=== PATIENT | male | born 1955 | race African-American/Black ===

== ENCOUNTER 2018-05-31 09:44 | Observation (INO) | payer OTHER ==
--- OUTSIDE RECORDS SUMMARY | 2018-05-31 09:47 | XMS REPORT | Summary of Care ---
:1955 Author Organization [facility] Address [address] [place], [place] [address]- Encounter HQ Frederick(FIN) [id number] Date(s): 08/19/15 - 08/19/15 [facility] [address] [place] [address]- [phone] Discharge Diagnosis: Arm swelling Discharge Disposition: Home Attending Physician: Agustin Yi DO Vital Signs Most recent to oldest [Reference Range]: 1 2 Height 172.72 cm (08/19/15 11:19 AM) Most recent to oldest [Reference Range]: 1 2 Temperature Oral [96.4-99.1 DegF] 98.3 DegF 98.3 DegF (08/19/15 5:17 PM) (08/19/15 11:19 AM) Most recent to oldest [Reference Range]: 1 2 Blood Pressure [90-140/60-90 mmHg] 145/77 mmHg 141/76 mmHg *HI* *HI* (08/19/15 5:17 PM) (08/19/15 11:19 AM) Most recent to oldest [Reference Range]: 1 2 Respiratory Rate [14-20 BRMIN] 17 BRMIN 16 BRMIN (08/19/15 5:17 PM) (08/19/15 11:19 AM) Most recent to oldest [Reference Range]: 1 2 Peripheral Pulse Rate [60-100 bpm] 66 bpm 67 bpm (08/19/15 5:17 PM) (08/19/15 11:19 AM) Most recent to oldest [Reference Range]: 1 2 Weight 118.182 kg (08/19/15 11:19 AM) Most recent to oldest [Reference Range]: 1 2 Body Mass Index 39.62 m2 (08/19/15 11:19 AM) Problem List Condition Effective Dates Status Health Status Informant Anxiety(Confirmed) Active Arthritis(Confirmed) Active Blood clotting disorder(Confirmed) Active CHF - Congestive heart Active failure(Confirmed) ESRD - End stage renal Active disease(Confirmed) Hypertension(Confirmed) Active Numbness of hand(Confirmed)1 Active 1Left hand Allergies, Adverse Reactions, Alerts Substance Reaction Severity Status NKDA Active Medications tramadol 50 mg oral tablet 25 mg=0.5 tab, PO, Q4H, PRN as needed for pain, X 7 day, # 21 tab, 0 Refill(s) Start Date: 08/19/15 Stop Date: 08/26/15 Status: Ordered Results ELECTROLYTES Most recent to oldest [Reference Range]: 1 Sodium Lvl [135-145 mEq/L] 136 mEq/L (08/19/15 4:04 PM) Potassium Lvl [3.5-5.1 mEq/L] 4.0 mEq/L (08/19/15 4:04 PM) Chloride Lvl [95-109 mEq/L] 98 mEq/L (08/19/15 4:04 PM) CO2 [24-32 mEq/L] 30 mEq/L (08/19/15 4:04 PM) AGAP [10.0-20.0 mEq/L] 12.0 mEq/L (08/19/15 4:04 PM) CHEM PANEL Most recent to oldest [Reference Range]: 1 Creatinine Lvl [0.5-1.4 mg/dL] 4.1 mg/dL *HI* (08/19/15 4:04 PM) eGFR 17 mL/min/1.73m2 1 *NA* (08/19/15 4:04 PM) BUN [7-22 mg/dL] 37 mg/dL *HI* (08/19/15 4:04 PM) Glucose Lvl [70-99 mg/dL] 100 mg/dL *HI* (08/19/15 4:04 PM) Calcium Lvl [8.5-10.5 mg/dL] 8.6 mg/dL (08/19/15 4:04 PM) 1Result Comment: The eGFR is calculated using the CKD-EPI formula. In most young , healthy individualsthe eGFR will be >90 mL/min/1.73m2. The eGFR declines with age. An eGFR of 60-89 may be normal in some populations, particularly the elderly, for whom the CKD-EPI formula has not been extensively validated. Use of the eGFR is not recommended in the following populations: Individuals with unstable creatinine concentrations, including patients and those with serious co-morbid conditions. Patients with extremes in muscle mass or diet. The data above are obtained from the National Kidney Disease Education Program ( NKDEP) which additionally recommends that when the eGFR is used in patients with extremes of body mass index for purposesof drug dosing, the eGFR should be multiplied by the estimated BMI. Immunizations No data available for this section Procedures Procedure Date Related Diagnosis Body Site Laparoscopic cholecystectomy Operation Operation Social History Social History Type Response Alcohol Past Smoking Status Never smoker; Type: Cigarettes; Exposure to Tobacco Smoke None; Cigarette Smoking Last 365 Days No; Reg Smoking Cessation Counseling No Assessment and Plan No data available for this section
--- OUTSIDE RECORDS SUMMARY | 2018-05-31 09:47 | XMS REPORT | Summary of Care ---
:1955 Author Encounter CLAUDIA Mack(DEBBY) [id number] Date(s): 04/20/15 - 04/20/15 [facility] [address] [place] [address]- Discharge Disposition: Home Physician Attending: Vargas Leone MD Physician_Referring: Vargas Leone MD Vital Signs Most recent to oldest 1 2 3 [Reference Range]: Height 172.72 cm (04/13/15 12:04 PM) Temperature Oral [96.4-99.1 98.0 DegF DegF] (04/13/15 12:07 PM) Blood Pressure [90-140/60-90 147/84 mmHg 127/68 mmHg 116/71 mmHg mmHg] *HI* (04/20/15 4:15 PM) (04/20/15 4:00 PM) (04/20/15 4:30 PM) Respiratory Rate [14-20 BRMIN] 13 BRMIN 11 BRMIN 8 BRMIN *LOW* *LOW* *LOW* (04/20/15 2:30 PM) (04/20/15 2:15 PM) (04/20/15 2:00 PM) Peripheral Pulse Rate [60-100 60 bpm bpm] (04/13/15 12:07 PM) Weight 99.091 kg (04/13/15 12:04 PM) Body Mass Index 33.22 m2 (04/13/15 12:04 PM) Problem List Condition Effective Dates Status Health Status Informant Anxiety(Confirmed) Active Arthritis(Confirmed) Active Blood clotting disorder(Confirmed) Active CHF - Congestive heart Active failure(Confirmed) ESRD - End stage renal Active disease(Confirmed) Hypertension(Confirmed) Active Numbness of hand(Confirmed)1 Active 1Left hand Allergies, Adverse Reactions, Alerts Substance Reaction Severity Status NKDA Active Medications acetaminophen 650 mg, Route: PO, Drug form: TAB, Q4H, Dosing Weight 99.091, kg, PRN Pain 1-3/ Temp > 100.4 F, Start date: 04/20/15 16:08:00, Duration: 30 day, Stop date: 16:07:00 Start Date: 04/20/15 Stop Date: 04/20/15 Status: Deletedacetaminophen-codeine #3 1 tab, Route: PO, Drug Form: TAB, kg, Q4H, PRN Pain Score 1-3, Start date: 04/20 16:08:00, Duration: 30 day, Stop date: 05/20/15 16:07:00 Start Date: 04/20/15 Stop Date: 04/20/15 Status: DeletedAncef 2 gm, Route: IVPB, ONCE, Dosing Weight 99.091, kg, Start date: 04/20/15 11:33:00 , Duration: 1 doses or times, Stop date: 04/20/15 11:33:00 Start Date: 04/20/15 Stop Date: 04/20/15 Status: DeletedAncef 1 gm, 100 mL, Route: IVPB, Drug form: INJ, PRE OP, kg, Start date: 04/13/15 13: 00:00, Duration: 30 day, Stop date: 05/13/15 12:59:00 Start Date: 04/13/15 Stop Date: 04/20/15 Status: DiscontinuedBiDil oral tablet 1 tab, PO, BID, # 30 tab, 0 Refill(s) Start Date: 04/13/15 Status: OrderedcloNIDine 0.2 mg oral tablet 0.2 mg, PO, TID, # 60 tab, 0 Refill(s) Start Date: 04/13/15 Status: OrdereddiphenhydrAMINE 12.5 mg, Route: IVP, Drug form: INJ, Q6H, Dosing Weight 99.091, kg, PRN Itching , Start date: 04/20/15 14:23:00, Duration: 30 day, Stop date: 05/20/15 14:22:00 Start Date: 04/20/15 Stop Date: 04/20/15 Status: DiscontinuedfentaNYL 50 microgram, Route: IVP, Q5Min, Dosing Weight 99.091, kg, PRN Pain Score 7-10, Start date: 04/20/1514:23:00, Duration: 2 doses or times, Stop date: Limited # of times Start Date: 04/20/15 Stop Date: 04/20/15 Status: DiscontinuedfentaNYL 25 microgram, Route: IVP, Q5Min, Dosing Weight 99.091, kg, PRN Pain Score 4-6, Start date: 04/20/15 14:23:00, Duration: 4 doses or times, Stop date: Limited # of times Start Date: 04/20/15 Stop Date: 04/20/15 Status: Discontinuedflumazenil 0.2 mg, Route: IVP, PRN, Dosing Weight 99.091, kg, PRN Benzodiazepine Reversal, Initial dose, Start date: 04/20/15 14:23:00, Duration: 30 day, Stop date: 14:22:00 Start Date: 04/20/15 Stop Date: 04/20/15 Status: Discontinuedfurosemide 40 mg oral tablet 40 mg=1 tab, PO, Daily, # 30 tab, 0 Refill(s) Start Date: 04/13/15 Status: Orderedglycopyrrolate 0.2 mg, Route: IVP, Q5Min, Dosing Weight 99.091, kg, PRN Bradycardia, Start date : 04/20/15 14:23:00,Duration: 3 doses or times, Stop date: Limited # of times Start Date: 04/20/15 Stop Date: 04/20/15 Status: DiscontinuedhydrALAZINE 10 mg, Route: IVP, Q20Min, Dosing Weight 99.091, kg, PRN Elevated BP, Start date : 04/20/15 14:23:00,Duration: 2 doses or times, Stop date: Limited # of times Start Date: 04/20/15 Stop Date: 04/20/15 Status: Discontinuedhydromorphone 0.5 mg, Route: IVP, Q5Min, Dosing Weight 99.091, kg, PRN Pain Score 7-10, Start date: 04/20/15 14:23:00, Duration: 4 doses or times, Stop date: Limited # of times Start Date: 04/20/15 Stop Date: 04/20/15 Status: DiscontinuedketOROLAC 30 mg, Route: IVP, ONCE, Dosing Weight 99.091, kg, Start date: 04/20/15 14:23:00 , Duration: 1 doses or times, Stop date: 04/20/15 14:23:00 Start Date: 04/20/15 Stop Date: 04/20/15 Status: DiscontinuedLactated Ringers Injection IV 1000 mL 1,000 mL, Rate: 25 ml/hr, Infuse over: 40 hr, Route: IV, Dosing Weight 99.091 kg , Total Volume: 1,000, Start date: 04/20/15 11:28:00, Duration: 30 day, Stop date: 05/20/15 11:27:00 Start Date: 04/20/15 Stop Date: 04/20/15 Status: Discontinuedmeperidine 12.5 mg, Route: IVP, Q30Min, Dosing Weight 99.091, kg, PRN Other -See Comment, For shivering, Start date: 04/20/15 14:23:00, Duration: 2 doses or times, Stop date: Limited # of times Start Date: 04/20/15 Stop Date: 04/20/15 Status: Discontinuedmetoprolol 1 mg, Route: IVP, Q5Min, Dosing Weight 99.091, kg, PRN Other -See Comment, Start date: 04/20/15 14:23:00, Duration: 5 doses or times, Stop date: Limited # of times Start Date: 04/20/15 Stop Date: 04/20/15 Status: DiscontinuedMetoprolol Tartrate 100 mg oral tablet 100 mg=1 tab, PO, BID, # 60 tab, 0 Refill(s) Start Date: 04/13/15 Status: Orderedminoxidil 2.5 mg oral tablet 5 mg=2 tab, PO, BID, # 120 tab, 0 Refill(s) Start Date: 04/13/15 Status: Orderedmorphine Sulfate 4 mg, Route: IVP, Q6H, kg, PRN Pain Score 4-6, Start date: 04/20/15 16:08:00, Duration: 30 day, Stopdate: 05/20/15 16:07:00 Start Date: 04/20/15 Stop Date: 04/20/15 Status: Deletedmorphine Sulfate 6 mg, Route: IVP, Q6H, kg, PRN Pain Score 6-10, Start date: 04/20/15 16:08:00, Duration: 30 day, Stop date: 05/20/15 16:07:00 Start Date: 04/20/15 Stop Date: 04/20/15 Status: Deletedmorphine Sulfate 2 mg, Route: IVP, Q3H, Dosing Weight 99.091, kg, PRN Pain Score 1-3, Start date : 04/20/15 16:08:00, Duration: 30 day, Stop date: 05/20/15 16:07:00 Start Date: 04/20/15 Stop Date: 04/20/15 Status: Deletedmorphine Sulfate 4 mg, Route: IVP, Q5Min, Dosing Weight 99.091, kg, PRN Pain Score 7-10, Start date: 04/20/15 14:23:00, Duration: 3 doses or times, Stop date: Limited # of times Start Date: 04/20/15 Stop Date: 04/20/15 Status: Discontinuedmorphine Sulfate 2 mg, Route: IVP, Q5Min, Dosing Weight 99.091, kg, PRN Pain Score 4-6, Start date: 04/20/15 14:23:00, Duration: 5 doses or times, Stop date: Limited # of times Start Date: 04/20/15 Stop Date: 04/20/15 Status: Discontinuednaloxone 0.04 mg, Route: IVP, Q2MIN, Dosing Weight 99.091, kg, PRN Narcotic Reversal, Start date: 04/20/15 14:23:00, Duration: 8 doses or times, Stop date: Limited # of times Start Date: 04/20/15 Stop Date: 04/20/15 Status: Discontinuedondansetron 4 mg, Route: IVP, ONCE, Dosing Weight 99.091, kg, PRN Nausea & Vomiting, Start date: 04/20/15 14:23:00 Start Date: 04/20/15 Stop Date: 04/20/15 Status: DiscontinuedoxyCODONE 5 mg, Route: PO, Drug form: TAB, Q4H, Dosing Weight 99.091, kg, PRN Pain Score 4 -6, Start date: 04/20/15 14:23:00, Duration: 30 day, Stop date: 05/20/15 14:22: 00 Start Date: 04/20/15 Stop Date: 04/20/15 Status: DiscontinuedoxyCODONE 10 mg, Route: PO, Drug form: TAB, Q4H, Dosing Weight 99.091, kg, PRN Pain Score 7-10, Start date: 04/20/15 14:23:00, Duration: 30 day, Stop date: 05/20/15 14:22 :00 Start Date: 04/20/15 Stop Date: 04/20/15 Status: Discontinuedpromethazine 6.25 mg, Route: IVPB, ONCE, Dosing Weight 99.091, kg, PRN Nausea & Vomiting , Start date: 04/20/15 14:23:00 Start Date: 04/20/15 Stop Date: 04/20/15 Status: DiscontinuedSodium Chloride 0.9% IV 500 mL 500 mL, Rate: 25 ml/hr, Infuse over: 20 hr, Route: IV, Dosing Weight 99.091 kg, Total Volume: 500, Start date: 04/20/15 11:30:00, Duration: 30 day, Stop date: 05/20/15 11:29:00 Start Date: 04/20/15 Stop Date: 04/20/15 Status: Voided With Resultstamsulosin 0.4 mg oral capsule 0.4 mg=1 cap, PO, Daily, # 30 cap, 0 Refill(s) Start Date: 04/13/15 Status: Orderedtramadol 50 mg oral tablet 50 mg=1 tab, PO, Q6H, PRN Pain, # 40 tab, 0 Refill(s) Start Date: 04/13/15 Stop Date: 04/23/15 Status: Ordered Results ELECTROLYTES Most recent to oldest [Reference Range]: 1 2 Sodium Lvl [135-145 mEq/L] 140 mEq/L (04/13/15 1:57 PM) Potassium Lvl [3.5-5.1 mEq/L] 4.7 mEq/L 4.6 mEq/L (04/20/15 11:08 AM) (04/13/15 1:57 PM) Chloride Lvl [95-109 mEq/L] 110 mEq/L *HI* (04/13/15 1:57 PM) CO2 [24-32 mEq/L] 22 mEq/L *LOW* (04/13/15 1:57 PM) AGAP [10.0-20.0 mEq/L] 12.6 mEq/L (04/13/15 1:57 PM) CHEM PANEL Most recent to oldest [Reference Range]: 1 2 Creatinine Lvl [0.5-1.4 mg/dL] 5.3 mg/dL *HI* (04/13/15 1:57 PM) eGFR 12 mL/min/1.73m2 1 *NA* (04/13/15 1:57 PM) BUN [7-22 mg/dL] 76 mg/dL *HI* (04/13/15 1:57 PM) Glucose Lvl [70-99 mg/dL] 96 mg/dL 2 (04/13/15 1:57 PM) Calcium Lvl [8.5-10.5 mg/dL] 8.3 mg/dL *LOW* (04/13/15 1:57 PM) 1Result Comment: The eGFR is calculated [...] eGFR should be multiplied by the estimated BMI.2Interpretive Data: Adult reference range values reflect the clinical guidelines of the [place] [employer].HEMATOLOGY Most recent to oldest [Reference Range]: 1 2 WBC [3.7-10.4 K/CMM] 4.7 K/CMM (04/13/15 1:57 PM) RBC [4.70-6.10 M/CMM] 3.75 M/CMM *LOW* (04/13/15 1:57 PM) Hgb [14.0-18.0 g/dL] 10.5 g/dL *LOW* (5/20/15 1:57 PM) Hct [42.0-54.0 %] 32.6 % *LOW* (04/13/15 1:57 PM) MCV [80.0-94.0 fL] 86.8 fL (04/13/15 1:57 PM) MCH [27.0-31.0 pg] 28.1 pg (04/13/15 1:57 PM) MCHC [32.0-36.0 g/dL] 32.3 g/dL (04/13/15 1:57 PM) RDW [11.5-14.5 %] 19.3 % *HI* (04/13/15 1:57 PM) Platelet [133-450 K/CMM] 150 K/CMM (04/13/15 1:57 PM) MPV [7.4-10.4 fL] 8.1 fL (04/13/15 1:57 PM) Segs [45.0-75.0 %] 63.6 % (04/13/15 1:57 PM) Lymphocytes [20.0-40.0 %] 17.2 % *LOW* (04/13/15 1:57 PM) Monocytes [2.0-12.0 %] 10.8 % (04/13/15 1:57 PM) Eosinophils [0.0-4.0 %] 7.0 % *HI* (04/13/15 1:57 PM) Basophils [0.0-1.0 %] 1.4 % *HI* (04/13/15 1:57 PM) Segs-Bands # [1.5-8.1 K/CMM] 3.0 K/CMM (04/13/15 1:57 PM) Lymphocytes # [1.0-5.5 K/CMM] 0.8 K/CMM *LOW* (04/13/15 1:57 PM) Monocytes # [0.0-0.8 K/CMM] 0.5 K/CMM (04/13/15 1:57 PM) Eosinophils # [0.0-0.5 K/CMM] 0.3 K/CMM (04/13/15 1:57 PM) Basophils # [0.0-0.2 K/CMM] 0.1 K/CMM (04/13/15 1:57 PM) PT [12.0-14.7 seconds] 14.6 seconds (04/13/15 1:57 PM) INR [0.85-1.17] 1.13 3 (04/13/15 1:57 PM) PTT [22.9-35.8 seconds] 35.6 seconds 4 (04/13/15 1:57 PM) 3Interpretive Data: RECOMMENDED RANGES FOR PROTIME INR: 2.0-3.0 for most medical and surgical thromboembolic states. 2.5-3.5 for artificial heart valves and recurrent embolism. INR SHOULD BE USED ONLY FOR PATIENTS ON STABLE ANTICOAGULANT THERAPY.4Interpretive Data: Heparin Therapeutic Range: 57 - 92 Seconds Immunizations No data available for this section [...]
--- OUTSIDE RECORDS SUMMARY | 2018-05-31 09:47 | XMS REPORT | Summary of Care ---
:1955 Author Organization [facility] Address [address] [place], [place] [address]- Encounter HQ Marilyn_becca(FIN) [id number] Date(s): 10/31/16 - 10/31/16 [facility] [address] [place] [address]- [phone] Discharge Disposition: Home or Self Care Attending Physician: Vargas Leone MD Referring Physician: Vargas Leone MD Vital Signs No data available for this section Problem List Condition Effective Dates Status Health Status Informant Anxiety(Confirmed) Active Arteriovenous fistula Active occlusion(Confirmed)1 Arthritis(Confirmed) Active Blood clotting disorder(Confirmed) Active CHF - Congestive heart Active failure(Confirmed) ESRD - End stage renal Active disease(Confirmed) Hypertension(Confirmed) Active Inferior vena cava filter Active present(Confirmed) Numbness of hand(Confirmed)2 Active 1left [id number] hand Allergies, Adverse Reactions, Alerts Substance Reaction Severity Status NKDA Active Medications No data available for this section Results No data available for this section Immunizations No data available for this section Procedures Procedure Date Related Diagnosis Body Site Creation of brachial-cephalic fistula 04/20/15 Laparoscopic cholecystectomy Operation Operation Social History Social History Type Response Alcohol Past Smoking Status Never smoker; Type: Cigarettes; Exposure to Tobacco Smoke None; Cigarette Smoking Last 365 Days No; Reg Smoking Cessation Counseling No Assessment and Plan No data available for this section
--- OUTSIDE RECORDS SUMMARY | 2018-05-31 09:47 | XMS REPORT | Summary of Care ---
:1955 Author Encounter HQ Marilyn_becca(DEBBY) [id number] Date(s): 04/13/15 - 04/13/15 [facility] [address] [place] [address]- Discharge Disposition: Home Physician Attending: Vargas Leone MD Physician_Referring: Vargas Leone MD Vital Signs No data [...]
--- OUTSIDE RECORDS SUMMARY | 2018-05-31 09:47 | XMS REPORT | Summary of Care ---
:1955 Author Organization [facility] Address [address] [place], [place] [address]- Encounter HQ Frederick(DEBBY) [id number] Date(s): 08/22/15 - 08/22/15 [facility] [address] [place] [address]- [phone] Final: End Stage Renal Disease Final: Other Complications Due to Renal Dialysis Device, Implant, and Graft Final: Hypertensive Chronic Kidney Disease, Unspecified, with Chronic Kidney Disease Stage V or End Stage Renal Disease Final: Renal Dialysis Status Final: Personal History of Venous Thrombosis and Embolism Final: First Degree Atrioventricular Block Discharge Disposition: Home Attending Physician: Vargas Leone MD Referring Physician: Vargas Leone MD Vital Signs Most recent to oldest [Reference Range]: 1 2 3 Height 172.72 cm (08/22/15 9:25 AM) Most recent to oldest [Reference Range]: 1 2 3 Temperature Oral [96.4-99.1 DegF] 98 DegF (08/22/15 10:28 AM) Most recent to oldest 1 2 3 [Reference Range]: Blood Pressure [90-140/60-90 124/54 mmHg 122/59 mmHg 128/62 mmHg mmHg] (08/22/15 3:15 PM) (08/22/15 3:00 PM) (08/22/15 2:45 PM) Most recent to oldest 1 2 3 [Reference Range]: Respiratory Rate [14-20 BRMIN] 18 BRMIN 18 BRMIN 16 BRMIN (08/22/15 3:15 PM) (08/22/15 3:00 PM) (08/22/15 2:45 PM) Most recent to oldest [Reference Range]: 1 2 3 Peripheral Pulse Rate [60-100 bpm] 66 bpm (08/22/15 10:28 AM) Most recent to oldest [Reference Range]: 1 2 3 Weight 99.091 kg (08/22/15 9:25 AM) Most recent to oldest [Reference Range]: 1 2 3 Body Mass Index 33.22 m2 (08/22/15 9:25 AM) Problem List Condition Effective Dates Status Health Status Informant Anxiety(Confirmed) Active Arteriovenous fistula Active occlusion(Confirmed)1 Arthritis(Confirmed) Active Blood clotting disorder(Confirmed) Active CHF - Congestive heart Active failure(Confirmed) ESRD - End stage renal Active disease(Confirmed) Hypertension(Confirmed) Active Inferior vena cava filter Active present(Confirmed) Numbness of hand(Confirmed)2 Active 1left [id number] hand Allergies, Adverse Reactions, Alerts Substance Reaction Severity Status NKDA Active Medications acetaminophen-codeine #3 1 tab, Route: PO, Drug Form: TAB, Dosing Weight 99.091, kg, Q4H, PRN Pain Score 4-6, Start date: 08/22/15 13:23:00, Duration: 30 day, Stop date: 09/21/15 13:22: 00 Start Date: 08/22/15 Stop Date: 08/22/15 Status: Discontinuedacetaminophen-codeine #3 2 tab, Route: PO, Drug Form: TAB, Dosing Weight 99.091, kg, Q4H, PRN Pain Score 4-6, Start date: 08/22/15 13:23:00, Duration: 30 day, Stop date: 09/21/15 13:22: 00 Start Date: 08/22/15 Stop Date: 08/22/15 Status: DiscontinuedAncef 2 gm, Route: IVPB, PRE OP, Dosing Weight 118.182, kg, Start date: 08/22/15 10:00 :00, Duration: 30 day, Stop date: 09/21/15 9:59:00 Start Date: 08/22/15 Stop Date: 08/22/15 Status: CompletedDialyvite 800 Ultra D 0 Refill(s) Start Date: 08/22/15 Status: Orderedmorphine Sulfate 2 mg, Route: IVP, Q3H, Dosing Weight 99.091, kg, PRN Pain Score 1-3, Start date : 08/22/15 13:23:00, Duration: 30 day, Stop date: 09/21/15 13:22:00 Start Date: 08/22/15 Stop Date: 08/22/15 Status: DiscontinuedNorco 5/325 oral tablet 1-2 tab, PO, Q4-6H, PRN Pain, # 30 tab, 0 Refill(s) Start Date: 08/22/15 Stop Date: 08/27/15 Status: OrderedSodium Chloride 0.9% IV 500 mL 500 mL, Rate: 25 ml/hr, Infuse over: 20 hr, Route: IV, Dosing Weight 99.091 kg, Total Volume: 500, Start date: 08/22/15 11:59:00, Duration: 30 day, Stop date: 09/21/15 11:58:00 Start Date: 08/22/15 Stop Date: 08/22/15 Status: Discontinuedvancomycin 1 gm, Route: IVPB, Drug form: INJ, PRE OP, Dosing Weight 118.182, kg, Start date : 08/22/15 10:00:00,Duration: 30 day, Stop date: 09/21/15 9:59:00 Start Date: 08/22/15 Stop Date: 08/22/15 Status: Completed Results ELECTROLYTES Most recent to oldest [Reference Range]: 1 Sodium Lvl [135-145 mEq/L] 139 mEq/L (08/22/15 9:59 AM) Potassium Lvl [3.5-5.1 mEq/L] 3.9 mEq/L (08/22/15 9:59 AM) Chloride Lvl [95-109 mEq/L] 101 mEq/L (08/22/15 9:59 AM) CO2 [24-32 mEq/L] 31 mEq/L (08/22/15 9:59 AM) AGAP [10.0-20.0 mEq/L] 10.9 mEq/L (08/22/15 9:59 AM) CHEM PANEL Most recent to oldest [Reference Range]: 1 Creatinine Lvl [0.5-1.4 mg/dL] 5.3 mg/dL *HI* (08/22/15 9:59 AM) eGFR 12 mL/min/1.73m2 1 *NA* (08/22/15 9:59 AM) BUN [7-22 mg/dL] 49 mg/dL *HI* (08/22/15 9:59 AM) Glucose Lvl [70-99 mg/dL] 103 mg/dL *HI* (08/22/15 9:59 AM) Calcium Lvl [8.5-10.5 mg/dL] 8.6 mg/dL (08/22/15 9:59 AM) 1Result Comment: The eGFR is calculated using [...] eGFR should be multiplied by the estimated BMI.HEMATOLOGY Most recent to oldest [Reference Range]: 1 WBC [3.7-10.4 K/CMM] 5.4 K/CMM (08/22/15 9:59 AM) RBC [4.70-6.10 M/CMM] 3.52 M/CMM *LOW* (08/22/15 9:59 AM) Hgb [14.0-18.0 g/dL] 9.3 g/dL *LOW* (08/22/15 9:59 AM) Hct [42.0-54.0 %] 29.7 % *LOW* (08/22/15 9:59 AM) MCV [80.0-94.0 fL] 84.3 fL (08/22/15 9:59 AM) MCH [27.0-31.0 pg] 26.4 pg *LOW* (08/22/15 9:59 AM) MCHC [32.0-36.0 g/dL] 31.3 g/dL *LOW* (08/22/15 9:59 AM) RDW [11.5-14.5 %] 17.2 % *HI* (08/22/15 9:59 AM) Platelet [133-450 K/CMM] 224 K/CMM (08/22/15 9:59 AM) MPV [7.4-10.4 fL] 7.7 fL (08/22/15 9:59 AM) Segs [45.0-75.0 %] 56.3 % (08/22/15 9:59 AM) Lymphocytes [20.0-40.0 %] 17.0 % *LOW* (08/22/15 9:59 AM) Monocytes [2.0-12.0 %] 13.0 % *HI* (08/22/15 9:59 AM) Eosinophils [0.0-4.0 %] 13.3 % *HI* (08/22/15 9:59 AM) Basophils [0.0-1.0 %] 0.4 % (08/22/15 9:59 AM) Segs-Bands # [1.5-8.1 K/CMM] 3.0 K/CMM (08/22/15 9:59 AM) Lymphocytes # [1.0-5.5 K/CMM] 0.9 K/CMM *LOW* (08/22/15 9:59 AM) Monocytes # [0.0-0.8 K/CMM] 0.7 K/CMM (08/22/15 9:59 AM) Eosinophils # [0.0-0.5 K/CMM] 0.7 K/CMM *HI* (08/22/15 9:59 AM) PT [12.0-14.7 seconds] 14.1 seconds (08/22/15 9:59 AM) INR [0.85-1.17] 1.06 (08/22/15 9:59 AM) PTT [22.9-35.8 seconds] 37.6 seconds *HI* (08/22/15 9:59 AM) Immunizations No data available for this section Procedures Procedure Date Related Diagnosis Body Site Creation of brachial-cephalic fistula 04/20/15 Laparoscopic cholecystectomy Operation Operation Social History Social History Type Response Alcohol Past Smoking Status Never smoker; Exposure to Tobacco Smoke None; Cigarette Smoking Last 365 Days No; Reg Smoking Cessation Counseling No Assessment and Plan No data available for this section
--- OUTSIDE RECORDS SUMMARY | 2018-05-31 09:47 | XMS REPORT | Summary of Care ---
:1955 Author Organization [facility] Address [address] [place], [place] [address]- Encounter HQ [place](DEBBY) [phone] Date(s): 12/10/16 - 12/10/16 [facility] [address] [place] [address]- Discharge Disposition: Home or Self Care Attending Physician: Vargas Leone MD Referring Physician: Vargas Leone MD Vital Signs Most recent to oldest 1 2 3 [Reference Range]: Height 172.72 cm (12/05/16 8:21 AM) Temperature Oral [96.4-99.1 97.5 DegF DegF] (12/05/16 8:25 AM) Blood Pressure [90-140/60-90 129/77 mmHg 126/84 mmHg 120/75 mmHg mmHg] (12/10/16 1:15 PM) (12/10/16 1:00 PM) (12/10/16 12:45 PM) Respiratory Rate [14-20 17 BRMIN 14 BRMIN 13 BRMIN BRMIN] (12/10/16 12:45 PM) (12/10/16 12:30 PM) *LOW* (12/10/16 12:15 PM) Peripheral Pulse Rate 87 bpm 78 bpm [60-100 bpm] (12/10/16 1:00 PM) (12/05/16 8:25 AM) Weight 109.136 kg (12/05/16 8:21 AM) Body Mass Index 36.58 m2 (12/05/16 8:21 AM) Problem List Condition Effective Dates Status Health Status Informant Anxiety(Confirmed) Active Arteriovenous fistula Resolved occlusion(Confirmed)1 Arthritis(Confirmed) Active Blood clotting disorder(Confirmed) Resolved CHF - Congestive heart Active failure(Confirmed) ESRD - End stage renal Active disease(Confirmed) Hypertension(Confirmed) Active Inferior vena cava filter Active present(Confirmed) Numbness of hand(Confirmed)2 Active 1left [id number] hand Allergies, Adverse Reactions, Alerts Substance Reaction Severity Status NKDA Active Medications acetaminophen-hydrocodone 325 mg-10 mg oral tablet 1 tab, Route: PO, Dosing Weight 109.136, kg, Q4H, PRN Pain Score 4-6, Start date : 12/10/16 12:06:00 BEADER, Duration: 30 day, Stop date: 01/09/17 12:05:00 BEADER Start Date: 12/10/16 Stop Date: 12/10/16 Status: Discontinuedacetaminophen-hydrocodone 325 mg-5 mg oral tablet 1 tab, Route: PO, Dosing Weight 109.136, kg, Q4H, PRN Pain Score 4-6, Start date : 12/10/16 12:06:00 BEADER, Duration: 30 day, Stop date: 01/09/17 12:05:00 BEADER Start Date: 12/10/16 Stop Date: 12/10/16 Status: DiscontinuedAncef 2 gm, 100 mL, Route: IVPB, Drug form: INJ, PRE OP, Dosing Weight 98.807, kg, Start date: 12/05/16 8:00:00 BEADER, Duration: 30 day, Stop date: 01/04/17 7:59:00 BEADER Notes: Same as: Ancef Start Date: 12/05/16 Stop Date: 12/10/16 Status: Discontinuedcalcium acetate 667 mg oral tablet 1,334 mg=2 tab, PO, TID-Meals, # 180 tab, 3 Refill(s) Start Date: 12/05/16 Status: OrderedceFAZolin (ANES) (ANES) Route: IV, Drug form: INJ, Start date: 12/10/16 11:06:00 BEADER, Stop date: 12:06:00 BEADER Start Date: 12/10/16 Stop Date: 12/10/16 Status: CompleteddiphenhydrAMINE (ANES) Route: IV, Drug form: INJ, ONCE, Stop date: 12/10/16 11:42:00 BEADER Start Date: 12/10/16 Stop Date: 12/10/16 Status: CompletedfentaNYL (ANES) Route: IV, Drug form: INJ, ONCE, Stop date: 12/10/16 11:42:00 BEADER Start Date: 12/10/16 Stop Date: 12/10/16 Status: Completedhydromorphone (ANES) Route: IV, Drug form: INJ, ONCE, Stop date: 12/10/16 11:42:00 BEADER Start Date: 12/10/16 Stop Date: 12/10/16 Status: CompletedLactated Ringers Injection IV 1000 mL 1,000 mL, Rate: 25 ml/hr, Infuse over: 40 hr, Route: IV, Dosing Weight 109.136 kg, Total Volume: 1,000, Start date: 12/10/16 9:18:00 BEADER, Duration: 30 day, Stop date: 01/09/17 9:17:00 BEADER Start Date: 12/10/16 Stop Date: 12/10/16 Status: Discontinuedmidazolam (ANES) Route: IV, Drug form: SOLN, ONCE, Stop date: 12/10/16 11:42:00 BEADER Start Date: 12/10/16 Stop Date: 12/10/16 Status: Completedmorphine Sulfate 2 mg, Route: IVP, Q3H, Dosing Weight 109.136, kg, PRN Pain Score 1-3, Start date : 12/10/16 12:06:00 BEADER, Duration: 30 day, Stop date: 01/09/17 12:05:00 BEADER Start Date: 12/10/16 Stop Date: 12/10/16 Status: Discontinuedondansetron (ANES) Route: IV, Drug form: INJ, ONCE, Stop date: 12/10/16 11:42:00 BEADER Start Date: 12/10/16 Stop Date: 12/10/16 Status: CompletedRenvela 800 mg oral tablet 1,600 mg=2 tab, PO, TID-Meals, # 180 tab, 0 Refill(s) Start Date: 12/05/16 Stop Date: 01/04/17 Status: Orderedsodium chloride 0.9% 500 ml INJ (ANES) Route: IV, Total Volume: 500, Start date: 12/10/16 10:57:00 BEADER, Stop date: 11:57:00 BEADER Start Date: 12/10/16 Stop Date: 12/10/16 Status: CompletedSodium Chloride 0.9% IV 500 mL 500 mL, Rate: 25 ml/hr, Infuse over: 20 hr, Route: IV, Dosing Weight 109.136 kg , Total Volume: 500, Start date: 12/10/16 9:19:00 BEADER, Duration: 30 day, Stop date: 01/09/17 9:18:00 BEADER Start Date: 12/10/16 Stop Date: 12/10/16 Status: Discontinued Results ELECTROLYTES Most recent to oldest [Reference Range]: 1 2 Sodium Lvl [135-145 mEq/L] 135 mEq/L (12/05/16 8:15 AM) Potassium Lvl [3.5-5.1 mEq/L] 4.6 mEq/L 4.8 mEq/L (12/10/16 6:42 AM) (12/05/16 8:15 AM) Chloride Lvl [95-109 mEq/L] 98 mEq/L (12/05/16 8:15 AM) CO2 [24-32 mEq/L] 25 mEq/L (12/05/16 8:15 AM) AGAP [10.0-20.0 mEq/L] 16.8 mEq/L (12/05/16 8:15 AM) CHEM PANEL Most recent to oldest [Reference Range]: 1 2 Creatinine Lvl [0.50-1.40 mg/dL] 11.00 mg/dL *HI* (12/05/16 8:15 AM) eGFR 5 mL/min/1.73m2 1 *NA* (12/05/16 8:15 AM) BUN [7-22 mg/dL] 52 mg/dL *HI* (12/05/16 8:15 AM) Glucose Lvl [70-99 mg/dL] 106 mg/dL *HI* (12/05/16 8:15 AM) Calcium Lvl [8.5-10.5 mg/dL] 8.1 mg/dL *LOW* (12/05/16 8:15 AM) 1Result Comment: The eGFR is calculated [...] [Reference Range]: 1 2 WBC [3.7-10.4 K/CMM] 8.3 K/CMM (12/05/16 8:15 AM) RBC [4.70-6.10 M/CMM] 3.91 M/CMM *LOW* (12/05/16 8:15 AM) Hgb [14.0-18.0 g/dL] 11.1 g/dL *LOW* (12/05/16 8:15 AM) Hct [42.0-54.0 %] 34.0 % *LOW* (12/05/16 8:15 AM) MCV [80.0-94.0 fL] 86.9 fL (12/05/16 8:15 AM) MCH [27.0-31.0 pg] 28.4 pg (12/05/16 8:15 AM) MCHC [32.0-36.0 g/dL] 32.7 g/dL (12/05/16 8:15 AM) RDW [11.5-14.5 %] 14.9 % *HI* (12/05/16 8:15 AM) Platelet [133-450 K/CMM] 210 K/CMM (12/05/16 8:15 AM) MPV [7.4-10.4 fL] 8.0 fL (12/05/16 8:15 AM) Segs [45.0-75.0 %] 71.0 % (12/05/16 8:15 AM) Lymphocytes [20.0-40.0 %] 14.9 % *LOW* (12/05/16 8:15 AM) Monocytes [2.0-12.0 %] 9.0 % (12/05/16 8:15 AM) Eosinophils [0.0-4.0 %] 4.2 % *HI* (12/05/16 8:15 AM) Basophils [0.0-1.0 %] 0.9 % (12/05/16 8:15 AM) Segs-Bands # [1.5-8.1 K/CMM] 5.9 K/CMM (12/05/16 8:15 AM) Lymphocytes # [1.0-5.5 K/CMM] 1.2 K/CMM (12/05/16 8:15 AM) Monocytes # [0.0-0.8 K/CMM] 0.7 K/CMM (12/05/16 8:15 AM) Eosinophils # [0.0-0.5 K/CMM] 0.3 K/CMM (12/05/16 8:15 AM) Basophils # [0.0-0.2 K/CMM] 0.1 K/CMM (12/05/16 8:15 AM) PT [12.0-14.7 seconds] 13.4 seconds (12/05/16 8:15 AM) INR [0.85-1.17] 1.00 (12/05/16 8:15 AM) PTT [22.9-35.8 seconds] 31.8 seconds (12/05/16 8:15 AM) Immunizations No data available for this section Procedures Procedure Date Related Diagnosis Body Site Percutaneous transluminal balloon angioplasty 12/02/15 Creation of brachial-cephalic fistula 04/20/15 Insertion of tunneled dialysis catheter using fluoroscopic guidance1 Laparoscopic cholecystectomy Operation Operation 1LUE fistulogram Social History Social History Type Response Alcohol Past Smoking Status Never smoker; Exposure to Tobacco Smoke None; Cigarette Smoking Last 365 Days No; Reg Smoking Cessation Counseling No Assessment and Plan No data available for this section
--- OUTSIDE RECORDS SUMMARY | 2018-05-31 09:47 | XMS REPORT | Continuity of Care Document ---
:1955 Author Organization Interface Problems Problem Status Onset Classification Date Comments Source Date Reported UNK Active 12/04/19 17 [facility] BUE DX: Active 10/31/20 [id number] 16 [facility] D COMPLICATI N18.6 Active 09/08/20 15 [facility] 585.6 Active 08/22/20 15 [facility] Discharge 08/19/20 08/22/2015 Diagnosis: Arm 15 [facility] swelling OTHER Active 08/19/20 15 [facility] BUE DX:729.5-ACUTE Active 03/30/20 POSTOPERATIVE PAIN 15 [facility] O Anxiety Active Problem 12/13/2016 [facility] Arthritis Active Problem 12/13/2016 [facility] Blood clotting Resolved Problem 12/13/2016 disorder [facility] CHF - Congestive Active Problem 12/13/2016 heart failure [facility] ESRD - End stage Active Problem 12/13/2016 renal disease [facility] Hypertension Active Problem 12/13/2016 [facility] Numbness of Active Problem 08/22/2015 Left hand hand<sup>1</sup> [facility] Arteriovenous Resolved Problem 12/13/2016 left arm fistula [facility] occlusion<sup>1</chan p> 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 [facility] Numbness of Active Problem 12/13/2016 Left hand hand<sup>2</sup> [facility] Final: End Stage 08/25/2015 Renal Disease [facility] Final: Other 08/25/2015 Complications Due [facility] to Renal Dialysis Device, Implant, and Graft Final: Hypertensive 08/25/2015 Chronic Kidney [facility] Disease, Unspecified, with Chronic Kidney Disease Stage V or End Stage Renal Disease Final: Renal 08/25/2015 Dialysis Status [facility] Final: Personal 08/25/2015 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 08/25/2015 Atrioventricular [facility] Block END STAGE RENAL Active DISEASE [facility] Medications Medication Details Route Status Patient Ordering Order Source Instructions Provider Date Morphine 2 mg, Route: Inactive IVP, Q3H, 2016 [facility] Dosing Weight 109.136, kg, PRN Pain Score 1-3, Start date: 12/10/16 12:06:00 [employer], Duration: 30 day, Stop date: 01/09/17 12:05:00 [employer] Acetaminophen 325 1 tab, Route: Inactive 12/10/ MH MG / Hydrocodone PO, Dosing 2017 [facility] Bitartrate 10 MG Weight 109.136, Oral Tablet kg, Q4H, PRN Pain Score 4-6, Start date: 12/10/16 12:06:00 [employer], Duration: 30 day, Stop date: 01/09/17 12:05:00 [employer] Acetaminophen 325 1 tab, Route: Inactive MH MG / Hydrocodone PO, Dosing 2017 [facility] Bitartrate 5 MG Weight 109.136, Oral Tablet kg, Q4H, PRN Pain Score 4-6, Start date: 12/10/16 12:06:00 [employer], Duration: 30 day, Stop date: 01/09/17 12:05:00 [employer] diphenhydrAMINE Route: IV, Drug Inactive MH (ANES) form: INJ, 2016, Stop date: 12/10/16 11:42:00 [employer] ondansetron Route: IV, Drug Inactive MH (ANES) form: INJ, 2016 ONCE, Stop date: 12/10/16 11:42:00 [employer] fentaNYL (ANES) Route: IV, Drug Inactive MH form: INJ, 2016 ONCE, Stop date: 12/10/16 11:42:00 [employer] midazolam (ANES) Route: IV, Drug Inactive MH form: SOLN, 2016, Stop date: 12/10/16 11:42:00 [employer] hydromorphone Route: IV, Drug Inactive MH (ANES) form: INJ, 2016 ONCE, Stop date: 12/10/16 11:42:00 [employer] ceFAZolin (ANES) Route: IV, Drug Inactive MH (ANES) form: INJ, 2016 Start date: 12/10/16 11:06:00 [employer], Stop date: 12/10/16 12:06:00 [employer] sodium chloride Route: IV, Inactive 0.9% 500 ml INJ Total Volume: 2016 (ANES) 500, Start date: 12/10/16 10:57:00 [employer], Stop date: 12/10/16 11:57:00 [employer] Sodium Chloride 500 mL, Rate: Inactive 0.154 MEQ/ML 25 ml/hr, 2016 [facility] Injectable Infuse over: 20 Solution hr, Route: IV, Dosing Weight 109.136 kg, Total Volume: 500, Start date: 12/10/16 9:19:00 [employer], Duration: 30 day, Stop date: 01/09/17 9:18:00 [employer] Calcium Chloride 1,000 mL, Rate: Inactive 0.0014 MEQ/ML / 25 ml/hr, 2016 [facility] Potassium Infuse over: 40 Chloride 0.004 hr, Route: IV, MEQ/ML / Sodium Dosing Weight Chloride 0.103 109.136 kg, MEQ/ML / Sodium Total Volume: Lactate 0.028 1,000, Start MEQ/ML Injectable date: 12/10/16 Solution 9:18:00 [employer], Duration: 30 day, Stop date: 01/09/17 9:17:00 [employer] calcium acetate 1,334 mg=2 tab, Active 667 MG Oral PO, TID-Meals, 2016 [facility] Tablet # 180 tab, 3 Refill(s) sevelamer 1,600 mg=2 tab, Active carbonate 800 MG PO, TID-Meals, 2016 [facility] Oral Tablet # 180 tab, 0 [Renvela] Refill(s) Ancef 2 gm, 100 mL, No Longer Route: IVPB, Active 2016 [facility] Drug form: INJ, PRE OP, Dosing Weight 98.807, kg, Start date: 12/05/16 8:00:00 [employer], Duration: 30 day, Stop date: 01/04/17 7:59:00 CSTNotes: Same as: Ancef Morphine 2 mg, Route: Inactive IVP, Q3H, 2014 [facility] Dosing Weight 99.091, kg, PRN Pain Score 1-3, Start date: 08/22/15 13:23:00, Duration: 30 day, Stop date: 09/21/15 13:22:00 acetaminophen-cod 1 tab, Route: Inactive eine #3 PO, Drug Form: 2014 [facility] TAB, Dosing Weight 99.091, kg, Q4H, PRN Pain Score 4-6, Start date: 08/22/15 13:23:00, Duration: 30 day, Stop date: 09/21/15 13:22:00 Sodium Chloride 500 mL, Rate: Inactive 0.154 MEQ/ML 25 ml/hr, 2014 [facility] Injectable Infuse over: 20 Solution hr, Route: IV, Dosing Weight 99.091 kg, Total Volume: 500, Start date: 08/22/15 11:59:00, Duration: 30 day, Stop date: 09/21/15 11:58:00 Dialyvite 800 0 Refill(s) Active Ultra D 2014 [facility] Acetaminophen 325 1-2 tab, PO, Active MG / Hydrocodone Q4-6H, PRN 2014 [facility] Bitartrate 5 MG Pain, # 30 tab, Oral Tablet 0 Refill(s) [[place] 5/325] Ancef 2 gm, Route: Inactive IVPB, PRE OP, 2014 [facility] Dosing Weight 118.182, kg, Start date: 08/22/15 10:00:00, Duration: 30 day, Stop date: 09/21/15 9:59:00 Vancomycin 1 gm, Route: Inactive IVPB, Drug 2014 [facility] form: INJ, PRE OP, Dosing Weight 118.182, kg, Start date: 08/22/15 10:00:00, Duration: 30 day, Stop date: 09/21/15 9:59:00 tramadol 25 mg=0.5 tab, Active hydrochloride 50 PO, Q4H, PRN as 2014 [facility] MG Oral Tablet needed for pain, X 7 day, # 21 tab, 0 Refill(s) Morphine 4 mg, Route: Inactive IVP, Q6H, kg, 2014 [facility] PRN Pain Score 4-6, Start date: 04/20/15 16:08:00, Duration: 30 day, Stop date: 05/20/15 16:07:00 acetaminophen-cod 1 tab, Route: Inactive eine #3 PO, Drug Form: 2014 TAB, kg, Q4H, PRN Pain Score 1-3, Start date: 04/20/15 16:08:00, Duration: 30 day, Stop date: 05/20/15 16:07:00 Acetaminophen 650 mg, Route: Inactive 04/20[facility] PO, Drug form: 2014 [facility] TAB, Q4H, Dosing Weight 99.091, kg, PRN Pain 1-3/Temp > 100.4 F, Start date: 04/20/15 16:08:00, Duration: 30 day, Stop date: 05/20/15 16:07:00 Diphenhydramine 12.5 mg, Route: Inactive 04/20[facility] IVP, Drug form: 2014 [facility] INJ, Q6H, Dosing Weight 99.091, kg, PRN Itching, Start date: 04/20/15 14:23:00, Duration: 30 day, Stop date: 05/20/15 14:22:00 Glycopyrrolate 0.2 mg, Route: Inactive 04/20[facility] IVP, Q5Min, 2014 [facility] Dosing Weight 99.091, kg, PRN Bradycardia, Start date: 04/20/15 14:23:00, Duration: 3 doses or times, Stop date: Limited # of times Ondansetron 4 mg, Route: Inactive 04/20[facility] IVP, ONCE, 2014 [facility] Dosing Weight 99.091, kg, PRN Nausea & Vomiting, Start date: 04/20/15 14:23:00 Promethazine 6.25 mg, Route: Inactive 04/20[facility] IVPB, ONCE, 2014 [facility] Dosing Weight 99.091, kg, PRN Nausea & Vomiting, Start date: 04/20/15 14:23:00 Meperidine 12.5 mg, Route: Inactive 04/20[facility] IVP, Q30Min, 2014 [facility] Dosing Weight 99.091, kg, PRN Other -See Comment, For shivering, Start date: 04/20/15 14:23:00, Duration: 2 doses or times, Stop date: Limited # of times Flumazenil 0.2 mg, Route: Inactive 04/20[facility] IVP, PRN, 2014 [facility] Dosing Weight 99.091, kg, PRN Benzodiazepine Reversal, Initial dose, Start date: 04/20/15 14:23:00, Duration: 30 day, Stop date: 05/20/15 14:22:00 Naloxone 0.04 mg, Route: Inactive IVP, Q2MIN, 2014 [facility] Dosing Weight 99.091, kg, PRN Narcotic Reversal, Start date: 04/20/15 14:23:00, Duration: 8 doses or times, Stop date: Limited # of times Hydromorphone 0.5 mg, Route: Inactive 04/20[facility] IVP, Q5Min, 2014 [facility] Dosing Weight 99.091, kg, PRN Pain Score 7-10, Start date: 04/20/15 14:23:00, Duration: 4 doses or times, Stop date: Limited # of times Fentanyl 50 microgram, Inactive Route: IVP, 2014 [facility] Q5Min, Dosing Weight 99.091, kg, PRN Pain Score 7-10, Start date: 04/20/15 14:23:00, Duration: 2 doses or times, Stop date: Limited # of times Morphine 4 mg, Route: Inactive 04/20[facility] IVP, Q5Min, 2014 [facility] Dosing Weight 99.091, kg, PRN Pain Score 7-10, Start date: 04/20/15 14:23:00, Duration: 3 doses or times, Stop date: Limited # of times Hydralazine 10 mg, Route: Inactive 04/20[facility] IVP, Q20Min, 2014 [facility] Dosing Weight 99.091, kg, PRN Elevated BP, Start date: 04/20/15 14:23:00, Duration: 2 doses or times, Stop date: Limited # of times Metoprolol 1 mg, Route: Inactive 04/20[facility] IVP, Q5Min, 2014 [facility] Dosing Weight 99.091, kg, PRN Other -See Comment, Start date: 04/20/15 14:23:00, Duration: 5 doses or times, Stop date: Limited # of times Oxycodone 5 mg, Route: Inactive PO, Drug form: 2014 [facility] TAB, Q4H, Dosing Weight 99.091, kg, PRN Pain Score 4-6, Start date: 04/20/15 14:23:00, Duration: 30 day, Stop date: 05/20/15 14:22:00 Ketorolac 30 mg, Route: Inactive 04/20[facility] IVP, ONCE, 2014 [facility] Dosing Weight 99.091, kg, Start date: 04/20/15 14:23:00, Duration: 1 doses or times, Stop date: 04/20/15 14:23:00 Ancef 2 gm, Route: Inactive IVPB, ONCE, 2014 [facility] Dosing Weight 99.091, kg, Start date: 04/20/15 11:33:00, Duration: 1 doses or times, Stop date: 04/20/15 11:33:00 Sodium Chloride 500 mL, Rate: Inactive 0.154 MEQ/ML 25 ml/hr, 2014 [facility] Injectable Infuse over: 20 Solution hr, Route: IV, Dosing Weight 99.091 kg, Total Volume: 500, Start date: 04/20/15 11:30:00, Duration: 30 day, Stop date: 05/20/15 11:29:00 Calcium Chloride 1,000 mL, Rate: Inactive 0.0014 MEQ/ML / 25 ml/hr, 2014 [facility] Potassium Infuse over: 40 Chloride 0.004 hr, Route: IV, MEQ/ML / Sodium Dosing Weight Chloride 0.103 99.091 kg, MEQ/ML / Sodium Total Volume: Lactate 0.028 1,000, Start MEQ/ML Injectable date: 04/20/15 Solution 11:28:00, Duration: 30 day, Stop date: 05/20/15 11:27:00 tramadol 50 mg=1 tab, Active MH hydrochloride 50 PO, Q6H, PRN 2014 [facility] MG Oral Tablet Pain, # 40 tab, 0 Refill(s) tamsulosin 0.4 mg 0.4 mg=1 cap, Active MH oral capsule PO, Daily, # 30 2014 [facility] cap, 0 Refill(s) minoxidil 2.5 mg 5 mg=2 tab, PO, Active 04/13/ MH oral tablet BID, # 120 tab, 2014 [facility] 0 Refill(s) Metoprolol 100 mg=1 tab, Active MH Tartrate 100 mg PO, BID, # 60 2014 [facility] oral tablet tab, 0 Refill(s) Hydralazine 1 tab, PO, BID, Active 04/13/ MH Hydrochloride # 30 tab, 0 2014 [facility] 37.5 MG / Refill(s) Isosorbide Dinitrate 20 MG Oral Tablet [Bidil] Furosemide 40 MG 40 mg=1 tab, Active Oral Tablet PO, Daily, # 30 2014 tab, 0 Refill(s) Clonidine 0.2 mg, PO, Active Hydrochloride 0.2 TID, # 60 tab, 2014 [facility] Oral Tablet 0 Refill(s) Ancef 1 gm, 100 mL, No Longer Route: IVPB, Active 2014 [facility] Drug form: INJ, PRE OP, kg, Start date: 04/13/15 13:00:00, Duration: 30 day, Stop date: 05/13/15 12:59:00 Allergies, Adverse Reactions, Alerts Substance Category Reaction Severity Reaction Status Date Comments Source type Reported NKDA Assertion Drug Active allergy [facility] Immunizations Immunization Date Given Site Status Last Updated Comments Source Results Order Name Results Value Reference Date Interpretation Comments Source Range ELECTROLYT Potassium 4.6 meq/L 3.5 - 5.1 12/10 ES [facility] ELECTROLYT AGAP 16.8 meq/L 10.0 - 12/05 ES .0 [facility] ELECTROLYT eGFR 5 12/05 Result Comment: The eGFR is calculated using the CKD-EPI formula. In most young, healthy individuals the eGFR will be >90 mL/ min/1.73m2. The eGFR declines with age. An eGFR of 60-89 may be normal in mL/min/1.7 /2016 some populations, particularly the elderly, for whom the CKD-EPI formula has not been extensively validated. Use of the eGFR is not recommended in the following populations: [facility] 3m2 Individuals with unstable creatinine concentrations, including patients and those with serious co-morbid conditions. Patients with extremes in muscle mass or diet. The data above are obtained from the National Kidney Disease Education Program (NKDEP) which additionally recommends that when the eGFR is used in patients with extremes of body mass index for purposes of drug dosing, the eGFR should be multiplied by the estimated BMI. ELECTROLYT Calcium Lvl 8.1 mg/dL 8.5 - 10.5 12/05 [facility] ELECTROLYT CO2 25 meq/L 24 - 32 12/05 ES [facility] ELECTROLYT Chloride Lvl 98 meq/L 95 - 109 12/05 [facility] ELECTROLYT Potassium 4.8 meq/L 3.5 - 5.1 12/05 ES [facility] ELECTROLYT Sodium Lvl 135 meq/L 135 - 145 12/05 ES [facility] ELECTROLYT Glucose Lvl 106 mg/dL 70 - 99 12/05 [facility] ELECTROLYT BUN 52 mg/dL 7 - 22 12/05 [facility] ELECTROLYT Creatinine 11.00 0.50 - 12/05 ES Lvl mg/dL 1. [facility] HEMATOLOGY Lymphocytes 14.9 % 20.0 - 12/05 MH 40.0 [facility] HEMATOLOGY Monocytes # 0.7 K/CMM 0.0 - 0.8 12/05 [facility] HEMATOLOGY Lymphocytes 1.2 K/CMM 1.0 - 5.5 12/05 MH # /2016 [facility] HEMATOLOGY Eosinophils 0.3 K/CMM 0.0 - 0.5 12/05 [facility] HEMATOLOGY Basophils # 0.1 K/CMM 0.0 - 0.2 12/05 [facility] HEMATOLOGY Basophils 0.9 % 0.0 - 1.0 12/05 [facility] HEMATOLOGY Segs-Bands # 5.9 K/CMM 1.5 - 8.1 12/05 [facility] HEMATOLOGY Monocytes 9.0 % 2.0 - 12.0 12/05 [facility] HEMATOLOGY Eosinophils 4.2 % 0.0 - 4.0 12/05 [facility] HEMATOLOGY Segs 71.0 % 45.0 - 12/05 75.0 [facility] HEMATOLOGY RDW 14.9 % 11.5 - 12/05 14. [facility] HEMATOLOGY MPV 8.0 fL 7.4 - 10.4 12/05 [facility] HEMATOLOGY Platelet 210 K/CMM 133 - 450 12/05 [facility] HEMATOLOGY MCHC 32.7 g/dL 32.0 - 12/05 36.0 [facility] HEMATOLOGY MCH 28.4 pg 27.0 - 12/05 31.0 [facility] HEMATOLOGY MCV 86.9 fL 80.0 - 12/05 94.0 [facility] HEMATOLOGY Hgb 11.1 g/dL 14.0 - 12/05 18.0 [facility] HEMATOLOGY Hct 34.0 % 42.0 - 12/05 54.0 [facility] HEMATOLOGY RBC 3.91 M/CMM 4.70 - 12/05 MH 6. [facility] HEMATOLOGY WBC 8.3 K/CMM 3.7 - 10.4 12/05 /2016 [facility] HEMATOLOGY INR 1.00 0.85 - 12/05 1.17 [facility] HEMATOLOGY PT 13.4 s 12.0 - 12/05 14.7 [facility] HEMATOLOGY PTT 31.8 s 22.9 - 12/05 35.8 [facility] Chest 2 Chest 2 Study: Chest 2 views DX 12/05 - views DX views - [facility] Clinical Indication: Coughing, preoperative evaluation Read by: Thanh Reece MD Dictated Date/time: 12/05/16 08:36 Electronically Signed by: Thanh Reece MD 12/05/16 08:36 FINAL REPORT Comparison: Chest x-ray from 08/22/2015 FINDINGS: The cardiac silhouette is normal in size. The lungs are clear and without consolidation or congestion. No pleural effusion or pneumothorax is seen. Fusion hardware in the lower cervical spine is seen. IMPRESSION: No acute cardiopulmonary disease. SL: [id number] Ext Upper Ext Upper Please refer to the heart lab report, located under vascular in [facility]. 10/31 - Arterial Arterial - [facility] Bilat w Bilat w pressure pressure [facility] Electronically Signed by: Naif Murdock 11/01/16 10:11 FINAL REPORT CHEM PANEL BUN 49 mg/dL 08/22 [facility] CHEM PANEL eGFR 08/22 Result Comment: The eGFR is calculated using the CKD-EPI formula. In most young, healthy individuals the eGFR will be >90 mL/ min/1.73m2. The eGFR declines with age. An eGFR of 60-89 may be normal in mL/min/1. some populations, particularly the elderly, for whom the CKD-EPI formula has not been extensively validated. Use of the eGFR is not recommended in the following populations: [facility] 3m2 Individuals with unstable creatinine concentrations, including patients and those with serious co-morbid conditions. Patients with extremes in muscle mass or diet. The data above are obtained from the National Kidney Disease Education Program (NKDEP) which additionally recommends that when the eGFR is used in patients with extremes of body mass index for purposes of drug dosing, the eGFR should be multiplied by the estimated BMI. CHEM PANEL Calcium Lvl 8.6 mg/dL 8.5 - 10.5 08/22 [facility] CHEM PANEL Sodium Lvl 139 meq/L 135 - 145 08/22 [facility] CHEM PANEL Potassium 3.9 meq/L 3.5 - 5.1 08/22 [facility] CHEM PANEL Chloride Lvl 101 meq/L 95 - 109 08/22 [facility] CHEM PANEL CO2 31 meq/L 24 - 32 08/22 [facility] CHEM PANEL Glucose Lvl 103 mg/dL 70 - 99 08/22 [facility] CHEM PANEL Creatinine 5.3 mg/dL 0.5 - 1.4 08/22 [facility] CHEM PANEL AGAP 10.9 meq/L 10.0 - 08/22 MH 20.0 [facility] HEMATOLOGY MPV 7.7 fL 7.4 - 10.4 08/22 /2014 [facility] HEMATOLOGY Platelet 224 K/CMM 133 - 450 08/22 /2014 [facility] HEMATOLOGY RDW 17.2 % 11.5 - 08/22 MH 14.5 [facility] HEMATOLOGY Hgb 9.3 g/dL 14.0 - 08/22 MH 18.0 [facility] HEMATOLOGY RBC 3.52 M/CMM 4.70 - 08/22 MH 6.10 /2014 [facility] HEMATOLOGY WBC 5.4 K/CMM 3.7 - 10.4 08/22 /2014 [facility] HEMATOLOGY MCHC 31.3 g/dL 32.0 - 08/22 MH 36.0 /2014 [facility] HEMATOLOGY MCH 26.4 pg 27.0 - 08/22 MH 31.0 /2014 [facility] HEMATOLOGY Hct 29.7 % 42.0 - 08/22 MH 54.0 /2014 [facility] HEMATOLOGY MCV 84.3 fL 80.0 - 08/22 MH 94.0 /2014 [facility] HEMATOLOGY PTT 37.6 s 22.9 - 08/22 MH 35.8 /2014 [facility] HEMATOLOGY INR 1.06 0.85 - 08/22 MH 1.17 /2014 [facility] HEMATOLOGY PT 14.1 s 12.0 - 08/22 MH 14.7 [facility] HEMATOLOGY Lymphocytes 0.9 K/CMM 1.0 - 5.5 08/22 MH # /2015 [facility] HEMATOLOGY Eosinophils 0.7 K/CMM 0.0 - 0.5 08/22 MH # /2014 [facility] HEMATOLOGY Monocytes # 0.7 K/CMM 0.0 - 0.8 08/22 [facility] HEMATOLOGY Segs-Bands # 3.0 K/CMM 1.5 - 8.1 08/22 [facility] HEMATOLOGY Basophils 0.4 % 0.0 - 1.0 08/22 [facility] HEMATOLOGY Eosinophils 13.3 % 0.0 - 4.0 08/22 [facility] HEMATOLOGY Segs 56.3 % 45.0 - 08/22 MH 75.0 /2014 [facility] HEMATOLOGY Lymphocytes 17.0 % 20.0 - 08/22 MH 40.0 [facility] HEMATOLOGY Monocytes 13.0 % 2.0 - 12.0 08/22 [facility] Chest Chest 1view Chest, one view. 08/22 - 1view DX DX /2014 - [facility] HISTORY: Line placement. Read by: Emanuel Cox MD Dictated Date/time: 08/22/15 15:01 Electronically Signed by: Emanuel Cox MD 08/22/15 15:02 FINAL REPORT FINDINGS: Since the prior exam from earlier on 08/14/2015, a right IJ dialysis catheter has been placed which terminates in the SVC. No pneumothorax. Lungs remain clear. No significant pleural effusion. Mild/moderate cardiomegaly. No acute osseous abnormality. SL: 13 Chest 2 Chest 2 HISTORY: Cough. 08/22 - views DX views DX - [facility] Chest 2 views. Read by: Clyde Groves MD Dictated Date/time: 08/22/15 11:33 Electronically Signed by: Clyde Groves MD 08/22/15 11:34 FINAL REPORT Comparison 04/13/2015. Lungs clear. Cardiomegaly without overt CHF. No pleural effusion or pneumothorax. Lower cervical spine fusion hardware as before. IMPRESSION: Cardiomegaly as before. No new or acute finding otherwise. SL:13 CHEM PANEL Creatinine 4.1 mg/dL 0.5 - 1.4 08/19 Lvl [facility] CHEM PANEL Sodium Lvl 136 meq/L 135 - 145 08/19 [facility] CHEM PANEL Chloride Lvl 98 meq/L 95 - 109 08/19 [facility] CHEM PANEL CO2 30 meq/L 24 - 32 08/19 [facility] CHEM PANEL Calcium Lvl 8.6 mg/dL 8.5 - 10.5 08/19 [facility] CHEM PANEL Potassium 4.0 meq/L 3.5 - 5.1 08/19 Lvl [facility] CHEM PANEL AGAP 12.0 meq/L 10.0 - 08/19 MH . [facility] CHEM PANEL eGFR 17 08/19 Result Comment: The eGFR is calculated using the CKD-EPI formula. In most young, healthy individuals the eGFR will be >90 mL/ min/1.73m2. The eGFR declines with age. An eGFR of 60-89 may be normal in mL/min/1. some populations, particularly the elderly, for whom the CKD-EPI formula has not been extensively validated. Use of the eGFR is not recommended in the following populations: [address] Individuals with unstable creatinine concentrations, including patients and those with serious co-morbid conditions. Patients with extremes in muscle mass or diet. The data above are obtained from the National Kidney Disease Education Program (NKDEP) which additionally recommends that when the eGFR is used in patients with extremes of body mass index for purposes of drug dosing, the eGFR should be multiplied by the estimated BMI. CHEM PANEL Glucose Lvl 100 mg/dL 70 - 99 08/19 [facility] CHEM PANEL BUN 37 mg/dL 7 - 08/19 [facility] ELECTROLYT Potassium 4.7 meq/L 3.5 - 5.1 04/20 ES Lvl [facility] ELECTROLYT AGAP 12.6 meq/L 10.0 - 04/13 ES [facility] ELECTROLYT Potassium 4.6 meq/L 3.5 - 5.1 04/13 ES Lvl [facility] ELECTROLYT Sodium Lvl 140 meq/L 135 - 145 04/13 ES [facility] ELECTROLYT Chloride Lvl 110 meq/L 95 - 109 04/13 ES [facility] ELECTROLYT eGFR 12 04/13 1Result Comment: The eGFR is calculated using the CKD-EPI formula. In most young, healthy individuals the eGFR will be >90 mL/ min/1.73m2. The eGFR declines with age. An eGFR of 60-89 may be normal in [facility] mL/min/1. some populations, particularly the elderly, for whom the CKD-EPI formula has not been extensively validated. Use of the eGFR is not recommended in the following populations: [address] Individuals with unstable creatinine concentrations, including patients and those with serious co-morbid conditions. Patients with extremes in muscle mass or diet. The data above are obtained from the National Kidney Disease Education Program (NKDEP) which additionally recommends that when the eGFR is used in patients with extremes of body mass index for purposes of drug dosing, the eGFR should be multiplied by the estimated BMI. ELECTROLYT Calcium Lvl 8.3 mg/dL 8.5 - 10.5 / ES [facility] ELECTROLYT BUN 76 mg/dL 7 - 22 04/13 ES [facility] ELECTROLYT Glucose Lvl 96 mg/dL 70 - 99 04/13 2Interpretive Data: Adult reference range values reflect the clinical guidelines of the [place] [employer]. [facility] ELECTROLYT CO2 22 meq/L 24 - 32 04/13 ES [facility] ELECTROLYT Creatinine 5.3 mg/dL 0.5 - 1.4 04/13 ES Lvl [facility] HEMATOLOGY Eosinophils 7.0 % 0.0 - 4.0 04/13 [facility] HEMATOLOGY Monocytes 10.8 % 2.0 - 12.0 04/13 [facility] HEMATOLOGY Eosinophils 0.3 K/CMM 0.0 - 0.5 /20 MH # /2015 [facility] HEMATOLOGY Monocytes # 0.5 K/CMM 0.0 - 0.8 04/13 MH [facility] HEMATOLOGY Basophils 1.4 % 0.0 - 1.0 04/13 [facility] HEMATOLOGY Lymphocytes 0.8 K/CMM 1.0 - 5.5 / MH # /2014 [facility] HEMATOLOGY Segs-Bands # 3.0 K/CMM 1.5 - 8.1 04/13 [facility] HEMATOLOGY Basophils # 0.1 K/CMM 0.0 - 0.2 04/13 [facility] HEMATOLOGY Lymphocytes 17.2 % 20.0 - 04/13 MH 40.0 /2014 [facility] HEMATOLOGY Segs 63.6 % 45.0 - 04/13 MH 75.0 /2014 [facility] HEMATOLOGY Hgb 10.5 g/dL 14.0 - 04/13 MH 18.0 [facility] HEMATOLOGY MCV 86.8 fL 80.0 - 04/13 MH 94.0 /2014 [facility] HEMATOLOGY Hct 32.6 % 42.0 - 04/13 MH 54.0 /2015 [facility] HEMATOLOGY MCHC 32.3 g/dL 32.0 - 04/13 MH 36.0 /2014 [facility] HEMATOLOGY MCH 28.1 pg 27.0 - 04/13 31.0 /2015 [facility] HEMATOLOGY RBC 3.75 M/CMM 4.70 - 04/13 6.10 /2014 [facility] HEMATOLOGY WBC 4.7 K/CMM 3.7 - 10.4 04/13 [facility] HEMATOLOGY RDW 19.3 % 11.5 - 04/13 14.5 /2014 [facility] HEMATOLOGY MPV 8.1 fL 7.4 - 10.4 04/13 [facility] HEMATOLOGY Platelet 150 K/CMM 133 - 450 04/13 [facility] HEMATOLOGY PT 14.6 s 12.0 - 04/13 14.7 /2014 [facility] HEMATOLOGY INR 1.13 0.85 - 04/13 3Interpretive Data: RECOMMENDED RANGES FOR PROTIME INR: 1. 2.0-3.0 for most medical and surgical thromboembolic states. [facility] 2.5-3.5 for artificial heart valves and recurrent embolism. INR SHOULD BE USED ONLY FOR PATIENTS ON STABLE ANTICOAGULANT THERAPY. HEMATOLOGY PTT 35.6 s 22.9 - 04/13 4Interpretive 35.8 /2014 Data: Heparin [facility] Therapeutic Range: 57 - 92 Seconds Chest 2 Chest 2 PA and LATERAL CHEST 04/13 - views DX views - [facility] (2 views) Read by: Arnaldo Dai MD Dictated Date/time: 04/13/15 13:41 HISTORY: Coughing Electronically Signed by: Arnaldo Dai MD 04/13/15 13:43 FINAL REPORT Comparison is made to 12/02/2005. FINDINGS: The lungs are clear. There are no pleural effusions. There is mild cardiomegaly. There is no overt failure. There postoperative change involving the cervical spine. A fusion plate is noted. Otherwise, the regional skeleton is unremarkable. CONCLUSION: 1. No active disease. 2. Mild cardiomegaly. 3. Postoperative changes, cervical spine. Coding: Chest 2 views CPT Code: 21018 SL: 12 Arnaldo Dai M.D. Ext Upper Ext Upper Please refer to the heart lab report, located under vascular in [facility]. 04/13 - Venous Venous /2014 - [facility] Doppler Doppler Bilat US Bilat US Electronically Signed by: Naif Murdock 04/14/15 11:31 FINAL REPORT Vital Signs Vital Sign Value Date Comments Source Systolic (mm Hg) 129 12/10/2016 [facility] Diastolic (mm Hg) 77 12/10/2016 [facility] Systolic (mm Hg) 126 12/10/2016 [facility] Diastolic (mm Hg) 84 12/10/2016 [facility] Heart Rate 87 12/10/2016 [facility] Systolic (mm Hg) 120 12/10/2016 [facility] Diastolic (mm Hg) 75 12/10/2016 [facility] Respitory Rate 17 12/10/2016 [facility] Respitory Rate 14 12/10/2016 [facility] Respitory Rate 13 12/10/2016 [facility] Temperature Oral (F) 97.5 F 12/05/2016 [facility] Heart Rate 78 12/05/2016 [facility] Weight 109.136 12/05/2016 [facility] BMI Calculated 36.58 12/05/2016 [facility] Height 172.72 cm 12/05/2016 [facility] Systolic (mm Hg) 124 08/22/2015 [facility] Diastolic (mm Hg) 54 08/22/2015 [facility] Respitory Rate 18 08/22/2015 [facility] Systolic (mm Hg) 122 08/22/2015 [facility] Diastolic (mm Hg) 59 08/22/2015 [facility] Respitory Rate 18 08/22/2015 [facility] Respitory Rate 16 08/22/2015 [facility] Systolic (mm Hg) 128 08/22/2015 [facility] Diastolic (mm Hg) 62 08/22/2015 [facility] Temperature Oral (F) 98 F 08/22/2015 [facility] Heart Rate 66 08/22/2015 [facility] Height 172.72 cm 08/22/2015 [facility] Weight 99.091 08/22/2015 [facility] BMI Calculated 33.22 08/22/2015 [facility] Temperature Oral (F) 98.3 F 08/19/2015 [facility] Respitory Rate 17 08/19/2015 [facility] Heart Rate 66 08/19/2015 [facility] Systolic (mm Hg) 145 08/19/2015 [facility] Diastolic (mm Hg) 77 08/19/2015 [facility] Weight 118.182 08/19/2015 [facility] BMI Calculated 39.62 08/19/2015 [facility] Height 172.72 cm 08/19/2015 [facility] Systolic (mm Hg) 141 08/19/2015 [facility] Diastolic (mm Hg) 76 08/19/2015 [facility] Heart Rate 67 08/19/2015 [facility] Respitory Rate 16 08/19/2015 [facility] Temperature Oral (F) 98.3 F 08/19/2015 [facility] Systolic (mm Hg) 147 04/20/2015 [facility] Diastolic (mm Hg) 84 04/20/2015 [facility] Systolic (mm Hg) 127 04/20/2015 [facility] Diastolic (mm Hg) 68 04/20/2015 [facility] Systolic (mm Hg) 116 04/20/2015 [facility] Diastolic (mm Hg) 71 04/20/2015 [facility] Respitory Rate 13 04/20/2015 [facility] Respitory Rate 11 04/20/2015 [facility] Respitory Rate 8 04/20/2015 [facility] Heart Rate 60 04/13/2015 [facility] Temperature Oral (F) 98.0 F 04/13/2015 [facility] Weight 99.091 04/13/2015 [facility] BMI Calculated 33.22 04/13/2015 [facility] Height 172.72 cm 04/13/2015 [facility] Encounters Location Location Encounter Encounter Reason Attending ADM DC Status Source Details Type Number For Provider Date Date [facility] [id number] [facility] 04/13 04/14 [facility] Vasu /[address] [facility] OBS Day [id number] Vargas 04/20 04/20 [facility] Surgery Vasu /[address] [facility] EC [id number] Agustin 08/19 08/19 [facility] Emergency Kd /2014 [facility] OBS Day [id number] Vargas 08/22 08/22 [facility] /[address] [facility] Outpatient [id number] [facility]argas 10/31 [facility] [id number] Vargas 12/10 12/10 [facility] Vasu /2016 [facility] Procedures Procedure Code Date Perfomer Comments Source Percutaneous [id number] [facility] transluminal balloon 6 angioplasty Creation of [id number] [facility] brachial-cephalic 5 fistula Laparoscopic [id number] [facility] cholecystectomy Operation [id number] [facility] Insertion of [id number] LUE fistulogram [facility] tunneled dialysis catheter using fluoroscopic guidance<sup>1</sup>
[2018-05-31 10:18] LABS: Absolute Monocytes 0.7 K/uL (0.1-1.3); Absolute Neutrophil 4.3 K/uL (1.8-8.0); Basophils % 1.3 % (0-1.3); Hematocrit 33.8 % (39.6-49.0); Lymphocytes % 26.1 % (15.3-44.8); MCH 28.3 pg (27.0-35.0); MCV 87.3 fL (80-100); MPV 7.7 fL (7.6-11.3); Monocytes % 8.5 % (3.3-12.3); RBC Red Blood Cell Count 3.87 M/uL (4.33-5.43)
[2018-05-31 10:20] LABS: Protime INR 1.04
--- NOTE | 2018-05-31 10:31 | RAD REPORT ---
EXAM DESCRIPTION: CT - Head Brain Wo Cont - 05/31/2018 10:21 am CLINICAL HISTORY: Syncope/decreased responsiveness COMPARISON: December 2016 TECHNIQUE: Computed axial tomography of the head was obtained. IV contrast was not requested. All CT scans are performed using dose optimization technique as appropriate and may include automated exposure control or mA/KV adjustment according to patient size. FINDINGS: An intracranial bleed is not seen . The ventricles are normal in caliber. No extra-axial fluid collection is noted. Mild to moderate low-density areas within periventricular, deep and subcortical white matter likely represent ischemic changes secondary to small vessel disease . Fluid within the sinuses/ mastoids is not seen. IMPRESSION: No acute intracranial abnormality is seen. If patient's symptoms persist MRI of the bra in would be recommended.
--- NOTE | 2018-05-31 10:41 | RAD REPORT ---
EXAM DESCRIPTION: CT - Abdomen Pelvis Wo Contrast - 05/31/2018 10:25 am CLINICAL HISTORY: Abdominal pain /constipation COMPARISON: 2014 TECHNIQUE: Computed axial tomography of the abdomen and pelvis was obtained. IV contrast was not req uested. Oral contrast was given All CT scans are performed using dose optimization technique as appropriate and may include automated exposure control or mA/KV adjustment according to patient size. FINDINGS: The evaluation of solid organs, and vessels is limited secondary to the lack of contrast administration. The liver, spleen, pancreas, and adrenals appear grossly normal. Small renal masses are nonspecific w ithout IV contrast but probably benign. Mild left hydronephrosis is present. A renal/ureteral calculu s is not noted. The appendix is normal. There is no evidence of diverticulitis. The prostate gland is mildly enlarged Spondylosis involves lumbar spine resulting spinal stenosis An IVC filter is in place IMPRESSION: Mild left hydronephrosis without visualization of an obstructing calculus
[2018-05-31 10:44] LABS: ALT/SGPT 32 U/L (12-78); AST/SGOT 21 U/L (15-37); Albumin 3.5 g/dL (3.4-5.0); Alkaline Phosphatase 68 U/L (45-117); BUN Blood Urea Nitrogen 60 mg/dL (7-18); Bicarbonate 25 mmol/L (21-32); Bilirubin Direct < 0.1 mg/dL (0-0.2); Bilirubin Total 0.3 mg/dL (0.2-1.0); CKMB Creatine Kinase MB 3.4 ng/mL (0.3-3.6); Creatine Phosphokinase 260 U/L (39-308); Glucose Level 112 mg/dL (74-106); Magnesium 2.3 mg/dL (1.8-2.4); NT PRO-BNP 5256 pg/mL (<125); Potassium 3.6 mmol/L (3.5-5.1); Protein, Total 8.1 g/dL (6.4-8.2); Sodium Level 138 mmol/L (136-145)
--- NOTE | 2018-05-31 11:17 | RAD REPORT ---
EXAM DESCRIPTION: Nick Single View05/31/2018 10:45 am CLINICAL HISTORY: Hypertension COMPARISON: 2014 FINDINGS: The lungs appear clear of acute infiltrate. The heart is mildly enlarged IMPRESSION: No acute abnormalities displayed
--- NOTE | 2018-05-31 12:10 | ER ---
Nurse's Notes [facility] Name: Maykel Yanes Age: 62 yrs Sex: Male : 1955 Arrival Date: 05/31/2018 Time: 09:46 Bed 2 Private MD: Diagnosis: near syncope;Hypotension Presentation: 05/31 09:47 Presenting complaint: states: was bringing pt in to ER bc he has been constipated iw X 1 week, while parking the car, pt stopped talking to her and would only reply with moaning, pt was assisted out of vehicle by ER staff, was able to stand with assistance but appears very weak, pt placed in wheelchair, placed in bed 2, pt now speaking normally and appears to have regained his strength, hx of dialysis, due for dialysis at 11:00. Transition of care: patient was not received from another setting of care. Onset of symptoms was May 31, 2018. Risk Assessment: Do you want to hurt yourself or someone else? Patient reports no desire to harm self or others. Care prior to arrival: None. 09:47 Method Of Arrival: Wheelchair iw 09:47 Acuity: JUNE 2 iw 09:55 Initial Sepsis Screen: Does the patient meet any 2 criteria? No. Patient's initial tw2 sepsis screen is negative. Does the patient have a suspected source of infection? No. Patient's initial sepsis screen is negative. Historical: - Allergies: 10:00 No Known Drug Allergies; tw2 - Home Meds: 10:00 Tramadol Oral [Active]; PhosLo Oral [Active]; Clonidine Oral [Active]; bidol [Active]; tw2 - PMHx: 10:00 "blood clots"; CHF; ESRD; HD , , ; Hypertension; Kidney stones; tw2 - PSHx: 10:00 Cholecystectomy; green field filter; tw2 - Immunization history:: Adult Immunizations. - Social history:: Smoking status: . - Ebola Screening: : Patient denies travel to an Ebola-affected area in the 21 days before illness onset. Screenin:58 Abuse screen: Denies threats or abuse. Nutritional screening: No deficits noted. tw2 Tuberculosis screening: No symptoms or risk factors identified. Fall Risk None identified. Assessment: 09:55 Reassessment: pt states "its that clonidine, it does that if i dont lay down", after tw2 his states "you didn't respond to me" "dialysis at noon but we get there at 11". General: Appears in no apparent distress. obese, Behavior is cooperative, appropriate for age. Pain: Complains of pain in abdomen. Neuro: Level of Consciousness is awake, alert, obeys commands, Oriented to person, place, situation. Cardiovascular: Denies chest pain, shortness of breath, Heart tones S1 S2 Capillary refill < 3 seconds Patient's skin is warm and dry. Cardiovascular: Dialysis shunt: in the left arm, with palpable thrill, well developed. Respiratory: Airway is patent Respiratory effort is even, unlabored, Respiratory pattern is regular, symmetrical, Breath sounds are clear bilaterally. GI: Abdomen is round non-distended, obese, Bowel sounds present X 4 quads. Parent/caregiver reports the patient having constipation. : No signs and/or symptoms were reported regarding the genitourinary system. EENT: No signs and/or symptoms were reported regarding the EENT system. Derm: No signs and/or symptoms reported regarding the dermatologic system. Skin is intact, is healthy with good turgor, Skin temperature is warm. Musculoskeletal: Range of motion: intact in all extremities, Parent/caregiver report the patient having weakness in "all over but he is anum like that". 10:47 Reassessment: Received phone call from Crystal in lab, accepted critical lab value, ae1 creatinine 12.2, provider and primary nurse notified. 10:49 Reassessment: Patient appears in no apparent distress at this time. No changes from tw2 previously documented assessment. Patient and/or family updated on plan of care and expected duration. Pain level reassessed. Patient is alert, oriented x 3, equal unlabored respirations, skin warm/dry/pink. 11:57 Reassessment: Patient appears in no apparent distress at this time. No changes from tw2 previously documented assessment. Patient and/or family updated on plan of care and expected duration. Pain level reassessed. Patient is alert, oriented x 3, equal unlabored respirations, skin warm/dry/pink. 12:49 Reassessment: Patient appears in no apparent distress at this time. No changes from tw2 previously documented assessment. Patient and/or family updated on plan of care and expected duration. Pain level reassessed. Patient is alert, oriented x 3, equal unlabored respirations, skin warm/dry/pink. 13:43 Reassessment: Patient appears in no apparent distress at this time. No changes from tw2 previously documented assessment. Patient and/or family updated on plan of care and expected duration. Pain level reassessed. Patient is alert, oriented x 3, equal unlabored respirations, skin warm/dry/pink. Vital Signs: 09:48 BP 140 / 86; Pulse 95; Resp 17; Temp 97.8(O); Pulse Ox 95% on R/A; Weight 108.86 kg tw2 (R); Height 5 ft. 7 in. (170.18 cm) (R); 10:49 BP 93 / 68; Pulse 71; Resp 16; Pulse Ox 95% on R/A; tw2 11:18 BP 102 / 68 Supine; Pulse 65; jb1 11:18 BP 97 / 62 Sitting; Pulse 70; jb1 11:18 BP 91 / 59 Standing; Pulse 78; jb1 11:57 BP 120 / 78; Pulse 62; Resp 17; Pulse Ox 100% on R/A; tw2 12:45 BP 126 / 86; Pulse 61; Resp 16; Pulse Ox 99% on R/A; ae1 13:43 BP 133 / 79; Pulse 65; Resp 17; Pulse Ox 97% on R/A; tw2 09:48 Body Mass Index 37.59 (108.86 kg, 170.18 cm) tw2 ED Course: 09:46 Patient arrived in ED. iw 09:47 Arm band placed on. tw2 09:48 Mariela Longoria, RN is Primary Nurse. tw2 09:48 Placed in gown. Bed in low position. Adult w/ patient. metal bonding press operator on. Pulse ox on. tw2 NIBP on. 09:49 Charlie Downs PA is PHCP. cp 09:49 Pierre Huerta MD is Attending Physician. cp 09:50 Triage completed. iw 09:55 No provider procedures requiring assistance completed. Inserted saline lock: 20 gauge tw2 in right antecubital area, using aseptic technique. ,using aseptic technique. per Albert Stewart Blood collected. 10:21 CT Head Brain wo Cont In Process Unspecified. EDMS 10:23 CT completed. Patient moved to CT via stretcher. Patient moved back from CT. cw1 10:24 CT Abd/Pelvis - Without Cont: no oral contrast In Process Unspecified. EDMS 10:46 Chest Single View XRAY In Process Unspecified. EDMS 12:08 Mark Smith MD is Hospitalizing Provider. cp 13:45 Patient admitted, IV remains in place. tw2 Administered Medications: No medications were administered Point of Care Testing: Blood Glucose: 09:48 Blood Glucose: 99 mg/dL; tw2 Ranges: Outcome: 12:09 Decision to Hospitalize by Provider. cp 14:29 Patient left the ED. tw2 14:29 Admitted to Med/surg accompanied by tech, room 223, Report called to SRINI Medeiros tw2 14:29 Condition: stable 14:29 Instructed on the need for admit. Signatures: Dispatcher [employer] EDTerry Moon jb1 Shayy Wade, RN RN Alda Morgan cw1 Charlie Donws PA PA cp Wise, Tara, RN RN tw2 Chinmay Espinosa RN RN ae1 Corrections: (The following items were deleted from the chart) 09:52 09:47 Presenting complaint: states: was bringing pt in to ER bc he has been iw constipated X 1 week, while parking the car, pt stopped talking to her and would only reply with moaning, pt was assisted out of vehicle by ER staff, was able to stand with assistance but appears very weak, pt placed in wheelchair, placed in bed 2, pt now speaking normally and appears to have regained his strength, hx of dialysis, due for dialysis at 11:00 iw 13:45 13:43 BP 133 / 79; Pulse 57bpm; Resp 17bpm; Pulse Ox 97% RA; tw2 tw2
--- NOTE | 2018-05-31 12:10 | EDPHYS ---
Physician Documentation [facility] Name: Maykel Yanes Age: 62 yrs Sex: Male : 1955 Arrival Date: 05/31/2018 Time: 09:46 Bed 2 Private MD: ED Physician Pierre Huerta HPI: 05/31 10:25 This 62 yrs old Black Male presents to ER via Wheelchair with complaints of cp Constipation, Near Syncope. 10:25 The patient's problem is reported as weakness, that is generalized, near-syncope. cp 10:25 Onset: The symptoms/episode began/occurred just prior to arrival. Duration: This was a cp single incident. 10:25 Spouse reports she was bringing patient to ED to be evaluated for constipation when she cp observed patient moaning and not talking while in car on way to ED. This lasted until patient was assisted out of vehicle and into exam room. Patient reports he is scheduled for dialysis today and usually does not take blood pressure medication but reports taking blood pressure medication this morning. 10:25 Patient's baseline: Neuro: alert and fully oriented, Motor: no deficits, Ambulation: cp walks with assist only, Speech: normal. Historical: - Allergies: 10:00 No Known Drug Allergies; tw2 - Home Meds: 10:00 Tramadol Oral [Active]; PhosLo Oral [Active]; Clonidine Oral [Active]; bidol [Active]; tw2 - PMHx: 10:00 "blood clots"; CHF; ESRD; HD , , ; Hypertension; Kidney stones; tw2 - PSHx: 10:00 Cholecystectomy; green field filter; tw2 - Immunization history:: Adult Immunizations. - Social history:: Smoking status: . - Ebola Screening: : Patient denies travel to an Ebola-affected area in the 21 days before illness onset. ROS: 10:30 Constitutional: Negative for body aches, chills, fever, poor PO intake. cp 10:30 Eyes: Negative for injury, pain, redness, and discharge. cp 10:30 ENT: Negative for drainage from ear(s), ear pain, sore throat, difficulty swallowing, difficulty handling secretions. 10:30 Cardiovascular: Negative for chest pain, edema, palpitations. 10:30 Respiratory: Negative for cough, shortness of breath, wheezing. 10:30 Abdomen/GI: Positive for constipation, Negative for abdominal pain, vomiting, diarrhea, black/tarry stool, rectal bleeding. 10:30 Back: Negative for pain at rest, pain with movement, radiated pain. 10:30 : Negative for urinary symptoms. 10:30 MS/extremity: Negative for injury or acute deformity, decreased range of motion. 10:30 Skin: Negative for cellulitis, rash. 10:30 Neuro: Positive for near syncope, general weakness, Negative for altered mental status, dizziness, headache. 10:30 All other systems are negative. Exam: 10:33 Radiologist reports: negative for acute intracranial findings cp 10:35 Constitutional: The patient appears in no acute distress, alert, awake, cp non-diaphoretic, non-toxic, well developed, well nourished. 10:35 Head/Face: Normocephalic, atraumatic. Eyes: Pupils equal round and reactive to light, cp extra-ocular motions intact. Lids and lashes normal. Conjunctiva and sclera are non-icteric and not injected. Cornea within normal limits. Periorbital areas with no swelling, redness, or edema. ENT: Nares patent. No nasal discharge, no septal abnormalities noted. Tympanic membranes are normal and external auditory canals are clear. Oropharynx with no redness, swelling, or masses, exudates, or evidence of obstruction, uvula midline. Mucous membranes moist. Neck: Trachea midline, no thyromegaly or masses palpated, and no cervical lymphadenopathy. Supple, full range of motion without nuchal rigidity, or vertebral point tenderness. No Meningismus. Chest/axilla: Normal chest wall appearance and motion. Nontender with no deformity. No lesions are appreciated. 10:35 Cardiovascular: Rate: normal, Rhythm: regular, Pulses: Pulses are 2+ in right radial artery and left radial artery. Edema: is not appreciated, JVD: is not appreciated. 10:35 Respiratory: the patient does not display signs of respiratory distress, Respirations: normal, no use of accessory muscles, no retractions, no splinting, no tachypnea, labored breathing, is not present, Breath sounds: are clear throughout, no decreased breath sounds, rhonchi, no wheezing. 10:35 Abdomen/GI: Inspection: abdomen appears normal, Bowel sounds: active, all quadrants, Palpation: abdomen is soft and non-tender, in all quadrants, rebound tenderness, is not appreciated, voluntary guarding, is not appreciated, involuntary guarding, is not appreciated. 10:35 Back: pain, is absent, ROM is normal. 10:35 Musculoskeletal/extremity: Exam is negative for decreased range of motion, deformity, injury. 10:35 Skin: cellulitis, is not appreciated, induration. 10:35 Neuro: Orientation: to person, place \\T\\ time. Mentation: is normal, Motor: moves all fours, general weakness w/o focal deficits, Sensation: no obvious gross deficits. Vital Signs: 09:48 BP 140 / 86; Pulse 95; Resp 17; Temp 97.8(O); Pulse Ox 95% on R/A; Weight 108.86 kg tw2 (R); Height 5 ft. 7 in. (170.18 cm) (R); 10:49 BP 93 / 68; Pulse 71; Resp 16; Pulse Ox 95% on R/A; tw2 11:18 BP 102 / 68 Supine; Pulse 65; jb1 11:18 BP 97 / 62 Sitting; Pulse 70; jb1 11:18 BP 91 / 59 Standing; Pulse 78; jb1 11:57 BP 120 / 78; Pulse 62; Resp 17; Pulse Ox 100% on R/A; tw2 12:45 BP 126 / 86; Pulse 61; Resp 16; Pulse Ox 99% on R/A; ae1 13:43 BP 133 / 79; Pulse 65; Resp 17; Pulse Ox 97% on R/A; tw2 09:48 Body Mass Index 37.59 (108.86 kg, 170.18 cm) tw2 MDM: 09:49 Patient medically screened. cp 11:00 Data reviewed: vital signs, nurses notes, lab test result(s), EKG, radiologic studies, cp CT scan, plain films. 11:00 Test interpretation: by ED physician or midlevel provider: ECG, plain radiologic cp studies. 11:05 Physician consultation: Mark Smith MD was called at 11:05, was contacted at 11:06, cp regarding admission, to the telemetry unit. patient's condition, requests on-call physician for DR louis to be consulted for possible observation and dialysis. 11:40 Physician consultation: Barrett Walsh MD was called at 11:40, was contacted cp at 11:40, regarding consult, would like admission per Dr. Mark Smith MD and will perform dialysis today if patient is stable. 11:43 Physician consultation: Mark Smith MD left msg on voicemail. 12:13 Physician consultation: Mark Smith MD was called at 12:05, was contacted at 12:05, cp regarding admission, to the telemetry unit. patient's condition. 05/31 09:58 Order name: Basic Metabolic Panel; Complete Time: 10:47 05/31 10:47 Interpretation: Normal except: GLUC 112; BUN 60; CRE 12.20; GFR 5. cp 05/31 09:58 Order name: CBC with Diff; Complete Time: 10:32 cp 05/31 10:33 Interpretation: Normal except: RBC 3.87; HGB 11.0; HCT 33.8; RDW 15.6; EOSINOPHIL % cp 9.0; EOSA 0.7. 05/31 09:58 Order name: Ckmb; Complete Time: 10:47 cp 05/31 09:58 Order name: CPK; Complete Time: 10:47 cp 05/31 09:58 Order name: LFT's; Complete Time: 10:47 cp 05/31 10:48 Interpretation: Normal except: GLOB 4.6; A/G 0.8. cp 05/31 09:58 Order name: Magnesium; Complete Time: 10:47 cp 05/31 09:58 Order name: NT PRO-BNP; Complete Time: 10:47 cp 05/31 10:48 Interpretation: Abnormal: NT PRO-BNP 5256. cp 05/31 09:58 Order name: PT-INR; Complete Time: 10:32 cp 05/31 09:58 Order name: Ptt, Activated; Complete Time: 10:32 cp 05/31 09:58 Order name: Troponin (emerg Dept Use Only); Complete Time: 10:32 cp 05/31 10:33 Interpretation: TROPED 0.03; Reviewed. 05/31 09:58 Order name: EKG; Complete Time: 09:59 cp 05/31 09:58 Order name: CT Head Brain wo Cont; Complete Time: 10:32 cp 05/31 10:33 Interpretation: Report reviewed. 05/31 09:58 Order name: Chest Single View XRAY; Complete Time: 11:18 cp 05/31 11:18 Interpretation: Report review. cp 05/31 10:10 Order name: CT Abd/Pelvis - Without Cont: no oral contrast; Complete Time: 10:47 05/31 10:48 Interpretation: Report reviewed. 05/31 09:58 Order name: Cardiac monitoring; Complete Time: 10:01 05/31 09:58 Order name: EKG - Nurse/Tech; Complete Time: 10:01 05/31 09:58 Order name: IV Saline Lock; Complete Time: 10:01 05/31 09:58 Order name: Labs collected and sent; Complete Time: 10:01 05/31 09:58 Order name: O2 Per Protocol; Complete Time: 10:01 05/31 09:58 Order name: O2 Sat Monitoring; Complete Time: 10: 05/31 10:55 Order name: Orthostatics; Complete Time: 11:20 05/31 12:09 Order name: Diet Renal; Complete Time: 12:10 cp Administered Medications: No medications were administered Point of Care Testing: Blood Glucose: 09:48 Blood Glucose: 99 mg/dL; tw2 Ranges: Critical Glucose Levels:Adult <50 mg/dl or >400 mg/dl <40 mg/dl or >180 mg/dl Disposition: 05/31/18 12:09 Hospitalization ordered by Mark Smith for Observation. Preliminary diagnosis are Hypotension, near syncope. - Bed requested for Telemetry/MedSurg (observation). - Status is Observation. tw2 - Condition is Stable. - Problem is new. - Symptoms have improved. UTI on Admission? No Addendum: 06/08/2018 20:41 Co-signature as Attending Physician, Pierre Huerta MD I agree with the assessment and k dr plan of care. Signatures: Dispatcher [employer] Preeti Mancia RN RN Pierre Mora MD MD kdr Page, Corey, PA PA Mariela Feliciano, RN RN tw2 Corrections: (The following items were deleted from the chart) 05/31 10:33 10:32 Normal except: RBC 3.87; HGB 11.0; HCT 33.8; RDW 15.6; EOSINOPHIL % 9.0. cp cp 13:32 12:09 Hospitalization Ordered by Mark Smith MD for Observation. Preliminary diagnosis is dw Hypotensionnear syncope. Bed requested for Telemetry/MedSurg (observation). Status is Observation. Condition is Stable. Problem is new. Symptoms have improved. UTI on Admission? No. cp 14:29 13:32 05/31/2018 12:09 Hospitalization Ordered by A Luis CORREIA for Observation. tw2 Preliminary diagnosis is Hypotensionnear syncope. Bed requested for Telemetry/MedSurg (observation). Status is Observation. Condition is Stable. Problem is new. Symptoms have improved. UTI on Admission? No. dw
[2018-05-31] MEDS ORDERED: ONDANSETRON 4 MG/2 ML VIAL IV PRN (12:50)
[2018-05-31] MEDS ORDERED: ACETAMINOPHEN 500 MG TAB PO PRN (12:50)
[2018-05-31] MEDS ORDERED: MIDODRINE HCL 5 MG TABLET PO PRN (12:57)
[2018-05-31] MEDS ORDERED: FLEET ENEMA ADULT PR ONE (13:52)
[2018-05-31] MEDS ORDERED: BISACODYL 10 MG RECTAL SUPP PR ONE (13:52)
[2018-05-31 15:20] VITALS: BMI 37.8
--- NOTE | 2018-05-31 19:05 | HP ---
Date of Admission: 05/31/2018 Chief Complaint: Constipation and fainting. History Of Present Illness: This is a 62-year-old male patient, who has hypertension, end-stage jose l disease, on hemodialysis, goes for hemodialysis Saturday, , and Saturday and his scheduled d ialysis was this afternoon. The patient normally has bowel movement about every 2-3 days, but in las t 1 week, he has not had any bowel movement, so his decided to bring him to the hospital today. The patient denies any abdominal pain, nausea, vomiting. No fever. No diarrhea. No bleeding. Joyce wright was driving him to the hospital and the patient was in the passenger seat and as they approached [facility] outside the emergency room, in the parking area, all of a sudden, the patient had a fainting type of episode, where he was not responding when she was trying to talk to him and that lasted less than a minute and she went into the emergency room, requested somebody to come help him, and he was billy t into the ER. After he was evaluated, I was contacted requesting admission to the hospital. The pa angel had taken his clonidine that he normally takes 0.1 mg p.o. daily. He took it before he left ho sd and his initial blood pressure was low in emergency room. When I saw him, he was back to his norm al usual self. Denies any chest pain, shortness of breath. No vomiting. No diarrhea. No bleeding. No fever, chills etc. Allergies: NO KNOWN ALLERGIES. Medications: At home, he takes BiDil 20 mg/37.5 mg 1 tablet by mouth 2 times a day, clonidine 0.1 mg p.o. daily, tramadol 50 mg 3 times a day as needed for arthritis, and Fosrenol 1000 mg 1 tablet 3 ti mes a day with meal. 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 Cardiovascular: As mentioned above. GI: As mentioned above. All other systems reviewed and negative. Past Medical History: Significant for chronic diastolic congestive heart failure, anemia, chronic ki dney disease, osteoarthritis at multiple sites, end-stage renal disease, on dialysis, hyperlipidemia, and hypertension. Past Surgical History: Significant for surgery for cervical spine disk disorder and cholecystectomy in the past and placement of AV graft for dialysis. Family History: Significant for hypertension, stroke, and end-stage renal disease. Social History: Negative for smoking or alcohol use. Physical Examination: Vital Signs: When patient came into emergency room, initial vital signs were 140/86 on the blood pre ssure, pulse rate 95, respiratory rate 17, temperature 97.8, and pulse ox 95%. Weight 108.86 kg, hei ght 5 feet 7 inches. His lowest blood pressure in emergency room was 91/59. General: Awake, alert, oriented, not in distress. HEENT: Head atraumatic, normocephalic. Conjunctivae nonerythematous. Sclerae white. Mouth, no thr ush or edema noted. Ears/Nose, no mass, lesion, discharge noted. Neck: Supple. No JVD, lymph nodes, bruit, thyromegaly noted. Lungs: Bilateral good equal air entry. Clear to auscultation. No rhonchi. No rales. Heart: Normal heart sounds, no murmur or gallop. Abdomen: Soft, bowel sounds normal. No guarding, rigidity, tenderness, mass, hepatosplenomegaly, dis tention, or bruit noted. Extremities: No leg edema. No calf tenderness. Skin: No rash, ulcer, cellulitis. Lymphatics: No lymph node enlargement in neck, supraclavicular, infraclavicular region. Neuro: No focal neurological deficit. Chest: Unremarkable. External Genitalia: Deferred. Rectal: Deferred. Laboratory Data: Chest x-ray, no acute cardiopulmonary changes. CAT scan of the head, no acute intr acranial changes. CAT scan of the abdomen and pelvis done in the emergency room shows mild left-side d hydronephrosis without visualization of obstructing stone. IVC filter in place. White count 7.8, hemoglobin 11, and platelets 274. Sodium 138, potassium 3.6, chloride 102, bicarb 25, BUN 60, creati nine 12.2, and glucose 112. Liver function tests unremarkable. ProBNP 5256. Troponin 0.03. Impression: 1.Syncope. 2.Constipation. 3.End-stage renal disease, on hemodialysis. 4.Anemia due to chronic kidney disease. 5.Hypertension. 6.Hyperlipidemia. 7.Osteoarthritis, multiple sites. 8.Chronic diastolic congestive heart failure. Plan: Admit the patient to hospital for further evaluation and management of this problem. We will go ahead and admit him for observation. Home medications will be continued per order. We will go ah ead and consult professor of industrial technology for dialysis needs. Monitor the patient's vital signs. We will go ahea d and discontinue his clonidine and I have informed him and professor of industrial technology also agrees with that, not t o give him any more clonidine. Rest of the medications will be continued. Any further medication ad justment if it is necessary, we will make that decision before discharge and I will see him tomorrow for followup. Possible discharge to go home tomorrow. We will monitor him for any cardiac arrhythmi a, which does not appear to be likely etiology, but very likely his blood pressure dropped down after taking clonidine causing to have syncopal episode. We will go ahead and treat constipation with melani ropriate medications. CASE/ELIDA Voice ID: [id number]
[2018-05-31] MEDS: ISOSORB DINIT PO SCH (21:00)
[2018-05-31] MEDS: HYDRALAZINE HCL PO SCH (21:00)
[2018-05-31] MEDS: TRAMADOL HCL 50 MG TAB PO SCH (21:59)
[2018-05-31] MEDS: HEPARIN 5000 UNIT/ML 1 ML VIAL SQ SCH (22:00)
[2018-05-31 22:07] VITALS: O2SAT 96
--- NOTE | 2018-06-01 02:00 | CON ---
Date of Consultation: 05/31/2018 Chief Complaint: End-stage renal disease, on dialysis. History Of Present Illness: The patient has multiple medical problems including history of end-stage renal disease, hypertension, hypertensive heart and kidney disease, congestive heart failure, diastolic dysfunction, osteoarthritis, hyperlipidemia, degenerative disease with history of cervical spine disk disorder and underwent previously surgery. The patient was brought to the hospital after he was complaining of presyncope and syncope. He passed out. Prior to this, apparently he took clonidine 0.1 this morning. The patient was brought to the hospital because of severe weakness, fatigue, and he was complaining of some shortness of breath. He did not have vomiting, fever, or any type of bleeding. Review of Systems: Constitutional: Denies fever or chills. Eyes: Denies new vision changes. Ears, Nose, Mouth, and Throat: Denies sore throat or earache. Respiratory: Has some dyspnea on exertion. Denies PND, orthopnea, or hemoptysis. GI: Denies nausea or vomiting. : Denies dysuria or hematuria. Musculoskeletal: He was complaining of generalized weakness. Denies unilateral extremity weakness. Neurological: Denies tremors, speech problem, or seizure. He although had syncope and presyncope. All other systems reviewed and all are negative. Past Medical History: Hypertensive heart and kidney disease, end-stage renal disease, congestive heart failure with diastolic dysfunction, anemia due to chronic kidney disease, osteoarthritis, degenerative disk disease, hyperlipidemia, hypertension, obesity, secondary hyperparathyroidism of renal origin. Past Surgical History: Cervical spine surgery, cholecystectomy, AV graft placement for dialysis access. Family History: Hypertension, stroke, end-stage renal disease in his parents. Social History: Denies tobacco, alcohol, or illicit drugs. Physical Examination: General: Not in acute distress. Eyes: Anicteric sclerae. EOMI. Ears, Nose, Mouth, and Throat: Oral mucosa moist. No pallor. Neck: Supple. No JVD. No bruits. Lungs: Course breath sounds bilaterally. Heart: S1, S2. No pericardial friction rub. Abdomen: Obese, soft, nontender. No rebound. No guarding. Extremities: Slight edema. No clubbing. No cyanosis. Neurological: Cranial nerves intact. No tremor. Vital Signs: Blood pressure is 91/59, pulse oximetry 95%, temperature is 97.8, respiratory rate is 17, heart rate is 95. Laboratory Data: Blood work: Sodium 138, potassium 3.6, chloride 102, CO2 25, BUN 60, creatinine 12.2, glucose 112. BNP 5256. Troponin 0.03. Imaging: Chest x-ray showed no acute cardiopulmonary changes. CT scan of the head, no acute intracranial abnormalities. CT scan of the abdomen and pelvis showed mild left-sided hydronephrosis without visualization of obstructive stone. Impression And Plan: 1. Syncope with history of diastolic congestive heart failure, hypotension. The patient was taken off clonidine. Monitor blood pressure closely. There is some fluid overload, interstitial pulmonary edema. The patient has elevated BNP. He has history of diastolic dysfunction with hypertensive heart and kidney disease. Plan is to order urgent dialysis for metabolic clearance and ultrafiltration to control volemia. Monitor blood pressure closely during dialysis. Consider midodrine for blood pressure control to prevent intradialytic hypotension. Discontinue clonidine because of risk of orthostatic hypotension. Monitor blood pressure closely and make adjustment of blood pressure medication when the patient is euvolemic after dialysis. 2. Anemia of chronic kidney disease. Monitor hemoglobin level. Adjust JOE. 3. Renal osteodystrophy. Continue renal diet and binders. 4. Hypertensive heart and kidney disease. The patient is dialysis dependent. Continue p.o. fluid restriction and renal diet. PADMINI/ELIDA Voice ID: [id number] Report ID: [id number] ZAINAB
[2018-06-01 04:57] LABS: Absolute Lymphocytes (CBC) 1.5 K/uL (0.7-4.9); Absolute Monocytes 0.9 K/uL (0.1-1.3); Absolute Neutrophil 4.2 K/uL (1.8-8.0); Basophils % 1.2 % (0-1.3); Eosinophils % 5.6 % (0-4.4); Hematocrit 34.2 % (39.6-49.0); Lymphocytes % 21.6 % (15.3-44.8); MCH 27.8 pg (27.0-35.0); MCV 86.1 fL (80-100); MPV 7.9 fL (7.6-11.3); RBC Red Blood Cell Count 3.98 M/uL (4.33-5.43)
[2018-06-01 05:16] LABS: Potassium 3.7 mmol/L (3.5-5.1)
[2018-06-01] MEDS: HEPARIN 5000 UNIT/ML 1 ML VIAL SQ SCH (08:16)
[2018-06-01] MEDS: TRAMADOL HCL 50 MG TAB PO SCH (08:17)
[2018-06-01] MEDS: HYDRALAZINE HCL PO SCH (08:32)
[2018-06-01] MEDS: ISOSORB DINIT PO SCH (08:32)
--- NOTE | 2018-06-01 10:56 | EKG ---
Test Date: 2018-05-31 Test Time: 09:49:22 Cloth Shader: YOSSI MEASUREMENT RESULTS: Intervals: Rate: 89 ME: 206 QRSD: 106 QT: 378 QTc: 459 Easley: P: 56 ME: 206 QRS: 11 T: 70 INTERPRETIVE STATEMENTS: Sinus rhythm with premature supraventricular complexes Otherwise normal ECG Compared to ECG 01/10/2017 11:49:35 Atrial premature complex(es) now present Electronically Signed On 06-01-18 10:56:30 CDT by Keaton Hughes
[2018-06-01 11:42] VITALS: BP 126/76; TEMP 96.9
--- NOTE | 2018-06-01 19:24 | DS ---
Date of Discharge: 06/01/2018 Disposition: Discharged to go home. Physical Examination: HEENT: Unremarkable. Lungs: Clear to auscultation. Heart: Sounds normal. Abdomen: Soft, bowel sounds normal. No guarding, rigidity, tenderness, or distention. Extremities: No leg edema. Discharge Medications And Instructions: 1.Continue on prior home medication except stop clonidine. 2.Follow up at my office in 2 weeks. 3.The patient was advised that he may take [id number] MiraLAX 17 g powder mixed with 8 ounces of water daily as needed for constipation and this was instructed to him and his today, when I s aw him. Nursing staff was advised to contact Dr. Denney to see if she wants the patient to take any mi dodrine or not and if she does then to get prescription from Dr. Denney. Hospital Course: This is a 62-year-old male patient, who was admitted to the hospital with constipat ion and syncope. Please see dictated H and P for more information. The patient was evaluated in the ER, was admitted to the hospital. Dulcolax rectal suppository and enema were ordered but the patien t refused both of those treatment for constipation and he did have bowel movement on his own after he was admitted to the hospital. He did not have any other GI complaints like abdominal pain, fever, b leeding etc. The patient had syncopal episode because of low blood pressure and he takes clonidine 1 tablet daily. He took that yesterday before he came into the emergency room and his blood pressure was low when he came in the emergency room. After that his blood pressure has not drop down like shanon t. Room Service Waiter and myself we both agreed to discontinue his clonidine and hopefully that should hel p with the hypotension type of problem, which we believe was the cause for his syncope yesterday. Ov ernight he did have 2 episodes of paroxysmal atrial tachycardia. He was asymptomatic and hemodynamic ally stable. No need for any further intervention for that. The patient was medically stable this m orning for discharge and was discharged to go home in stable condition. He did have dialysis yesterd ay evening after he was admitted to the hospital. Final Diagnoses: 1.Syncope. 2.Constipation. 3.Paroxysmal atrial tachycardia. 4.End-stage renal disease, on hemodialysis. 5.Anemia due to chronic kidney disease. 6.Hypertension. 7.Hyperlipidemia. 8.Osteoarthritis, multiple sites. 9.Congestive heart failure, chronic, diastolic. CASE/MODL Voice ID: [id number] Report ID: [id number]
--- NOTE | 2018-06-01 22:30 | PN ---
Date of Progress Note: 06/01/2018 Chief Complaint: End-stage renal disease, on dialysis. History Of Present Illness: The patient presented to the hospital because of generalized weakness, h ypotension, and presyncope. Prior to that, he took clonidine, and he developed some dizziness and fa tigue. He passed out. The patient was admitted to the hospital to rule out acute coronary syndrome. Blood pressure stabili zed. The patient received dialysis to control congestive heart failure with diastolic dysfunction an d he was found to have interstitial pulmonary edema as well as BNP was elevated. Review of Systems: Today, he is feeling better. Physical Examination: Lungs: Clear to auscultation bilaterally. Heart: S1, S2. Abdomen: Soft, benign. Extremities: Minimal edema. Impression And Plan: 1.End-stage renal disease. The patient will continue dialysis 3 times per week. Continue renal t. 2.Hypotension, resolved. The patient was taken off clonidine. 3.Anemia with chronic kidney disease. Hemoglobin level is stable. No evidence of bleeding. 4.Hypertension. Currently, the patient will continue hydralazine as before. 5.Congestive heart failure, systolic and diastolic dysfunction. Continue hydralazine for congestive heart failure. 6.Renal osteodystrophy. Continue renal diet and binders. EB/MODL Voice ID: [id number] Report ID: [id number]
[2018-06-04 05:02] LABS: HBsAG Nonreactive (Nonreactive)
== END 2018-06-01 13:50 | disposition home or self-care (01) ==
LOC: ER 09:44 → ERHOLD 12:09 → 2ND 13:49
PROVIDERS: ADMIT Internal Medicine; ATTEND Internal Medicine
PROC: 5A1D70Z Performance of Urinary Filtration, Intermittent, Less than 6 Hours Per Day (ICD-10-PCS; principal; 2018-05-31)
DX: R55 Syncope and collapse (principal); I95.9 Hypotension, unspecified; K59.00 Constipation, unspecified; I47.1 Supraventricular tachycardia; I13.2 Hypertensive heart and chronic kidney disease with heart failure and with stage 5 chronic kidney disease, or end stage renal disease; N18.6 End stage renal disease; I50.32 Chronic diastolic (congestive) heart failure; D63.1 Anemia in chronic kidney disease; E78.5 Hyperlipidemia, unspecified; M19.90 Unspecified osteoarthritis, unspecified site
CPT/HCPCS: 36415; 70450; 71045; 74176; 80048 ×2; 80076; 82550; 82553; 82962; 83735; 83880; 84484; 85025 ×2; 85610; 85730; 86704; 86706; 86803; 87340; 90935; 93005; 99285; G0257; G0378 ×2; J1644 ×2

== ENCOUNTER 2020-01-05 13:30 | Emergency (ER) | payer OTHER ==
--- NOTE | 2020-01-05 14:47 | ER ---
Nurse's Notes [facility] Name: Maykel Yanes Age: 64 yrs Sex: Male : 1955 Arrival Date: 01/05/2020 Time: 13:34 Bed 5 Private MD: Diagnosis: Abdominal discomfort Presentation: 01/05 13:42 Presenting complaint: Patient states: After dialysis session today, patient c/o abd ss weakness. Denies N/V/D and/ or pain, but states his abdomen feels weak/ fatigued. Transition of care: patient was not received from another setting of care. Onset of symptoms was January 05, 2020. Risk Assessment: Do you want to hurt yourself or someone else? Patient reports no desire to harm self or others. Initial Sepsis Screen: Does the patient meet any 2 criteria? No. Patient's initial sepsis screen is negative. Does the patient have a suspected source of infection? No. Patient's initial sepsis screen is negative. Care prior to arrival: None. 13:42 Method Of Arrival: Wheelchair ss 13:42 Acuity: JUNE 3 ss Historical: - Allergies: 13:44 No Known Allergies; ss - PMHx: 13:44 "blood clots"; CHF; ESRD; HD , , ; Hypertension; Kidney stones; ss - PSHx: 13:44 Cholecystectomy; green field filter; ss - Immunization history:: Adult Immunizations up to date. - Coronavirus screen:: The patient has NOT traveled to [place], [place], or [place] in the past 14 days. Proceed with normal triage process as indicated. - Social history:: Smoking status: Patient denies any tobacco usage or history of. - Ebola Screening: : Patient denies exposure to infectious person Patient denies travel to an Ebola-affected area in the 21 days before illness onset. Screenin:10 Abuse screen: Denies threats or abuse. Nutritional screening: No deficits noted. Tuberculosis screening: No symptoms or risk factors identified. Fall Risk None identified. Assessment: 14:07 General: Appears in no apparent distress. Behavior is calm, cooperative. Pain: Denies pain. Neuro: No deficits noted. Level of Consciousness is awake, alert, Oriented to person, place, time, Mon[place] Setter are equal bilaterally Gait is slow and steady with a walker. Speech is normal. Cardiovascular: Heart tones S1 S2 present Capillary refill < 3 seconds Patient's skin is warm and dry. Respiratory: Airway is patent Respiratory effort is even, unlabored, Respiratory pattern is regular, symmetrical. GI: Abdomen is non-distended, Bowel sounds present X 4 quads. Abd is soft and non tender X 4 quads. : No signs and/or symptoms were reported regarding the genitourinary system. Parent/caregiver report the patient having just had dialysis today. EENT: No signs and/or symptoms were reported regarding the EENT system. Derm: Skin is intact, Skin is dry, Skin temperature is warm. Musculoskeletal: No signs and/or symptoms reported regarding the musculoskeletal system. Vital Signs: 13:40 BP 135 / 94; Pulse 81; Resp 15; Temp 97.3(TE); Pulse Ox 100% on R/A; Weight 111.58 kg; Height 5 ft. 8 in. (172.72 cm); Pain 0/10; 13:40 Body Mass Index 37.40 (111.58 kg, 172.72 cm) ED Course: 13:34 Patient arrived in ED. ag5 13:40 Arm band placed on right wrist. 13:43 Triage completed. 13:45 Jethro Akhtar MD is Attending Physician. [facility] 14:02 Eulalia Hughes, RN is Primary Nurse. 14:07 Patient walking in the pride with tech. 14:50 No provider procedures requiring assistance completed. Patient did not have IV access ah during this emergency room visit. IV discontinued. 14:51 Patient has correct armband on for positive identification. Bed in low position. Call light in reach. Adult w/ patient. Administered Medications: No medications were administered Outcome: 14:46 Discharge ordered by . [facility] 14:51 Discharged to home with family. 14:51 Condition: stable 14:51 Discharge instructions given to patient, family, Instructed on discharge instructions, Demonstrated understanding of instructions. 15:11 Patient left the ED. Signatures: María Silva RN RN Kate Cabello RN RN Jethro Akhtar MD MD [facility] Mendy Shahid ag5 Eulalia Hughes RN RN
--- NOTE | 2020-01-05 14:47 | EDPHYS ---
Physician Documentation [facility] Name: Maykel Yanes Age: 64 yrs Sex: Male : 1955 Arrival Date: 01/05/2020 Time: 13:34 Bed 5 Private MD: ED Physician Jethro Akhtar HPI: 01/05 14:35 This 64 yrs old Black Male presents to ER via Wheelchair with complaints of Doesn't ps1 Feel Right. 14:35 patient states that he went to dialysis today and had cramping during treatment. He ps1 states that he stopped treatment prior to completion. He states that he has intermittent abdominal discomfort since the event. He says that it is not pain and cannot really describe the feeling other than "funny". Symptoms have essentially resolved since presenting to the emergency department and not associated with nausea, vomiting, diarrhea, fever, chills. Essentially negative ROS. . Historical: - Allergies: 13:44 No Known Allergies; ss - PMHx: 13:44 "blood clots"; CHF; ESRD; HD , ; Hypertension; Kidney stones; ss - PSHx: 13:44 Cholecystectomy; green field filter; ss - Immunization history:: Adult Immunizations up to date. - Coronavirus screen:: The patient has NOT traveled to [place], [place], or [place] in the past 14 days. Proceed with normal triage process as indicated. - Social history:: Smoking status: Patient denies any tobacco usage or history of. - Ebola Screening: : Patient denies exposure to infectious person Patient denies travel to an Ebola-affected area in the 21 days before illness onset. ROS: 14:35 Constitutional: Negative for fever, chills, and weight loss, Eyes: Negative for injury, ps1 pain, redness, and discharge, Cardiovascular: Negative for chest pain, palpitations, and edema, Respiratory: Negative for shortness of breath, cough, wheezing, and pleuritic chest pain, Abdomen/GI: Negative for abdominal pain, nausea, vomiting, diarrhea, and constipation, MS/Extremity: Negative for injury and deformity, Skin: Negative for injury, rash, and discoloration, Neuro: Negative for headache, weakness, numbness, tingling, and seizure. Exam: 14:35 Constitutional: This is a well developed, well nourished patient who is awake, alert, ps1 and in no acute distress. Head/Face: Normocephalic, atraumatic. Eyes: Pupils equal round and reactive to light, extra-ocular motions intact. Lids and lashes normal. Conjunctiva and sclera are non-icteric and not injected. ENT: Nares patent. No nasal discharge, no septal abnormalities noted. Tympanic membranes are normal and external auditory canals are clear. Oropharynx with no redness, swelling, or masses, exudates, or evidence of obstruction, uvula midline. Mucous membranes moist. Cardiovascular: Regular rate and rhythm. No gallops, murmurs, or rubs. Normal PMI, no JVD. No pulse deficits. Respiratory: Lungs have equal breath sounds bilaterally, clear to auscultation and percussion. No rales, rhonchi or wheezes noted. No increased work of breathing, no retractions or nasal flaring. Abdomen/GI: Soft, non-tender, with normal bowel sounds. No distension or tympany. No guarding or rebound. No evidence of tenderness throughout. Skin: Warm, dry with normal turgor. Normal color with no rashes, no lesions, and no evidence of cellulitis. MS/ Extremity: Pulses equal, no cyanosis. Neurovascular intact. Full, normal range of motion. Neuro: Awake and alert, GCS 15, oriented to person, place, time, and situation. Cranial nerves II-XII grossly intact. Sensory grossly intact. Vital Signs: 13:40 BP 135 / 94; Pulse 81; Resp 15; Temp 97.3(TE); Pulse Ox 100% on R/A; Weight 111.58 kg; ss Height 5 ft. 8 in. (172.72 cm); Pain 0/10; 13:40 Body Mass Index 37.40 (111.58 kg, 172.72 cm) ss MDM: 14:04 Patient medically screened. ps1 14:35 Differential diagnosis: Mesenteric ischemia or infarction, non-specific abd pain, ps1 Peptic Ulcer Disease. 14:35 Data reviewed: vital signs, nurses notes. Counseling: I had a detailed discussion with ps1 the patient and/or guardian regarding: the historical points, exam findings, and any diagnostic results supporting the discharge/admit diagnosis, the presence of at least one elevated blood pressure reading (>120/80) during this emergency department visit. 14:43 ED course: 64 y/o M with multiple comorbid conditions and on dialysis. Patient is ps1 asymptomatic on evaluation and has essentially a normal physical exam and no acute distress. He had some ice chips and walked around the emergency department and stated that he felt fine. I offered to check his labs and imaging in an attempt to find a reason for his symptoms. He said that he felt better and the workup was unnecessary. Return precautions given. Patient stable for discharge. . Administered Medications: No medications were administered Disposition: 01/05/20 14:46 Discharged to Home. Impression: Abdominal discomfort. - Condition is Stable. - Discharge Instructions: Abdominal Pain, Adult. - Medication Reconciliation Form, Thank You Letter, Antibiotic Education, Prescription Opioid Use form. - Follow up: Private Physician; When: 48 Hours; Reason: Further diagnostic work-up, Recheck today's complaints, Continuance of care, Re-evaluation by your physician. Follow up: Emergency Department; When: As needed; Reason: Fever > 102 F, Trouble breathing, Worsening of condition, Further diagnostic work-up. - Problem is new. - Symptoms are resolved. Signatures: Kate Cabello RN RN Jethro Akhtar MD MD ps1 Eulalia Hughes RN RN Corrections: (The following items were deleted from the chart) 15:11 14:46 01/05/2020 14:46 Discharged to Home. Impression: Abdominal discomfort. Condition ah is Stable. Forms are Medication Reconciliation Form, Thank You Letter, Antibiotic Education, Prescription Opioid Use. Follow up: Private Physician; When: 48 Hours; Reason: Further diagnostic work-up, Recheck today's complaints, Continuance of care, Re-evaluation by your physician. Follow up: Emergency Department; When: As needed; Reason: Fever > 102 F, Trouble breathing, Worsening of condition, Further diagnostic work-up. Problem is new. Symptoms are resolved. ps1
[2020-01-07 07:01] VITALS: BP 135/94; TEMP 97.3; O2SAT 100
== END 2020-01-05 15:11 | disposition home or self-care (01) ==
LOC: ER 13:30
DX: R10.9 Unspecified abdominal pain (principal)
CPT/HCPCS: 99281

== ENCOUNTER 2020-06-30 13:20 | Inpatient (IN) | payer OTHER ==
[2020-06-30] MEDS ORDERED: ACETAMINOPHEN 325 MG TABLET ONE (14:31)
[2020-06-30] MEDS ORDERED: ONDANSETRON 4 MG/2 ML VIAL ONE (14:31)
--- OUTSIDE RECORDS SUMMARY | 2020-06-30 14:35 | XMS REPORT | Continuity of Care Document ---
:1955 Author Organization [facility] Care Team Providers Name Role Phone [facility] Unavailable Un available Problems Problem Status Onset Classification Date Comments Sourc e Date Reported UNK Active 12/04/19 17 [place] BUE DX: Active 10/31/20 [id number] 16 [place] D COMPLICATI N18.6 Active 09/08/20 MH 15 [place] 585.6 Active 08/22/20 MH 15 [place] Discharge 08/19/20 08/22/2015 Diagnosis: Arm 15 [place] swelling OTHER Active 08/19/20 15 [place] BUE DX:729.5-ACUTE Active 03/30/20 POSTOPERATIVE PAIN 15 [place] O Anxiety (finding) Active Problem 12/13/2016 M H [facility] Arthritis Active Problem 12/13/2016 MH (disorder) [facility] Blood coagulation Resolved Problem 12/13/2016 M H disorder (disorder) [facility] Congestive heart Active Problem 12/13/2016 MH failure (disorder) [place] End stage renal Active Problem 12/13/2016 MH disease (disorder) [place] Hypertensive Active Problem 12/13/2016 disorder, systemic [place] arterial (disorder) Numbness of hand Active Problem 12/13/2016 Left hand MH (finding) [facility] Arteriovenous Resolved Problem 12/13/2016 left arm MH fistula occlusion [place] (disorder) 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 [facility] (finding) Final: End Stage 08/25/2015 MH Renal Disease [place] Final: Other 08/25/2015 Complications Due [place] to Renal Dialysis Device, Implant, and Graft Final: Hypertensive 08/25/2015 Chronic Kidney [place] Disease, Unspecified, with Chronic Kidney Disease Stage V or End Stage Renal Disease Final: Renal 08/25/2015 Dialysis Status [place] Final: Personal 08/25/2015 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 08/25/2015 Atrioventricular [place] Block END STAGE RENAL Active DISEASE [facility] Medications Medication Details Route Status Patient Ordering Order Source Instructions Provider Date Morphine 2 mg, Route: Inactive MH IVP, Q3H, 2016 [facility] Dosing Weight 109.136, kg, PRN Pain Score 1-3, Start date: 12/10/16 12:06:00 [employer]IEF TECH[employer]ICAL OFFICER, Duration: 30 day, Stop date: 01/09/17 12:05:00 CHIEF TECH[employer]ICAL OFFICER Acetaminophen 325 1 tab, Route: Inactive MH MG / Hydrocodone PO, Dosing 2017 [place] Bitartrate 10 MG Weight 109.136, Oral Tablet kg, Q4H, PRN Pain Score 4-6, Start date: 12/10/16 12:06:00 CHIEF TECHNICAL OFFICER, Duration: 30 day, Stop date: 01/09/17 12:05:00 CHIEF TECHNICAL OFFICER Acetaminophen 325 1 tab, Route: Inactive MH MG / Hydrocodone PO, Dosing 2017 [place] Bitartrate 5 MG Weight 109.136, Oral Tablet kg, Q4H, PRN Pain Score 4-6, Start date: 12/10/16 12:06:00 CHIEF TECHNICAL OFFICER, Duration: 30 day, Stop date: 01/09/17 12:05:00 CHIEF TECHNICAL OFFICER diphenhydrAMINE Route: IV, Drug Inactive MH (ANES) form: INJ, 2016, Stop date: 12/10/16 11:42:00 CHIEF TECHNICAL OFFICER ondansetron Route: IV, Drug Inactive MH (ANES) form: [id number], Stop date: 12/10/16 11:42:00 CHIEF TECHNICAL OFFICER fentaNYL (ANES) Route: IV, Drug Inactive form: [id number], Stop date: 12/10/16 11:42:00 CHIEF TECHNICAL OFFICER midazolam (ANES) Route: IV, Drug Inactive MH form: SOLN, 2016, Stop date: 12/10/16 11:42:00 CHIEF TECHNICAL OFFICER hydromorphone Route: IV, Drug Inactive M H (ANES) form: INJ2016, Stop date: 12/10/16 11:42:00 CHIEF TECHNICAL OFFICER ceFAZolin (ANES) Route: IV, Drug Inactive MH (ANES) form: INJ2016 Start date: 12/10/16 11:06:00 CHIEF TECHNICAL OFFICER, Stop date: 12/10/16 12:06:00 CHIEF TECHNICAL OFFICER sodium chloride Route: IV, Inactive 0.9% 500 ml INJ Total Volume: 2016 [place] (ANES) 500, Start date: 12/10/16 10:57:00 CHIEF TECHNICAL OFFICER, Stop date: 12/10/16 11:57:00 CHIEF TECHNICAL OFFICER Sodium Chloride 500 mL, Rate: Inactive H 0.154 MEQ/ML 25 ml/hr, 2016 [facility] Injectable Infuse over: 20 Solution hr, Route: IV, Dosing Weight 109.136 kg, Total Volume: 500, Start date: 12/10/16 9:19:00 CHIEF TECHNICAL OFFICER, Duration: 30 day, Stop date: 01/09/17 9:18:00 CHIEF TECHNICAL OFFICER Calcium Chloride 1,000 mL, Rate: Inactive 0.0014 MEQ/ML / 25 ml/hr, 2016 [facility] ast Potassium Infuse over: 40 Chloride 0.004 hr, Route: IV, MEQ/ML / Sodium Dosing Weight Chloride 0.103 109.136 kg, MEQ/ML / Sodium Total Volume: Lactate 0.028 1,000, Start MEQ/ML Injectable date: 12/10/16 Solution 9:18:00 CHIEF TECHNICAL OFFICER, Duration: 30 day, Stop date: 01/09/17 9:17:00 CHIEF TECHNICAL OFFICER calcium acetate 1,334 mg = 2 Active 667 MG Oral tab, PO, 2016 [facility] Tablet TID-Meals, # 180 tab, 3 Refill(s) sevelamer 1,600 mg = 2 Active carbonate 800 MG tab, PO, 2016 [facility] ast Oral Tablet TID-Meals, # [Renvela] 180 tab, 0 Refill(s) Ancef Notes: Same as: No Longer Ancef Active 2016 [facility] Morphine 2 mg, Route: Inactive IVP, Q3H, 2014 [facility] Dosing Weight 99.091, kg, PRN Pain Score 1-3, Start date: 08/22/15 13:23:00, Duration: 30 day, Stop date: 09/21/15 13:22:00 acetaminophen-cod 1 tab, Route: Inactive eine #3 PO, Drug Form: 2014 [facility] TAB, Dosing Weight 99.091, kg, Q4H, PRN Pain Score 4-6, Start date: 08/22/15 13:23:00, Duration: 30 day, Stop date: 09/21/15 13:22:00 Sodium Chloride 500 mL, Rate: Inactive H 0.154 MEQ/ML 25 ml/hr, 2014 [facility] Injectable Infuse over: 20 Solution hr, Route: IV, Dosing Weight 99.091 kg, Total Volume: 500, Start date: 08/22/15 11:59:00, Duration: 30 day, Stop date: 09/21/15 11:58:00 Dialyvite 800 0 Refill(s) Active Ultra D 2014 [facility] Acetaminophen 325 1-2 tab, PO, Active H MG / Hydrocodone Q4-6H, PRN 2015 [place] Bitartrate 5 MG Pain, # 30 tab, Oral Tablet 0 Refill(s) [Nahma 5/325] Ancef 2 gm, Route: Inactive IVPB, PRE OP, 2014 [facility] Dosing Weight 118.182, kg, Start date: 08/22/15 10:00:00, Duration: 30 day, Stop date: 09/21/15 9:59:00 Vancomycin 1 gm, Route: Inactive IVPB, Drug 2014 [facility] form: INJ, PRE OP, Dosing Weight 118.182, kg, Start date: 08/22/15 10:00:00, Duration: 30 day, Stop date: 09/21/15 9:59:00 tramadol 25 mg = 0.5 Active hydrochloride 50 tab, PO, Q4H, 2014 [place] Oral Tablet PRN as needed for pain, X 7 day, # 21 tab, 0 Refill(s) Morphine 4 mg, Route: Inactive IVP, Q6H, kg, 2014 [facility] PRN Pain Score 4-6, Start date: 04/20/15 16:08:00, Duration: 30 day, Stop date: 05/20/15 16:07:00 acetaminophen-cod 1 tab, Route: Inactive eine #3 PO, Drug Form: 2014 [facility] TAB, kg, Q4H, PRN Pain Score 1-3, Start date: 04/20/15 16:08:00, Duration: 30 day, Stop date: 05/20/15 16:07:00 Acetaminophen 100.4 F, Start Inactive 04/20/ H date: 04/20/152014 [facility] 16:08:00, Duration: 30 day, Stop date: 05/20/15 16:07:00 Diphenhydramine 12.5 mg, Route: Inactive 04/20[facility] IVP, Drug form: 2014 [place] INJ, Q6H, Dosing Weight 99.091, kg, PRN Itching, Start date: 04/20/15 14:23:00, Duration: 30 day, Stop date: 05/20/15 14:22:00 Glycopyrrolate 0.2 mg, Route: Inactive H IVP, Q5Min, 2014 [facility] Dosing Weight 99.091, kg, PRN Bradycardia, Start date: 04/20/15 14:23:00, Duration: 3 doses or times, Stop date: Limited # of times Ondansetron 4 mg, Route: Inactive 04/20[facility] IVP, ONCE, 2014 [facility] Dosing Weight 99.091, kg, PRN Nausea & Vomiting, Start date: 04/20/15 14:23:00 Promethazine 6.25 mg, Route: Inactive 04/20[facility] IVPB, ONCE, 2014 [facility] Dosing Weight 99.091, kg, PRN Nausea & Vomiting, Start date: 04/20/15 14:23:00 Meperidine 12.5 mg, Route: Inactive 04/20[facility] IVP, Q30Min, 2014 [facility] Dosing Weight 99.091, kg, PRN Other -See Comment, For shivering, Start date: 04/20/15 14:23:00, Duration: 2 doses or times, Stop date: Limited # of times Flumazenil 0.2 mg, Route: Inactive 04/20[facility] IVP, PRN, 2014 [facility] Dosing Weight 99.091, kg, PRN Benzodiazepine Reversal, Initial dose, Start date: 04/20/15 14:23:00, Duration: 30 day, Stop date: 05/20/15 14:22:00 Naloxone 0.04 mg, Route: Inactive 04/20[facility] IVP, Q2MIN, 2014 [facility] Dosing Weight 99.091, kg, PRN Narcotic Reversal, Start date: 04/20/15 14:23:00, Duration: 8 doses or times, Stop date: Limited # of times Hydromorphone 0.5 mg, Route: Inactive 04/20[facility] IVP, Q5Min, 2014 [facility] Dosing Weight 99.091, kg, PRN Pain Score 7-10, Start date: 04/20/15 14:23:00, Duration: 4 doses or times, Stop date: Limited # of times Fentanyl 50 microgram, Inactive 04/20[facility] Route: IVP, 2014 [facility] Q5Min, Dosing Weight 99.091, kg, PRN Pain Score 7-10, Start date: 04/20/15 14:23:00, Duration: 2 doses or times, Stop date: Limited # of times Morphine 4 mg, Route: Inactive 04/20[facility] IVP, Q5Min, 2014 [facility] Dosing Weight 99.091, kg, PRN Pain Score 7-10, Start date: 04/20/15 14:23:00, Duration: 3 doses or times, Stop date: Limited # of times Hydralazine 10 mg, Route: Inactive 04/20[facility] IVP, Q20Min, 2014 [facility] Dosing Weight 99.091, kg, PRN Elevated BP, Start date: 04/20/15 14:23:00, Duration: 2 doses or times, Stop date: Limited # of times Metoprolol 1 mg, Route: Inactive 04/20[facility] IVP, Q5Min, 2014 [facility] Dosing Weight 99.091, kg, PRN Other -See Comment, Start date: 04/20/15 14:23:00, Duration: 5 doses or times, Stop date: Limited # of times Oxycodone 5 mg, Route: Inactive 04/20[facility] PO, Drug form: 2014 [facility] TAB, Q4H, Dosing Weight 99.091, kg, PRN Pain Score 4-6, Start date: 04/20/15 14:23:00, Duration: 30 day, Stop date: 05/20/15 14:22:00 Ketorolac 30 mg, Route: Inactive [facility] IVP, ONCE, 2014 [facility] Dosing Weight 99.091, kg, Start date: 04/20/15 14:23:00, Duration: 1 doses or times, Stop date: 04/20/15 14:23:00 Ancef 2 gm, Route: Inactive IVPB, ONCE, 2014 [facility] Dosing Weight 99.091, kg, Start date: 04/20/15 11:33:00, Duration: 1 doses or times, Stop date: 04/20/15 11:33:00 Sodium Chloride 500 mL, Rate: Inactive 04/20/ M H 0.154 MEQ/ML 25 ml/hr, 2014 [facility] Injectable Infuse over: 20 Solution hr, Route: IV, Dosing Weight 99.091 kg, Total Volume: 500, Start date: 04/20/15 11:30:00, Duration: 30 day, Stop date: 05/20/15 11:29:00 Calcium Chloride 1,000 mL, Rate: Inactive 0.0014 MEQ/ML / 25 ml/hr, 2014 [facility] ast Potassium Infuse over: 40 Chloride 0.004 hr, Route: IV, MEQ/ML / Sodium Dosing Weight Chloride 0.103 99.091 kg, MEQ/ML / Sodium Total Volume: Lactate 0.028 1,000, Start MEQ/ML Injectable date: 04/20/15 Solution 11:28:00, Duration: 30 day, Stop date: 05/20/15 11:27:00 tramadol 50 mg = 1 tab, Active MH hydrochloride 50 PO, Q6H, PRN 2014 [place] MG Oral Tablet Pain, # 40 tab, 0 Refill(s) tamsulosin 0.4 mg 0.4 mg = 1 cap, Active MH oral capsule PO, Daily, # 30 2014 [place] cap, 0 Refill(s) minoxidil 2.5 mg 5 mg = 2 tab, Active 04/13/ M H oral tablet PO, BID, # 120 2014 [facility] east tab, 0 Refill(s) Metoprolol 100 mg = 1 tab, Active MH Tartrate 100 mg PO, BID, # 60 2015 [place] oral tablet tab, 0 Refill(s) Hydralazine 1 tab, PO, BID, Active 04/13/ MH Hydrochloride # 30 tab, 0 2014 [facility] ast 37.5 MG / Refill(s) Isosorbide Dinitrate 20 MG Oral Tablet [Bidil] Furosemide 40 MG 40 mg = 1 tab, Active 05/20/ MH Oral Tablet PO, Daily, # 30 2014 [place] tab, 0 Refill(s) Clonidine 0.2 mg, PO, Active Hydrochloride 0.2 TID, # 60 tab, 2015 [place] MG Oral Tablet 0 Refill(s) Ancef 1 gm, 100 mL, No Longer Route: IVPB, Active 2014 Drug form: INJ, PRE OP, kg, Start date: 04/13/15 13:00:00, Duration: 30 day, Stop date: 05/13/15 12:59:00 Allergies, Adverse Reactions, Alerts No Known Medication Allergies Immunizations No Data Provided for This Section Results Order Name Results Value Reference Date Interpretation Comments Jessica rce Range ELECTROLYTES Potassium 4.6 3.5 - 5.1 12/10 [facility] ELECTROLYTES AGAP 16.8 10.0 - 12/05 20.0 [facility] ELECTROLYTES eGFR 5 12/05 Result Comment: The eGFR is [place] calculated using the CKD-EPI formula. In most young, healthy individuals the eGFR will be >90 mL/min/1.73m2. The eGFR declines with age. An eGFR of 60-89 may be normal in some populations, particularly the elderly, for whom the CKD-EPI formula has not been extensively validated. Use of the eGFR is not recommended in the following populations:

Individu als with unstable creatinine concentrations, including patients and those with serious co-morbid conditions.<br/ >
Patients with extremes in muscle mass or diet.

The data above are obtained from the National Kidney Disease Education Program (NKDEP) which additionally recommends that when the eGFR is used in patients with extremes of body mass index for purposes of drug dosing, the eGFR should be multiplied by the estimated BMI. ELECTROLYTES Calcium Lvl 8.1 8.5 - 10.5 12/05 [facility] ELECTROLYTES CO2 25 24 - 32 12/05 [facility] ELECTROLYTES Chloride Lvl 98 95 - 109 12/05 [facility] ELECTROLYTES Potassium 4.8 3.5 - 5.1 12/05 [facility] ELECTROLYTES Sodium Lvl 135 135 - 145 12/05 [facility] ELECTROLYTES Glucose Lvl 106 70 - 99 12/05 [facility] ELECTROLYTES BUN 52 7 - 22 12/05 [facility] ELECTROLYTES Creatinine 11.00 0.50 - 12/05 Lvl 1.40 /2016 [facility] HEMATOLOGY Lymphocytes 14.9 20.0 - 12/05 40.0 /2016 [facility] HEMATOLOGY Monocytes # 0.7 0.0 - 0.8 12/05 /2016 [facility] HEMATOLOGY Lymphocytes 1.2 1.0 - 5.5 12/05 MH # /2016 [facility] HEMATOLOGY Eosinophils 0.3 0.0 - 0.5 12/05 MH # /2016 [facility] HEMATOLOGY Basophils # 0.1 0.0 - 0.2 12/05 [facility] HEMATOLOGY Basophils 0.9 0.0 - 1.0 12/05 [facility] HEMATOLOGY Segs-Bands # 5.9 1.5 - 8.1 12/05 [place] HEMATOLOGY Monocytes 9.0 2.0 - 12.0 12/05 [facility] HEMATOLOGY Eosinophils 4.2 0.0 - 4.0 12/05 [facility] HEMATOLOGY Segs 71.0 45.0 - 12/05 75.0 [facility] HEMATOLOGY RDW 14.9 11.5 - 12/05 14.5 [facility] HEMATOLOGY MPV 8.0 7.4 - 10.4 12/05 [facility] HEMATOLOGY Platelet 210 133 - 450 12/05 [facility] HEMATOLOGY MCHC 32.7 32.0 - 12/05 36.0 /2016 [facility] HEMATOLOGY MCH 28.4 27.0 - 12/05 31.0 /2016 [facility] HEMATOLOGY MCV 86.9 80.0 - 12/05 94.0 /2016 [facility] HEMATOLOGY Hgb 11.1 14.0 - 12/05 18.0 /2016 [facility] HEMATOLOGY Hct 34.0 42.0 - 12/05 54.0 /2016 [facility] HEMATOLOGY RBC 3.91 4.70 - 12/05 6.10 /2016 [facility] HEMATOLOGY WBC 8.3 3.7 - 10.4 12/05 [facility] HEMATOLOGY INR 1.00 0.85 - 12/05 1.17 [facility] HEMATOLOGY PT 13.4 12.0 - 12/05 14.7 [facility] HEMATOLOGY PTT 31.8 22.9 - 12/05 35.8 /2016 [facility] CHEM PANEL BUN 49 7 - 22 08/22 [facility] CHEM PANEL eGFR 12 08/22 Result Comment: The eGFR is [place] calculated using the CKD-EPI formula. In most young, healthy individuals the eGFR will be >90 mL/min/1.73m2. The eGFR declines with age. An eGFR of 60-89 may be normal in some populations, particularly the elderly, for whom the CKD-EPI formula has not been extensively validated. Use of the eGFR is not recommended in the following populations:

Individu als with unstable creatinine concentrations, including patients and those with serious co-morbid conditions.<br/ >
Patients with extremes in muscle mass or diet.

The data above are obtained from the National Kidney Disease Education Program (NKDEP) which additionally recommends that when the eGFR is used in patients with extremes of body mass index for purposes of drug dosing, the eGFR should be multiplied by the estimated BMI. CHEM PANEL Calcium Lvl 8.6 8.5 - 10.5 08/22 [facility] CHEM PANEL Sodium Lvl 139 135 - 145 08/22 [facility] CHEM PANEL Potassium 3.9 3.5 - 5.1 08/22 [facility] CHEM PANEL Chloride Lvl 101 95 - 109 08/22 [facility] CHEM PANEL CO2 31 24 - 32 08/22 [facility] CHEM PANEL Glucose Lvl 103 70 - 99 08/22 [facility] CHEM PANEL Creatinine 5.3 0.5 - 1.4 08/22 [facility] CHEM PANEL AGAP 10.9 10.0 - 08/22 MH 20.0 [facility] HEMATOLOGY MPV 7.7 7.4 - 10.4 08/22 [facility] HEMATOLOGY Platelet 224 133 - 450 08/22 [facility] HEMATOLOGY RDW 17.2 11.5 - 08/22 MH 14.5 /2014 [facility] HEMATOLOGY Hgb 9.3 14.0 - 08/22 MH 18.0 [facility] HEMATOLOGY RBC 3.52 4.70 - 08/22 MH 6.10 [facility] HEMATOLOGY WBC 5.4 3.7 - 10.4 08/22 [facility] HEMATOLOGY MCHC 31.3 32.0 - 08/22 MH 36.0 /2014 [facility] HEMATOLOGY MCH 26.4 27.0 - 08/22 MH 31.0 [facility] HEMATOLOGY Hct 29.7 42.0 - 08/22 MH 54.0 /2014 [facility] HEMATOLOGY MCV 84.3 80.0 - 08/22 MH 94.0 /2014 [facility] HEMATOLOGY PTT 37.6 22.9 - 08/22 MH 35.8 /2014 [facility] HEMATOLOGY INR 1.06 0.85 - 08/22 MH 1.17 /2014 [facility] HEMATOLOGY PT 14.1 12.0 - 08/22 MH 14.7 [facility] HEMATOLOGY Lymphocytes 0.9 1.0 - 5.5 08/22 MH # /2014 [facility] HEMATOLOGY Eosinophils 0.7 0.0 - 0.5 08/22 MH # /2014 [facility] HEMATOLOGY Monocytes # 0.7 0.0 - 0.8 08/22 [facility] HEMATOLOGY Segs-Bands # 3.0 1.5 - 8.1 08/22 [facility] HEMATOLOGY Basophils 0.4 0.0 - 1.0 08/22 [facility] HEMATOLOGY Eosinophils 13.3 0.0 - 4.0 08/22 [facility] HEMATOLOGY Segs 56.3 45.0 - 08/22 MH 75.0 [facility] HEMATOLOGY Lymphocytes 17.0 20.0 - 08/22 MH 40.0 /2014 [facility] HEMATOLOGY Monocytes 13.0 2.0 - 12.0 08/22 [facility] CHEM PANEL Creatinine 4.1 0.5 - 1.4 08/19 [facility] CHEM PANEL Sodium Lvl 136 135 - 145 08/19 [facility] CHEM PANEL Chloride Lvl 98 95 - 109 08/19 [facility] CHEM PANEL CO2 30 24 - 32 08/19 [facility] CHEM PANEL Calcium Lvl 8.6 8.5 - 10.5 08/19 [facility] CHEM PANEL Potassium 4.0 3.5 - 5.1 08/19 [facility] CHEM PANEL AGAP 12.0 10.0 - 08/19 MH 20.0 [facility] CHEM PANEL eGFR 17 08/19 Result Comment: The eGFR is [place] calculated using the CKD-EPI formula. In most young, healthy individuals the eGFR will be >90 mL/min/1.73m2. The eGFR declines with age. An eGFR of 60-89 may be normal in some populations, particularly the elderly, for whom the CKD-EPI formula has not been extensively validated. Use of the eGFR is not recommended in the following populations:

Individu als with unstable creatinine concentrations, including patients and those with serious co-morbid conditions.<br/ >
Patients with extremes in muscle mass or diet.

The data above are obtained from the National Kidney Disease Education Program (NKDEP) which additionally recommends that when the eGFR is used in patients with extremes of body mass index for purposes of drug dosing, the eGFR should be multiplied by the estimated BMI. CHEM PANEL Glucose Lvl 100 70 - 99 08/19 [facility] CHEM PANEL BUN 37 7 - 22 08/19 [facility] ELECTROLYTES Potassium 4.7 3.5 - 5.1 04/20 [facility] ELECTROLYTES AGAP 12.6 10.0 - 04/13 MH 20.0 [facility] ELECTROLYTES Potassium 4.6 3.5 - 5.1 04/13 [facility] ELECTROLYTES Sodium Lvl 140 135 - 145 04/13 [facility] ELECTROLYTES Chloride Lvl 110 95 - 109 04/13 [facility] ELECTROLYTES eGFR 12 04/13 <sup>1</sup>Res ult Comment: [facility] The eGFR is calculated using the CKD-EPI formula. In most young, healthy individuals the eGFR will be >90 mL/min/1.73m2. The eGFR declines with age. An eGFR of 60-89 may be normal in some populations, particularly the elderly, for whom the CKD-EPI formula has not been extensively validated. Use of the eGFR is not recommended in the following populations:&lt ;br/>
Indiv iduals with unstable creatinine concentrations, including patients and those with serious co-morbid conditions.<br/ >
Patients with extremes in muscle mass or diet.

The data above are obtained from the National Kidney Disease Education Program (NKDEP) which additionally recommends that when the eGFR is used in patients with extremes of body mass index for purposes of drug dosing, the eGFR should be multiplied by the estimated BMI. ELECTROLYTES Calcium Lvl 8.3 8.5 - 10.5 04/13 [facility] ELECTROLYTES BUN 76 7 - 22 04/13 [facility] ELECTROLYTES Glucose Lvl 96 70 - 99 04/13 <sup>2</sup>Int erpretive Data: [place] Adult reference range values reflect the clinical guidelines
of the [place] [employer]. ELECTROLYTES CO2 22 24 - 32 05/ MH /2014 [facility] ELECTROLYTES Creatinine 5.3 0.5 - 1.4 05/20 MH Lvl /2015 [facility] HEMATOLOGY Eosinophils 7.0 0.0 - 4.0 05/ MH /2014 [facility] HEMATOLOGY Monocytes 10.8 2.0 - 12.0 05/ MH /2014 [facility] HEMATOLOGY Eosinophils 0.3 0.0 - 0.5 05/20 MH # /2015 [facility] HEMATOLOGY Monocytes # 0.5 0.0 - 0.8 05/20 MH /2014 [facility] HEMATOLOGY Basophils 1.4 0.0 - 1.0 05/20 MH /2014 [facility] HEMATOLOGY Lymphocytes 0.8 1.0 - 5.5 05/20 MH # /2015 [facility] HEMATOLOGY Segs-Bands # 3.0 1.5 - 8.1 04/13 MH /2014 [facility] HEMATOLOGY Basophils # 0.1 0.0 - 0.2 04/13 MH /2014 [facility] HEMATOLOGY Lymphocytes 17.2 20.0 - 04/13 MH 40.0 /2014 [facility] HEMATOLOGY Segs 63.6 45.0 - 04/13 MH 75.0 /2014 [facility] HEMATOLOGY Hgb 10.5 14.0 - 04/13 MH 18.0 /2014 [facility] HEMATOLOGY MCV 86.8 80.0 - 04/13 MH 94.0 /2014 [facility] HEMATOLOGY Hct 32.6 42.0 - 05 MH 54.0 /2014 [facility] HEMATOLOGY MCHC 32.3 32.0 - 05 MH 36.0 /2014 [facility] HEMATOLOGY MCH 28.1 27.0 - 05 MH 31.0 /2014 [facility] HEMATOLOGY RBC 3.75 4.70 - 04/13 MH 6.10 /2014 [facility] HEMATOLOGY WBC 4.7 3.7 - 10.4 04/13 MH /2014 [facility] HEMATOLOGY RDW 19.3 11.5 - 04/13 MH 14.5 /2014 [facility] HEMATOLOGY MPV 8.1 7.4 - 10.4 04/13 MH [facility] HEMATOLOGY Platelet 150 133 - 450 04/13 MH [facility] HEMATOLOGY PT 14.6 12.0 - 04/13 MH 14.7 /2014 [facility] HEMATOLOGY INR 1.13 0.85 - 04/13 <sup>3</sup>Int MH 1.17 erpretive Data: [facility] RECOMMENDED RANGES FOR PROTIME INR:
2.0-3.0 for most medical and surgical thromboembolic states.
2.5-3.5 for artificial heart valves and recurrent embolism.
< br/>INR SHOULD BE USED ONLY FOR PATIENTS ON STABLE ANTICOAGULANT THERAPY. HEMATOLOGY PTT 35.6 22.9 - 04/13 <sup>4</sup>Int 35.8 /2014 erpretive Data: [facility] [facility] Heparin Therapeutic Range: 57 - 92 Seconds Pathology Reports No Data Provided for This Section Diagnostic Reports Report Value Date Source Chest 2 views DX Study: Chest 2 views DX 12/05/2016 Ananda godoy Clinical Indication: Coughing, preoperative eval uation Comparison: Chest x-ray from 08/22/2015 FINDINGS: The cardiac silhou ette is normal in size. The lungs are clear and without consolidation or congestion. No pleural effusion or pneumothorax is seen. Fusion hardware in the lower cervical spine is seen. IMPRESSION: No acute cardiopulmonary disease. SL: [id number] Ext Upper Arterial Please refer to the heart la b report, located under vascular in CARE4. 10/31/2016 [facility] Bilat w pressure US Chest 1view DX Chest, one view. 08/22/2015 [facility] HISTORY: Line placement. FINDINGS: Since the prior exam from duong brown on 08/14/2015, a right IJ dialysis catheter has been placed which terminates in the SVC. No pneumothorax. Lungs remain clear. No signi ficant pleural effusion. Mild/moderate cardiomegaly. No acute osseous abnormality. SL: 13 Chest 2 views DX HISTORY: Cough. 08/22/2015 [facility] Chest 2 views. Comparison 04/13/2015. Lungs clear. Cardiomegaly wi thout overt CHF. No pleural effusion or pneumothorax. Lower cervical spine fusion hardware as before. IMPRESSION: Cardiomegaly as before. No new or ac [place] finding otherwise. SL:13 Chest 2 views DX PA and LATERAL CHEST 04/13/2015 [facility] (2 views) HISTORY: Coughing Comparison is made to 12/02/2005. FINDINGS: The lungs are clear. There are no pleural effu sions. There is mild cardiomegaly. There is no overt fa ilure. There postoperative change i nvolving the cervical spine. A fusion plate is noted. Otherwise, the regional skeleton is unremarkable. CONCLUSION: 1. No active disease. 2. Mild cardiomegaly. 3. Postoperative changes, cervical spine. Coding: Chest 2 views CPT Code: 30573 SL: 12 Arnaldo Dai M.D. Ext Upper Venous Please refer to the heart la b report, located under vascular in CARE4. 04/13/2015 [facility] Doppler Bilat US Consultation Notes No Data Provided for This Section Discharge Summaries No Data Provided for This Section History and Physicals No Data Provided for This Section Vital Signs Vital Sign Value Date Comments Source Systolic (mm Hg) 129 12/10/2016 [facility] Diastolic (mm Hg) 77 12/10/[address] Systolic (mm Hg) 126 12/10/2016 [facility] Diastolic (mm Hg) 84 12/10/[address] Heart Rate 87 12/10/2016 [facility] Systolic (mm Hg) 120 12/10/2016 [facility] Diastolic (mm Hg) 75 12/10/[address] Respitory Rate 17 12/10/2016 [facility] Respitory Rate 14 12/10/2016 [facility] Respitory Rate 13 12/10/2016 [facility] Temperature Oral (F) 97.5 F 12/05/2016 [facility] Heart Rate 78 12/05/2016 [facility] Weight 109.136 12/05/2016 [facility] BMI Calculated 36.58 12/05/2016 [facility] Height 172.72 cm 12/05/2016 [facility] Systolic (mm Hg) 124 08/22/2015 [facility] Diastolic (mm Hg) 54 08/22/[address] Respitory Rate 18 08/22/2015 [facility] Systolic (mm Hg) 122 08/22/2015 [facility] Diastolic (mm Hg) 59 [facility] Rate 18 08/22/2015 [facility] Respitory Rate 16 08/22/2015 [facility] Systolic (mm Hg) 128 08/22/2015 [facility] Diastolic (mm Hg) 62 08/22/[address] [facility] [address] Temperature Oral (F) 98 F 08/22/2015 [facility] Heart Rate 66 08/22/2015 [facility] Height 172.72 cm 08/22/2015 [facility] Weight 99.091 08/22/2015 [facility] BMI Calculated 33.22 08/22/2015 [facility] Temperature Oral (F) 98.3 F 08/19/2015 [facility] Respitory Rate 17 08/19/2015 [facility] Heart Rate 66 08/19/2015 [facility] Systolic (mm Hg) 145 08/19/2015 [facility] Diastolic (mm Hg) 77 08/19/[address] Weight 118.182 08/19/2015 [facility] BMI Calculated 39.62 08/19/2015 [facility] Height 172.72 cm 08/19/2015 [facility] Systolic (mm Hg) 141 08/19/2015 [facility] Diastolic (mm Hg) 76 08/19/[address] Heart Rate 67 08/19/2015 [facility] Respitory Rate 16 08/19/2015 [facility] Temperature Oral (F) 98.3 F 08/19/2015 [facility] Systolic (mm Hg) 147 04/20/2015 [facility] Diastolic (mm Hg) 84 04/20/[address] Systolic (mm Hg) 127 04/20/2015 [facility] Diastolic (mm Hg) 68 04/20/[address] Systolic (mm Hg) 116 04/20/2015 [facility] Diastolic (mm Hg) 71 04/20/[address] Respitory Rate 13 04/20/2015 [facility] Respitory Rate 11 04/20/2015 [facility] Respitory Rate 8 04/20/2015 [facility] Heart Rate 60 04/13/2015 [facility] Temperature Oral (F) 98.0 F 04/13/2015 [facility] Weight 99.091 04/13/2015 [facility] BMI Calculated 33.22 04/13/2015 [facility] Height 172.72 cm 04/13/2015 [facility] Encounters Location Location Encounter Encounter Reason Attending ADM DE Stat us Source Details Type Number For Provider Date Date [facility] [id number] 04/13 04/14 Wyatt Leone /2014 [facility] OBS Day [id number] Vargas 04/20 04/20 [facility] Surgery [place] [place] [id number] Agustin 08/19 08/19 [facility] Emergency Kd /2014 [facility] OBS Day [id number] Vargas 08/22 08/22 [facility] Surgery Vasu /2014 [facility] Outpatient [id number] Vargas 10/31 11/01 Wyatt Leone /2015 [facility] Day Surgery [id number] Vargas 12/10 12/10 Wyatt Leone /2016 [facility] Procedures Procedure Code Date Perfomer Comments Source Percutaneous [id number] [facility] transluminal balloon 6 angioplasty Creation of [id number] [facility] brachial-cephalic 5 fistula Laparoscopic [id number] [facility] cholecystectomy Operation [id number] [facility] Insertion of [id number] LUE fistulogram [facility] heradha tunneled dialysis catheter using fluoroscopic guidance<sup>1</sup> Assessment and Plan No Data Provided for This Section Plan of Care No Data Provided for This Section Social History Social History Date Source Social History TypeResponse 12/02/2015 [facility] Alcohol Past Smoking Status Never smoker; Exposure to Tobacco Smoke None; Cigarette Smoking Last 365 Days No; Reg Smoking Cessation Counseling No Family History No Data Provided for This Section Advance Directives No Data Provided for This Section Functional Status No Data Provided for This Section
--- NOTE | 2020-06-30 14:44 | RAD REPORT ---
EXAM DESCRIPTION: CT - Stone Protocol - 06/30/2020 2:30 pm CLINICAL HISTORY: Flank pain. abdominal pain, vomiting COMPARISON: Abdomen Pelvis Wo Contrast dated 05/31/2018 TECHNIQUE: Axial images were obtained without oral or IV contrast. Lack of contrast limits solid org an and vascular assessment. The [id number] spans the entirety of the system partially obscuring uppermost abdomen and lung bases. Coronal reformatted images were obtained and reviewed. All CT scans are performed using dose optimization technique as appropriate and may include automated exposure control or mA/KV adjustment according to patient size. FINDINGS: Moderate patchy airspace and ground-glass opacities in both bases. Imaged portions of the liver and spleen show no suspicious findings on non-contrast imaging. Trace am ount of free fluid along the hepatic edge.Cholecystectomy clips. The pancreas and adrenal glands are normal. No pathologic lymphadenopathy in the abdomen or pelvis. Heavy atherosclerosis. IVC filter is noted. No urinary tract stones or obstructive uropathy. No bowel obstruction, free air, or abscess. Normal appendix noted. Moderate lumbar degenerative changes. Prostate enlargement. IMPRESSION: No urinary tract stones or obstructive uropathy. Moderate bibasilar lung opacities are present, incompletely assessed. Prostate enlargement.
--- NOTE | 2020-06-30 14:49 | RAD REPORT ---
EXAM DESCRIPTION: CT - Thorax Wo Con CLINICAL HISTORY: Chest pain fever COMPARISON: No comparisons FINDINGS: Moderate patchy ground-glass opacities are present in both lungs, greatest in the lung bas es. No pleural thickening or pleural effusion. No pneumothorax. Prominent cardiomegaly. No axillary, mediastinal or hilar adenopathy. No concerning bony finding. Trace free fluid is seen along the hepatic edge. Cervical spine hardware. All CT scans are performed using dose optimization technique as appropriate and may include automated exposure control or mA/KV adjustment according to patient size. IMPRESSION: Moderate patchy alveolar and ground-glass opacities, greatest in the lung bases.Suggest correlation for possible COVID-19 infection.
--- NOTE | 2020-06-30 14:50 | RAD REPORT ---
EXAM DESCRIPTION: RAD - Chest Single View - 06/30/2020 2:35 pm CLINICAL HISTORY: weakness Chest pain. COMPARISON: Chest Pa And Lat (2 Views) dated 08/28/2019; Chest Single View dated 05/31/2018; CHEST PA A ND LAT 2 VIEW dated 01/26/2015; CHEST SINGLE VIEW dated 01/21/2015 FINDINGS: Portable technique limits examination quality. Bilateral interstitial lung opacities are present, greatest in the lung bases. The heart is moderatel y enlarged in size. No displaced fractures.Cervical hardware plate. Left -sided vascular stenting is present.
[2020-06-30 15:06] LABS: Hematocrit 34.1 % (39.6-49.0); MPV 9.2 fL (7.6-11.3); RBC Red Blood Cell Count 3.98 M/uL (4.33-5.43)
[2020-06-30 15:07] LABS: Protime INR 1.15
[2020-06-30 15:28] LABS: Absolute Lymphocytes (CBC) 0.4 K/uL (0.7-4.9); Basophils % 1.7 % (0-1.3); Lymphocytes % 11.6 % (15.3-44.8)
[2020-06-30 15:39] LABS: Bilirubin Direct 0.4 mg/dL (0-0.2); Bilirubin Total 0.9 mg/dL (0.2-1.0); Magnesium 2.2 mg/dL (1.8-2.4); Potassium 3.6 mmol/L (3.5-5.1); Protein, Total 7.4 g/dL (6.4-8.2); Troponin (Emerg Dept Use Only) 0.42 ng/mL (0.0-0.045)
[2020-06-30] MEDS ORDERED: AZITHROMYCIN IV 500 MG in NA CHLORIDE 0.9% 250 ML IVPB ONE (17:00)
--- NOTE | 2020-06-30 17:04 | EDPHYS ---
Physician Documentation [facility] Name: Maykel Yanes Age: 65 yrs Sex: Male : 1955 Arrival Date: 06/30/2020 Time: 13:24 Bed 25 Private MD: ED Physician Pierre Huerta HPI: 06/30 13:49 This 65 yrs old Black Male presents to ER via EMS with complaints of fatigue/ malaise. m 13:49 The patient presents to the emergency department with nausea. Onset: The [facility] symptoms/episode began/occurred gradually, 6 day(s) ago. Possible causes: unknown. The symptoms are aggravated by nothing. The symptoms are alleviated by nothing. This is a 65 year old male with a history of ESRD that presents to the ED with complaints of fatigue, nausea beginning approx 6 days ago. Patient also admits to mild cough but denies shortness of breath. Patient states having intermittent chest pains. . Historical: - Allergies: 13:27 No Known Allergies; ss - PMHx: 13:27 "blood clots"; CHF; ESRD; HD , , ; Hypertension; Kidney stones; ss - PSHx: 13:27 Cholecystectomy; jair filter; ss - Immunization history:: Adult Immunizations unknown. - Social history:: Smoking status: Patient denies any tobacco usage or history of. ROS: 13:49 Neck: Negative for injury, pain, and swelling. jmm 13:49 Constitutional: Positive for body aches, chills, fatigue, Negative for 13:49 Neck: Positive for 13:49 Cardiovascular: Positive for chest pain. 13:49 Respiratory: Positive for cough, Negative for shortness of breath. 13:49 Abdomen/GI: Positive for nausea. 13:49 Abdomen/GI: Negative for abdominal pain. 13:49 All other systems are negative. Exam: 13:49 Constitutional: This is a well developed, well nourished patient who is awake, alert, jmm and in no acute distress. Head/Face: atraumatic. Eyes: EOMI, no conjunctival erythema appreciated ENT: Moist Mucus Membranes Neck: Trachea midline, Supple Chest/axilla: Normal chest wall appearance and motion. Cardiovascular: Regular rate and rhythm. No edema appreciated Respiratory: Normal respirations, no respiratory distress appreciated Abdomen/GI: Non distended, soft Back: Normal ROM Skin: General appearance color normal MS/ Extremity: Moves all extremities, no obvious deformities appreciated, no edema noted to the lower extremities Psych: Behavior is normal, Mood is normal, Patient is cooperative and pleasant 13:49 Neuro: Orientation: is normal, Mentation: is normal, Memory: is normal. 13:49 Psych: Behavior/mood is pleasant, cooperative. 17:33 ECG was reviewed by the Attending Physician. [facility] Vital Signs: 13:25 BP 125 / 89; Pulse 109; Resp 18; Temp 100.5(O); Pulse Ox 98% on R/A; Weight 96.3 kg; ss Pain 0/10; 14:00 BP 107 / 76; Pulse 104; sv 15:06 BP 155 / 104; Pulse 100; Resp 21; Pulse Ox 97% ; sv 16:00 BP 122 / 75; Pulse 95; Resp 27; Pulse Ox 94% ; sv 17:30 BP 135 / 63; Pulse 67; Resp 26; Pulse Ox 94% ; sv 19:00 BP 105 / 88; Pulse 65; Resp 20; Temp 98.6; Pulse Ox 93% on R/A; Pain 0/10; rr5 MDM: 13:49 Patient medically screened. [facility] 15:43 Data reviewed: lab test result(s), radiologic studies, CT scan. Counseling: I had a [facility] detailed discussion with the patient and/or guardian regarding: the historical points, exam findings, and any diagnostic results supporting the discharge/admit diagnosis, lab results, the need for further work-up and treatment in the hospital. ED course: I discussed the patient with Dr. Smith whom accepted admission. . ED course: Patient will need admission due to elevated troponin. . 16:14 Data reviewed: vital signs, nurses notes. [facility] 06/30 13:57 Order name: Basic Metabolic Panel [facility] 06/30 13:57 Order name: CBC with Diff [facility] 06/30 13:57 Order name: LFT's [facility] 06/30 13:57 Order name: Magnesium [facility] 06/30 13:57 Order name: NT PRO-BNP [facility] 06/30 13:57 Order name: PT-INR [facility] 06/30 13:57 Order name: Troponin (emerg Dept Use Only) [facility] 06/30 13:57 Order name: COVID-19 [facility] 06/30 13:57 Order name: Procalcitonin [facility] 06/30 13:57 Order name: Lactate [facility] 06/30 13:57 Order name: Blood Culture Adult (2) [facility] 06/30 15:26 Order name: Lactate; Complete Time: 15:39 EDMS 08 15:30 Order name: CBC with Automated Diff [facility] 06/30 15:35 Order name: Protime (+INR); Complete Time: 15:39 EDMS 06/30 13:57 Order name: XRAY Chest (1 view) [facility] 06/30 13:57 Order name: CT Stone Protocol [facility] 06/30 13:57 Order name: CT Chest Wo Con [facility] 06/30 14:45 Order name: CT; Complete Time: 14:48 EDMS 06/30 15:39 Order name: Procalcitonin; Complete Time: 15:39 EDMS 06/30 15:42 Order name: Basic Metabolic Panel; Complete Time: 15:43 EDMS 06/30 15:42 Order name: Liver (Hepatic) Function; Complete Time: 15:43 EDMS 06/30 15:42 Order name: Troponin (Emerg Dept Use Only); Complete Time: 15:43 EDMS 06/30 15:42 Order name: NT PRO-BNP; Complete Time: 15:43 EDMS 06/30 15:42 Order name: Magnesium; Complete Time: 15:43 EDMS 06/30 17:03 Order name: CORONAVIRUS [facility] 06/30 19:26 Order name: Manual Differential [facility] 06/30 19:38 Order name: Troponin I [facility] 07/01 00:01 Order name: Troponin I [facility] 07/01 04:11 Order name: CBC with Automated Diff [facility] 07/01 04:52 Order name: Basic Metabolic Panel [facility] 06/30 13:57 Order name: EKG; Complete Time: 13:58 [facility] 06/30 13:57 Order name: Cardiac monitoring; Complete Time: 14:19 [facility] 06/30 13:57 Order name: EKG - Nurse/Tech; Complete Time: 15:01 [facility] 06/30 13:57 Order name: IV Saline Lock; Complete Time: 15:01 [facility] 06/30 13:57 Order name: Labs collected and sent; Complete Time: 15:01 [facility] 06/30 13:57 Order name: O2 Per Protocol; Complete Time: 14:19 [facility] 06/30 13:57 Order name: O2 Sat Monitoring; Complete Time: 14:19 [facility] 06/30 14:50 Order name: CT; Complete Time: 14:56 EDMS 06/30 14:50 Order name: RAD; Complete Time: 14:56 EDMS EC:33 Rate is 109 beats/min. QRS [place] is Normal. OK interval is normal. QRS interval is jmm normal. QT interval is normal. No Q waves. T waves are Normal. No ST changes noted. Reviewed by me. Administered Medications: 15:00 Drug: Zofran (Ondansetron) 4 mg Route: IVP; Site: right antecubital; 07/01 03:32 Follow up: Response: No adverse reaction 06/30 15:00 Drug: Tylenol 650 mg Route: PO; 07/01 03:32 Follow up: Response: No adverse reaction 06/30 17:25 Drug: Zithromax 500 mg Route: IVPB; Infused Over: 1 hrs; Site: right antecubital; 07/01 03:32 Follow up: Response: No adverse reaction; IV Status: Completed infusion 06/30 17:25 Drug: Decadron - Dexamethasone 6 mg Route: IVP; Site: right antecubital; 07/01 03:32 Follow up: Response: No adverse reaction Disposition: 07:54 Co-signature as Attending Physician, Pierre Huerta MD I agree with the assessment and [facility] plan of care. Disposition: 06/30/20 17:04 Hospitalization ordered by Mark Smith for Inpatient Admission. Preliminary diagnosis are Pneumonia, Elevated Troponin. - Bed requested for Intensive Care Unit. - Status is Inpatient Admission. - Condition is Stable. - Problem is new. - Symptoms are unchanged. Signatures: Dispatcher [employer] Pierre Rachel MD MD [facility] Dave Buchanan PA PA jmm Smirch, Shelby, RN RN Lorie Thurman RN RN Valorie Lcay RN RN Jordan Carbajal Corrections: (The following items were deleted from the chart) 06/30 18:54 17:04 Hospitalization Ordered by Mark Smith MD for Inpatient Admission. Preliminary diagnosis is Pneumonia; Elevated Troponin. Bed requested for Telemetry/MedSurg (Inpatient). Status is Inpatient Admission. Condition is Stable. Problem is new. Symptoms are unchanged. jmm 07/01 06:08 06/30 18:54 06/30/2020 17:04 Hospitalization Ordered by A Luis CORREIA for Inpatient Admission. Preliminary diagnosis is Pneumonia; Elevated Troponin. Bed requested for [facility] ER HOLD. Status is Inpatient Admission. Condition is Stable. Problem is new. Symptoms are unchanged. cg 07/01 07:50 06:08 06/30/2020 17:04 Hospitalization Ordered by A Luis CORREIA for Inpatient Admission. hb Preliminary diagnosis is Pneumonia; Elevated Troponin. Bed requested for Intensive Care Unit. Status is Inpatient Admission. Condition is Stable. Problem is new. Symptoms are unchanged. cg
--- NOTE | 2020-06-30 17:04 | ER ---
Nurse's Notes [facility] Name: Maykel Yanes Age: 65 yrs Sex: Male : 1955 Arrival Date: 06/30/2020 Time: 13:24 Bed 25 Private MD: Diagnosis: Pneumonia;Elevated Troponin Presentation: 06/30 13:25 Chief complaint: EMS states: Fatigue and nausea that began over the past few days. Pt ss reports that it became worse after he began taking Tramadol and a muscle relaxer. Coronavirus screen: nausea. Ebola Screen: Patient denies exposure to infectious person. Patient denies travel to an Ebola-affected area in the 21 days before illness onset. Initial Sepsis Screen: Does the patient meet any 2 criteria? HR > 90 bpm. Does the patient have a suspected source of infection? No. Patient's initial sepsis screen is negative. Risk Assessment: Do you want to hurt yourself or someone else? Patient reports no desire to harm self or others. Onset of symptoms is unknown. 13:25 Method Of Arrival: EMS: [facility] ss 13:25 Acuity: JUNE 3 ss Historical: - Allergies: 13:27 No Known Allergies; ss - PMHx: 13:27 "blood clots"; CHF; ESRD; HD , , ; Hypertension; Kidney stones; ss - PSHx: 13:27 Cholecystectomy; jair filter; ss - Immunization history:: Adult Immunizations unknown. - Social history:: Smoking status: Patient denies any tobacco usage or history of. Screenin:01 Abuse screen: Denies threats or abuse. Denies injuries from another. Nutritional ss screening: No deficits noted. Tuberculosis screening: Never had TB. Fall Risk None identified. Assessment: 13:30 General: Appears in no apparent distress. comfortable, Behavior is calm, cooperative. ss Pain: Complains of pain in lumbar area Pain currently is 2 out of 10 on a pain scale. Quality of pain is described as tender, Is intermittent. Neuro: Level of Consciousness is awake, alert, obeys commands, Oriented to person, place, time, situation. Cardiovascular: Denies chest pain, PT denies shortness of breath, but it is noticed that when exerting himself, becomes tachypneic momentarily until he rests Heart tones S1 S2 present Chest pain is denied. Cardiovascular: Dialysis shunt: in the left bicep, with palpable thrill, with auscultated bruit, with no erythema, with no edema, no bleeding noted. Respiratory: Airway is patent Respiratory effort is even, Respiratory pattern is regular, symmetrical, Breath sounds are clear bilaterally. GI: Patient currently denies diarrhea, nausea, vomiting. EENT: Oral mucosa is moist. Derm: Skin is pink, warm \\T\\ dry. normal. Musculoskeletal: Range of motion: intact in all extremities. 14:30 Reassessment: Patient appears in no apparent distress at this time. Patient and/or ss family updated on plan of care and expected duration. Pain level reassessed. Patient is alert, oriented x 3, equal unlabored respirations, skin warm/dry/pink. Call light remains within reach. 15:30 Reassessment: Patient appears in no apparent distress at this time. Patient is alert, ss oriented x 3, equal unlabored respirations, skin warm/dry/pink. 16:30 Reassessment: Patient appears in no apparent distress at this time. No changes from sv previously documented assessment. Patient and/or family updated on plan of care and expected duration. Pain level reassessed. Patient is alert, oriented x 3, equal unlabored respirations, skin warm/dry/pink. Pt moved up in the stretcher. 17:25 Reassessment: Eloisa Yanes [phone]. hb 17:25 Reassessment: Patient appears in no apparent distress at this time. No changes from sv previously documented assessment. Patient and/or family updated on plan of care and expected duration. Pain level reassessed. Patient is alert, oriented x 3, equal unlabored respirations, skin warm/dry/pink. 19:20 General: Appears in no apparent distress. comfortable, Behavior is calm, cooperative, rr5 appropriate for age. Pain:. Pain: Complains of pain in lumbar area. Neuro: Level of Consciousness is awake, alert, obeys commands, Oriented to person, place, time, situation. Cardiovascular: Capillary refill < 3 seconds Patient's skin is warm and dry. Dialysis shunt: in the left arm, with palpable thrill, with auscultated bruit, with no erythema, with no edema, no bleeding noted. 19:20 Respiratory: Airway is patent Respiratory effort is even, unlabored, Respiratory rr5 pattern is regular, symmetrical. GI: No signs and/or symptoms were reported involving the gastrointestinal system. : No signs and/or symptoms were reported regarding the genitourinary system. EENT: No signs and/or symptoms were reported regarding the EENT system. Derm: Skin is intact, is healthy with good turgor, Skin temperature is warm. Musculoskeletal: Capillary refill < 3 seconds. Vital Signs: 13:25 BP 125 / 89; Pulse 109; Resp 18; Temp 100.5(O); Pulse Ox 98% on R/A; Weight 96.3 kg; ss Pain 0/10; 14:00 BP 107 / 76; Pulse 104; sv 15:06 BP 155 / 104; Pulse 100; Resp 21; Pulse Ox 97% ; sv 16:00 BP 122 / 75; Pulse 95; Resp 27; Pulse Ox 94% ; sv 17:30 BP 135 / 63; Pulse 67; Resp 26; Pulse Ox 94% ; sv 19:00 BP 105 / 88; Pulse 65; Resp 20; Temp 98.6; Pulse Ox 93% on R/A; Pain 0/10; rr5 ED Course: 13:24 Patient arrived in ED. ss 13:26 Triage completed. ss 13:27 Arm band placed on right wrist. ss 13:46 Dave Buchanan PA is PHCP. [facility] 13:46 Pierre Huerta MD is Attending Physician. [facility] 14:00 Patient has correct armband on for positive identification. Placed in gown. Bed in low ss position. Call light in reach. Side rails up X 1. 14:35 Kate Cabello, SRINI is Primary Nurse. sv 14:40 Inserted saline lock: 20 gauge in right antecubital area, using aseptic technique. ss Blood collected. Patient maintains SpO2 saturation greater than 95% on room air. 16:26 Blood Culture Adult (2) Sent. sv 16:27 Lactate Sent. sv 16:27 Procalcitonin Sent. sv 16:27 COVID-19 Sent. sv 16:27 CT Chest Wo Con Sent. sv 16:27 CT Stone Protocol Sent. sv 16:27 XRAY Chest (1 view) Sent. sv 16:27 Basic Metabolic Panel Sent. sv 16:27 CBC with Diff Sent. sv 16:27 LFT's Sent. sv 16:27 Magnesium Sent. sv 16:27 NT PRO-BNP Sent. sv 16:27 PT-INR Sent. sv 16:27 Troponin (emerg Dept Use Only) Sent. sv 16:49 Paul in outside lab notified pt being admitted, COVID swab needs to be sent to [facility]. 16:59 Mark Smith MD is Hospitalizing Provider. [facility] 19:25 No provider procedures requiring assistance completed. Patient admitted, IV remains in ss place. Administered Medications: 15:00 Drug: Zofran (Ondansetron) 4 mg Route: IVP; Site: right antecubital; 07/01 03:32 Follow up: Response: No adverse reaction 06/30 15:00 Drug: Tylenol 650 mg Route: PO; 07/01 03:32 Follow up: Response: No adverse reaction 06/30 17:25 Drug: Zithromax 500 mg Route: IVPB; Infused Over: 1 hrs; Site: right antecubital; 07/01 03:32 Follow up: Response: No adverse reaction; IV Status: Completed infusion 06/30 17:25 Drug: Decadron - Dexamethasone 6 mg Route: IVP; Site: right antecubital; 07/01 03:32 Follow up: Response: No adverse reaction Outcome: 06/30 17:04 Decision to Hospitalize by Provider. [facility] 19:25 Instructed on the need for admit. 22:00 Admitted to ER Hold. Please see [facility] for further documentation. 22:00 Condition: stable 22:00 Instructed on the need for admit. 07/01 07:50 Patient left the ED. Signatures: María Silva RN SRINI Dave Buchanan PA PA [facility] Kate Cabello RN RN Valorie Lacy RN RN Jordan Carbajal Familia Ba, RN RN rr5 Corrections: (The following items were deleted from the chart) 06/30 16:49 16:49 Reassessment: [facility] 19:24 13:30 : Denies burning with urination, urinary frequency, [facility]
[2020-06-30] MEDS ORDERED: ACETAMINOPHEN 500 MG TAB PO PRN (17:22)
[2020-06-30] MEDS ORDERED: ONDANSETRON 4 MG/2 ML VIAL IV PRN (17:22)
[2020-06-30] MEDS ORDERED: dexAMETHasone 10 MG/ML VIAL ONE (17:26)
[2020-06-30 19:25] LABS: Blood Morphology Comment NOT SEEN (NOT SEEN); Platelet Estimate DECR
[2020-06-30 22:01] VITALS: BMI 34.2
[2020-07-01 04:08] LABS: Absolute Lymphocytes (CBC) 0.4 K/uL (0.7-4.9); Basophils % 1.5 % (0-1.3); Hematocrit 34.3 % (39.6-49.0); Lymphocytes % 15.2 % (15.3-44.8); MPV 9.5 fL (7.6-11.3); RBC Red Blood Cell Count 3.98 M/uL (4.33-5.43)
[2020-07-01 04:29] LABS: Potassium 4.4 mmol/L (3.5-5.1)
[2020-07-01] MEDS ORDERED: dexAMETHasone 4 MG/ML VIAL IV SCH (09:00)
[2020-07-01] MEDS: AZITHROMYCIN IV 250 MG in NA CHLORIDE 0.9% 250 ML IVPB SCH (09:29)
[2020-07-01] MEDS: ASPIRIN EC 81 MG TAB PO SCH (09:29)
--- NOTE | 2020-07-01 11:05 | P.CNS ---
Date of Consult: 07/01/20 Reason for Consult: Pneumonia due to cortes virus Chief Complaint: Chest pain History of Present Illness: Patient is 65 years of age and stage renal disease is been sick for a week denies any fever complaining of cough chest discomfort fatigue nausea admitted from the emergency room the bilateral ground-glass appearance consistent with cortes virus infection he tested positive he is doing better room air Allergies No Known Drug Allergies Allergy (Verified 06/30/20 21:45) Unknown No Known Allergies Allergy (Uncoded 06/30/20 21:45) Unknown Home Medications: Aspirin [Aspirin EC 81 MG] 81 mg PO DAILY 07/01/20 Clonidine HCl [Catapres] 0.1 mg PO DAILY 07/01/20 Cyclobenzaprine HCl [Flexeril] 5 mg PO DAILY 07/01/20 Ergocalciferol (Vitamin D2) [Vitamin D 50,000 Unit Cap] 50,000 unit PO SEECOM 07/01/20 Isosorb Dinit/Hydralazine HCl [Bidil Tablet] 1 tab PO Q12HR 07/01/20 traMADol HCL [Ultram*] 50 mg PO BIDP PRN 07/01/20 - Past Medical/Surgical History Diabetic: No -: HTN -: CHF -: arthritis -: Stage 4 kidney disease -: nerve sx on neck -: lap farhan -: kidney stones removal - Social History Alcohol use: No CD- Drugs: No Caffeine use: Yes Review of Systems General: Weakness Respiratory: Cough, Shortness of Breath Cardiovascular: Chest Pain Physical Examination Temp Pulse Resp BP Pulse Ox 97.6 F 93 H 16 119/87 95 07/01/20 04:00 07/01/20 04:00 07/01/20 04:00 07/01/20 04:00 07/01/20 04:00 Laboratory Data (last 24 hrs) 06/30/20 14:40: PT 13.5 H, INR 1.15 06/30/20 14:40: WBC 3.4 L, Hgb 11.0 L, Hct 34.1 L, Plt Count 101 L 06/30/20 14:40: Sodium 138, Potassium 3.6, BUN 31 H, Creatinine 6.22 H*, Glucose 106, Magnesium 2.2, Total Bilirubin 0.9, AST 67 H, ALT 50, Alkaline Phosphatase 93 - Problems (1) Pneumonia due to COVID-19 virus Current Visit: Yes Status: Acute Plan: becca is 65 years of age admitted with pneumonia due to cortes virus he is hemodynamically stable chest x-ray consistent with cortes virus pneumonia oxygenation satisfactory CRP 70 I suggest increasing dose of his Decadron to 6 mg p.o. b.i.d. an Dc antibiotic/possible discharge tomorrow on steroids 20 mg twice a day for a week and then 10 mg twice a day for another week
--- NOTE | 2020-07-01 15:18 | EKG ---
Test Date: 2020-06-30 Test Time: 14:52:11 Director Export: VANITA MEASUREMENT RESULTS: Intervals: Rate: 109 SD: 216 QRSD: 90 QT: 366 QTc: 492 Adams: P: 56 SD: 216 QRS: 84 T: 73 INTERPRETIVE STATEMENTS: Sinus tachycardia with 1st degree AV block with premature supraventricular complexes Nonspecific ST abnormality Abnormal ECG Compared to ECG 05/31/2018 09:49:22 First degree AV block now present ST (T wave) deviation now present Sinus rhythm no longer present Electronically Signed On 07-01-20 15:17:06 CDT by Kenn Diamond
[2020-07-01] MEDS ORDERED: TRAMADOL HCL 50 MG TAB PO PRN (16:57)
[2020-07-01] MEDS: HEPARIN 5000 UNIT/ML 1 ML VIAL SQ SCH (21:00)
[2020-07-01] MEDS: dexAMETHasone 4 MG/ML VIAL IV SCH (21:00)
--- NOTE | 2020-07-01 21:14 | HP ---
Date of Admission: 07/01/2020 Chief Complaint: Fever, feeling weak, nausea. History Of Present Illness: This is a 65-year-old male patient, who is recently having some problem with difficulty swallowing solid food and I evaluated him via TeleVisit earlier this week and recommended him to start taking omeprazole and referred him to Dr. Gruber for further evaluation and management as he will need EGD done. Meanwhile yesterday, he ends up in emergency room with above- mentioned problems. After he was evaluated in the ER, he was diagnosed as having bilateral ground-glass opacity and pneumonia consistent with COVID-19 and his COVID-19 test, which was done in the emergency room last night came back positive this morning. The patient was admitted to the hospital. Since there were no beds on the floor for isolation room and admission, he was brought to ICU and I saw him in ICU this morning. He denies any shortness of breath. Lying in bed. Appears very comfortable. Allergies: NO KNOWN ALLERGIES. Medications: List reviewed. Review of Systems: GI: As mentioned above. Constitutional: As mentioned above. Musculoskeletal: He has chronic arthritis problem. All other systems reviewed and negative. Past Medical History: Significant for chronic diastolic congestive heart failure, anemia due to chronic kidney disease, osteoarthritis at multiple sites, end-stage renal disease on hemodialysis, hyperlipidemia, hypertension. Past Surgical History: Significant for surgery for cervical spine disk disorder, cholecystectomy, and AV graft placed for dialysis. Family History: Significant for hypertension, stroke, end-stage renal disease. Social History: Negative for smoking or alcohol use. Physical Examination: Vital Signs: When he first came into emergency room, temperature was 100.3, last temperature this morning 97.6, pulse 93, respiratory rate 16, blood pressure 119/87, oxygen saturation 95%. Height 5 feet 6 inches, weight 212 pounds. General: Awake, alert, oriented, not in distress. HEENT: Head atraumatic, normocephalic. Conjunctivae nonerythematous. Sclerae white. Mouth, no thrush or edema noted. Ears/Nose, no mass, lesion, discharge noted. Neck: Supple. No JVD, lymph nodes, bruit, thyromegaly noted. Lungs: Bilateral good equal air entry. Clear to auscultation. No rhonchi. No rales. Heart: Normal heart sounds. No murmur or gallop. Abdomen: Soft. Bowel sounds normal. No guarding, rigidity, tenderness, mass, hepatosplenomegaly, distention, or bruit noted. Extremities: No leg edema. No calf tenderness. Skin: No rash, ulcer, cellulitis. Lymphatics: No lymph node enlargement in neck, supraclavicular, infraclavicular region. Neuro: No focal neurological deficit. Chest: Unremarkable. External Genitalia: Deferred. Rectal: Deferred. Laboratory Data: Yesterday, white count 3.4, hemoglobin 11, platelets 101. This morning, white count 2.5, hemoglobin 11.3, platelets 90. Yesterday, sodium 138, potassium 3.6, chloride 100, bicarb 28, BUN 31, creatinine 6.22, glucose 106. Liver function tests unremarkable except SGOT 67. Troponin 0.42 on the first set. Procalcitonin 5.30. Second troponin 0.32. Third troponin 0.37. This morning, sodium 141, potassium 4.4, chloride 101, bicarb 27, BUN 42, creatinine 7.28, glucose 133. CAT scan of the abdomen per kidney stone protocol shows no urinary tract stone or any obstructive uropathy, enlarged prostate. CAT scan of the chest without contrast shows moderate patchy alveolar and ground-glass opacity, greatest in the lung bases. Chest x-ray shows bilateral interstitial opacity in the lung base. Impression: 1. COVID-19 pneumonia. 2. End-stage renal disease, on hemodialysis. 3. Pancytopenia. 4. Chronic diastolic congestive heart failure. 5. Abnormal cardiac enzymes. 6. Osteoarthritis, multiple sites. 7. Hypertension. 8. Hyperlipidemia. Plan: Admit the patient to hospital for further evaluation and management of this problem. The patient is appropriate for inpatient and is expected to spend 2 midnights in hospital. We will continue current medication including IV steroid, IV antibiotics, Zithromax. Consult solar field installation crew member and slot machine mechanic. We will consult the patient's life advisor for dialysis support. The patient is currently stable and we will consider to move him to ICU once isolation room is available. Details and plan of treatment discussed with the patient. CASE/MODL Voice ID: [id number]
[2020-07-01] MEDS: HYDRALAZINE HCL PO SCH (22:02)
[2020-07-01] MEDS: ISOSORB DINIT PO SCH (22:02)
--- NOTE | 2020-07-02 01:42 | CON ---
Date of Consultation: 07/01/2020 Chief Complaint: End-stage renal disease, on dialysis. History Of Present Illness: The patient was admitted to the hospital on 06/30/2020 and he was compla ining of fever, feeling weak, and nauseated. The patient is a 65-year-old man, who is dialysis depen dent. The patient with end-stage renal disease. He has been dialyzed on Saturday, , and . The patient was recently having problems with dysphagia and was evaluated by his primary physi adria and referred to clay machine operator for EGD. He came to emergency room because he developed weak ness over the last few days with fever, nausea, and workup done in the emergency room showed bilatera l ground-glass opacity and pneumonia consistent with COVID-19. COVID test was positive. The patient is admitted to ICU for isolation and management of COVID pneumonia. Review of Systems: He was complaining of fever, feeling weak, nauseated. He did not have melena, hematemesis. Past Medical History: Diastolic congestive heart failure, anemia due to chronic kidney disease, oste oarthritis at multiple sites, end-stage renal disease on hemodialysis, hyperlipidemia, hypertension, renal osteodystrophy. Past Surgical History: Significant for cervical spine disk disorder, cholecystectomy, dialysis acces s placement. Family History: Hypertension, stroke, end-stage renal disease. Social History: Denies tobacco, alcohol, or illicit drugs. Physical Examination: Limited due to COVID. GENERAL: The patient is awake and oriented. EXTREMITIES: There is no edema. Laboratory Data: Hemoglobin 11.3, WBC 2.5, platelet count is 93,000. Sodium 141, potassium 4.4, chl oride 101, CO2 27, BUN 42, creatinine 7.2, glucose 133. Troponin 0.37. C-reactive protein 7.4. Impression And Plan: 1.End-stage renal disease. Dialysis will be done tomorrow. The patient will have dialysis for meta bolic clearance. Ultrafiltration will be done to control volemia. 2.COVID pneumonia. Continue treatment. Primary team is following the patient for COVID pneumonia. 3.Hypertension. Blood pressure control. Adjust medication as needed. 4.Chronic diastolic congestive heart failure. The patient will have dialysis to control volemia. C urrently, the patient is stable. 5.Pancytopenia. The patient will have JOE for anemia due to chronic kidney disease. PADMINI/ELIDA Voice ID: [id number] Report ID: [id number]
--- NOTE | 2020-07-02 07:00 | CON ---
Date of Consultation: 07/01/2020 Reason For Consultation: Elevated troponin. History Of Present Illness: Mr. Yanes is a 65-year-old black male, has a history of end-stage renal disease on hemodialysis. Has had a history of congestive heart failure, DVT, hypertension. He has a history of an IVC filter as well. He came in mostly with malaise and fatigue, cough. No chest pain . Denied any nausea, vomiting, diaphoresis, PND, orthopnea, pedal edema, palpitations, or syncope. His chest x-ray was consistent with bilateral ground-glass appearance. He is COVID positive. Past Medical History: As stated above. Allergies: NONE. Review of Systems: Negative. Social History: Negative. Family History: Noncontributory. Medications: At home include Bidil and Ultram. Physical Examination: General: Mr. Yanes actually appeared very comfortable. He was lying down in bed with good oxygen sa turation, sinus rhythm, afebrile. Vital Signs: Stable. HEENT: Negative. Neck: Supple. No bruit. Chest: Revealed bilateral rales. Cardiac: Revealed a regular rhythm and rate with an S4 gallops. No murmurs or rubs. Abdomen: Benign. Extremities: Revealed no clubbing, cyanosis, or edema. Diagnostic Data: Include a creatinine is 6.22. His white count [place] 58846, platelet is 93,000. Trop onin was 0.37. BNP was 143,079. His procalcitonin is 5.3. Impression And Plan: Elevated troponin and BNP, most likely secondary to end-stage renal disease. T he patient is not showing any signs or symptoms of CAD or CHF at this point. He is COVID positive by examination. Chest x-ray showed ground-glass appearance. He is being treated and handled by Dr. Garcia in as far as that is concerned. He does have a history of hypertension that is well controlled. Has a history of chronic diastolic congestive heart failure that is well controlled. Has a history of D VT, for which he has an IVC filter. Mr. Yanes blood work shows some pancytopenia that I am assuming may be secondary to his kidney failure and present infection. At this point, he is on antibiotics. He is on aspirin. He is stable hemodynamically. He is not really symptomatic. I would continue his present regimen. Continue the dialysis once he is being treated for his COVID. We will have him co me to the office as an outpatient and have an ultrasound of his heart and a stress test. Otherwise, as far as I am concerned, he can go home whenever it is okay with Dr. Smith. KEVIN/ELIDA Voice ID: [id number] Report ID: [id number]
[2020-07-02] MEDS: HYDRALAZINE HCL PO SCH (08:18)
[2020-07-02] MEDS: ISOSORB DINIT PO SCH (08:18)
[2020-07-02] MEDS: dexAMETHasone 4 MG/ML VIAL IV SCH (08:19)
[2020-07-02] MEDS: ASPIRIN EC 81 MG TAB PO SCH (08:19)
[2020-07-02] MEDS: HEPARIN 5000 UNIT/ML 1 ML VIAL SQ SCH (08:20)
[2020-07-02] MEDS ORDERED: CYCLOBENZAPRINE 10 MG TAB PO SCH (09:00)
[2020-07-02] MEDS ORDERED: CYCLOBENZAPRINE HCL 5 MG PO SCH (09:00)
[2020-07-02] MEDS: AZITHROMYCIN IV 250 MG in NA CHLORIDE 0.9% 250 ML IVPB SCH (09:30)
[2020-07-02 10:12] VITALS: TEMP 97.4
[2020-07-02 11:40] VITALS: BP 113/80
[2020-07-02 11:41] VITALS: O2SAT 94
--- NOTE | 2020-07-02 13:30 | DS ---
Date of Discharge: 07/02/2020 History: The patient was evaluated this morning via tele visit. He was sitting in bed in ICU, feeli ng fine, had no complaints. No shortness of breath. No chest pain. No nausea, vomiting. The patie nt's vital signs reviewed. He is maintaining adequate amount of oxygenation without using any oxygen and he feels fine this morning and has no complaints. Vital signs reviewed. Discharge Medications And Instructions: 1.Continue all home medications. 2.Prednisone 10 mg, the patient to take 3 tablets daily for 4 days, then 2 tablets daily for 4 days, then 1 tablet daily for 4 days, then 1/2 tab daily for 4 days, then stop. 3.Azithromycin 250 mg, the patient to take 1 tablet daily for 5 days. 4.Follow up at my office in next 3-4 days and the patient to call office for appointment. Hospital Course: This is a 65-year-old pleasant male patient who was evaluated in emergency room wit h fever, feeling weak, and nausea problem. Please see dictated H and P for more information. After the patient was evaluated in the emergency room, he was admitted to the hospital with COVID-19 pneumo celia. He also has multiple other comorbidities including end-stage renal disease requiring hemodialys is. After he was evaluated in the ER, he was admitted to ICU as there were no beds available on the floor. In ICU, his condition has remained very stable. Hemodynamically, he is stable. He has not r equired any supplemental oxygen overnight and this morning he is feeling fine. Has no complaints of any shortness of breath. Has a good appetite. Pulmonary consultation was requested from Dr. Juan Jose nunn and Nephrology consultation was requested from his technical artist. He was given IV antibiotic, which was azithromycin and IV steroids. Cardiology consultation was requested from chief hydroelectric station operator for abnor mal troponin level and no further intervention was recommended by chief hydroelectric station operator at this point. His in itial CRP was 70 and repeat CRP today is 58.8. Laboratory Data: Labs on 06/30/2020, lab results reviewed and on 07/01/2020, lab results reviewed. Final Diagnoses: 1.COVID-19 pneumonia. 2.End stage renal disease, on hemodialysis. 3.Pancytopenia. 4.Chronic diastolic congestive heart failure. 5.Abnormal cardiac enzymes. 6.Osteoarthritis, multiple sites. 7.Hypertension. 8.Hyperlipidemia. CASE/MODL Voice ID: [id number] Report ID: [id number]
--- NOTE | 2020-07-02 17:39 | PN ---
Date of Progress Note: 07/02/2020 Subjective: The patient was admitted with COVID pneumonia, respiratory distress. The patient has be en dialyzed for over-volume. The patient tolerated the dialysis very well. The patient is currently on room air. Physical Examination: Vital Signs: Blood pressure 113/80, pulse of 100, afebrile. Chest: Crackles on the left base. Heart: S1, S2 regular. Abdomen: Soft, nontender. Extremities: Trace edema. Neurological: Alert and oriented x3, no focal. Laboratory Data: WBC 2.5, H and H 11.3/34.3, platelets 93. Sodium 141, potassium 4.4, bicarb 27, BU N 42, creatinine 7.2, calcium 8.7. Current Medications: Include: 1.Aspirin. 2.Azithromycin. 3.Tylenol. 4.Dexamethasone. 5.Zofran. 6.Isosorbide. Assessment And Plan: 1.End-stage renal disease, over volume, recovered. Continue dialysis TTS. We will arrange for dial ysis in the [facility] today at 5 o'clock. 2.Hypertension, controlled, optimal. Continue current medication. 3.Over volume status post dialysis, stabilize back to 3 times a week. 4.COVID pneumonia as by primary. The patient is cleared from the renal standpoint for discharge prem nning. Discussed with Dr. Smith and staff agreed on the plan. Discussed with the patient, verbalized understanding. DOMINICK Voice ID: [id number] Report ID: [id number]
== END 2020-07-02 14:40 | disposition home or self-care (01) | DRG 177 ==
LOC: ER 13:20 → ERHOLD 17:21 → 3RD-ICU 07-01 07:31
PROVIDERS: ADMIT Internal Medicine; ATTEND Internal Medicine
PROC: 8E0ZXY6 Isolation (ICD-10-PCS; principal; 2020-06-30)
DX: U07.1 COVID-19 (principal); J12.89 Other viral pneumonia; N18.6 End stage renal disease; D61.818 Other pancytopenia; I13.2 Hypertensive heart and chronic kidney disease with heart failure and with stage 5 chronic kidney disease, or end stage renal disease; I50.32 Chronic diastolic (congestive) heart failure; M19.90 Unspecified osteoarthritis, unspecified site; D63.1 Anemia in chronic kidney disease; E78.5 Hyperlipidemia, unspecified; Z86.718 Personal history of other venous thrombosis and embolism; Z90.49 Acquired absence of other specified parts of digestive tract; Z79.82 Long term (current) use of aspirin; Z79.899 Other long term (current) drug therapy; Z99.2 Dependence on renal dialysis
CPT/HCPCS: 36415; 71045; 71250; 74176; 76377; 80048; 80076; 82947; 83605; 83735; 83880; 84145; 84484; 85025; 85610; 86140; 87040; 90935; 93005; 96365; 96366; 96375; 99285; J0456; J1100; J1644; J2405; J7050; U0002

== ENCOUNTER 2020-07-07 22:01 | Inpatient (IN) | payer OTHER ==
--- OUTSIDE RECORDS SUMMARY | 2020-07-07 22:06 | XMS REPORT | Continuity of Care Document ---
:1955 Author Organization [employer] Care Team Providers Name Role Phone [employer] Unavailable Un available Problems Problem Status Onset [...] Anxiety (finding) Active Problem 12/13/[address] [facility] Arthritis Active Problem 12/13/2016 MH (disorder) [facility] Blood coagulation Resolved Problem 12/13/2016 M H disorder (disorder) [facility] Congestive heart Active Problem 12/13/2016 [facility] failure (disorder) [facility] End stage renal Active Problem 12/13/2016 [facility] disease (disorder) [facility] Hypertensive Active Problem 12/13/2016 disorder, systemic [facility] arterial (disorder) Numbness of hand Active Problem 12/13/2016 Left hand MH (finding) 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 Medications Medication Details Route Status Patient Ordering Order Source Instructions Provider Date Morphine 2 mg, Route: Inactive MH IVP, Q3H, 2016 [facility] Dosing Weight 109.136, kg, PRN Pain Score 1-3, Start date: 12/10/16 12:06:00 [employer], Duration: 30 day, Stop date: 01/09/17 12:05:00 [employer] Acetaminophen 325 1 tab, Route: Inactive MH MG / Hydrocodone PO, Dosing 2017 [facility] Bitartrate 10 MG Weight 109.136, Oral Tablet kg, Q4H, PRN Pain Score 4-6, Start date: 12/10/16 12:06:00 [employer], Duration: 30 day, Stop date: 01/09/17 12:05:00 [employer] Acetaminophen 325 1 tab, Route: Inactive MH MG / Hydrocodone PO, Dosing 2017 [facility] Bitartrate 5 MG Weight 109.136, Oral Tablet kg, Q4H, PRN Pain Score 4-6, Start date: 12/10/16 12:06:00 [employer], Duration: 30 day, Stop date: 01/09/17 12:05:00 [employer] diphenhydrAMINE Route: IV, Drug Inactive MH (ANES) form: INJ, 2016, Stop date: 12/10/16 11:42:00 [employer] ondansetron Route: IV, Drug Inactive MH (ANES) form: [id number], Stop date: 12/10/16 11:42:00 [employer] fentaNYL (ANES) Route: IV, Drug Inactive form: INJ2016, Stop date: 12/10/16 11:42:00 [employer] midazolam (ANES) Route: IV, Drug Inactive MH form: SOLN, 2016, Stop date: 12/10/16 11:42:00 [employer] hydromorphone Route: IV, Drug Inactive M H (ANES) form: [id number], Stop date: 12/10/16 11:42:00 [employer] ceFAZolin (ANES) Route: IV, Drug Inactive MH (ANES) form: INJ2016 Start date: 12/10/16 11:06:00 [employer], Stop date: 12/10/16 12:06:00 [employer] sodium chloride Route: IV, Inactive 0.9% 500 ml INJ Total Volume: 2016 [facility] (ANES) 500, Start date: 12/10/16 10:57:00 [employer], Stop date: 12/10/16 11:57:00 [employer] Sodium Chloride 500 mL, Rate: Inactive H 0.154 MEQ/ML 25 ml/hr, 2016 [facility] Injectable Infuse over: 20 Solution hr, Route: IV, Dosing Weight 109.136 kg, Total Volume: 500, Start date: 12/10/16 9:19:00 [employer], Duration: 30 day, Stop date: 01/09/17 9:18:00 [employer] Calcium Chloride 1,000 mL, Rate: Inactive 0.0014 MEQ/ML / 25 ml/hr, 2016 [facility] ast Potassium Infuse over: 40 Chloride 0.004 hr, Route: IV, MEQ/ML / Sodium Dosing Weight Chloride 0.103 109.136 kg, MEQ/ML / Sodium Total Volume: Lactate 0.028 1,000, Start MEQ/ML Injectable date: 12/10/16 Solution 9:18:00 [employer], Duration: 30 day, Stop date: 01/09/17 9:17:00 [employer] calcium acetate 1,334 mg = 2 Active 667 MG Oral tab, PO, 2016 [facility] Tablet TID-Meals, # 180 tab, 3 Refill(s) sevelamer 1,600 mg = 2 Active carbonate 800 MG tab, PO, 2016 [facility] ast Oral Tablet TID-Meals, # [Renvela] 180 tab, 0 Refill(s) Ancef Notes: Same as: No Longer Ancef Active 2016 [facility] Morphine 2 mg, Route: Inactive IVP, Q3H, 2014 [facility] Dosing Weight 99.091, kg, PRN Pain Score 1-3, Start date: 08/22/15 13:23:00, Duration: 30 day, Stop date: 09/21/15 13:22:00 acetaminophen-cod 1 tab, Route: Inactive eine #3 PO, Drug Form: 2014 [facility] TAB, Dosing Weight 99.091, kg, Q4H, PRN Pain Score 4-6, Start date: 08/22/15 13:23:00, Duration: 30 day, Stop date: 09/21/15 13:22:00 Sodium Chloride 500 mL, Rate: Inactive H 0.154 MEQ/ML 25 ml/hr, 2014 [facility] Injectable Infuse over: 20 Solution hr, Route: IV, Dosing Weight 99.091 kg, Total Volume: 500, Start date: 08/22/15 11:59:00, Duration: 30 day, Stop date: 09/21/15 11:58:00 Dialyvite 800 0 Refill(s) Active Ultra D 2014 [facility] Acetaminophen 325 1-2 tab, PO, Active H MG / Hydrocodone Q4-6H, PRN 2015 [facility] Bitartrate 5 MG Pain, # 30 tab, Oral Tablet 0 Refill(s) [[place] 5/325] Ancef 2 gm, Route: Inactive IVPB, PRE OP, 2014 [facility] Dosing Weight 118.182, kg, Start date: 08/22/15 10:00:00, Duration: 30 day, Stop date: 09/21/15 9:59:00 Vancomycin 1 gm, Route: Inactive IVPB, Drug 2014 [facility] form: INJ, PRE OP, Dosing Weight 118.182, kg, Start date: 08/22/15 10:00:00, Duration: 30 day, Stop date: 09/21/15 9:59:00 tramadol 25 mg = 0.5 Active hydrochloride 50 tab, PO, Q4H, 2014 [facility] [place] Oral Tablet PRN as needed for pain, X 7 day, # 21 tab, 0 Refill(s) Morphine 4 mg, Route: Inactive IVP, Q6H, kg, 2014 [facility] PRN Pain Score 4-6, Start date: 04/20/15 16:08:00, Duration: 30 day, Stop date: 05/20/15 16:07:00 acetaminophen-cod 1 tab, Route: Inactive eine #3 PO, Drug Form: 2014 [facility] TAB, kg, Q4H, PRN Pain Score 1-3, Start date: 04/20/15 16:08:00, Duration: 30 day, Stop date: 05/20/15 16:07:00 Acetaminophen 100.4 F, Start Inactive 04/20/ H date: 04/20/152014 [facility] 16:08:00, Duration: 30 day, Stop date: 05/20/15 16:07:00 Diphenhydramine 12.5 mg, Route: Inactive 04/20[facility] IVP, Drug form: 2014 [facility] [place]J, Q6H, Dosing Weight 99.091, kg, PRN Itching, Start date: 04/20/15 14:23:00, Duration: 30 day, Stop date: 05/20/15 14:22:00 Glycopyrrolate 0.2 mg, Route: Inactive H IVP, Q5Min, 2014 [facility] Dosing Weight 99.091, kg, PRN Bradycardia, Start date: 04/20/15 14:23:00, Duration: 3 doses or times, Stop date: Limited # of times Ondansetron 4 mg, Route: Inactive 04/20[facility] IVP, ONCE, 2014 [facility] Dosing Weight 99.091, kg, PRN Nausea & Vomiting, Start date: 04/20/15 14:23:00 Promethazine 6.25 mg, Route: Inactive 04/20[facility] IVPB, ONCE, 2014 [facility] Dosing Weight 99.091, kg, PRN Nausea & Vomiting, Start date: 04/20/15 14:23:00 Meperidine 12.5 mg, Route: Inactive 04/20[facility] IVP, Q30Min, 2014 [facility] Dosing Weight 99.091, kg, PRN Other -See Comment, For shivering, Start date: 04/20/15 14:23:00, Duration: 2 doses or times, Stop date: Limited # of times Flumazenil 0.2 mg, Route: Inactive 04/20[facility] IVP, PRN, 2014 [facility] Dosing Weight 99.091, kg, PRN Benzodiazepine Reversal, Initial dose, Start date: 04/20/15 14:23:00, Duration: 30 day, Stop date: 05/20/15 14:22:00 Naloxone 0.04 mg, Route: Inactive 04/20[facility] IVP, Q2MIN, 2014 [facility] Dosing Weight 99.091, kg, PRN Narcotic Reversal, Start date: 04/20/15 14:23:00, Duration: 8 doses or times, Stop date: Limited # of times Hydromorphone 0.5 mg, Route: Inactive 04/20[facility] IVP, Q5Min, 2014 [facility] Dosing Weight 99.091, kg, PRN Pain Score 7-10, Start date: 04/20/15 14:23:00, Duration: 4 doses or times, Stop date: Limited # of times Fentanyl 50 microgram, Inactive 04/20[facility] Route: IVP, 2014 [facility] Q5Min, Dosing Weight 99.091, kg, PRN Pain Score 7-10, Start date: 04/20/15 14:23:00, Duration: 2 doses or times, Stop date: Limited # of times Morphine 4 mg, Route: Inactive 04/20[facility] IVP, Q5Min, 2014 [facility] Dosing Weight 99.091, kg, PRN Pain Score 7-10, Start date: 04/20/15 14:23:00, Duration: 3 doses or times, Stop date: Limited # of times Hydralazine 10 mg, Route: Inactive 04/20[facility] IVP, Q20Min, 2014 [facility] Dosing Weight 99.091, kg, PRN Elevated BP, Start date: 04/20/15 14:23:00, Duration: 2 doses or times, Stop date: Limited # of times Metoprolol 1 mg, Route: Inactive 04/20[facility] IVP, Q5Min, 2014 [facility] Dosing Weight 99.091, kg, PRN Other -See Comment, Start date: 04/20/15 14:23:00, Duration: 5 doses or times, Stop date: Limited # of times Oxycodone 5 mg, Route: Inactive 04/20[facility] PO, Drug form: 2014 [facility] TAB, Q4H, Dosing Weight 99.091, kg, PRN Pain Score 4-6, Start date: 04/20/15 14:23:00, Duration: 30 day, Stop date: 05/20/15 14:22:00 Ketorolac 30 mg, Route: Inactive [facility] IVP, ONCE, 2014 [facility] Dosing Weight 99.091, kg, Start date: 04/20/15 14:23:00, Duration: 1 doses or times, Stop date: 04/20/15 14:23:00 Ancef 2 gm, Route: Inactive IVPB, ONCE, 2014 [facility] Dosing Weight 99.091, kg, Start date: 04/20/15 11:33:00, Duration: 1 doses or times, Stop date: 04/20/15 11:33:00 Sodium Chloride 500 mL, Rate: Inactive 04/20/ M H 0.154 MEQ/ML 25 ml/hr, 2014 [facility] Injectable Infuse over: 20 Solution hr, Route: IV, Dosing Weight 99.091 kg, Total Volume: 500, Start date: 04/20/15 11:30:00, Duration: 30 day, Stop date: 05/20/15 11:29:00 Calcium Chloride 1,000 mL, Rate: Inactive 0.0014 MEQ/ML / 25 ml/hr, 2014 [facility] ast Potassium Infuse over: 40 Chloride 0.004 [...] oral tablet PO, BID, # 120 2014 [facility] tab, 0 Refill(s) Metoprolol 100 mg = 1 tab, Active MH Tartrate 100 mg PO, BID, # 60 2015 [facility] oral tablet tab, 0 Refill(s) Hydralazine 1 tab, PO, BID, Active 04/13/ MH Hydrochloride # 30 tab, 0 2014 [facility] ast 37.5 MG / Refill(s) Isosorbide Dinitrate [...] ELECTROLYTES Potassium 4.6 3.5 - 5.1 12/10 [facility] ELECTROLYTES AGAP 16.8 10.0 - 12/[address] [facility] ELECTROLYTES eGFR 5 12/05 Result Comment: The [...] Calcium Lvl 8.1 8.5 - 10.5 12/05 [facility] ELECTROLYTES CO2 25 24 - 32 12/05 [facility] ELECTROLYTES Chloride Lvl 98 95 - 109 12/05 [facility] ELECTROLYTES Potassium 4.8 3.5 - 5.1 12/05 [facility] ELECTROLYTES Sodium Lvl 135 135 - 145 12/05 [facility] ELECTROLYTES Glucose Lvl 106 70 - 99 12/05 [facility] ELECTROLYTES BUN 52 7 - 22 12/05 [facility] ELECTROLYTES Creatinine 11.00 0.50 - 12/05 Lvl 1.40 /2016 [facility] HEMATOLOGY Lymphocytes 14.9 20.0 - 12/05 40.0 /2016 [facility] HEMATOLOGY Monocytes # 0.7 0.0 - 0.8 12/05 /2016 [facility] HEMATOLOGY Lymphocytes 1.2 1.0 - 5.5 12/05 MH # /2016 [facility] HEMATOLOGY Eosinophils 0.3 0.0 - 0.5 12/05 MH # /2016 [facility] HEMATOLOGY Basophils # 0.1 0.0 - 0.2 12/05 [facility] HEMATOLOGY Basophils 0.9 0.0 - 1.0 12/05 [facility] HEMATOLOGY Segs-Bands # 5.9 1.5 - 8.1 12/05 [facility] HEMATOLOGY Monocytes 9.0 2.0 - 12.0 12/05 [facility] HEMATOLOGY Eosinophils 4.2 0.0 - 4.0 12/05 [facility] HEMATOLOGY Segs 71.0 45.0 - 12/[address] [facility] HEMATOLOGY RDW 14.9 11.5 - 12/[address] [facility] HEMATOLOGY MPV 8.0 7.4 - 10.4 12/05 [facility] HEMATOLOGY Platelet 210 133 - 450 12/05 [facility] HEMATOLOGY MCHC 32.7 32.0 - 12/05 36.0 /2016 [facility] HEMATOLOGY MCH 28.4 27.0 - 12/05 31.0 /2016 [facility] HEMATOLOGY MCV 86.9 80.0 - 12/05 94.0 /2016 [facility] HEMATOLOGY Hgb 11.1 14.0 - 12/05 18.0 /2016 [facility] HEMATOLOGY Hct 34.0 42.0 - 12/05 54.0 /2016 [facility] HEMATOLOGY RBC 3.91 4.70 - 12/05 6.10 /2016 [facility] HEMATOLOGY WBC 8.3 3.7 - 10.4 12/05 [facility] HEMATOLOGY INR 1.00 0.85 - 12/[address] [facility] HEMATOLOGY PT 13.4 12.0 - 12/[address] [facility] HEMATOLOGY PTT 31.8 22.9 - 12/05 35.8 /2016 [facility] CHEM PANEL BUN 49 7 - 22 08/22 [facility] CHEM PANEL eGFR 12 08/22 Result Comment: [...] Calcium Lvl 8.6 8.5 - 10.5 08/22 [facility] CHEM PANEL Sodium Lvl 139 135 - 145 08/22 [facility] CHEM PANEL Potassium 3.9 3.5 - 5.1 08/22 [facility] CHEM PANEL Chloride Lvl 101 95 - 109 08/22 [facility] CHEM PANEL CO2 31 24 - 32 08/22 [facility] CHEM PANEL Glucose Lvl 103 70 - 99 08/22 [facility] CHEM PANEL Creatinine 5.3 0.5 - 1.4 08/22 [facility] CHEM PANEL AGAP 10.9 10.0 - 08/[address] [facility] HEMATOLOGY MPV 7.7 7.4 - 10.4 08/22 [facility] HEMATOLOGY Platelet 224 133 - 450 08/22 [facility] HEMATOLOGY RDW 17.2 11.5 - 08/22 MH 14.5 /2014 [facility] HEMATOLOGY Hgb 9.3 14.0 - 08/[address] [facility] HEMATOLOGY RBC 3.52 4.70 - 08/[address] [facility] HEMATOLOGY WBC 5.4 3.7 - 10.4 08/22 [facility] HEMATOLOGY MCHC 31.3 32.0 - 08/22 MH 36.0 /2014 [facility] HEMATOLOGY MCH 26.4 27.0 - 08/[address] [facility] HEMATOLOGY Hct 29.7 42.0 - 08/22 MH 54.0 /2014 [facility] HEMATOLOGY MCV 84.3 80.0 - 08/22 MH 94.0 /2014 [facility] HEMATOLOGY PTT 37.6 22.9 - 08/22 MH 35.8 /2014 [facility] HEMATOLOGY INR 1.06 0.85 - 08/22 MH 1.17 /2014 [facility] HEMATOLOGY PT 14.1 12.0 - 08/[address] [facility] HEMATOLOGY Lymphocytes 0.9 1.0 - 5.5 08/22 MH # /2014 [facility] HEMATOLOGY Eosinophils 0.7 0.0 - 0.5 08/22 MH # /2014 [facility] HEMATOLOGY Monocytes # 0.7 0.0 - 0.8 08/22 [facility] HEMATOLOGY Segs-Bands # 3.0 1.5 - 8.1 08/22 [facility] HEMATOLOGY Basophils 0.4 0.0 - 1.0 08/22 [facility] HEMATOLOGY Eosinophils 13.3 0.0 - 4.0 08/22 [facility] HEMATOLOGY Segs 56.3 45.0 - 08/[address] [facility] HEMATOLOGY Lymphocytes 17.0 20.0 - 08/22 MH 40.0 /2014 [facility] HEMATOLOGY Monocytes 13.0 2.0 - 12.0 08/22 [facility] CHEM PANEL Creatinine 4.1 0.5 - 1.4 08/19 [facility] CHEM PANEL Sodium Lvl 136 135 - 145 08/19 [facility] CHEM PANEL Chloride Lvl 98 95 - 109 08/19 [facility] CHEM PANEL CO2 30 24 - 32 08/19 [facility] CHEM PANEL Calcium Lvl 8.6 8.5 - 10.5 08/19 [facility] CHEM PANEL Potassium 4.0 3.5 - 5.1 08/19 [facility] CHEM PANEL AGAP 12.0 10.0 - 08/19 [...] Glucose Lvl 100 70 - 99 08/19 [facility] CHEM PANEL BUN 37 7 - 22 08/19 [facility] ELECTROLYTES Potassium 4.7 3.5 - 5.1 04/20 [facility] ELECTROLYTES AGAP 12.6 10.0 - 04/[address] [facility] ELECTROLYTES Potassium 4.6 3.5 - 5.1 04/13 [facility] ELECTROLYTES Sodium Lvl 140 135 - 145 04/13 [facility] ELECTROLYTES Chloride Lvl 110 95 - 109 04/13 [facility] ELECTROLYTES eGFR 12 04/13 <sup>1</sup>Res ult Comment: [facility] The eGFR is calculated using the CKD-EPI [...] Calcium Lvl 8.3 8.5 - 10.5 04/13 [facility] ELECTROLYTES BUN 76 7 - 22 04/13 [facility] ELECTROLYTES Glucose Lvl 96 70 - 99 04/13 <sup>2</sup>Int erpretive Data: [facility] Adult reference range values reflect the clinical guidelines
of the [place] [employer]. ELECTROLYTES CO2 22 24 - 32 05/ MH /2014 [facility] ELECTROLYTES Creatinine 5.3 0.5 - 1.4 05/20 MH Lvl /2015 [facility] HEMATOLOGY Eosinophils 7.0 0.0 - 4.0 05/ MH /2014 [facility] HEMATOLOGY Monocytes 10.8 2.0 - 12.0 05/ MH /2014 [facility] HEMATOLOGY Eosinophils 0.3 0.0 - 0.5 05/20 MH # /2015 [facility] HEMATOLOGY Monocytes # 0.5 0.0 - 0.8 05/20 MH /2014 [facility] HEMATOLOGY Basophils 1.4 0.0 - 1.0 05/20 MH /2014 [facility] HEMATOLOGY Lymphocytes 0.8 1.0 - 5.5 05/20 MH # /2015 [facility] HEMATOLOGY Segs-Bands # 3.0 1.5 - 8.1 04/13 MH /2014 [facility] HEMATOLOGY Basophils # 0.1 0.0 - 0.2 04/13 MH /2014 [facility] HEMATOLOGY Lymphocytes 17.2 20.0 - 04/13 MH 40.0 /2014 [facility] HEMATOLOGY Segs 63.6 45.0 - 04/13 MH 75.0 /2014 [facility] HEMATOLOGY Hgb 10.5 14.0 - 04/13 MH 18.0 /2014 [facility] HEMATOLOGY MCV 86.8 80.0 - 04/13 MH 94.0 /2014 [facility] HEMATOLOGY Hct 32.6 42.0 - 05 MH 54.0 /2014 [facility] HEMATOLOGY MCHC 32.3 32.0 - 05 MH 36.0 /2014 [facility] HEMATOLOGY MCH 28.1 27.0 - 05 MH 31.0 /2014 [facility] HEMATOLOGY RBC 3.75 4.70 - 04/13 MH 6.10 /2014 [facility] HEMATOLOGY WBC 4.7 3.7 - 10.4 04/13 MH /2014 [facility] HEMATOLOGY RDW 19.3 11.5 - 04/13 MH 14.5 /2014 [facility] HEMATOLOGY MPV 8.1 7.4 - 10.4 04/[address] [facility] HEMATOLOGY Platelet 150 133 - 450 04/[address] [facility] HEMATOLOGY PT 14.6 12.0 - 04/13 MH 14.7 /2014 [facility] HEMATOLOGY INR 1.13 0.85 - 04/13 <sup>3</sup>Int [...] seen. IMPRESSION: No acute cardiopulmonary disease. SL: [id number] Ext Upper Arterial Please refer to the heart la b report, located under vascular in CARE4. 10/31/2016 [facility] Bilat w pressure US Chest 1view DX Chest, one view. 08/22/2015 [facility] HISTORY: Line placement. FINDINGS: Since the prior exam from duong brown on 08/14/2015, a right IJ dialysis catheter has been placed which terminates in the SVC. No pneumothorax. Lungs remain clear. No signi ficant pleural effusion. Mild/moderate cardiomegaly. No acute osseous abnormality. SL: 13 Chest 2 views DX HISTORY: Cough. 08/22/2015 [facility] Chest 2 views. Comparison 04/13/2015. Lungs clear. Cardiomegaly wi thout overt CHF. No pleural effusion or pneumothorax. Lower cervical spine fusion hardware as before. IMPRESSION: Cardiomegaly as before. No new or ac jazmine finding otherwise. SL:13 Chest 2 views DX PA and LATERAL CHEST 04/13/2015 [facility] (2 views) HISTORY: Coughing Comparison is [...] spine. Coding: Chest 2 views CPT Code: 01204 SL: 12 Arnaldo Dai M.D. Ext Upper Venous Please refer to the heart la b report, located under vascular in CARE4. 04/13/2015 [facility] Doppler Bilat US Consultation Notes No [...] 14 12/10/2016 [facility] Respitory Rate 13 12/10/2016 [facility] Temperature Oral (F) 97.5 F 12/05/2016 [facility] Heart Rate 78 12/05/2016 [facility] Weight 109.136 12/05/2016 [facility] BMI Calculated 36.58 12/05/2016 [facility] Height 172.72 cm 12/05/2016 [facility] Systolic (mm Hg) 124 08/22/2015 [facility] Diastolic (mm Hg) 54 08/22/[address] Respitory Rate 18 08/22/2015 [facility] Systolic (mm Hg) 122 08/22/2015 [facility] Diastolic (mm Hg) 59 08/22/[address] [facility] Resp[facility] Rate 18 08/22/2015 [facility] Respitory Rate 16 08/22/2015 [facility] Systolic (mm Hg) 128 08/22/2015 [facility] Diastolic (mm Hg) 62 08/22/2015 [facility] st Temperature Oral (F) 98 F 08/22/2015 [facility] Heart Rate 66 08/22/2015 [facility] Height 172.72 cm 08/22/2015 [facility] Weight 99.091 08/22/2015 [facility] BMI Calculated 33.22 08/22/2015 [facility] Temperature Oral (F) 98.3 F 08/19/2015 [facility] Rate 17 08/19/2015 [facility] Heart Rate 66 08/19/2015 [facility] Systolic (mm Hg) 145 08/19/2015 [facility] Diastolic (mm Hg) 77 08/19/[address] Weight 118.182 08/19/2015 [facility] BMI Calculated 39.62 08/19/2015 [facility] Height 172.72 cm 08/19/2015 [facility] Systolic [...] 8 04/20/2015 [facility] Heart Rate 60 04/13/2015 [facility] Temperature Oral (F) 98.0 F 04/13/2015 [facility] Weight 99.091 04/13/2015 [facility] BMI Calculated 33.22 04/13/2015 [facility] Height 172.72 cm 04/13/2015 [facility] Encounters Location Location Encounter Encounter Reason Attending ADM NE Stat us Source Details Type Number For Provider Date Date [facility] [id number] [facility] 04/13 04/14 Wyatt Leone /2014 [facility] OBS Day [id number] Vargas 04/20 04/20 [facility] [place] [id number] Agustin 08/19 08/19 [facility] /2014 [facility] OBS Day [id number] Vargas 08/22 08/22 [facility] Vasu /2014 [facility] Outpatient [id number] Vargas 10/31 11/01 Wyatt Leone /2015 [facility] Day Surgery [id number] Vargas 12/10 12/10 Wyatt Leone /2016 [facility] Procedures Procedure Code Date Perfomer Comments Source Percutaneous [id number] [facility] transluminal balloon 6 angioplasty Creation of [id number] [facility] brachial-cephalic 5 fistula Laparoscopic [id number] [facility] cholecystectomy Operation [id number] [facility] Insertion of [id number] LUE fistulogram [facility] heradha tunneled dialysis catheter using fluoroscopic guidance<sup>1</sup> Assessment and Plan No Data Provided for This Section Plan of Care No Data Provided for This Section Social History Social History Date Source Social History TypeResponse 12/02/2015 [facility] Alcohol Past Smoking Status Never smoker; Exposure to Tobacco Smoke None; Cigarette Smoking Last 365 Days No; Reg Smoking Cessation Counseling No Family History No Data Provided for This Section Advance Directives No Data Provided for This Section Functional Status No Data Provided for This Section
[2020-07-07 23:06] LABS: Protime INR 1.21
[2020-07-07 23:09] LABS: Absolute Lymphocytes (CBC) 0.2 K/uL (0.7-4.9); Basophils % 0.1 % (0-1.3); Hematocrit 38.8 % (39.6-49.0); Lymphocytes % 2.2 % (15.3-44.8); RBC Red Blood Cell Count 4.57 M/uL (4.33-5.43)
[2020-07-07 23:39] LABS: Arterial Blood Carboxyhemoglob 1.1 % (0-1.5); Blood Gas Oxyhemoglobin 85.7 % (94-97); Blood O2 Saturation 87.4 % (92-98.5)
[2020-07-07 23:39] LABS: Sodium Level 136 mmol/L (136-145)
[2020-07-07 23:40] LABS: ALT/SGPT 28 U/L (12-78); AST/SGOT 34 U/L (15-37); Alkaline Phosphatase 79 U/L (45-117); BUN Blood Urea Nitrogen 42 mg/dL (7-18); Bicarbonate 21 mmol/L (21-32); Bilirubin Direct 0.9 mg/dL (0-0.2); Bilirubin Total 1.8 mg/dL (0.2-1.0); Glucose Level 90 mg/dL (74-106)
[2020-07-07 23:41] LABS: Magnesium 2.4 mg/dL (1.8-2.4); NT PRO-BNP > 35000 pg/mL (<125); Protein, Total 8.7 g/dL (6.4-8.2); Troponin (Emerg Dept Use Only) 0.19 ng/mL (0.0-0.045)
[2020-07-08 00:07] LABS: Blood Morphology Comment NOT SEEN (NOT SEEN); Platelet Estimate ADEQ
[2020-07-08] MEDS ORDERED: AZITHROMYCIN 500 MG INJ IVPB ONE (01:09)
[2020-07-08] MEDS ORDERED: NA CHLORIDE 0.9% 250 ML ONE (01:10)
[2020-07-08] MEDS ORDERED: dexAMETHasone 10 MG/ML VIAL ONE (01:23)
--- NOTE | 2020-07-08 02:36 | ER ---
Nurse's Notes [facility] Name: Maykel Yanes Age: 65 yrs Sex: Male : 1955 Arrival Date: 07/07/2020 Time: 22:04 Bed 8 Private MD: Diagnosis: Hypoxia. Positive Covid 19. Bilateral pneumonia. Chronic renal disease Presentation: 07/07 22:08 Chief complaint: EMS states: Pt completed treatment at [facility] dialysis and was about to ea be discharged when they noted his O2 sats in the 80%. EMS reports pt was at 92% on 2L per nasal cannula. Pt tested positive for covid one week ago. Pt reported feeling weak and having a cough. Coronavirus screen: At this time, the client does not indicate any symptoms associated with coronavirus-19. Ebola Screen: No symptoms or risks identified at this time. Initial Sepsis Screen: Does the patient meet any 2 criteria? HR > 90 bpm. Does the patient have a suspected source of infection? Yes:. Risk Assessment: Do you want to hurt yourself or someone else? Patient reports no desire to harm self or others. Onset of symptoms was July 07, 2020. 22:08 Method Of Arrival: EMS: [facility] ea 22:08 Acuity: JUNE 3 ea Triage Assessment: 22:14 General: Appears uncomfortable, Behavior is appropriate for age. Pain: Denies pain. ea Neuro: Level of Consciousness is awake, alert, obeys commands, Oriented to person, place, time, situation. Respiratory: Respiratory pattern is tachypnea. Historical: - PMHx: 22:16 Kidney stones; Hypertension; CHF; ESRD; HD , , ; "blood clots"; ea - PSHx: 22:16 jair filter; Cholecystectomy; ea - Immunization history:: Adult Immunizations up to date. - Social history:: Smoking status: Patient denies any tobacco usage or history of. Screenin:14 Abuse screen: Denies threats or abuse. Nutritional screening: No deficits noted. ea Tuberculosis screening: No symptoms or risk factors identified. Fall Risk IV access (20 points). Assessment: 23:20 Reassessment: Mrs. Yanes () [phone]. ea 23:20 Reassessment: Patient and/or family updated on plan of care and expected duration. Pain ea level reassessed. Patient is alert, oriented x 3, equal unlabored respirations, skin warm/dry/pink. 07/08 00:00 Reassessment: Patient and/or family updated on plan of care and expected duration. Pain ea level reassessed. Patient is alert, oriented x 3, equal unlabored respirations, skin warm/dry/pink. 01:00 Reassessment: Patient and/or family updated on plan of care and expected duration. Pain ea level reassessed. Patient is alert, oriented x 3, equal unlabored respirations, skin warm/dry/pink. 01:30 Reassessment: Doctor Ashu notified of lactic acid 2.5, no new order obtained at this ea time. 02:08 General: covid positive -relayed by Kathleen from the lab. provider and primary nurse mg2 informed. 03:58 Reassessment: Patient and/or family updated on plan of care and expected duration. Pain ea level reassessed. Patient is alert, oriented x 3, equal unlabored respirations, skin warm/dry/pink. Report given to Toshia MILLIGAN. 04:00 Reassessment: Patient and/or family updated on plan of care and expected duration. Pain ea level reassessed. Patient is alert, oriented x 3, equal unlabored respirations, skin warm/dry/pink. Pt admitted to fourth floor. Pt left ED via wheelchair, with O2 per nasal cannula per ED nurse. Pt tolerating well. Vital Signs: 07/07 22:08 BP 149 / 114; Pulse 108; Resp 25; Pulse Ox 100% on 2 lpm NC; Weight 93 kg; Height 5 ft. ea 8 in. (172.72 cm); 22:33 BP 127 / 89; Pulse 117; Resp 24; Pulse Ox 100% on 2 lpm NC; ea 22:33 Temp 97.6(O); ea 07/08 00:20 BP 143 / 97; Pulse 113; Resp 28; Pulse Ox 93% ; ea 01:01 BP 155 / 89; Pulse 113; Resp 24; Pulse Ox 95% on R/A; ea 02:44 BP 121 / 90; Pulse 118; Resp 22; Temp 98; Pulse Ox 98% on R/A; ea 03:58 BP 137 / 90; Pulse 101; Resp 22; Pulse Ox 97% on 2 lpm NC; ea 07/07 22:08 Body Mass Index 31.17 (93.00 kg, 172.72 cm) ea ED Course: 07/07 22:04 Patient arrived in ED. ea 22:08 Coty Gaytan, RN is Primary Nurse. ea 22:13 Triage completed. ea 22:14 Arm band placed on right wrist. Patient placed in an exam room, on a stretcher, on ea pulse oximetry. 22:14 Patient has correct armband on for positive identification. Bed in low position. Call ea light in reach. Side rails up X2. 22:31 Walt Wakefield MD is Attending Physician. pkl 22:35 Inserted saline lock: 22 gauge in right antecubital area, using aseptic technique. ds4 Blood collected. 23:47 XRAY Chest (1 view) In Process Unspecified. EDMS 07/08 00:09 CT Chest Wo Con In Process Unspecified. EDMS 01:01 No provider procedures requiring assistance completed. Inserted saline lock: 22 gauge ea in right hand, using aseptic technique. Patient admitted, IV remains in place. 02:33 Landon Smith MD is Hospitalizing Provider. pkl Administered Medications: 01:21 Drug: Zithromax 500 mg Route: IVPB; Infused Over: 1 hrs; Site: right hand; ea 02:46 Follow up: Response: No adverse reaction; IV Status: Completed infusion ea 01:21 Drug: Decadron - Dexamethasone 6 mg Route: IVP; Site: right antecubital; ea 02:46 Follow up: Response: No adverse reaction ea Outcome: 02:35 Decision to Hospitalize by Provider. pkl 02:46 Condition: stable ea 02:46 Instructed on the need for admit, Demonstrated understanding of instructions. 03:59 Admitted to Med/surg accompanied by nurse, room 415, with oxygen, with chart, Report ea called to Toshia MILLIGAN 04:21 Patient left the ED. rr5 Signatures: Dispatcher [employer] EDMA Walt Wakefield MD MD pkl Earl Crews ds4 Coty Gaytan, Gabriel Calero RN, ea, RN RN mg2 Roque, Raymond, RN RN rr5 Corrections: (The following items were deleted from the chart) 07/07 22:36 22:08 Chief complaint: EMS states: Pt completed treatment at [facility] and was ea about to be discharged when they noted his O2 sats in the 80%. EMS reports pt was at 92% on 2L per nasal cannula. Pt reported feeling weak and having a cough ea
--- NOTE | 2020-07-08 02:36 | EDPHYS ---
Physician Documentation [facility] Name: Maykel Yanes Age: 65 yrs Sex: Male : 1955 Arrival Date: 07/07/2020 Time: 22:04 Bed 8 Private MD: ED Physician Walt Wakefield HPI: 07/07 22:49 This 65 yrs old Black Male presents to ER via EMS with unknown complaint. pkl 22:49 The patient has shortness of breath Patient was completing his treatment at [facility] dialysis when the staff noted his O2 sats in the 80%. Onset: The symptoms/episode began/occurred just prior to arrival. Associated signs and symptoms: The patient has no apparent associated signs or symptoms. Patient was admitted to the hospital last week for Covid 19 pneumonia.. Historical: - PMHx: 22:16 Kidney stones; Hypertension; CHF; ESRD; HD , , ; "blood clots"; ea - PSHx: 22:16 jair filter; Cholecystectomy; ea - Immunization history:: Adult Immunizations up to date. - Social history:: Smoking status: Patient denies any tobacco usage or history of. ROS: 22:49 Eyes: Negative for injury, pain, redness, and discharge, ENT: Negative for injury, pkl pain, and discharge, Neck: Negative for injury, pain, and swelling, Cardiovascular: Negative for chest pain, palpitations, and edema. 22:49 Respiratory: Positive for shortness of breath, at rest. 22:49 Abdomen/GI: Negative for abdominal pain, nausea, vomiting, and diarrhea. 22:49 Back: Negative for acute changes. 22:49 : Negative for urinary symptoms. 22:49 MS/extremity: Negative for acute changes. 22:49 Skin: Negative for rash. 22:49 Neuro: Negative for altered mental status. Exam: 22:49 Head/Face: Normocephalic, atraumatic. Eyes: Pupils equal round and reactive to light, pkl extra-ocular motions intact. Lids and lashes normal. Conjunctiva and sclera are non-icteric and not injected. Cornea within normal limits. Periorbital areas with no swelling, redness, or edema. ENT: Nares patent. No nasal discharge, no septal abnormalities noted. Tympanic membranes are normal and external auditory canals are clear. Oropharynx with no redness, swelling, or masses, exudates, or evidence of obstruction, uvula midline. Mucous membranes moist. Neck: Trachea midline, no thyromegaly or masses palpated, and no cervical lymphadenopathy. Supple, full range of motion without nuchal rigidity, or vertebral point tenderness. No Meningismus. Chest/axilla: Normal chest wall appearance and motion. Nontender with no deformity. No lesions are appreciated. Cardiovascular: Regular rate and rhythm with a normal S1 and S2. No gallops, murmurs, or rubs. Normal PMI, no JVD. No pulse deficits. Respiratory: Lungs have equal breath sounds bilaterally, clear to auscultation and percussion. No rales, rhonchi or wheezes noted. No increased work of breathing, no retractions or nasal flaring. Abdomen/GI: Soft, non-tender, with normal bowel sounds. No distension or tympany. No guarding or rebound. No evidence of tenderness throughout. Back: No spinal tenderness. No costovertebral tenderness. Full range of motion. Skin: Warm, dry with normal turgor. Normal color with no rashes, no lesions, and no evidence of cellulitis. MS/ Extremity: Pulses equal, no cyanosis. Neurovascular intact. Full, normal range of motion. Neuro: Awake and alert, GCS 15, oriented to person, place, time, and situation. Cranial nerves II-XII grossly intact. Motor strength 5/5 in all extremities. Sensory grossly intact. Cerebellar exam normal. Normal gait. Vital Signs: 22:08 BP 149 / 114; Pulse 108; Resp 25; Pulse Ox 100% on 2 lpm NC; Weight 93 kg; Height 5 ft. ea 8 in. (172.72 cm); 22:33 BP 127 / 89; Pulse 117; Resp 24; Pulse Ox 100% on 2 lpm NC; ea 22:33 Temp 97.6(O); ea 07/08 00:20 BP 143 / 97; Pulse 113; Resp 28; Pulse Ox 93% ; ea 01:01 BP 155 / 89; Pulse 113; Resp 24; Pulse Ox 95% on R/A; ea 02:44 BP 121 / 90; Pulse 118; Resp 22; Temp 98; Pulse Ox 98% on R/A; ea 03:58 BP 137 / 90; Pulse 101; Resp 22; Pulse Ox 97% on 2 lpm NC; ea 07/07 22:08 Body Mass Index 31.17 (93.00 kg, 172.72 cm) ea MDM: 07/07 22:31 Patient medically screened. pkl 07/08 02:32 Data reviewed: vital signs, nurses notes, lab test result(s), EKG, radiologic studies, pkl CT scan, plain films. 07/07 22:41 Order name: Basic Metabolic Panel; Complete Time: 00:26 pkl 07/07 22:41 Order name: CBC with Diff; Complete Time: 00:26 pkl 07/07 22:41 Order name: LFT's; Complete Time: 00:26 pkl 07/07 22:41 Order name: Magnesium; Complete Time: 00:26 pkl 07/07 22:41 Order name: NT PRO-BNP; Complete Time: 00:26 pkl 07/07 22:41 Order name: PT-INR; Complete Time: 00:26 pkl 07/07 22:41 Order name: Troponin (emerg Dept Use Only); Complete Time: 00:26 pkl 07/07 22:41 Order name: ABG; Complete Time: 00:26 pkl 07/07 23:13 Order name: Lactate; Complete Time: 02:36 pkl 07/07 23:13 Order name: Procalcitonin; Complete Time: 02:36 pkl 07/07 23:13 Order name: Blood Culture Adult (2) pkl 07/07 23:16 Order name: Manual Differential; Complete Time: 00:26 EDMS 07/08 02:08 Order name: SARS-COV-2 RT PCR; Complete Time: 02:36 EDMS 07/07 22:41 Order name: XRAY Chest (1 view) pkl 07/07 22:41 Order name: EKG; Complete Time: 22:42 pkl 07/07 22:41 Order name: Cardiac monitoring; Complete Time: 22:56 pkl 07/07 23:08 Order name: CT Chest Wo Con pkl 07/08 03:14 Order name: Renal EDMS 07/08 03:14 Order name: Basic Metabolic Panel EDMS 07/08 03:14 Order name: Basic Metabolic Panel EDMS 07/08 03:14 Order name: CBC with Automated Diff EDMS 07/08 03:14 Order name: CBC with Automated Diff EDMS 07/08 03:14 Order name: NT PRO-BNP EDMN 07/08 03:14 Order name: NT PRO-BNP EDMN 07/08 03:14 Order name: Troponin I [facility] 07/08 03:14 Order name: Troponin I [facility] 07/08 03:14 Order name: Troponin I [facility] 07/07 22:41 Order name: EKG - Nurse/Tech; Complete Time: 22:56 pkl 07/07 22:41 Order name: IV Saline Lock; Complete Time: 22:56 pkl 07/07 22:41 Order name: Labs collected and sent; Complete Time: 22:56 pkl 07/07 22:41 Order name: O2 Per Protocol; Complete Time: 22:56 pkl 07/07 22:41 Order name: O2 Sat Monitoring; Complete Time: 22:56 pkl Administered Medications: 01:21 Drug: Zithromax 500 mg Route: IVPB; Infused Over: 1 hrs; Site: right hand; ea 02:46 Follow up: Response: No adverse reaction; IV Status: Completed infusion ea 01:21 Drug: Decadron - Dexamethasone 6 mg Route: IVP; Site: right antecubital; ea 02:46 Follow up: Response: No adverse reaction ea Disposition: 07/08/20 02:35 Hospitalization ordered by Landon Smith for Inpatient Admission. Preliminary diagnosis is Hypoxia. Positive Covid 19. Bilateral pneumonia. Chronic renal disease. - Bed requested for Telemetry/MedSurg (Inpatient). - Status is Inpatient Admission. rr5 - Condition is Stable. - Problem is new. - Symptoms are unchanged. Signatures: Dispatcher [employer] [facility] Marichuy Hernandez RN RN mw Lam, Pin, MD MD pkl Antunez, Elena, RN RN ea Roque, Raymond, RN RN rr5 Corrections: (The following items were deleted from the chart) 01:11 07/07 23:05 CORONAVIRUS+MR.LAB.BRZ ordered. [facility] 07/08 02:39 02:35 Hospitalization Ordered by Landon Smith MD for Inpatient Admission. Preliminary diagnosis is Hypoxia. Positive Covid 19. Bilateral pneumonia. Chronic renal disease. Bed requested for Telemetry/MedSurg (Inpatient). Status is Inpatient Admission. Condition is Stable. Problem is new. Symptoms are unchanged. pkl 04:21 02:39 07/08/2020 02:35 Hospitalization Ordered by Landon Smith MD for Inpatient rr5 Admission. Preliminary diagnosis is Hypoxia. Positive Covid 19. Bilateral pneumonia. Chronic renal disease. Bed requested for Telemetry/MedSurg (Inpatient). Status is Inpatient Admission. Condition is Stable. Problem is new. Symptoms are unchanged. mw
[2020-07-08 05:49] VITALS: BMI 30.4
[2020-07-08] MEDS ORDERED: dexAMETHasone 10 MG/ML VIAL IV SCH ×2 (06:00→09:00)
--- NOTE | 2020-07-08 07:08 | EKG ---
Test Date: 2020-07-07 Test Time: 22:56:19 Industrial Chemicals Supervisor: DANICA MEASUREMENT RESULTS: Intervals: Rate: 119 NV: 202 QRSD: 98 QT: 354 QTc: 497 [place]: P: 61 NV: 202 QRS: 52 T: 79 INTERPRETIVE STATEMENTS: Sinus tachycardia with occasional premature ventricular complexes Otherwise normal ECG Compared to ECG 06/30/2020 14:52:11 Ventricular premature complex(es) now present Atrial premature complex(es) no longer present First degree AV block no longer present ST (T wave) deviation no longer present Electronically Signed On 07-08-20 07:08:02 CDT by Kenn Diamond
[2020-07-08] MEDS ORDERED: cloNIDine HCL 0.1 MG TAB PO PRN (07:25)
[2020-07-08] MEDS ORDERED: DRISDOL (VITAMIN D=ERGOCALCIFEROL) 50000 UNIT CAP PO SCH (08:00)
[2020-07-08] MEDS ORDERED: FERRIC CITRATE PO SCH (08:00)
--- NOTE | 2020-07-08 08:00 | RAD REPORT ---
EXAM DESCRIPTION: Nick Single View07/07/2020 11:46 pm CLINICAL HISTORY: Shortness of breath COMPARISON: June 30, 2020 FINDINGS: Worsening in moderate bilateral alveolar opacities The heart remains enlarged IMPRESSION: Worsening in moderate bilateral alveolar opacities probably pneumonia
[2020-07-08] MEDS: CYCLOBENZAPRINE 10 MG TAB PO SCH (08:14)
[2020-07-08] MEDS: SEVELAMER CARBONATE 800 MG TABLET PO SCH ×3 (08:14→16:05)
[2020-07-08] MEDS: HEPARIN 5000 UNIT/ML 1 ML VIAL SQ SCH ×2 (08:15→20:12)
[2020-07-08] MEDS: PANTOPRAZOLE 40MG TABLET PO SCH (08:15)
[2020-07-08] MEDS: ASPIRIN EC 81 MG TAB PO SCH (08:15)
[2020-07-08] MEDS: HYDRALAZINE HCL PO SCH ×2 (08:16→20:20)
[2020-07-08] MEDS: ISOSORB DINIT PO SCH ×2 (08:16→20:20)
--- NOTE | 2020-07-08 08:35 | RAD REPORT ---
EXAM DESCRIPTION: CT - Thorax Wo Benoit - 07/08/2020 4:36 am CLINICAL HISTORY: Hypoxia TECHNIQUE: Contiguous axial images obtained through the chest without IV contrast. Coronal and sagit salomon reformatted images provided. This exam was performed according to our departmental dose-optimization program, which includes autom ated exposure control, adjustment of the mA and/or kV according to patient size and/or use of iterati ve reconstruction technique. COMPARISON: No prior exams provided for comparison. FINDINGS: Lungs: Multifocal reticulonodular and groundglass opacities throughout the lungs bilateral ly in a perihilar distribution. Airways are patent. Pleura: No effusion. No pneumothorax. Heart and pericardium: The heart is significantly enlarged. Coronary artery calcification. No pericar dial effusion. Mediastinum and david: No pathologically enlarged lymph nodes. Lower neck and chest wall: Unremarkable Vessels: Mild to moderate atherosclerotic disease. No thoracic aortic aneurysm. Upper abdomen: Small amount of free fluid within the upper abdomen. Bones: Anterior fusion hardware at the cervicothoracic junction. Multilevel spondylosis.. IMPRESSION: 1. Imaging features can be seen with viral pneumonia, though are nonspecific and can o ccur with a variety of infectious and noninfectious processes. PneInd Reference: https://pubs.rsna.or g/doi/full/10.1148/ryct.[email or web address] 2. Other findings as above. Electronically signed by: Ankita Yu MD 07/08/2020 12:13 AM CDT Due to temporary technical issues with the PACS/Fluency reporting system, reports are being signed by the in house radiologist without review as a courtesy to ensure prompt reporting. The interpreting r adiologist is fully responsible for the content of the report.
[2020-07-08] MEDS: levoFLOXacin 250 MG TAB PO SCH (08:50)
[2020-07-08] MEDS ORDERED: AZITHROMYCIN IV 250 MG in NA CHLORIDE 0.9% 250 ML IVPB SCH (09:00)
[2020-07-08] MEDS ORDERED: HOME MED 1 EA UNK (Omeprazole [Prilosec] 40 MG) PO SCH (09:00)
[2020-07-08] MEDS ORDERED: METHYLPREDNISOLONE 125 MG INJ IV ONE (11:03)
--- NOTE | 2020-07-08 11:08 | P.CNS ---
Date of Consult: 07/08/20 Reason for Consult: Christiansen virus pneumonia Chief Complaint: Lower extremity weakness History of Present Illness: Patient is 65 years of age with a history of coronal virus infection he has significant desaturation on minimal exertion was just recently here discharge complains of weakness of his legs denies any shortness of breath he is chronic renal failure Allergies No Known Drug Allergies Allergy (Verified 07/08/20 05:56) Unknown Home Medications: Aspirin [Aspirin EC 81 MG] 81 mg PO DAILY 07/01/20 Clonidine HCl [Catapres] 0.1 mg PO DAILYPRN PRN 07/01/20 Cyclobenzaprine HCl [Flexeril] 5 mg PO DAILY 07/01/20 Isosorb Dinit/Hydralazine HCl [Bidil Tablet] 1 tab PO Q12HR 07/01/20 traMADol HCL [Ultram*] 50 mg PO BIDP PRN 07/01/20 Omeprazole [Prilosec] 40 mg PO DAILY 07/08/20 Sevelamer Carbonate [Renvela*] 3,200 mg PO TIDWM 07/08/20 predniSONE [Deltasone*] 10 mg PO DAILY 07/08/20 - Past Medical/Surgical History Diabetic: No -: HTN -: CHF -: arthritis -: Stage 4 kidney disease -: Anemia -: hypoglycemia -: nerve sx on neck -: lap farhan -: kidney stones removal - Social History Alcohol use: No CD- Drugs: No Caffeine use: No Place of Residence: Home Review of Systems General: Weakness Respiratory: Shortness of Breath Physical Examination Temp Pulse Resp BP Pulse Ox 96.1 F L 100 H 18 148/103 H 95 07/08/20 08:00 07/08/20 08:00 07/08/20 08:00 07/08/20 08:00 07/08/20 08:00 Laboratory Data (last 24 hrs) 07/07/20 22:40: PT 14.2 H, INR 1.21 07/07/20 22:40: WBC 8.0 D, Hgb 12.8 L, Hct 38.8 L, Plt Count 157 D 07/07/20 22:40: Sodium 136, Potassium 4.0, BUN 42 H, Creatinine 5.45 H* D, Glucose 90, Magnesium 2.4, Total Bilirubin 1.8 H, AST 34, ALT 28, Alkaline Phosphatase 79 - Problems (1) Pneumonia due to COVID-19 virus Current Visit: No Status: Acute Plan: Patient is 65 years of age admitted with a pneumonia due to coronal wire us see complains of shortness of breath weakness his CRP has increased again almost double prior to his prior discharge qualify for home oxygen increase the dose of steroids low-dose p.o. levofloxacin patient is own DVT prophylaxis address is saturation is satisfactory patient is on dialysis continue with high-dose steroids and his CRP is less than 50
[2020-07-08] MEDS: METHYLPREDNISOLONE 125 MG INJ IV SCH (16:04)
[2020-07-09] MEDS: METHYLPREDNISOLONE 125 MG INJ IV SCH ×3 (00:11→17:33)
--- NOTE | 2020-07-09 00:12 | HP ---
Date of Admission: 07/08/2020 Chief Complaint: Feeling weak and low oxygen level. History Of Present Illness: This is a 65-year-old male patient who was in the hospital on 07/01/2020 with COVID 19 related pneumonia. Patient was discharged to go home on 07/02/2020 with azithromycin and prednisone. He has been taking his medications as prescribed. Yesterday, he was at dialysis unit and his oxygen saturation was noted to be low, around 86% or so, and he was feeling weak. He was sent to emergency room. After he was evaluated in the ER, he was admitted to the hospital. He denies any expectoration. No hemoptysis. No vomiting or diarrhea. Allergies: NO KNOWN ALLERGIES. Medications: List reviewed. Review of Systems: Constitutional: As mentioned above. Respiratory: As mentioned above. All other systems reviewed and negative. Past Medical History: Significant for chronic diastolic congestive heart failure; anemia, due to chronic kidney disease; osteoarthritis at multiple sites; end-stage renal disease, on hemodialysis; hyperlipidemia; hypertension. Past Surgical History: Significant for surgery for cervical spine disk disorder, cholecystectomy, AV fistula, AV graft placement for dialysis. Family History: Significant for hypertension, stroke, end-stage renal disease. Social History: Negative for smoking or alcohol use. Physical Examination: VITAL SIGNS: Temperature 98, pulse 60, respiratory rate 18, blood pressure 136/87, oxygen saturation 97% on 1 L nasal cannula when I saw him. For physical exam, the patient was evaluated via telemedicine. When I evaluated him, he appeared very comfortable, lying in bed, did not have in any respiratory distress. Denied any specific complaints when I saw him, except just generalized weakness. His oxygen saturation was adequate on 1 L nasal cannula oxygen. Laboratory Data: White count 8, hemoglobin 12.8, platelets 157. Sodium 136, potassium 4, chloride 99, bicarb 21, BUN 42, creatinine 5.45, glucose 9.0. Lactic acid 2.5, procalcitonin 8.23. Liver function tests unremarkable. INR 1.21. Blood gas; pH 7.47, pCO2 34.2, PO2 57.9, saturation 87.4% on room air. COVID-19 test done in the emergency room was positive. Chest x-ray shows bilateral infiltrate, worse compared to previous x-ray. Impression: 1. COVID-19 pneumonia. 2. End-stage renal disease, on hemodialysis. 3. Chronic diastolic congestive heart failure. 4. Osteoarthritis, multiple sites. 5. Hypertension. 6. Hyperlipidemia. Plan: We will go ahead and admit the patient to hospital for further evaluation and management of this problem. Patient is appropriate for inpatient and is expected to spend 2 midnights in the hospital. We will consult small machine bindery operator and design director. Details were discussed with Dr. Cabral. Patient received dexamethasone in the emergency room and we will change it to Solu-Medrol and Dr. Cabral already has started that particular medication for him. We will continue oxygen, keep him in isolation, and at this point he is medically stable. The patient's daughter requested to talk to me and I did call her. She lives in [place] and she was concerned about the patient's weakness and going back home and, after long discussion with her, she informed me the patient is not going to go to any facility or a custodial and I also explained it to her that it would be difficult but at the same time not necessarily impossible but difficult to transfer him to custodial because of his COVID positive test as lot of nursing facilities may not except such patient. On other hand, in my opinion, the best and the safest place for him would be home if his care can be provided at home. So, I encouraged the patient's daughter to talk to patient as well as patient's and she will do so, but at the same time she told me that she knows that the patient does not want to go anywhere and wants to return back home. In any case, we will provide any assistance if they need. We will follow up tomorrow. CASE/ELIDA Voice ID: [id number]
[2020-07-09 06:22] LABS: Absolute Lymphocytes (CBC) 0.3 K/uL (0.7-4.9); Basophils % 1.4 % (0-1.3); Hematocrit 35.4 % (39.6-49.0); Lymphocytes % 4.2 % (15.3-44.8); MPV 8.2 fL (7.6-11.3); RBC Red Blood Cell Count 4.27 M/uL (4.33-5.43)
[2020-07-09 08:16] LABS: BUN Blood Urea Nitrogen 71 mg/dL (7-18); Bicarbonate 23 mmol/L (21-32); Ferritin 1557.9 ng/mL (26-388); Glucose Level 136 mg/dL (74-106); Potassium 4.5 mmol/L (3.5-5.1); Sodium Level 136 mmol/L (136-145)
[2020-07-09] MEDS: ASPIRIN EC 81 MG TAB PO SCH (08:18)
[2020-07-09] MEDS: SEVELAMER CARBONATE 800 MG TABLET PO SCH ×3 (08:18→17:33)
[2020-07-09] MEDS: levoFLOXacin 250 MG TAB PO SCH (08:21)
[2020-07-09] MEDS: PANTOPRAZOLE 40MG TABLET PO SCH (08:21)
[2020-07-09] MEDS: HEPARIN 5000 UNIT/ML 1 ML VIAL SQ SCH ×2 (08:23→20:03)
[2020-07-09] MEDS: ISOSORB DINIT PO SCH ×2 (08:25→20:03)
[2020-07-09] MEDS: HYDRALAZINE HCL PO SCH ×2 (08:25→20:03)
[2020-07-09] MEDS: CYCLOBENZAPRINE 10 MG TAB PO SCH (08:28)
[2020-07-09 08:40] LABS: NT PRO-BNP > 175000 pg/mL (<125)
--- NOTE | 2020-07-09 09:52 | PN ---
Date of Progress Note: 07/09/2020 Subjective: The patient was evaluated via TeleVisit today, which is video and audio component, and kelby wright was lying in bed. Denied any complaints this morning. Overall reports that he feels better compar ed to how he was yesterday and day before yesterday. The patient is maintaining adequate oxygenation with 1 L/minute nasal cannula oxygen, but when he gets out of bed and moves around in the room, he h as hypoxia with oxygen saturation dropping into 82% to 86% range and at that time, he recovers with i ncreased oxygen to 3 L/minute, but the moment he gets back in the bed and rests for a while, his oxyg en level is well controlled with 1 L oxygen per minute. His appetite is good. Denies any other comp laints. Not coughing up any mucus. Not using any accessory muscles of respiration and appeared very comfortable in the bed. Objective: Vital signs: Reviewed. Laboratory Data: Reviewed. White count today is 6.2, hemoglobin 11.9, platelets 144. Chemistry was pending when I evaluated him earlier today, but subsequently result is available and reviewed. Impression: 1.COVID-19 pneumonia. 2.End-stage renal disease, on hemodialysis. 3.Anemia due to chronic kidney disease. 4.Generalized weakness secondary to COVID-19. Plan: We will continue to follow with Dr. Cabral from Pulmonary Service. Continue current steroid therapy. Consult room manager for dialysis support as the patient is due to have dialysis today. Continue heparin for DVT prophylaxis. CASE/MODL Voice ID: [id number] Report ID: [id number]
--- NOTE | 2020-07-09 15:43 | CON ---
Date of Consultation: 07/09/2020 Consulting Physician: Dr. Smith. Reason For Consultation: Elevated BUN and creatinine, fluid management. History Of Present Illness: This is a pleasant 65-year-old gentleman, well known to me from dialysis with significant past medical history of COPD, AFib, hypertension, congestive heart failure, end-stage renal disease, on hemodialysis at [facility], [facility], the patient is recently admitted to the hospital with COVID pneumonia. The patient went to the dialysis. At the dialysis, the patient was found to have atrial fibrillation with RVR with hypoxemia. For that reason, sent to the hospital. Upon arrival to the hospital, the patient has hypoxemia down to 86. Currently, the patient is on nasal cannula, maintaining around 92. Past Medical History: Include: 1. End-stage renal disease. 2. Congestive heart failure. 3. Hypertension. 4. Hyperlipidemia. Past Surgical History: Include: 1. AV fistula creation. 2. Cholecystectomy. 3. Cervical spine. Family History: CVA, hypertension, end-stage renal disease. Social History: Lives with the . Denies smoking. Denies drinking. Denies drug abuse. Review of Systems: Head and Neck: No red eye. No ear pain. GI: No nausea. No vomiting. : No polyuria. No dysuria. No hematuria, anuric. Sports Betting Manager: Not applicable. Respiratory: Has shortness of breath. Cardiovascular: Has leg swelling. Endocrine: No polydipsia. Skin: No rash. Neurologic: Low back pain. Musculoskeletal: Low back pain. Physical Examination: General: When I saw the patient, the patient was lying in bed. Vital Signs: Blood pressure of 141/95, pulse of 88. Chest: Faint crackles bilateral base. Heart: S1, S2, systolic murmur. Abdomen: Soft, nontender. Extremities: Plus edema. Neurologic: Alert, no focal. Laboratory Data: WBC 6.2, H and H 11.9/35.5, platelets of 144. Sodium 136, potassium 4.5, bicarb 23, BUN 71, creatinine 7, calcium 8.6. CT chest was done, suspect viral pneumonia. Current Medications: Include aspirin, Levaquin, heparin, clonidine, Renvela, pantoprazole, Solu-Medrol, tramadol. Assessment And Plan: 1. End-stage renal disease, over volume. I am going to dialyze the patient today and we will challenge him and we will follow up saturation after that. 2. Over volume, as above. 3. Respiratory failure secondary to cardiorenal/COVID pneumonia. Continue current treatment. We will challenge the patient. 4. Atrial fibrillation with rapid ventricular response. Currently rate controlled. 5. Secondary hyperparathyroidism. Continue binder. 6. Congestive heart failure. We will try to establish better volume control with ultrafiltration. 7. COVID pneumonia as by primary. Time spend for patient Care face to face , ordering and discussing the plan of care with staff 65 min DOMINICK Voice ID: [id number] Report ID: [id number] ZAINAB
[2020-07-09] MEDS: TRAMADOL HCL 50 MG TAB PO PRN (20:09)
[2020-07-10] MEDS: METHYLPREDNISOLONE 125 MG INJ IV SCH ×3 (00:01→19:47)
[2020-07-10 04:43] LABS: C-Reactive Protein 75.6 mg/L (<3.00); Ferritin 1503.3 ng/mL (26-388)
[2020-07-10] MEDS: ASPIRIN EC 81 MG TAB PO SCH (08:24)
[2020-07-10] MEDS: PANTOPRAZOLE 40MG TABLET PO SCH (08:26)
[2020-07-10] MEDS: levoFLOXacin 250 MG TAB PO SCH (08:27)
[2020-07-10] MEDS: SEVELAMER CARBONATE 800 MG TABLET PO SCH ×3 (08:29→17:22)
[2020-07-10] MEDS: HEPARIN 5000 UNIT/ML 1 ML VIAL SQ SCH ×2 (08:29→19:48)
[2020-07-10] MEDS: HYDRALAZINE HCL PO SCH ×2 (08:32→19:47)
[2020-07-10] MEDS: ISOSORB DINIT PO SCH ×2 (08:32→19:47)
[2020-07-10] MEDS: CYCLOBENZAPRINE 10 MG TAB PO SCH (08:33)
--- NOTE | 2020-07-10 10:59 | P.PN ---
Subjective Date of Service: 07/10/20 Chief Complaint: Shortness of breath Subjective: Improving (Patient is improving steadily appetite go days walking to the bathroom with a walker still weak) Review of Systems General: Weakness Respiratory: Shortness of Breath Physical Examination - Vital Signs Temperature: 95.9 F Blood Pressure: 129/84 Pulse: 88 Respirations: 16 Pulse Ox (%): 92 Assessment & Plan - Problems (Diagnosis) (1) Pneumonia due to COVID-19 virus Current Visit: No Status: Acute Plan: Patient is gradually improving is still little short of breath oxygenation satisfactory chronic renal failure CRP steadily declining reduce the dose of Solu-Medrol to 80 mg twice a day once a CRP is less than 50 was change him over to 40 b.i.d. poly need to go home on 20 b.i.d. for at least a week for so and then taper it down requiring minimal oxygen is 92% on 1 L consider low-dose intake anti anticoagulation with Eliquis 2.5 mg twice a day
--- NOTE | 2020-07-10 11:23 | RAD REPORT ---
EXAM DESCRIPTION: Nick Single View07/10/2020 9:34 am CLINICAL HISTORY: Chest pain COMPARISON: July 07, 2020 FINDINGS: Mild improvement in the diffuse bilateral pulmonary opacities likely pneumonia The heart remains enlarged
--- NOTE | 2020-07-10 12:49 | PN ---
Date of Progress Note: 07/10/2020 Subjective: The patient admitted to the hospital with COVID pneumonia, respiratory failure, over volume. Patient undergoes dialysis. Patient had dialysis yesterday, tolerated the dialysis. Physical Examination: Vital Signs: Blood pressure 129/84, pulse of 88. Chest: Crackles bilateral. Heart: S1, S2 regular. Abdomen: Soft, nontender. Extremities: Trace edema. Neurologic: Alert, nonfocal. Laboratory Data: WBC 6.2, H and H 11.9/35.4. Sodium 136, potassium 4.5, bicarb 23, BUN 71, creatinine 7.5, calcium 8.6, . C-reactive of 75. Current Medications: The patient on include aspirin, Levaquin, vitamin C, clonidine as needed, Renvela, pantoprazole, Solu-Medrol, tramadol, isosorbide. Assessment And Plan: 1. End-stage renal disease, slightly on the over volume side, supported with the finding on the chest x-ray. The patient requires less oxygen after the dialysis yesterday. I am going to go on do another session of dialysis as sequential tomorrow to establish better volume control and we will follow up the patient. 2. Hypertension. We will utilize the blood pressure for more ultrafiltration. 3. Respiratory failure, combined, secondary to coronavirus disease pneumonia/over volume. We will challenge the patient with sequential tomorrow. 4. Coronavirus disease pneumonia by Pulmonary and Primary. 5. Secondary SHPT Continue Renvela. 6. Anemia of chronic kidney disease, stable. Time spend for patient Care face to face , ordering and discussing the plan of care with staff 35 min DOMINICK Voice ID: [id number] Report ID: [id number] ZAINAB
[2020-07-10] MEDS: TRAMADOL HCL 50 MG TAB PO PRN (19:47)
--- NOTE | 2020-07-10 20:05 | CON ---
Date of Consultation: 07/09/2020 Reason For Consultation: Nonsustained ventricular tachycardia. History Of Present Illness: Mr. Yanes is a 65-year-old black male. [facility] He has end-stage renal disease, chronic diastolic congestive heart failure, hypertension, DVT, has a history of IVC filter, came in with COVID pneumonia by chest x-ray and CT scan. He came in wi th hypoxia, was found to have elevated troponin, was having multifocal atrial tachycardia, PACs, nons ustained ventricular tachycardia without any hemodynamic compromise. The patient denied any palpitat ion, chest pain, nausea, vomiting, diaphoresis. He has had no PND or orthopnea. He has had pedal ed ady. No syncope. He has shortness of breath. He is being treated for COVID now. Past Medical History: As stated above. Allergies: NONE. Review of Systems: Negative. Social History: Negative. Family History: Noncontributory. Medications: At home include BiDil, aspirin steroids, clonidine, Ultram, Prilosec, and Renvela. Physical Examination: Vital Signs: Stable. He was in sinus rhythm with PACs. Afebrile. Chest: Some crackles at the bases. Cardiac: Regular rhythm and rate with an S4 gallop. Abdomen: Benign. Extremities: Trace edema. Diagnostic Data: His pO2 was 57, pCO2 was 34, pH was 7.47. His creatinine is 7.50. Troponin is 0.1 5. His BNP was 175,000. Potassium was normal. Magnesium was normal. EKG shows sinus tach with PVC s. Echocardiogram in 2014 shows severe pulmonary hypertension. Impression And Plan: 1.Nonsustained ventricular tachycardia, possibly secondary to hypoxia from a viral pneumonia from [place] VID. He is on steroid. He is on Levaquin. His potassium and magnesium are appropriate. He is asym ptomatic without any hemodynamic compromise. I suggest that we change the BiDil to a low-dose beta b locker. The case was discussed with Dr. Smith. 2.History of severe pulmonary hypertension. 3.History of deep vein thrombosis, status post inferior vena cava filter. 4.History of chronic diastolic congestive heart failure, that is stable. 5.Hypertension, well controlled. 6.End-stage renal disease, on hemodialysis. 7.Elevated troponin and BNP secondary to renal failure. The patient can go home from my standpoint in the morning once okay with Dr. Smith. I will be happy t o see him in the office and follow up in the next 2 to 4 weeks. KEVIN/ELIDA Voice ID: [id number] Report ID: [id number]
[2020-07-11 04:57] LABS: C-Reactive Protein 48.8 mg/L (<3.00); Ferritin 1350.5 ng/mL (26-388)
[2020-07-11] MEDS: levoFLOXacin 250 MG TAB PO SCH (08:45)
[2020-07-11] MEDS: HEPARIN 5000 UNIT/ML 1 ML VIAL SQ SCH (08:46)
[2020-07-11] MEDS: SEVELAMER CARBONATE 800 MG TABLET PO SCH ×2 (08:46→12:05)
[2020-07-11] MEDS: CYCLOBENZAPRINE 10 MG TAB PO SCH (08:47)
[2020-07-11] MEDS: METHYLPREDNISOLONE 125 MG INJ IV SCH (08:48)
[2020-07-11] MEDS: ASPIRIN EC 81 MG TAB PO SCH (08:48)
[2020-07-11] MEDS: PANTOPRAZOLE 40MG TABLET PO SCH (08:49)
[2020-07-11] MEDS ORDERED: METOPROLOL TAR 25 MG TAB PO SCH (09:00)
[2020-07-11 11:15] VITALS: BP 161/99; TEMP 96.8
[2020-07-11 11:17] VITALS: O2SAT 98
--- NOTE | 2020-07-11 12:54 | P.PN ---
Subjective Date of Service: 07/11/20 Chief Complaint: Shortness of breath Subjective: Improving (Patient is doing much better weaknesses got better. CRP is not less than 50) Review of Systems General: Weakness Respiratory: Shortness of Breath Physical Examination - Vital Signs Temperature: 96.8 F Blood Pressure: 161/99 Pulse: 95 Respirations: 18 Pulse Ox (%): 98 Assessment & Plan - Problems (Diagnosis) (1) Pneumonia due to COVID-19 virus Current Visit: No Status: Acute Plan: Patient admitted with pneumonia due to coronal wire us a qualifies for home O2 he has approved plan to discharge on prednisone 20 b.i.d. for a week and then 10 b.i.d. is fairly minimal oxygen requirement patient has chronic renal failure on dialysis
--- NOTE | 2020-07-12 01:03 | PN ---
Date of Progress Note: 07/10/2020 The patient was evaluated via tele visit this morning with video and audio component. He was sitting in chair, denied any complaints. His breathing is better, overall feels better. Weakness is better. He remains on oxygen 1 L/minute nasal cannula. He was not in any distress when I evaluated him. Laboratory Data: White count 8, hemoglobin 12.8, platelets 157. Sodium 136, potassium 4, chloride 99, bicarb 21, BUN 42, creatinine 5.45, glucose 9.0. Lactic acid 2.5, procalcitonin 8.23. Liver function tests unremarkable. INR 1.21. Blood gas; pH 7.47, pCO2 34.2, PO2 57.9, saturation 87.4% on room air. COVID-19 test done in the emergency room was positive. Chest x-ray shows bilateral infiltrate, worse compared to previous x-ray. Impression: 1. COVID-19 pneumonia. 2. End-stage renal disease, on hemodialysis. 3. Chronic diastolic congestive heart failure. 4. Osteoarthritis, multiple sites. 5. Hypertension. 6. Hyperlipidemia. Plan: We will continue current Levaquin and IV steroid. Continue to follow with bone char kiln tender as well as head animal trainer and our plan is to possibly discharge him to go home tomorrow. CASE/MODL Voice ID: [id number] Report ID: [id number] ZAINAB
--- NOTE | 2020-07-12 02:37 | PN ---
Date of Progress Note: 07/11/2020 Chief Complaint: End-stage renal disease. The patient was admitted to the hospital for COVID pneumo celia, respiratory failure, fluid overload. The patient underwent dialysis yesterday and tolerated pro cedure. Today, he is to have ultrafiltration to obtain negative fluid balance to control congestive heart failure. Cardiac workup was initiated. Cardiology consultation was obtained. Review of Systems: Denies PND or orthopnea. Physical Examination: Lungs: Diminished breath sounds at bases. Heart: S1, S2. Abdomen: Soft, benign. Extremities: Some edema present. Laboratory Data: BUN 71, potassium 4.5, sodium 136, creatinine 7.5, calcium 8.6. Impression And Plan: 1.End-stage renal disease. The patient has ultrafiltration today to control congestive heart failur e. The patient will continue p.o. fluid restriction, low-sodium diet. 2.Hypertension. Continue blood pressure medication. 3.Respiratory failure secondary to coronavirus and fluid overload. The patient will have sequential treatment done today. 4.Coronavirus pneumonia per primary team. 5.Secondary hyperparathyroidism. Continue Renvela. 6.Anemia of chronic kidney disease, stable. EB/MODL Voice ID: [id number] Report ID: [id number]
[2020-07-14 19:56] LABS: HBsAG Nonreactive (Nonreactive)
--- NOTE | 2020-08-01 14:46 | DS ---
Date of Discharge: 07/11/2020 Disposition: Discharged to go home. Patient was evaluated with televisit that included audio and video component. He denied any complain ts this morning. Not in any distress. He was sitting in chair. Denies any complaints. Vital signs reviewed. Discharge Medications And Instructions: 1.Continue all prior home medication except stop BiDil (isosorbide/hydralazine) and the patient to s tart taking a new medication called metoprolol as prescribed. Also take prednisone as prescribed. 2.Levaquin 250 mg 1 tablet by mouth daily. 3.Follow up at my office in 1 week. 4.Go for dialysis as per schedule. 5.Prescription for metoprolol, Levaquin and prednisone was sent to [facility] from my off ice. 6.Use oxygen 1 L/minute via nasal cannula all the time. Hospital Course: This is a 65-year-old male patient who was admitted to the hospital with feeling we ak and low oxygen level. Patient was admitted to the hospital with COVID-19 pneumonia. After he was admitted to the hospital, pulmonary consultation was requested from Dr. Cabral and nephrology cons ultation was also requested. Patient received his dialysis during this hospitalization. He was give n IV steroid and IV antibiotics. Overall his condition improved. He required supplemental oxygen bu t did not require any other aggressive measures. Overall his condition improved and we were able to discharge him to go home with above-mentioned medications and instructions. Laboratory Data: Upon admission on 07/07/2020, white count 8, hemoglobin 12.8, platelets 157, and on 07/09/2020, white count 6.2, hemoglobin 11.9, platelets 144. Blood gas on 07/07/2020, pH 7.47, pCO2 34.2, PO2 57.9, saturation was 87.4%. Last chemistry on 07/09/2020, sodium 136, potassium 4.5, chlo ride 100, bicarb 23, BUN 71, creatinine 7.50, glucose 136. His C-reactive protein upon admission was 149 on 07/08/2020 and on 07/11/2020, C-reactive protein was 48. Overall the patient's condition imp roved and he was discharged to go home in stable condition. Final Diagnoses: 1.COVID-19 pneumonia. 2.End-stage renal disease, on hemodialysis. 3.Chronic diastolic congestive heart failure. 4.Osteoarthritis, multiple sites. 5.Hypertension. 6.Hyperlipidemia. 7.Anemia due to chronic kidney disease. CASE/MODL Voice ID: [id number] Report ID: [id number]
== END 2020-07-11 14:54 | disposition home or self-care (01) | DRG 177 ==
LOC: ER 22:01 → ERHOLD 07-08 03:05 → 4TH 07-08 03:56
PROVIDERS: ADMIT Internal Medicine; ATTEND Internal Medicine
PROC: 8E0ZXY6 Isolation (ICD-10-PCS; principal; 2020-07-08)
PROC: 5A1D70Z Performance of Urinary Filtration, Intermittent, Less than 6 Hours Per Day (ICD-10-PCS; 2020-07-10)
DX: U07.1 COVID-19 (principal); N18.6 End stage renal disease; J12.89 Other viral pneumonia; J96.01 Acute respiratory failure with hypoxia; I13.2 Hypertensive heart and chronic kidney disease with heart failure and with stage 5 chronic kidney disease, or end stage renal disease; I50.32 Chronic diastolic (congestive) heart failure; N25.81 Secondary hyperparathyroidism of renal origin; I47.2 Ventricular tachycardia; E87.70 Fluid overload, unspecified; D63.1 Anemia in chronic kidney disease; E78.5 Hyperlipidemia, unspecified; R79.89 Other specified abnormal findings of blood chemistry; Z99.2 Dependence on renal dialysis; Z90.49 Acquired absence of other specified parts of digestive tract; Z79.82 Long term (current) use of aspirin; Z79.52 Long term (current) use of systemic steroids; Z79.899 Other long term (current) drug therapy; Z86.718 Personal history of other venous thrombosis and embolism
CPT/HCPCS: 36415; 71045; 71250; 80048; 80076; 82728; 82805; 82947; 83605; 83735; 83880; 84145; 84484; 85025; 85610; 86140; 87040; 87340; 90935; 93005; 94760; 96365; 96375; 99285; J0456; J1100; J1644; J2930; J7050; U0003

== ENCOUNTER 2020-10-18 17:15 | Inpatient (IN) | payer OTHER ==
--- OUTSIDE RECORDS SUMMARY | 2020-10-18 17:18 | XMS REPORT | Continuity of Care Document ---
:1955 Author Organization [facility] Care Team Providers Name Role Phone [facility] Unavailable Un available Problems Problem Status Onset [...] Anxiety (finding) Active Problem 12/13/2016 M H [facility] Arthritis Active Problem 12/13/2016 MH (disorder) [facility] Blood coagulation Resolved Problem 12/13/2016 M H disorder (disorder) [facility] Congestive heart Active Problem 12/13/2016 [facility] failure (disorder) [facility] End stage renal Active Problem 12/13/2016 [facility] disease (disorder) [facility] Hypertensive Active Problem 12/13/2016 disorder, systemic [facility] arterial (disorder) Numbness of hand Active Problem 12/13/2016 Left hand MH (finding) [facility] Arteriovenous Resolved Problem 12/13/2016 left arm MH fistula occlusion [facility] (disorder) 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 [facility] (finding) Final: End Stage 08/25/2015 MH Renal [...] theast Block END STAGE RENAL Active DISEASE [facility] Medications Medication Details Route Status Patient Ordering Order Source Instructions Provider Date Morphine 2 mg, Route: Inactive MH IVP, Q3H, 2016 [facility] Dosing Weight 109.136, kg, PRN Pain Score 1-3, Start date: 12/10/16 12:06:00 MICA MACHINE OPERATOR, Duration: 30 day, Stop date: 01/09/17 12:05:00 MICA MACHINE OPERATOR Acetaminophen 325 1 tab, Route: Inactive MH MG / Hydrocodone PO, Dosing 2017 [facility] Bitartrate 10 MG Weight 109.136, Oral Tablet kg, Q4H, PRN Pain Score 4-6, Start date: 12/10/16 12:06:00 MICA MACHINE OPERATOR, Duration: 30 day, Stop date: 01/09/17 12:05:00 MICA MACHINE OPERATOR Acetaminophen 325 1 tab, Route: Inactive MH MG / Hydrocodone PO, Dosing 2017 [facility] Bitartrate 5 MG Weight 109.136, Oral Tablet kg, Q4H, PRN Pain Score 4-6, Start date: 12/10/16 12:06:00 MICA MACHINE OPERATOR, Duration: 30 day, Stop date: 01/09/17 12:05:00 MICA MACHINE OPERATOR diphenhydrAMINE Route: IV, Drug Inactive MH (ANES) form: INJ, 2016, Stop date: 12/10/16 11:42:00 MICA MACHINE OPERATOR ondansetron Route: IV, Drug Inactive MH (ANES) form: INJ2016, Stop date: 12/10/16 11:42:00 MICA MACHINE OPERATOR fentaNYL (ANES) Route: IV, Drug Inactive form: INJ2016, Stop date: 12/10/16 11:42:00 MICA MACHINE OPERATOR midazolam (ANES) Route: IV, Drug Inactive MH form: SOLN, 2016, Stop date: 12/10/16 11:42:00 MICA MACHINE OPERATOR hydromorphone Route: IV, Drug Inactive M H (ANES) form: [id number], Stop date: 12/10/16 11:42:00 MICA MACHINE OPERATOR ceFAZolin (ANES) Route: IV, Drug Inactive MH (ANES) form: INJ2016 Start date: 12/10/16 11:06:00 MICA MACHINE OPERATOR, Stop date: 12/10/16 12:06:00 MICA MACHINE OPERATOR sodium chloride Route: IV, Inactive 0.9% 500 ml INJ Total Volume: 2016 [facility] (ANES) 500, Start date: 12/10/16 10:57:00 MICA MACHINE OPERATOR, Stop date: 12/10/16 11:57:00 MICA MACHINE OPERATOR Sodium Chloride 500 mL, Rate: Inactive H 0.154 MEQ/ML 25 ml/hr, 2016 [facility] Injectable Infuse over: 20 Solution hr, Route: IV, Dosing Weight 109.136 kg, Total Volume: 500, Start date: 12/10/16 9:19:00 MICA MACHINE OPERATOR, Duration: 30 day, Stop date: 01/09/17 9:18:00 MICA MACHINE OPERATOR Calcium Chloride 1,000 mL, Rate: Inactive 0.0014 MEQ/ML / 25 ml/hr, 2016 [facility] ast Potassium Infuse over: 40 Chloride 0.004 hr, Route: IV, MEQ/ML / Sodium Dosing Weight Chloride 0.103 109.136 kg, MEQ/ML / Sodium Total Volume: Lactate 0.028 1,000, Start MEQ/ML Injectable date: 12/10/16 Solution 9:18:00 MICA MACHINE OPERATOR, Duration: 30 day, Stop date: 01/09/17 9:17:00 MICA MACHINE OPERATOR calcium acetate 1,334 mg = 2 Active 667 MG Oral tab, PO, 2016 [facility] Tablet TID-Meals, # 180 tab, 3 Refill(s) sevelamer 1,600 mg = 2 Active carbonate 800 MG tab, PO, 2016 [facility] ast Oral Tablet TID-Meals, # [Renvela] 180 tab, 0 Refill(s) Ancef Notes: Same as: No Longer Ancef Active 2016 [facility] Morphine 2 mg, Route: Inactive IVP, Q3H, 2014 [facility] Dosing Weight 99.091, kg, PRN Pain Score 1-3, Start date: 08/22/15 13:23:00, Duration: 30 day, Stop date: 09/21/15 13:22:00 acetaminophen-cod 1 tab, Route: Inactive eine #3 PO, Drug Form: 2014 [facility] TAB, Dosing Weight 99.091, kg, Q4H, PRN Pain Score 4-6, Start date: 08/22/15 13:23:00, Duration: 30 day, Stop date: 09/21/15 13:22:00 Sodium Chloride 500 mL, Rate: Inactive H 0.154 MEQ/ML 25 ml/hr, 2014 [facility] Injectable Infuse over: 20 Solution hr, Route: IV, Dosing Weight 99.091 kg, Total Volume: 500, Start date: 08/22/15 11:59:00, Duration: 30 day, Stop date: 09/21/15 11:58:00 Dialyvite 800 0 Refill(s) Active Ultra D 2014 [facility] Acetaminophen 325 1-2 tab, PO, Active H MG / Hydrocodone Q4-6H, PRN 2015 [facility] Bitartrate 5 MG Pain, # 30 tab, Oral Tablet 0 Refill(s) [[place] 5/325] Ancef 2 gm, Route: Inactive IVPB, PRE OP, 2014 [facility] Dosing Weight 118.182, kg, Start date: 08/22/15 10:00:00, Duration: 30 day, Stop date: 09/21/15 9:59:00 Vancomycin 1 gm, Route: Inactive IVPB, Drug 2014 [facility] form: INJ, PRE OP, Dosing Weight 118.182, kg, Start date: 08/22/15 10:00:00, Duration: 30 day, Stop date: 09/21/15 9:59:00 tramadol 25 mg = 0.5 Active hydrochloride 50 tab, PO, Q4H, 2014 [facility] MG Oral Tablet PRN as needed for pain, X 7 day, # 21 tab, 0 Refill(s) Morphine 4 mg, Route: Inactive IVP, Q6H, kg, 2014 [facility] PRN Pain Score 4-6, Start date: 04/20/15 16:08:00, Duration: 30 day, Stop date: 05/20/15 16:07:00 acetaminophen-cod 1 tab, Route: Inactive eine #3 PO, Drug Form: 2014 [facility] TAB, kg, Q4H, PRN Pain Score 1-3, Start date: 04/20/15 16:08:00, Duration: 30 day, Stop date: 05/20/15 16:07:00 Acetaminophen 100.4 F, Start Inactive 04/20/ H date: 04/20/152014 [facility] 16:08:00, Duration: 30 day, Stop date: 05/20/15 16:07:00 Diphenhydramine 12.5 mg, Route: Inactive 04/20[facility] IVP, Drug form: 2014 [facility] INJ, Q6H, Dosing Weight 99.091, kg, PRN Itching, Start date: 04/20/15 14:23:00, Duration: 30 day, Stop date: 05/20/15 14:22:00 Glycopyrrolate 0.2 mg, Route: Inactive H IVP, Q5Min, 2014 [facility] Dosing Weight 99.091, kg, PRN Bradycardia, Start date: 04/20/15 14:23:00, Duration: 3 doses or times, Stop date: Limited # of times Ondansetron 4 mg, Route: Inactive 04/20[facility] IVP, ONCE, 2014 [facility] Dosing Weight 99.091, kg, PRN Nausea & Vomiting, Start date: 04/20/15 14:23:00 Promethazine 6.25 mg, Route: Inactive 04/20[facility] IVPB, ONCE, 2014 [facility] Dosing Weight 99.091, kg, PRN Nausea & Vomiting, Start date: 04/20/15 14:23:00 Meperidine 12.5 mg, Route: Inactive 04/20[facility] IVP, Q30Min, 2014 [facility] Dosing Weight 99.091, kg, PRN Other -See Comment, For shivering, Start date: 04/20/15 14:23:00, Duration: 2 doses or times, Stop date: Limited # of times Flumazenil 0.2 mg, Route: Inactive 04/20[facility] IVP, PRN, 2014 [facility] Dosing Weight 99.091, kg, PRN Benzodiazepine Reversal, Initial dose, Start date: 04/20/15 14:23:00, Duration: 30 day, Stop date: 05/20/15 14:22:00 Naloxone 0.04 mg, Route: Inactive 04/20[facility] IVP, Q2MIN, 2014 [facility] Dosing Weight 99.091, kg, PRN Narcotic Reversal, Start date: 04/20/15 14:23:00, Duration: 8 doses or times, Stop date: Limited # of times Hydromorphone 0.5 mg, Route: Inactive 04/20[facility] IVP, Q5Min, 2014 [facility] Dosing Weight 99.091, kg, PRN Pain Score 7-10, Start date: 04/20/15 14:23:00, Duration: 4 doses or times, Stop date: Limited # of times Fentanyl 50 microgram, Inactive 04/20[facility] Route: IVP, 2014 [facility] Q5Min, Dosing Weight 99.091, kg, PRN Pain Score 7-10, Start date: 04/20/15 14:23:00, Duration: 2 doses or times, Stop date: Limited # of times Morphine 4 mg, Route: Inactive 04/20[facility] IVP, Q5Min, 2014 [facility] Dosing Weight 99.091, kg, PRN Pain Score 7-10, Start date: 04/20/15 14:23:00, Duration: 3 doses or times, Stop date: Limited # of times Hydralazine 10 mg, Route: Inactive 04/20[facility] IVP, Q20Min, 2014 [facility] Dosing Weight 99.091, kg, PRN Elevated BP, Start date: 04/20/15 14:23:00, Duration: 2 doses or times, Stop date: Limited # of times Metoprolol 1 mg, Route: Inactive 04/20[facility] IVP, Q5Min, 2014 [facility] Dosing Weight 99.091, kg, PRN Other -See Comment, Start date: 04/20/15 14:23:00, Duration: 5 doses or times, Stop date: Limited # of times Oxycodone 5 mg, Route: Inactive 04/20[facility] PO, Drug form: 2014 [facility] TAB, Q4H, Dosing Weight 99.091, kg, PRN Pain Score 4-6, Start date: 04/20/15 14:23:00, Duration: 30 day, Stop date: 05/20/15 14:22:00 Ketorolac 30 mg, Route: Inactive [facility] IVP, ONCE, 2014 [facility] Dosing Weight 99.091, kg, Start date: 04/20/15 14:23:00, Duration: 1 doses or times, Stop date: 04/20/15 14:23:00 Ancef 2 gm, Route: Inactive IVPB, ONCE, 2014 [facility] Dosing Weight 99.091, kg, Start date: 04/20/15 11:33:00, Duration: 1 doses or times, Stop date: 04/20/15 11:33:00 Sodium Chloride 500 mL, Rate: Inactive 04/20/ M H 0.154 MEQ/ML 25 ml/hr, 2014 [facility] Injectable Infuse over: 20 Solution hr, Route: IV, Dosing Weight 99.091 kg, Total Volume: 500, Start date: 04/20/15 11:30:00, Duration: 30 day, Stop date: 05/20/15 11:29:00 Calcium Chloride 1,000 mL, Rate: Inactive 0.0014 MEQ/ML / 25 ml/hr, 2014 [facility] ast Potassium Infuse over: 40 Chloride 0.004 [...] oral tablet PO, BID, # 120 2014 [facility] tab, 0 Refill(s) Metoprolol 100 mg = 1 tab, Active MH Tartrate 100 mg PO, BID, # 60 2015 [facility] oral tablet tab, 0 Refill(s) Hydralazine 1 tab, PO, BID, Active 04/13/ MH Hydrochloride # 30 tab, 0 2014 [facility] ast 37.5 MG / Refill(s) Isosorbide Dinitrate [...] ELECTROLYTES Potassium 4.6 3.5 - 5.1 12/10 [facility] ELECTROLYTES AGAP 16.8 10.0 - 12/05 20.0 [facility] ELECTROLYTES eGFR 5 12/05 Result Comment: The [...] Calcium Lvl 8.1 8.5 - 10.5 12/05 [facility] ELECTROLYTES CO2 25 24 - 32 12/05 [facility] ELECTROLYTES Chloride Lvl 98 95 - 109 12/05 [facility] ELECTROLYTES Potassium 4.8 3.5 - 5.1 12/05 [facility] ELECTROLYTES Sodium Lvl 135 135 - 145 12/05 [facility] ELECTROLYTES Glucose Lvl 106 70 - 99 12/05 [facility] ELECTROLYTES BUN 52 7 - 22 12/05 [facility] ELECTROLYTES Creatinine 11.00 0.50 - 12/05 Lvl 1.40 /2016 [facility] HEMATOLOGY Lymphocytes 14.9 20.0 - 12/05 40.0 /2016 [facility] HEMATOLOGY Monocytes # 0.7 0.0 - 0.8 12/05 /2016 [facility] HEMATOLOGY Lymphocytes 1.2 1.0 - 5.5 12/05 MH # /2016 [facility] HEMATOLOGY Eosinophils 0.3 0.0 - 0.5 12/05 MH # /2016 [facility] HEMATOLOGY Basophils # 0.1 0.0 - 0.2 12/05 [facility] HEMATOLOGY Basophils 0.9 0.0 - 1.0 12/05 [facility] HEMATOLOGY Segs-Bands # 5.9 1.5 - 8.1 12/05 [facility] HEMATOLOGY Monocytes 9.0 2.0 - 12.0 12/05 [facility] HEMATOLOGY Eosinophils 4.2 0.0 - 4.0 12/05 [facility] HEMATOLOGY Segs 71.0 45.0 - 12/05 75.0 [facility] HEMATOLOGY RDW 14.9 11.5 - 12/05 14.5 [facility] HEMATOLOGY MPV 8.0 7.4 - 10.4 12/05 [facility] HEMATOLOGY Platelet 210 133 - 450 12/05 [facility] HEMATOLOGY MCHC 32.7 32.0 - 12/05 36.0 /2016 [facility] HEMATOLOGY MCH 28.4 27.0 - 12/05 31.0 /2016 [facility] HEMATOLOGY MCV 86.9 80.0 - 12/05 94.0 /2016 [facility] HEMATOLOGY Hgb 11.1 14.0 - 12/05 18.0 /2016 [facility] HEMATOLOGY Hct 34.0 42.0 - 12/05 54.0 /2016 [facility] HEMATOLOGY RBC 3.91 4.70 - 12/05 6.10 /2016 [facility] HEMATOLOGY WBC 8.3 3.7 - 10.4 12/05 [facility] HEMATOLOGY INR 1.00 0.85 - 12/05 1.17 [facility] HEMATOLOGY PT 13.4 12.0 - 12/05 14.7 [facility] HEMATOLOGY PTT 31.8 22.9 - 12/05 35.8 /2016 [facility] CHEM PANEL BUN 49 7 - 22 08/22 [facility] CHEM PANEL eGFR 12 08/22 Result Comment: [...] Calcium Lvl 8.6 8.5 - 10.5 08/22 [facility] CHEM PANEL Sodium Lvl 139 135 - 145 08/22 [facility] CHEM PANEL Potassium 3.9 3.5 - 5.1 08/22 [facility] CHEM PANEL Chloride Lvl 101 95 - 109 08/22 [facility] CHEM PANEL CO2 31 24 - 32 08/22 [facility] CHEM PANEL Glucose Lvl 103 70 - 99 08/22 [facility] CHEM PANEL Creatinine 5.3 0.5 - 1.4 08/22 [facility] CHEM PANEL AGAP 10.9 10.0 - 08/22 MH 20.0 [facility] HEMATOLOGY MPV 7.7 7.4 - 10.4 08/22 [facility] HEMATOLOGY Platelet 224 133 - 450 08/22 [facility] HEMATOLOGY RDW 17.2 11.5 - 08/22 MH 14.5 /2014 [facility] HEMATOLOGY Hgb 9.3 14.0 - 08/22 MH 18.0 [facility] HEMATOLOGY RBC 3.52 4.70 - 08/22 MH 6.10 [facility] HEMATOLOGY WBC 5.4 3.7 - 10.4 08/22 [facility] HEMATOLOGY MCHC 31.3 32.0 - 08/22 MH 36.0 /2014 [facility] HEMATOLOGY MCH 26.4 27.0 - 08/22 MH 31.0 [facility] HEMATOLOGY Hct 29.7 42.0 - 08/22 MH 54.0 /2014 [facility] HEMATOLOGY MCV 84.3 80.0 - 08/22 MH 94.0 /2014 [facility] HEMATOLOGY PTT 37.6 22.9 - 08/22 MH 35.8 /2014 [facility] HEMATOLOGY INR 1.06 0.85 - 08/22 MH 1.17 /2014 [facility] HEMATOLOGY PT 14.1 12.0 - 08/22 MH 14.7 [facility] HEMATOLOGY Lymphocytes 0.9 1.0 - 5.5 08/22 MH # /2014 [facility] HEMATOLOGY Eosinophils 0.7 0.0 - 0.5 08/22 MH # /2014 [facility] HEMATOLOGY Monocytes # 0.7 0.0 - 0.8 08/22 [facility] HEMATOLOGY Segs-Bands # 3.0 1.5 - 8.1 08/22 [facility] HEMATOLOGY Basophils 0.4 0.0 - 1.0 08/22 [facility] HEMATOLOGY Eosinophils 13.3 0.0 - 4.0 08/22 [facility] HEMATOLOGY Segs 56.3 45.0 - 08/22 MH 75.0 [facility] HEMATOLOGY Lymphocytes 17.0 20.0 - 08/22 MH 40.0 /2014 [facility] HEMATOLOGY Monocytes 13.0 2.0 - 12.0 08/22 [facility] CHEM PANEL Creatinine 4.1 0.5 - 1.4 08/19 [facility] CHEM PANEL Sodium Lvl 136 135 - 145 08/19 [facility] CHEM PANEL Chloride Lvl 98 95 - 109 08/19 [facility] CHEM PANEL CO2 30 24 - 32 08/19 [facility] CHEM PANEL Calcium Lvl 8.6 8.5 - 10.5 08/19 [facility] CHEM PANEL Potassium 4.0 3.5 - 5.1 08/19 [facility] CHEM PANEL AGAP 12.0 10.0 - 08/19 [...] Glucose Lvl 100 70 - 99 08/19 [facility] CHEM PANEL BUN 37 7 - 22 08/19 [facility] ELECTROLYTES Potassium 4.7 3.5 - 5.1 04/20 [facility] ELECTROLYTES AGAP 12.6 10.0 - 04/13 MH 20.0 [facility] ELECTROLYTES Potassium 4.6 3.5 - 5.1 04/13 [facility] ELECTROLYTES Sodium Lvl 140 135 - 145 04/13 [facility] ELECTROLYTES Chloride Lvl 110 95 - 109 04/13 [facility] ELECTROLYTES eGFR 12 04/13 <sup>1</sup>Res ult Comment: [facility] The eGFR is calculated using the CKD-EPI [...] Calcium Lvl 8.3 8.5 - 10.5 04/13 [facility] ELECTROLYTES BUN 76 7 - 22 04/13 [facility] ELECTROLYTES Glucose Lvl 96 70 - 99 04/13 <sup>2</sup>Int erpretive Data: [facility] Adult reference range values reflect the clinical guidelines
of the [place] [employer]. ELECTROLYTES CO2 22 24 - 32 05/ MH /2014 [facility] ELECTROLYTES Creatinine 5.3 0.5 - 1.4 05/20 MH Lvl /2015 [facility] HEMATOLOGY Eosinophils 7.0 0.0 - 4.0 05/ MH /2014 [facility] HEMATOLOGY Monocytes 10.8 2.0 - 12.0 05/ MH /2014 [facility] HEMATOLOGY Eosinophils 0.3 0.0 - 0.5 05/20 MH # /2015 [facility] HEMATOLOGY Monocytes # 0.5 0.0 - 0.8 05/20 MH /2014 [facility] HEMATOLOGY Basophils 1.4 0.0 - 1.0 05/20 MH /2014 [facility] HEMATOLOGY Lymphocytes 0.8 1.0 - 5.5 05/20 MH # /2015 [facility] HEMATOLOGY Segs-Bands # 3.0 1.5 - 8.1 04/13 MH /2014 [facility] HEMATOLOGY Basophils # 0.1 0.0 - 0.2 04/13 MH /2014 [facility] HEMATOLOGY Lymphocytes 17.2 20.0 - 04/13 MH 40.0 /2014 [facility] HEMATOLOGY Segs 63.6 45.0 - 04/13 MH 75.0 /2014 [facility] HEMATOLOGY Hgb 10.5 14.0 - 04/13 MH 18.0 /2014 [facility] HEMATOLOGY MCV 86.8 80.0 - 04/13 MH 94.0 /2014 [facility] HEMATOLOGY Hct 32.6 42.0 - 05 MH 54.0 /2014 [facility] HEMATOLOGY MCHC 32.3 32.0 - 05 MH 36.0 /2014 [facility] HEMATOLOGY MCH 28.1 27.0 - 05 MH 31.0 /2014 [facility] HEMATOLOGY RBC 3.75 4.70 - 04/13 MH 6.10 /2014 [facility] HEMATOLOGY WBC 4.7 3.7 - 10.4 04/13 MH /2014 [facility] HEMATOLOGY RDW 19.3 11.5 - 04/13 MH 14.5 /2014 [facility] HEMATOLOGY MPV 8.1 7.4 - 10.4 04/13 MH [facility] HEMATOLOGY Platelet 150 133 - 450 04/13 MH [facility] HEMATOLOGY PT 14.6 12.0 - 04/13 MH 14.7 /2014 [facility] HEMATOLOGY INR 1.13 0.85 - 04/13 <sup>3</sup>Int [...] seen. IMPRESSION: No acute cardiopulmonary disease. SL: [id number] Ext Upper Arterial Please refer to the heart la b report, located under vascular in CARE4. 10/31/2016 [facility] Bilat w pressure US Chest 1view DX Chest, one view. 08/22/2015 [facility] HISTORY: Line placement. FINDINGS: Since the prior exam from duong brown on 08/14/2015, a right IJ dialysis catheter has been placed which terminates in the SVC. No pneumothorax. Lungs remain clear. No signi ficant pleural effusion. Mild/moderate cardiomegaly. No acute osseous abnormality. SL: 13 Chest 2 views DX HISTORY: Cough. 08/22/2015 [facility] Chest 2 views. Comparison 04/13/2015. Lungs clear. Cardiomegaly wi thout overt CHF. No pleural effusion or pneumothorax. Lower cervical spine fusion hardware as before. IMPRESSION: Cardiomegaly as before. No new or ac jazmine finding otherwise. SL:13 Chest 2 views DX PA and LATERAL CHEST 04/13/2015 [facility] (2 views) HISTORY: Coughing Comparison is [...] spine. Coding: Chest 2 views CPT Code: 33502 SL: 12 Arnaldo Dai M.D. Ext Upper Venous Please refer to the heart la b report, located under vascular in CARE4. 04/13/2015 [facility] Doppler Bilat US Consultation Notes No [...] 14 12/10/2016 [facility] Respitory Rate 13 12/10/2016 [facility] Temperature Oral (F) 97.5 F 12/05/2016 [facility] Heart Rate 78 12/05/2016 [facility] Weight 109.136 12/05/2016 [facility] BMI Calculated 36.58 12/05/2016 [facility] Height 172.72 cm 12/05/2016 [facility] Systolic [...] [facility] Diastolic (mm Hg) 62 08/22/[address] [facility] [address] Temperature Oral (F) 98 F 08/22/2015 [facility] Heart Rate 66 08/22/2015 [facility] Height 172.72 cm 08/22/2015 [facility] Weight 99.091 08/22/2015 [facility] BMI Calculated 33.22 08/22/2015 [facility] Temperature Oral (F) 98.3 F 08/19/2015 [facility] Respitory Rate 17 08/19/2015 [facility] Heart Rate 66 08/19/2015 [facility] Systolic (mm Hg) 145 08/19/2015 [facility] Diastolic (mm Hg) 77 08/19/[address] Weight 118.182 08/19/2015 [facility] BMI Calculated 39.62 08/19/2015 [facility] Height 172.72 cm 08/19/2015 [facility] Systolic [...] 8 04/20/2015 [facility] Heart Rate 60 04/13/2015 [facility] Temperature Oral (F) 98.0 F 04/13/2015 [facility] Weight 99.091 04/13/2015 [facility] BMI Calculated 33.22 04/13/2015 [facility] Height 172.72 cm 04/13/2015 [facility] Encounters Location Location Encounter Encounter Reason Attending ADM NE Stat us Source Details Type Number For Provider Date Date [facility] [id number] [facility] 04/13 04/14 Wyatt Leone /2014 [facility] OBS Day [id number] Vargas 04/20 04/20 [facility] Surgery Vasu [facility] [place] [id number] Agustin 08/19 08/19 [facility] Emergency Kd /2014 [facility] OBS Day [id number] Vargas 08/22 08/22 [facility] Surgery Vasu /2014 [facility] Outpatient [id number] Vargas 10/31 11/01 Wyatt Leone /2015 [facility] Day Surgery [id number] Vargas 12/10 12/10 Wyatt Leone /2016 [facility] Procedures Procedure Code Date Perfomer Comments Source Percutaneous [id number] [facility] transluminal balloon 6 angioplasty Creation of [id number] [facility] brachial-cephalic 5 fistula Laparoscopic [id number] [facility] cholecystectomy Operation [id number] [facility] Insertion of [id number] LUE fistulogram [facility] heradha tunneled dialysis catheter using fluoroscopic guidance<sup>1</sup> Assessment and Plan No Data Provided for This Section Plan of Care No Data Provided for This Section Social History Social History Date Source Social History TypeResponse 12/02/2015 [facility] Alcohol Past Smoking Status Never smoker; Exposure to Tobacco Smoke None; Cigarette Smoking Last 365 Days No; Reg Smoking Cessation Counseling No Family History No Data Provided for This Section Advance Directives No Data Provided for This Section Functional Status No Data Provided for This Section
[2020-10-18 17:49] VITALS: BMI 28.8
[2020-10-18 18:46] LABS: Absolute Lymphocytes (CBC) 1.3 K/uL (0.7-4.9); Basophils % 0.3 % (0-1.3); Hematocrit 33.6 % (39.6-49.0); Lymphocytes % 18.5 % (15.3-44.8); MPV 8.1 fL (7.6-11.3); RBC Red Blood Cell Count 3.72 M/uL (4.33-5.43)
[2020-10-18] MEDS ORDERED: METOPROLOL TARTRATE 5 MG/5 ML INJ IV STA (18:53)
[2020-10-18 19:19] LABS: Albumin 3.3 g/dL (3.4-5.0); Bilirubin Total 0.8 mg/dL (0.2-1.0); Magnesium 2.1 mg/dL (1.8-2.4); Potassium 3.6 mmol/L (3.5-5.1); Protein, Total 8.2 g/dL (6.4-8.2); Thyroid Stimulating Hormone 1.33 uIU/mL (0.360-3.740)
--- NOTE | 2020-10-18 19:51 | RAD REPORT ---
EXAM DESCRIPTION: RAD - Chest Single View - 10/18/2020 7:13 pm CLINICAL HISTORY: afib Chest pain. COMPARISON: Chest Single View dated 07/10/2020; Chest Single View dated 07/07/2020; Chest Single View dated 06/30/2020; Chest Pa And Lat (2 Views) dated 08/28/2019 FINDINGS: Portable technique limits examination quality. Mild interstitial pulmonary edema is seen. The heart is moderately enlarged size. No displaced fractu res.Cervical hardware plate is present. Stent is present left axillary region. IMPRESSION: Mild CHF.
--- NOTE | 2020-10-18 20:52 | HP ---
Date of Admission: 10/18/2020 Chief Complaint: Rapid heart rate. History Of Present Illness: This is a 65-year-old pleasant male patient, who came into our office today for followup visit. His vital signs revealed his pulse rate was very fast at 144 per minute and on examination, it was noted that his heart rhythm was irregularly irregular. With this, decision was made to admit him to the hospital with atrial fibrillation with rapid ventricular rate and this is new onset atrial fibrillation. The patient denies having any chest pain or shortness of breath. No palpitation feeling. He had COVID-19 illness earlier this year, few months ago, and he has lost approximately 40 pounds since beginning of this year. He has significant mobility problem to the extent that he uses walker, but in spite of using walker, it is getting increasingly difficult for him to get up and move around, and he is requesting wheelchair because of increasing difficulty to ambulate. Allergies: NO KNOWN ALLERGIES. Medications: Aspirin 81 mg daily, metoprolol 50 mg 2 times a day, omeprazole 40 mg daily, and trazodone 50 mg half to one tablet at bedtime. Review of Systems: Cardiovascular: As mentioned above. Constitutional: As mentioned above. All other systems reviewed and negative. Past Medical History: Significant for hypertension, hyperlipidemia, chronic diastolic congestive heart failure, end-stage renal disease on hemodialysis, osteoarthritis at multiple sites, cervical spondylosis, anemia due to chronic kidney disease, and COVID-19 which was earlier this year, few months ago. Past Surgical History: Cholecystectomy, cervical spine surgery, and AV fistula for dialysis. Family History: Father had stroke. Brother with hypertension. Sister with end-stage renal disease. Social History: Negative for smoking or alcohol use. Physical Examination: Vital Signs: Blood pressure 132/82; pulse 144, regularly regular; temperature 98.1; respiratory rate 16. Weight 190.2 pounds, height 68 inches. General: Awake, alert, oriented, not in distress. HEENT: Head atraumatic, normocephalic. Conjunctivae nonerythematous. Sclerae white. Mouth, no thrush or edema noted. Ears/Nose, no mass, lesion, discharge noted. Neck: Supple. No JVD, lymph nodes, bruit, thyromegaly noted. Lungs: Bilateral good equal air entry. Clear to auscultation. No rhonchi. No rales. Heart: Heart sounds normal. Heart rate was rapid and rhythm was irregularly irregular. Abdomen: Soft, bowel sounds normal. No guarding, rigidity, tenderness, mass, hepatosplenomegaly, distention, or bruit noted. Extremities: No leg edema. No calf tenderness. Skin: No rash, ulcer, cellulitis. Lymphatics: No lymph node enlargement in neck, supraclavicular, infraclavicular region. Neuro: No focal neurological deficit. Chest: Unremarkable. External Genitalia: Deferred. Rectal: Deferred. Laboratory Data: WBC 6.9, hemoglobin 10.9, platelets 203. Sodium 143, potassium 3.6, chloride 105, bicarb 26, BUN 48, creatinine 7.6. Liver function tests unremarkable. TSH 1.33. Chest x-ray shows mild CHF pattern. EKG shows atrial fibrillation with rapid ventricular rate and occasional PVCs. Impression: 1. Atrial fibrillation with rapid ventricular rate. 2. End-stage renal disease, on hemodialysis. 3. Chronic diastolic congestive heart failure. 4. Hyperlipidemia. 5. Hypertension. 6. Osteoarthritis, multiple sites. 7. Anemia due to chronic kidney disease. Plan: Admit the patient to hospital for further evaluation and management of this problem. The patient is appropriate for inpatient and is expected to spend 2 midnights in hospital. We will go ahead and continue home medications per order. Metoprolol 100 mg twice a day starting tonight will be given. At home, he was taking 50 mg twice a day. We will start him on Eliquis 2.5 mg 2 times a day for anticoagulation therapy. Lopressor 5 mg slow IV push x1 dose was ordered after admission. Consult Cardiology. We will get echo with Doppler tomorrow. Consult sap fico architect for dialysis support and his dialysis is due tomorrow. Details and plan of treatment discussed with the patient and the patient's . CASE/MODL Voice ID: [id number]
[2020-10-18] MEDS: METOPROLOL TAR 50 MG TAB PO SCH (21:05)
[2020-10-18] MEDS: APIXABAN 2.5 MG TABLET PO SCH (22:11)
[2020-10-19] MEDS: TRAMADOL HCL 50 MG TAB PO PRN (01:55)
[2020-10-19] MEDS: CYCLOBENZAPRINE 10 MG TAB PO SCH ×2 (01:56→07:59)
[2020-10-19] MEDS: APIXABAN 2.5 MG TABLET PO SCH ×2 (08:00→21:48)
[2020-10-19] MEDS: METOPROLOL TAR 50 MG TAB PO SCH ×2 (10:17→19:21)
--- NOTE | 2020-10-19 11:20 | CON ---
Date of Consultation: 10/19/2020 Reason For Consultation: Elevated BUN, creatinine, fluid management. History Of Present Illness: This is a pleasant 65-year-old gentleman, well known to me from the dialysis with significant past medical history of COPD, atrial fibrillation, hypertension, congestive heart failure, end-stage renal disease, on hemodialysis, TTS at [facility] through left arm AV fistula, patient went to his PCP, Dr. Smith found to have atrial fibrillation with RVR. For that reason, patient was sent to the hospital. The patient has difficulty ambulating. Weight loss, we had to start him on supplement. The patient lost almost 10 kg from the beginning of the year. Patient had COVID pneumonia earlier in the year. Past Medical History: 1. End-stage renal disease, on hemodialysis. 2. TTS through left arm AV fistula. 3. Coronary artery disease, congestive heart failure. 4. Atrial fibrillation. 5. Hypertension. 6. Hyperlipidemia. Past Surgical History: Include AV fistula, cholecystectomy, cervical spine surgery. Family History: Positive for CVA, hypertension. Social History: Denies smoking. Denies drinking. Denies drugs abuse. Lives at home. Review of Systems: Head and Neck: No red eye. No ear pain. GI: Decreased intake. : No polyuria, no dysuria, no hematuria. Patient anuric. Refrigeration Service Technician: Not applicable. Respiratory: No shortness of breath. Cardiovascular: No chest pain. Endocrine: No polydipsia. Skin: No rash. Neuro: Generalized weakness, fatigue. Musculoskeletal: Difficulty ambulating. Physical Examination: Vital Signs: When I saw the patient, patient lying in bed, on room air. Blood pressure 97/71, pulse of 82, afebrile. Chest: Clear to auscultation. Heart: S1, S2. Systolic murmur. Irregular. Abdomen: Soft, nontender. Extremities: Trace edema. Neurologic: Alert. No focality. Laboratory Data: WBC 6.9, H and H 10.9/33.6, platelets 203. Sodium 143, potassium 3.6, bicarb 26, BUN 48, creatinine 7.6, calcium 9.5. Medications: Current medication of the patient in the hospital, include Eliquis, metoprolol 100 b.i.d., and tramadol. Home medications, include metoprolol 100, tramadol, aspirin, omeprazole. Assessment And Plan: 1. End-stage renal disease. We will maintain the patient on dialysis. Patient is due for dialysis today. We will arrange for the dialysis. 2. Secondary hyperpara, stable. We will monitor. 3. Hypertension, currently hypotension. We will continue metoprolol for rate control. We will follow up. 4. Atrial fibrillation with rapid ventricular rate as by primary. 5. Electrolyte imbalance, including hypokalemia with alkalosis, going to be corrected on the dialysis. The patient is going to be dialyzed on high potassium bath. 6. Alkalosis, going to be corrected on dialysis. 7. Anemia of chronic kidney disease. Resume JOE. time spent coordinating care discussing with the patient [id number] with the patient, placing order , discussing the case with the other team number + hospitalists and consultants 45 min DOMINICK Voice ID: [id number] Report ID: [id number] ZAINAB
--- NOTE | 2020-10-19 12:53 | PN ---
Date of Progress Note: 10/19/2020 Subjective: The patient was seen this morning for followup. No new complaints or problems reported by him. Denies any chest pain, shortness of breath, nausea, vomiting. The patient remains in atrial fibrillation, but heart rate is well controlled. Objective: HEENT: Unremarkable. Lungs: Clear to auscultation. Heart: Sounds normal. Abdomen: Soft. Bowel sounds normal. No guarding, rigidity, tenderness, or distention. Extremities: No leg edema. Left foot, medial aspect of the great toe has superficial wound. No dis charge, bleeding, redness, warmness. Impression: 1.Atrial fibrillation. 2.Hypertension. 3.End-stage renal disease, on hemodialysis. 4.Anemia due to chronic kidney disease. 5.Left foot wound. Plan: We will go ahead and continue metoprolol, continue Eliquis 2.5 mg 2 times a day. Follow up on echo results. Follow up with basin cleaner and boiler testing technician and I will also consult one of the gener al surgeon for management of his left foot wound for which he has been seeing Dr. Rojas for the last 6 or 8 weeks as he is describing and so far it has not shown any improvement according to what the tawana ortiz's and patient tell me. This is likely due to his shoe that probably was rubbing on the fo ot as he tells me. CASE/MODL Voice ID: [id number] Report ID: [id number]
--- NOTE | 2020-10-19 13:57 | ECHO ---
HEIGHT: 5 ft 8 in WEIGHT: 180 lb 8 oz DATE OF STUDY: 10/19/[address]: Landon Smith MD 2-DIMENSIONAL: YES M.MODE: YES DOPPLER: YES COLOR FLOW: YES TDS: PORTABLE: DEFINITY: BUBBLE STUDY: DIAGNOSIS: ATRIAL FIBRILLATION CARDIAC HISTORY: CATHERIZATION: NO SURGERY: NO PROSTHETIC VALVE: NO PACEMAKER: NO MEASUREMENTS (cm) DIASTOLIC (NORMALS) SYSTOLIC (NORMALS) IVSd 1.3 (0.6-1.2) LA Diam 5.5 (1.9-4.0) LVEF 52% LVIDd 5.3 (3.5-5.7) LVIDs 3.9 (2.0-3.5) %FS 27% LVPWd 1.4 (0.6-1.2) Ao Diam 2.8 (2.0-3.7) 2 DIMENSIONAL ASSESSMENT: RIGHT ATRIUM: ENLARGED LEFT ATRIUM: ENLARGED RIGHT VENTRICLE: NORMAL LEFT VENTRICLE: NORMAL TRICUSPID VALVE: MODERATE TRICUSPID REGURGITATION MITRAL VALVE: SEVERE MITRAL REGURGITATION PULMONIC VALVE: NORMAL AORTIC VALVE: MILD AORTIC INSUFFIENCY PERICARDIAL EFFUSION: TRACE EFFUSION AORTIC ROOT: NORMAL LEFT VENTRICULAR WALL MOTION: NORMAL DOPPLER/COLOR FLOW: SEE BELOW COMMENTS: NORMAL LEFT VENTRICULAR EJECTION FRACTION 55-60% WITH NORMAL WALL MOTION. SEVERE MITRAL REGURGITATION. MODERATE TRICUSPID REGURGITATION. SEVERE PULMONARY HYPERTENSION WITH RIGHT VENTRICULAR SYSTOLIC PRESSURE OF >60 mmHg. BI-ATRIAL ENLARGEMENT. TECHNOLOGIST: ALEJANDRO BREWER
[2020-10-19] MEDS ORDERED: AMIODARONE HCL 150 MG in D5W 100 ML IV STA (16:34)
[2020-10-19] MEDS: AMIODARONE HCL 450 MG in D5W 241 ML IV SCH ×2 (17:11→17:25)
[2020-10-19] MEDS ORDERED: NA CHLORIDE 0.9% 250 ML IV ONE (18:41)
[2020-10-19] MEDS ORDERED: NA CHLORIDE 0.9% 100 ML IV ONE (19:00)
[2020-10-19] MEDS ORDERED: NA CHLORIDE 0.9% 250 ML ONE (19:05)
[2020-10-19] MEDS ORDERED: APIXABAN 2.5 MG TABLET ONE (22:00)
[2020-10-20] MEDS: AMIODARONE HCL 450 MG in D5W 241 ML IV SCH ×2 (01:22→14:28)
[2020-10-20] MEDS ORDERED: D5W 250 ML IV ONE (01:30)
[2020-10-20] MEDS ORDERED: AMIODARONE HCL 150 MG/3 ML INJ IV ONE (01:30)
[2020-10-20] MEDS ORDERED: TRAMADOL HCL 50 MG TAB ONE (02:30)
[2020-10-20] MEDS ORDERED: CYCLOBENZAPRINE 10 MG TAB ONE (07:35)
[2020-10-20] MEDS: CYCLOBENZAPRINE 10 MG TAB PO SCH (08:17)
[2020-10-20] MEDS: APIXABAN 2.5 MG TABLET PO SCH ×2 (08:18→20:33)
[2020-10-20] MEDS: METOPROLOL TAR 50 MG TAB PO SCH ×2 (08:18→20:33)
[2020-10-20] MEDS: COLLAGENASE 30 GM OINTMENT TOP SCH (08:58)
--- NOTE | 2020-10-20 10:06 | CON ---
Date of Consultation: 10/20/2020 Reason For Service: Left foot nonhealing wound. History Of Present Illness: This is a case of a 65-year-old patient with multiple medical history in cluding heart and kidney disease, found also to have an open wound on the left foot. Apparently, the patient is also a hemodialysis patient. Even though he does not walk, he still has some activities. He uses shoes and those are rubbing over the medial aspect of the first distal metatarsal region an d also toe. He was seen by Dr. Rojas, taking care of him for the last few weeks. He is still using shoes. He has not been able to change them and causing abrasion over the area. Past Surgical History: Cholecystectomy, AV fistula. Family History: Hypertension, renal disease. Social History: He does not smoke. He does not drink alcohol. Family History: Noncontributory other than mentioned above. Medical History: Hypertension, hyperlipidemia, congestive heart failure, end-stage renal disease, ch ronic anemia. Physical Examination: General: The patient is awake, alert. HEENT: Pupils anicteric. Neck: Supple. Chest: Clear. Abdomen: Soft and depressible Extremities: The patient has an ulcer on the medial aspect of the left foot at the first metatarsal region distally and also proximal toe. He looked traumatic in nature due to location is a pressure p oint. He is not using any shoes. He stated that he is old school and he leaves everything open. Do rsalis pedis pulses of the bilateral are diminished. No cyanosis. No calf tenderness. Laboratory Data: Blood work shows WBC count of 6.9, hemoglobin of 10.9 with a creatinine is 0.6, pot assium 3.6. Assessment And Plan: A 65-year-old patient with a nonhealing wound of the left foot, I believe is a traumatic pressure ulcer. He has a fibrin and thick callus in several part of it. I believe he is n ot a friend of debridement, so at least we asked him to let me put the Santyl in that region and the Santyl should be able to soften that area and eventually with dressing changes improve his condition. There is no evidence of cellulitis at this time. No bone or tendon exposed. The most important pa rt here is stop causing trauma by avoiding pressure in that area, and [facility], we are going to just also ask him to fill a prescription for a special offloading shoes. Obviously, nutrition is important aspect of this, also his dialysis on time and medical issues contr ol. Eventually when he is away from this acute event, we still want to do a complete peripheral vasc ular disease workup. HM/MODL Voice ID: [id number] Report ID: [id number]
--- NOTE | 2020-10-20 11:12 | PN ---
Date of Progress Note: 10/20/2020 Subjective: The patient was seen this morning for followup. He was lying in bed, not in any distres s. Denies any chest pain, shortness of breath. Yesterday, shear operator helper, Dr. Mc did call me and details were discussed with him and he recommended for the patient to start on amiodarone, so the pat [place] was transferred to ICU for IV amiodarone drip which he has tolerated very well. His blood press ure is remaining on the lower side with systolic blood pressure around 90-100 range. This morning, poly mckeon I saw him, he was still in atrial fibrillation. Objective: Vital Signs: Reviewed. HEENT: Unremarkable. Lungs: Clear to auscultation. Heart: Sounds normal. Abdomen: Soft. Bowel sounds normal. No guarding, rigidity, tenderness, distention. Extremities: No leg edema. Impression: 1.Atrial fibrillation with rapid ventricular rate. 2.End-stage renal disease, on hemodialysis. 3.Anemia due to chronic kidney disease. 4.Left foot wound. Plan: We will follow up with rib trim separator. The patient had dialysis yesterday. We will also contin ue to follow with shear operator helper regarding atrial fibrillation and amiodarone therapy and we are awaiti ng on Dr. Hernandez to evaluate the patient for his left foot wound to see whether he needs any debrid ement procedure or not. Details were discussed with the patient. We will see him tomorrow for followup. CASE/MODL Voice ID: [id number] Report ID: [id number]
--- NOTE | 2020-10-20 13:30 | CON ---
Date of Consultation: 10/20/2020 Reason For Consultation: Atrial fibrillation with rapid ventricular response. History Of Present Illness: This is a 65-year-old male history of end-stage renal disease on hemodia lysis, chronic diastolic heart failure, dyslipidemia, hypertension, was seen at Dr. Smith's office for general checkup, where he was found to have a heart rate of 144, with EKG confirmed atrial fibrillat ion with rapid ventricular response. The patient was sent to the emergency room and with IV Lopresso r blood pressure went down. However, he was borderline hypertensive. I was called yesterday about t he patient and started the patient on amiodarone drip overnight and his heart rate today is in the mi d 70s to 80s. Denies having chest pain or shortness of breath. No other complaints. Past Medical History: As outlined above in HPI. Medications: Refer to reconciliation sheet for detailed list. Allergies: NO KNOWN DRUG ALLERGIES. Family History: Stroke in father side and end-stage renal disease one of sisters. Social History: Does not smoke or drink, use any drugs. Review of Systems: All systems reviewed and they were negative except mentioned in the HPI. Physical Examination: Vital Signs: Temperature is 98.4, pulse 70, breathing 18, blood pressure is 193/71, saturating 100%. General: This is a middle-aged male, in no apparent distress. Head and Neck: Pupils are equal, react to light. Intact eye movements. No JVD. No cervical lympha denopathy. Neck: Supple. Thyroid is not enlarged. Lungs: Clear to auscultation bilaterally. No rhonchi, rales, or crackles. No accessory muscle use. Heart: Irregularly irregular. No extra sounds. Abdomen: Soft, nontender. Bowel sounds positive. No organomegaly. No masses or hernia. No rigidi ty or rebound. Extremities: No clubbing or cyanosis. Intact pulses. Skin: No rash noted. Neurologic: Alert, awake, oriented x3. No focal deficits appreciated. Lymph Nodes: No cervical or axillary lymphadenopathy. Investigations: On echo had normal ejection fraction, severe mitral valve regurgitation, and moderat e to severe tricuspid valve regurgitation. Severe pulmonary hypertension/right ventricle systolic pr essure. Labs were reviewed. Assessment/plan: 1.Atrial fibrillation with rapid ventricular response. I recommended to load with IV amiodarone and once the 24 hours of IV load is completed to start him on 200 mg by mouth twice a day. Agree with E liquis 2.5 mg twice a day as his CHADS VASc Score is elevated and his risk of stroke is high. If blo od pressure allows low-dose beta yoan metoprolol 25 mg twice a day should be considered. 2.Significant valvular heart disease including mitral valve and tricuspid valve. To further identif y the etiology, we would recommend a transesophageal echocardiogram. This can be scheduled as an out patient. 3.Elevated right ventricular systolic pressure on echo and this is likely due to fluid retention. R ecommend further fluid management by a dialysis. I appreciate this consultation. /ELIDA Voice ID: [id number] Report ID: [id number]
[2020-10-20] MEDS ORDERED: AMIODARONE HCL 200 MG TAB PO ONE (16:00)
[2020-10-20] MEDS ORDERED: AMIODARONE HCL 200 MG TAB ONE (16:20)
--- NOTE | 2020-10-20 20:12 | PN ---
Date of Progress Note: 10/20/2020 Chief Complaint: End-stage renal disease, on dialysis 3 times per week. History Of Present Illness: The patient has had multiple medical problems including history of coron samir artery disease, congestive heart failure with diastolic dysfunction, atrial fibrillation, COPD, h ypertension. The patient has been dialyzed on Saturday, , and Saturday through left arm AV fi stula. The patient is admitted to the hospital because of atrial fibrillation with rapid ventricular response. He has history failure to thrive and difficulty with ambulation. Today, he is feeling be tter. Review of Systems: Denies fever or chills. Denies PND or orthopnea. Physical Examination: Lungs: Diminished breath sounds at bases. Heart: S1, S2. Abdomen: Soft, benign. Extremities: Trace edema. Diagnostic Studies: Sodium 153, potassium 3.6, bicarbonate 26, BUN 48, creatinine 7.6, calcium 9.5. Impression And Plan: 1.End-stage renal disease. Continue dialysis tomorrow. Continue p.o. fluid restriction and low-sod ium diet. 2.Hyperparathyroidism. Monitor calcium and phosphorus level. Continue binders for the hyperphospha temia control. 3.Atrial fibrillation with rapid ventricular response, rate is controlled. 4.History of hypokalemia. Monitor electrolytes. Adjust dialysis accordingly. 5.Anemia due to chronic kidney disease. Continue JOE. EB/MODL Voice ID: [id number] Report ID: [id number]
[2020-10-21 09:00] LABS: Absolute Lymphocytes (CBC) 1.8 K/uL (0.7-4.9); Basophils % 1.3 % (0-1.3); Hematocrit 37.7 % (39.6-49.0); Lymphocytes % 20.9 % (15.3-44.8); MPV 8.8 fL (7.6-11.3); RBC Red Blood Cell Count 4.12 M/uL (4.33-5.43)
[2020-10-21] MEDS ORDERED: AMIODARONE HCL 200 MG TAB PO SCH (09:00)
[2020-10-21] MEDS: METOPROLOL TAR 50 MG TAB PO SCH (09:00)
[2020-10-21 09:53] LABS: Albumin 3.5 g/dL (3.4-5.0); Bilirubin Total 0.8 mg/dL (0.2-1.0); Magnesium 2.5 mg/dL (1.8-2.4); Potassium 4.4 mmol/L (3.5-5.1); Protein, Total 8.5 g/dL (6.4-8.2)
[2020-10-21] MEDS: COLLAGENASE 30 GM OINTMENT TOP SCH (11:17)
[2020-10-21] MEDS: CYCLOBENZAPRINE 10 MG TAB PO SCH (11:18)
[2020-10-21] MEDS: METOPROLOL XL 25 MG TAB PO SCH ×2 (11:18→20:53)
[2020-10-21] MEDS: APIXABAN 2.5 MG TABLET PO SCH ×2 (11:19→20:53)
--- NOTE | 2020-10-21 11:27 | RAD REPORT ---
EXAM DESCRIPTION: US - Abdomen Exam Complete - 10/21/2020 10:50 am CLINICAL HISTORY: Abdominal pain elevated liver function test enzymes COMPARISON: June 2020 cat scan FINDINGS: The liver has a normal echotexture. Cholecystectomy. The biliary tree is normal caliber. The pancreas is normal in size and echotexture The right kidney measures 10 centimeters with an increased echotexture. The left kidney measures 8 centimeters with and increased echotexture. Small bilateral renal cysts are present. 1.4 centimeter hypoechoic mass extends off of the right kidn ey. Renal arterial calcifications are present The spleen measures 9 centimeters. Splenic granulomata are present The abdominal aorta and inferior vena cava appear unremarkable IMPRESSION: Increased renal echotexture consistent with parenchymal disease 1.4 centimeter hypoechoic mass extends off the right kidney. Comparison to the CT scan demonstrates h emorrhagic/proteinaceous cysts in this region. The hypoechoic mass most likely corresponds to this an d is benign. As a precaution followup renal ultrasound in 6 months recommended
--- NOTE | 2020-10-21 12:07 | PN ---
Date of Progress Note: 10/21/2020 Subjective: Patient was seen this morning for followup. No new complaints or problems reported by him. He was lying in bed, not in any distress. Denies any chest pain, shortness of breath. Earlier this morning when he was in the bathroom, he lost balance and slowly went down on his knees, but denies any pain or any injury. Objective: Vital Signs: Reviewed. HEENT: Examination unremarkable. Lungs: Clear to auscultation. Heart: Sounds normal. Abdomen: Soft. Bowel sounds normal. No guarding, rigidity, tenderness, or distention. Extremities: No leg edema. Laboratory Data: Labs reviewed. CBC unremarkable. Chemistry shows significant elevation of liver enzymes. AST an ALT in range of 700. His bilirubin and alkaline phosphatase are normal. Sodium and potassium are normal. Impression: 1. Acute hepatitis, likely due to amiodarone. 2. Atrial fibrillation. 3. End-stage renal disease, on hemodialysis. 4. Osteoarthritis, multiple sites. Plan: The patient's wheelchair has been requested and we are waiting for insurance approval and availability of the wheelchair as requested. I did talk to window tinter, Dr. Mc and we did discuss today's lab results and considering this significant elevation of liver enzymes and also keeping in mind that his liver function tests were normal 3 days ago, which is on 10/18/2020. He had normal liver enzymes. We will have to believe that this is largely due to amiodarone and we will discontinue his amiodarone. Dr. Mc has asked us to try low-dose Metoprolol to see if he tolerates it now. Our goal will be rate control and anticoagulation with Eliquis that he is already on. The patient has not received any metoprolol in last 2 to 3 days. We will start him on low-dose 25 mg 2 times a day. This morning when I saw him, his heart rate was 70 to 80 per minute, atrial fibrillation. We will repeat blood work tomorrow. We will get abdominal ultrasound done today, and once his liver function test is improving in next day or 2 days, we will be able to possibly discharge him to go home. I have called patient's and discussed details. CASE/MODL Voice ID: [id number] Report ID: [id number] MTDD
[2020-10-21 12:53] LABS: Anisocytosis 1+; Blood Morphology Comment NOTED (NOT SEEN); Platelet Estimate ADEQ; Polychromasia 1+
--- NOTE | 2020-10-21 18:52 | PN ---
Date of Progress Note: 10/20/2020 Subjective: The patient is doing better. He has been seen by the renal doctors and medical doctor. Denies any shortness of breath, any chest pain, or any fever today. Physical exam is unchanged. We still using the Santyl. Plan: To continue Santyl. I prefer him to see me our or Dr. Rojas whatever his preference at the [facility]. There we are going to continue with the care. We going to trying to see how muc h of the vascular workup we have done, so we can at least have in a better understanding of his [facility] es of his healing that area. Also we can probably help him to get his nonabrasive shoes. We will se e the patient with you. JULITO/ELIDA Voice ID: [id number] Report ID: [id number]
[2020-10-21] MEDS: TRAMADOL HCL 50 MG TAB PO PRN (20:53)
--- NOTE | 2020-10-21 22:40 | PN ---
Date of Progress Note: 10/21/2020 History Of Present Illness: Patient is complaining of some legs edema. He has lymphedema. He was a dmitted to the hospital for arrhythmia. He was found to have atrial fibrillation with rapid ventricu lar response. Currently, patient is asymptomatic. Review of Systems: Denies PND, orthopnea. Physical Examination: Lungs: Diminished breath sounds at bases. Heart: S1, S2. Abdomen: Soft, benign. Extremities: Lymphedema. Impression And Plan: 1.Acute hepatitis, likely due to amiodarone. Patient has been followed by primary team. 2.Atrial fibrillation, rate controlled. 3.Fluid overload. Dialysis was started by me with ultrafiltration to control fluid overload. Patie nt although has legs edema, which is partially due to lymphedema. Monitor blood pressure closely and adjust ultrafiltration goal to prevent intradialytic hypotension. 4.Osteoarthritis as well as nonsteroidal antiinflammatory medication due to high risk of gastrointes tinal bleeding. 5.Hypertension: Continue metoprolol. Adjust the medication for blood pressure control with systoli c target range 120 to 130. 6.Anemia in chronic kidney disease. Continue JOE for anemia due to chronic kidney medication. PADMINI/MODL Voice ID: [id number] Report ID: [id number]
[2020-10-22 06:44] LABS: Albumin 3.1 g/dL (3.4-5.0); Bilirubin Total 0.8 mg/dL (0.2-1.0); Potassium 3.8 mmol/L (3.5-5.1); Protein, Total 7.8 g/dL (6.4-8.2)
[2020-10-22 08:01] VITALS: O2SAT 98
[2020-10-22] MEDS: APIXABAN 2.5 MG TABLET PO SCH (09:04)
[2020-10-22] MEDS: CYCLOBENZAPRINE 10 MG TAB PO SCH (09:04)
[2020-10-22] MEDS: COLLAGENASE 30 GM OINTMENT TOP SCH (10:05)
[2020-10-22] MEDS: METOPROLOL XL 25 MG TAB PO SCH (12:07)
[2020-10-22 12:08] VITALS: BP 108/65
--- NOTE | 2020-10-22 12:28 | DS ---
Date of Discharge: 10/22/2020 Disposition: Patient will be discharged to go home. Followup: Follow up at my office next week on Saturday. Discharge Medication Instructions: 1.Continue all prior home medication except: a.Stop metoprolol 100 mg dose that he was taking half a tablet 2 times a day. b.Stop taking aspirin. 2.New medication includes: a.Eliquis 2.5 mg, patient to take 1 tablet by mouth 2 times a day. b.Metoprolol succinate 25 mg, patient to take 1 tablet by mouth 2 times a day. c.Continue other prior home medications. Physical Examination: HEENT: Unremarkable. Lungs: Clear to auscultation. Heart: Sounds normal. Abdomen: Soft. Bowel sounds normal. No guarding, rigidity, tenderness, or distention. Extremities: No leg edema. Hospital Course: This is a 65-year-old male, admitted to hospital with atrial fibrillation problem. Please see dictated H and P for more information. The patient was evaluated at the office, decision was made to admit him to the hospital directly and Cardiology consultation was obtained. Patient wa s started on anticoagulation medication, Eliquis 2.5 mg 2 times a day, which he has tolerated very we ll. The risk and benefit of anticoagulation therapy were discussed with him. Dr. Mc recommended patient to start on IV amiodarone for a loading dose and then maintenance oral dose to be continued, and for that, patient was transferred to Intensive Care Unit for IV amiodarone and was kept in ICU f or about 24 hours or so. Subsequently, he was transferred out of ICU to regular room. He continued to remain in atrial fibrillation throughout this hospital stay, but his heart rate now is under much better control than when he first came in. Yesterday morning, I did his routine blood work including liver function tests considering amiodarone therapy, and unfortunately, his liver function showed hi gh elevation of liver enzymes with AST 771, ALT 758, his total bilirubin normal at 0.8, alkaline phos phatase normal at 102. His sodium was 138 potassium 4.4. It is important to note that when patient came into the hospital on 10/18/2020, his liver function tests were normal with AST 15, ALT 17. Cons idering this significant abnormality of liver function tests, I did contact Dr. Mc and decision w as made to discontinue amiodarone therapy. Patient and his were made aware of this, and yesterd ay, we were planning to discharge him, but that discharge was canceled because of his liver enzyme pr oblems. Abdominal ultrasound was done, which showed normal-appearing liver with presence of bilatera l renal cysts. We will monitor these renal cysts with future outpatient ultrasounds in 6 to 12 month s. This morning, repeat liver function test has started to show improvement. His AST is 463, ALT 71 3. His bilirubin and alkaline phosphatase are normal. Upon admission, his white count was 6.9, hemo globin 10.9 platelets 203. His heart rate is well controlled this morning, heart rate was 73, still in atrial fibrillation. Our plan will be now to try to control his heart rate with metoprolol and ke ep him on chronic anticoagulation therapy. Final Diagnoses: 1.Atrial fibrillation with rapid ventricular rate. 2.End-stage renal disease, on hemodialysis. 3.Anemia due to chronic kidney disease. 4.Chronic diastolic congestive heart failure. 5.Hyperlipidemia. 6.Hypertension. 7.Osteoarthritis, multiple sites. CASE/MODL Voice ID: [id number] Report ID: [id number]
--- NOTE | 2020-10-22 14:37 | PN ---
Date of Progress Note: 10/22/2020 Subjective: Evaluated by bedside. He is doing well, has no complaints. Heart rate is controlled. Physical Examination: Vital Signs: Temperature is 97.5, heart rate is 80, breathing at 18, blood pressure 109/64. General: Pleasant middle-aged male, in no distress. Head and neck: Pupils are equal, reactive to light. Intact eye movements. No JVD. No cervical lym phadenopathy. Neck: Supple. Thyroid is not enlarged. Lungs: Clear to auscultation bilaterally. No rhonchi, rales, or crackles. No accessory muscle use. Heart: Regular rate and rhythm. No extra sounds. Abdomen: Soft, nontender. Bowel sounds positive. No organomegaly. No masses or hernia. No rigidi ty or rebound. Extremities: No clubbing or cyanosis. Intact pulses. Skin: No rash noted. Neurologic: Alert, awake. No acute focal deficits appreciated. Investigations: AST is 463, ALT 713 down from 771/758. Assessment And Recommendation: The patient has an atrial fibrillation, rate is controlled. Recommen d to continue anticoagulation with Eliquis. He had an unfortunate patient with side-effect from amio darone. This is to be discontinued and discussed this with Dr. Smith yesterday and start him on beta yoan, 25 mg of metoprolol twice a day and can be released home at that and adjust dose further if needed. From my standpoint, the patient can be released home and follow up his LFTs as an outpatient . /ELIDA Voice ID: [id number] Report ID: [id number]
[2020-10-22 15:08] VITALS: TEMP 97.1
--- NOTE | 2020-10-22 20:58 | PN ---
Date of Progress Note: 10/22/2020 Chief Complaint: End-stage renal disease, history of fluid overload, legs edema. History Of Present Illness: He has history of lymphedema. He underwent dialysis here today for meta bolic clearance and ultrafiltration. The patient is admitted to the hospital for arrhythmia. He was found to have atrial fibrillation with rapid ventricular response. Rate is controlled. The patient tolerated dialysis. Ultrafiltration was done effectively. Review of Systems: Denies PND or orthopnea. Physical Examination: Lungs: Diminished breath sounds at bases. Heart: S1, S2. Abdomen: Soft, benign. Extremities: Edema in both legs. 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 The patient has been followed by primary team. 2.Atrial fibrillation, rate controlled. Continue current treatment. 3.Fluid overload. Dialysis was done with ultrafiltration. The patient has lymphedema. Continue lo w-sodium diet. 4.Osteoarthritis. Avoid nonsteroidal anti-inflammatory medication due to high risk of gastrointesti nal bleeding. 5.Hypertension. Continue metoprolol with target systolic blood pressure 120 to 130. 6.Anemia due to chronic kidney disease. Continue JOE. PADMINI/ELIDA Voice ID: [id number] Report ID: [id number]
== END 2020-10-22 14:40 | disposition home or self-care (01) | DRG 308 ==
LOC: INTOOBSV 17:15 → 2ND 17:15 → ERHOLD 10-19 18:37 → OBSVTOIN 10-20 08:52 → 2ND 10-20 20:38
PROVIDERS: ADMIT Internal Medicine; ATTEND Internal Medicine
PROC: 5A1D70Z Performance of Urinary Filtration, Intermittent, Less than 6 Hours Per Day (ICD-10-PCS; principal; 2020-10-20)
DX: I48.91 Unspecified atrial fibrillation (principal); N18.6 End stage renal disease; I50.32 Chronic diastolic (congestive) heart failure; I13.2 Hypertensive heart and chronic kidney disease with heart failure and with stage 5 chronic kidney disease, or end stage renal disease; N25.81 Secondary hyperparathyroidism of renal origin; E87.3 Alkalosis; B17.9 Acute viral hepatitis, unspecified; D63.1 Anemia in chronic kidney disease; I89.0 Lymphedema, not elsewhere classified; N28.1 Cyst of kidney, acquired; I25.10 Atherosclerotic heart disease of native coronary artery without angina pectoris; M19.90 Unspecified osteoarthritis, unspecified site; J44.9 Chronic obstructive pulmonary disease, unspecified; E78.5 Hyperlipidemia, unspecified; L89.899 Pressure ulcer of other site, unspecified stage; Z86.19 Personal history of other infectious and parasitic diseases; Z79.82 Long term (current) use of aspirin; Z79.899 Other long term (current) drug therapy; Z90.49 Acquired absence of other specified parts of digestive tract; Z99.2 Dependence on renal dialysis; Z20.828 Contact with and (suspected) exposure to other viral communicable diseases
CPT/HCPCS: 36415; 71045; 76700; 80053; 83735; 84443; 85025; 90935; 93005; 93306; G0378; J0282; J1644; J3590; J7050; J7060; U0002

== ENCOUNTER 2020-11-16 15:38 | Inpatient (IN) | payer OTHER ==
--- OUTSIDE RECORDS SUMMARY | 2020-11-16 15:41 | XMS REPORT | Continuity of Care Document ---
:1955 Author Organization [facility] Team Providers Name Role Phone [facility] Unavailable Un available Problems Problem Status Onset [...] Anxiety (finding) Active Problem 12/13/2016 M H [facility] Arthritis Active Problem 12/13/2016 MH (disorder) [facility] Blood coagulation Resolved Problem 12/13/2016 M H disorder (disorder) [facility] Congestive heart Active Problem 12/13/2016 [facility] failure (disorder) [facility] End stage renal Active Problem 12/13/2016 [facility] disease (disorder) [facility] Hypertensive Active Problem 12/13/2016 disorder, systemic [facility] arterial (disorder) Numbness of hand Active Problem 12/13/2016 Left hand MH (finding) [facility] Arteriovenous Resolved Problem 12/13/2016 left arm MH fistula occlusion [facility] (disorder) 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 [facility] (finding) Final: End Stage 08/25/2015 MH Renal [...] theast Block END STAGE RENAL Active DISEASE [facility] Medications Medication Details Route Status Patient Ordering Order Source Instructions Provider Date Morphine 2 mg, Route: Inactive MH IVP, Q3H, 2016 [facility] Dosing Weight 109.136, kg, PRN Pain Score 1-3, Start date: 12/10/16 12:06:00 PHYSICIAN ALLERGIST IMMUNOLOGIST, Duration: 30 day, Stop date: 01/09/17 12:05:00 PHYSICIAN ALLERGIST IMMUNOLOGIST Acetaminophen 325 1 tab, Route: Inactive MH MG / Hydrocodone PO, Dosing 2017 [facility] Bitartrate 10 MG Weight 109.136, Oral Tablet kg, Q4H, PRN Pain Score 4-6, Start date: 12/10/16 12:06:00 PHYSICIAN ALLERGIST IMMUNOLOGIST, Duration: 30 day, Stop date: 01/09/17 12:05:00 PHYSICIAN ALLERGIST IMMUNOLOGIST Acetaminophen 325 1 tab, Route: Inactive MH MG / Hydrocodone PO, Dosing 2017 [facility] Bitartrate 5 MG Weight 109.136, Oral Tablet kg, Q4H, PRN Pain Score 4-6, Start date: 12/10/16 12:06:00 PHYSICIAN ALLERGIST IMMUNOLOGIST, Duration: 30 day, Stop date: 01/09/17 12:05:00 PHYSICIAN ALLERGIST IMMUNOLOGIST diphenhydrAMINE Route: IV, Drug Inactive MH (ANES) form: INJ, 2016, Stop date: 12/10/16 11:42:00 PHYSICIAN ALLERGIST IMMUNOLOGIST ondansetron Route: IV, Drug Inactive MH (ANES) form: INJ2016, Stop date: 12/10/16 11:42:00 PHYSICIAN ALLERGIST IMMUNOLOGIST fentaNYL (ANES) Route: IV, Drug Inactive form: INJ2016, Stop date: 12/10/16 11:42:00 PHYSICIAN ALLERGIST IMMUNOLOGIST midazolam (ANES) Route: IV, Drug Inactive MH form: SOLN, 2016, Stop date: 12/10/16 11:42:00 PHYSICIAN ALLERGIST IMMUNOLOGIST hydromorphone Route: IV, Drug Inactive M H (ANES) form: [id number], Stop date: 12/10/16 11:42:00 PHYSICIAN ALLERGIST IMMUNOLOGIST ceFAZolin (ANES) Route: IV, Drug Inactive MH (ANES) form: [id number] Start date: 12/10/16 11:06:00 PHYSICIAN ALLERGIST IMMUNOLOGIST, Stop date: 12/10/16 12:06:00 PHYSICIAN ALLERGIST IMMUNOLOGIST sodium chloride Route: IV, Inactive 0.9% 500 ml INJ Total Volume: 2016 [facility] (ANES) 500, Start date: 12/10/16 10:57:00 PHYSICIAN ALLERGIST IMMUNOLOGIST, Stop date: 12/10/16 11:57:00 PHYSICIAN ALLERGIST IMMUNOLOGIST Sodium Chloride 500 mL, Rate: Inactive H 0.154 MEQ/ML 25 ml/hr, 2016 [facility] Injectable Infuse over: 20 Solution hr, Route: IV, Dosing Weight 109.136 kg, Total Volume: 500, Start date: 12/10/16 9:19:00 PHYSICIAN ALLERGIST IMMUNOLOGIST, Duration: 30 day, Stop date: 01/09/17 9:18:00 PHYSICIAN ALLERGIST IMMUNOLOGIST Calcium Chloride 1,000 mL, Rate: Inactive 0.0014 MEQ/ML / 25 ml/hr, 2016 [facility] Potassium Infuse over: 40 Chloride 0.004 hr, Route: IV, MEQ/ML / Sodium Dosing Weight Chloride 0.103 109.136 kg, MEQ/ML / Sodium Total Volume: Lactate 0.028 1,000, Start MEQ/ML Injectable date: 12/10/16 Solution 9:18:00 PHYSICIAN ALLERGIST IMMUNOLOGIST, Duration: 30 day, Stop date: 01/09/17 9:17:00 PHYSICIAN ALLERGIST IMMUNOLOGIST calcium acetate 1,334 mg = 2 Active 667 MG Oral tab, PO, 2016 [facility] Tablet TID-Meals, # 180 tab, 3 Refill(s) sevelamer 1,600 mg = 2 Active carbonate 800 MG tab, PO, 2016 [facility] Oral Tablet TID-Meals, # [Renvela] 180 tab, 0 Refill(s) Ancef Notes: Same as: No Longer Ancef Active 2016 [facility] Morphine 2 mg, Route: Inactive IVP, Q3H, 2014 [facility] Dosing Weight 99.091, kg, PRN Pain Score 1-3, Start date: 08/22/15 13:23:00, Duration: 30 day, Stop date: 09/21/15 13:22:00 acetaminophen-cod 1 tab, Route: Inactive eine #3 PO, Drug Form: 2014 [facility] TAB, Dosing Weight 99.091, kg, Q4H, PRN Pain Score 4-6, Start date: 08/22/15 13:23:00, Duration: 30 day, Stop date: 09/21/15 13:22:00 Sodium Chloride 500 mL, Rate: Inactive H 0.154 MEQ/ML 25 ml/hr, 2014 [facility] Injectable Infuse over: 20 Solution hr, Route: IV, Dosing Weight 99.091 kg, Total Volume: 500, Start date: 08/22/15 11:59:00, Duration: 30 day, Stop date: 09/21/15 11:58:00 Dialyvite 800 0 Refill(s) Active Ultra D 2014 [facility] Acetaminophen 325 1-2 tab, PO, Active H MG / Hydrocodone Q4-6H, PRN 2015 [facility] Bitartrate 5 MG Pain, # 30 tab, Oral Tablet 0 Refill(s) [Maxwell 5/325] Ancef 2 gm, Route: Inactive IVPB, PRE OP, 2014 [facility] Dosing Weight 118.182, kg, Start date: 08/22/15 10:00:00, Duration: 30 day, Stop date: 09/21/15 9:59:00 Vancomycin 1 gm, Route: Inactive IVPB, Drug 2014 [facility] form: INJ, PRE OP, Dosing Weight 118.182, kg, Start date: 08/22/15 10:00:00, Duration: 30 day, Stop date: 09/21/15 9:59:00 tramadol 25 mg = 0.5 Active hydrochloride 50 tab, PO, Q4H, 2014 [facility] MG Oral Tablet PRN as needed for pain, X 7 day, # 21 tab, 0 Refill(s) Morphine 4 mg, Route: Inactive IVP, Q6H, kg, 2014 [facility] PRN Pain Score 4-6, Start date: 04/20/15 16:08:00, Duration: 30 day, Stop date: 05/20/15 16:07:00 acetaminophen-cod 1 tab, Route: Inactive eine #3 PO, Drug Form: 2014 [facility] TAB, kg, Q4H, PRN Pain Score 1-3, Start date: 04/20/15 16:08:00, Duration: 30 day, Stop date: 05/20/15 16:07:00 Acetaminophen 100.4 F, Start Inactive 04/20/ H date: 04/20/152014 [facility] 16:08:00, Duration: 30 day, Stop date: 05/20/15 16:07:00 Diphenhydramine 12.5 mg, Route: Inactive 04/20[facility] IVP, Drug form: 2014 [facility] INJ, Q6H, Dosing Weight 99.091, kg, PRN Itching, Start date: 04/20/15 14:23:00, Duration: 30 day, Stop date: 05/20/15 14:22:00 Glycopyrrolate 0.2 mg, Route: Inactive H IVP, Q5Min, 2014 [facility] Dosing Weight 99.091, kg, PRN Bradycardia, Start date: 04/20/15 14:23:00, Duration: 3 doses or times, Stop date: Limited # of times Ondansetron 4 mg, Route: Inactive 04/20[facility] IVP, ONCE, 2014 [facility] Dosing Weight 99.091, kg, PRN Nausea & Vomiting, Start date: 04/20/15 14:23:00 Promethazine 6.25 mg, Route: Inactive 04/20[facility] IVPB, ONCE, 2014 [facility] Dosing Weight 99.091, kg, PRN Nausea & Vomiting, Start date: 04/20/15 14:23:00 Meperidine 12.5 mg, Route: Inactive 04/20[facility] IVP, Q30Min, 2014 [facility] Dosing Weight 99.091, kg, PRN Other -See Comment, For shivering, Start date: 04/20/15 14:23:00, Duration: 2 doses or times, Stop date: Limited # of times Flumazenil 0.2 mg, Route: Inactive 04/20[facility] IVP, PRN, 2014 [facility] Dosing Weight 99.091, kg, PRN Benzodiazepine Reversal, Initial dose, Start date: 04/20/15 14:23:00, Duration: 30 day, Stop date: 05/20/15 14:22:00 Naloxone 0.04 mg, Route: Inactive 04/20[facility] IVP, Q2MIN, 2014 [facility] Dosing Weight 99.091, kg, PRN Narcotic Reversal, Start date: 04/20/15 14:23:00, Duration: 8 doses or times, Stop date: Limited # of times Hydromorphone 0.5 mg, Route: Inactive 04/20[facility] IVP, Q5Min, 2014 [facility] Dosing Weight 99.091, kg, PRN Pain Score 7-10, Start date: 04/20/15 14:23:00, Duration: 4 doses or times, Stop date: Limited # of times Fentanyl 50 microgram, Inactive 04/20[facility] Route: IVP, 2014 [facility] Q5Min, Dosing Weight 99.091, kg, PRN Pain Score 7-10, Start date: 04/20/15 14:23:00, Duration: 2 doses or times, Stop date: Limited # of times Morphine 4 mg, Route: Inactive 04/20[facility] IVP, Q5Min, 2014 [facility] Dosing Weight 99.091, kg, PRN Pain Score 7-10, Start date: 04/20/15 14:23:00, Duration: 3 doses or times, Stop date: Limited # of times Hydralazine 10 mg, Route: Inactive 04/20[facility] IVP, Q20Min, 2014 [facility] Dosing Weight 99.091, kg, PRN Elevated BP, Start date: 04/20/15 14:23:00, Duration: 2 doses or times, Stop date: Limited # of times Metoprolol 1 mg, Route: Inactive 04/20[facility] IVP, Q5Min, 2014 [facility] Dosing Weight 99.091, kg, PRN Other -See Comment, Start date: 04/20/15 14:23:00, Duration: 5 doses or times, Stop date: Limited # of times Oxycodone 5 mg, Route: Inactive 04/20[facility] PO, Drug form: 2014 [facility] TAB, Q4H, Dosing Weight 99.091, kg, PRN Pain Score 4-6, Start date: 04/20/15 14:23:00, Duration: 30 day, Stop date: 05/20/15 14:22:00 Ketorolac 30 mg, Route: Inactive [facility] IVP, ONCE, 2014 [facility] Dosing Weight 99.091, kg, Start date: 04/20/15 14:23:00, Duration: 1 doses or times, Stop date: 04/20/15 14:23:00 Ancef 2 gm, Route: Inactive IVPB, ONCE, 2014 [facility] Dosing Weight 99.091, kg, Start date: 04/20/15 11:33:00, Duration: 1 doses or times, Stop date: 04/20/15 11:33:00 Sodium Chloride 500 mL, Rate: Inactive 04/20/ M H 0.154 MEQ/ML 25 ml/hr, 2014 [facility] Injectable Infuse over: 20 Solution hr, Route: IV, Dosing Weight 99.091 kg, Total Volume: 500, Start date: 04/20/15 11:30:00, Duration: 30 day, Stop date: 05/20/15 11:29:00 Calcium Chloride 1,000 mL, Rate: Inactive 0.0014 MEQ/ML / 25 ml/hr, 2014 [facility] Potassium Infuse over: 40 Chloride [...] oral tablet PO, BID, # 120 2014 [facility] tab, 0 Refill(s) Metoprolol 100 mg = 1 tab, Active MH Tartrate 100 mg PO, BID, # 60 2015 [facility] oral tablet tab, 0 Refill(s) Hydralazine 1 tab, PO, BID, Active 04/13/ MH Hydrochloride # 30 tab, 0 2014 [facility] ast 37.5 MG / Refill(s) Isosorbide [...] ELECTROLYTES Potassium 4.6 3.5 - 5.1 12/10 [facility] ELECTROLYTES AGAP 16.8 10.0 - 12/05 20.0 [facility] ELECTROLYTES eGFR 5 12/05 Result Comment: [...] Calcium Lvl 8.1 8.5 - 10.5 12/05 [facility] ELECTROLYTES CO2 25 24 - 32 12/05 [facility] ELECTROLYTES Chloride Lvl 98 95 - 109 12/05 [facility] ELECTROLYTES Potassium 4.8 3.5 - 5.1 12/05 [facility] ELECTROLYTES Sodium Lvl 135 135 - 145 12/05 [facility] ELECTROLYTES Glucose Lvl 106 70 - 99 12/05 [facility] ELECTROLYTES BUN 52 7 - 22 12/05 [facility] ELECTROLYTES Creatinine 11.00 0.50 - 12/05 Lvl 1.40 /2016 [facility] HEMATOLOGY Lymphocytes 14.9 20.0 - 12/05 40.0 /2016 [facility] HEMATOLOGY Monocytes # 0.7 0.0 - 0.8 12/05 /2016 [facility] HEMATOLOGY Lymphocytes 1.2 1.0 - 5.5 12/05 MH # /2016 [facility] HEMATOLOGY Eosinophils 0.3 0.0 - 0.5 12/05 MH # /2016 [facility] HEMATOLOGY Basophils # 0.1 0.0 - 0.2 12/05 [facility] HEMATOLOGY Basophils 0.9 0.0 - 1.0 12/05 [facility] HEMATOLOGY Segs-Bands # 5.9 1.5 - 8.1 12/05 [facility] HEMATOLOGY Monocytes 9.0 2.0 - 12.0 12/05 [facility] HEMATOLOGY Eosinophils 4.2 0.0 - 4.0 12/05 [facility] HEMATOLOGY Segs 71.0 45.0 - 12/05 75.0 [facility] HEMATOLOGY RDW 14.9 11.5 - 12/05 14.5 [facility] HEMATOLOGY MPV 8.0 7.4 - 10.4 12/05 [facility] HEMATOLOGY Platelet 210 133 - 450 12/05 [facility] HEMATOLOGY MCHC 32.7 32.0 - 12/05 36.0 /2016 [facility] HEMATOLOGY MCH 28.4 27.0 - 12/05 31.0 /2016 [facility] HEMATOLOGY MCV 86.9 80.0 - 12/05 94.0 /2016 [facility] HEMATOLOGY Hgb 11.1 14.0 - 12/05 18.0 /2016 [facility] HEMATOLOGY Hct 34.0 42.0 - 12/05 54.0 /2016 [facility] HEMATOLOGY RBC 3.91 4.70 - 12/05 6.10 /2016 [facility] HEMATOLOGY WBC 8.3 3.7 - 10.4 12/05 [facility] HEMATOLOGY INR 1.00 0.85 - 12/05 1.17 [facility] HEMATOLOGY PT 13.4 12.0 - 12/05 14.7 [facility] HEMATOLOGY PTT 31.8 22.9 - 12/05 35.8 /2016 [facility] CHEM PANEL BUN 49 7 - 22 08/22 [facility] CHEM PANEL eGFR 12 08/22 Result [...] Calcium Lvl 8.6 8.5 - 10.5 08/22 [facility] CHEM PANEL Sodium Lvl 139 135 - 145 08/22 [facility] CHEM PANEL Potassium 3.9 3.5 - 5.1 08/22 [facility] CHEM PANEL Chloride Lvl 101 95 - 109 08/22 [facility] CHEM PANEL CO2 31 24 - 32 08/22 [facility] CHEM PANEL Glucose Lvl 103 70 - 99 08/22 [facility] CHEM PANEL Creatinine 5.3 0.5 - 1.4 08/22 [facility] CHEM PANEL AGAP 10.9 10.0 - 08/22 MH 20.0 [facility] HEMATOLOGY MPV 7.7 7.4 - 10.4 08/22 [facility] HEMATOLOGY Platelet 224 133 - 450 08/22 [facility] HEMATOLOGY RDW 17.2 11.5 - 08/22 MH 14.5 /2014 [facility] HEMATOLOGY Hgb 9.3 14.0 - 08/22 MH 18.0 [facility] HEMATOLOGY RBC 3.52 4.70 - 08/22 MH 6.10 [facility] HEMATOLOGY WBC 5.4 3.7 - 10.4 08/22 [facility] HEMATOLOGY MCHC 31.3 32.0 - 08/22 MH 36.0 /2014 [facility] HEMATOLOGY MCH 26.4 27.0 - 08/22 MH 31.0 [facility] HEMATOLOGY Hct 29.7 42.0 - 08/22 MH 54.0 /2014 [facility] HEMATOLOGY MCV 84.3 80.0 - 08/22 MH 94.0 /2014 [facility] HEMATOLOGY PTT 37.6 22.9 - 08/22 MH 35.8 /2014 [facility] HEMATOLOGY INR 1.06 0.85 - 08/22 MH 1.17 /2014 [facility] HEMATOLOGY PT 14.1 12.0 - 08/22 MH 14.7 [facility] HEMATOLOGY Lymphocytes 0.9 1.0 - 5.5 08/22 MH # /2014 [facility] HEMATOLOGY Eosinophils 0.7 0.0 - 0.5 08/22 MH # /2014 [facility] HEMATOLOGY Monocytes # 0.7 0.0 - 0.8 08/22 [facility] HEMATOLOGY Segs-Bands # 3.0 1.5 - 8.1 08/22 [facility] HEMATOLOGY Basophils 0.4 0.0 - 1.0 08/22 [facility] HEMATOLOGY Eosinophils 13.3 0.0 - 4.0 08/22 [facility] HEMATOLOGY Segs 56.3 45.0 - 08/22 MH 75.0 [facility] HEMATOLOGY Lymphocytes 17.0 20.0 - 08/22 MH 40.0 /2014 [facility] HEMATOLOGY Monocytes 13.0 2.0 - 12.0 08/22 [facility] CHEM PANEL Creatinine 4.1 0.5 - 1.4 08/19 [facility] CHEM PANEL Sodium Lvl 136 135 - 145 08/19 [facility] CHEM PANEL Chloride Lvl 98 95 - 109 08/19 [facility] CHEM PANEL CO2 30 24 - 32 08/19 [facility] CHEM PANEL Calcium Lvl 8.6 8.5 - 10.5 08/19 [facility] CHEM PANEL Potassium 4.0 3.5 - 5.1 08/19 [facility] CHEM PANEL AGAP 12.0 10.0 - [...] Glucose Lvl 100 70 - 99 08/19 [facility] CHEM PANEL BUN 37 7 - 22 08/19 [facility] ELECTROLYTES Potassium 4.7 3.5 - 5.1 04/20 [facility] ELECTROLYTES AGAP 12.6 10.0 - 04/13 MH 20.0 [facility] ELECTROLYTES Potassium 4.6 3.5 - 5.1 04/13 [facility] ELECTROLYTES Sodium Lvl 140 135 - 145 04/13 [facility] ELECTROLYTES Chloride Lvl 110 95 - 109 04/13 [facility] ELECTROLYTES eGFR 12 04/13 <sup>1</sup>Res ult Comment: [facility] The eGFR is calculated using the [...] Calcium Lvl 8.3 8.5 - 10.5 04/13 [facility] ELECTROLYTES BUN 76 7 - 22 04/13 [facility] ELECTROLYTES Glucose Lvl 96 70 - 99 04/13 <sup>2</sup>Int erpretive Data: [facility] Adult reference range values reflect the clinical guidelines
of the [place] [employer]. ELECTROLYTES CO2 22 24 - 32 05/ MH /2014 [facility] ELECTROLYTES Creatinine 5.3 0.5 - 1.4 05/20 MH Lvl /2015 [facility] HEMATOLOGY Eosinophils 7.0 0.0 - 4.0 05/ MH /2014 [facility] HEMATOLOGY Monocytes 10.8 2.0 - 12.0 05/ MH /2014 [facility] HEMATOLOGY Eosinophils 0.3 0.0 - 0.5 05/20 MH # /2015 [facility] HEMATOLOGY Monocytes # 0.5 0.0 - 0.8 05/20 MH /2014 [facility] HEMATOLOGY Basophils 1.4 0.0 - 1.0 05/20 MH /2014 [facility] HEMATOLOGY Lymphocytes 0.8 1.0 - 5.5 05/20 MH # /2015 [facility] HEMATOLOGY Segs-Bands # 3.0 1.5 - 8.1 04/13 MH /2014 [facility] HEMATOLOGY Basophils # 0.1 0.0 - 0.2 04/13 MH /2014 [facility] HEMATOLOGY Lymphocytes 17.2 20.0 - 04/13 MH 40.0 /2014 [facility] HEMATOLOGY Segs 63.6 45.0 - 04/13 MH 75.0 /2014 [facility] HEMATOLOGY Hgb 10.5 14.0 - 04/13 MH 18.0 /2014 [facility] HEMATOLOGY MCV 86.8 80.0 - 04/13 MH 94.0 /2014 [facility] HEMATOLOGY Hct 32.6 42.0 - 05 MH 54.0 /2014 [facility] HEMATOLOGY MCHC 32.3 32.0 - 05 MH 36.0 /2014 [facility] HEMATOLOGY MCH 28.1 27.0 - 05 MH 31.0 /2014 [facility] HEMATOLOGY RBC 3.75 4.70 - 04/13 MH 6.10 /2014 [facility] HEMATOLOGY WBC 4.7 3.7 - 10.4 04/13 MH /2014 [facility] HEMATOLOGY RDW 19.3 11.5 - 04/13 MH 14.5 /2014 [facility] HEMATOLOGY MPV 8.1 7.4 - 10.4 04/13 MH [facility] HEMATOLOGY Platelet 150 133 - 450 04/13 MH [facility] HEMATOLOGY PT 14.6 12.0 - 04/13 MH 14.7 /2014 [facility] HEMATOLOGY INR 1.13 0.85 - 04/13 [...] seen. IMPRESSION: No acute cardiopulmonary disease. SL: [id number] Ext Upper Arterial Please refer to the heart la b report, located under vascular in CARE4. 10/31/2016 [facility] Bilat w pressure US Chest 1view DX Chest, one view. 08/22/2015 [facility] HISTORY: Line placement. FINDINGS: Since the prior exam from duong brown on 08/14/2015, a right IJ dialysis catheter has been placed which terminates in the SVC. No pneumothorax. Lungs remain clear. No signi ficant pleural effusion. Mild/moderate cardiomegaly. No acute osseous abnormality. SL: 13 Chest 2 views DX HISTORY: Cough. 08/22/2015 [facility] Chest 2 views. Comparison 04/13/2015. Lungs clear. Cardiomegaly wi thout overt CHF. No pleural effusion or pneumothorax. Lower cervical spine fusion hardware as before. IMPRESSION: Cardiomegaly as before. No new or ac jazmine finding otherwise. SL:13 Chest 2 views DX PA and LATERAL CHEST 04/13/2015 [facility] (2 views) HISTORY: Coughing Comparison is [...] spine. Coding: Chest 2 views CPT Code: 68378 SL: 12 Arnaldo Dai M.D. Ext Upper Venous Please refer to the heart la b report, located under vascular in CARE4. 04/13/2015 [facility] Doppler Bilat US Consultation Notes No [...] 14 12/10/2016 [facility] Respitory Rate 13 12/10/2016 [facility] Temperature Oral (F) 97.5 F 12/05/2016 [facility] Heart Rate 78 12/05/2016 [facility] Weight 109.136 12/05/2016 [facility] BMI Calculated 36.58 12/05/2016 [facility] Height 172.72 cm 12/05/2016 [facility] Systolic (mm Hg) 124 08/22/2015 [facility] Diastolic (mm Hg) 54 08/22/[address] Respitory Rate 18 08/22/2015 [facility] Systolic (mm Hg) 122 08/22/2015 [facility] Diastolic (mm Hg) 59 08/22/[address] [facility] Resp[facility] Rate 18 08/22/2015 [facility] Respitory Rate 16 08/22/2015 [facility] Systolic (mm Hg) 128 08/22/2015 [facility] Diastolic (mm Hg) 62 08/22/[address] [facility] [address] Temperature Oral (F) 98 F 08/22/2015 [facility] Heart Rate 66 08/22/2015 [facility] Height 172.72 cm 08/22/2015 [facility] Weight 99.091 08/22/2015 [facility] BMI Calculated 33.22 08/22/2015 [facility] Temperature Oral (F) 98.3 F 08/19/2015 [facility] Rate 17 08/19/2015 [facility] Heart Rate 66 08/19/2015 [facility] Systolic (mm Hg) 145 08/19/2015 [facility] Diastolic (mm Hg) 77 08/19/[address] Weight 118.182 08/19/2015 [facility] BMI Calculated 39.62 08/19/2015 [facility] Height 172.72 cm 08/19/2015 [facility] Systolic [...] 8 04/20/2015 [facility] Heart Rate 60 04/13/2015 [facility] Temperature Oral (F) 98.0 F 04/13/2015 [facility] Weight 99.091 04/13/2015 [facility] BMI Calculated 33.22 04/13/2015 [facility] Height 172.72 cm 04/13/2015 [facility] Encounters Location Location Encounter Encounter Reason Attending ADM [place] Stat us Source Details Type Number For Provider Date Date [facility] [id number] [facility] 04[facility]13 04/14 Wyatt Leone /2014 [facility] OBS Day [id number] [facility] 04/20 04/20 [facility] [id number] Agustin 08/19 08/19 [facility] Emergency Kd /2014 [facility] OBS Day [id number] Vargas 08/22 08/22 [facility] Surgery Vasu /2014 [facility] Outpatient [id number] Vargas 10/31 11/01 Wyatt Leone /2015 [facility] Day Surgery [id number] [facility] 12/10 12/10 Wyatt Leone /2016 [facility] Procedures Procedure Code Date Perfomer Comments Source Percutaneous [id number] [facility] transluminal balloon 6 angioplasty Creation of [id number] [facility] brachial-cephalic 5 fistula Laparoscopic [id number] [facility] cholecystectomy Operation [id number] [facility] Insertion of [id number] LUE fistulogram [facility] heradha tunneled dialysis catheter using fluoroscopic guidance<sup>1</sup> Assessment and Plan No Data Provided for This Section Plan of Care No Data Provided for This Section Social History Social History Date Source Social History TypeResponse 12/02/2015 [facility] Alcohol Past Smoking Status Never smoker; Exposure to Tobacco Smoke None; Cigarette Smoking Last 365 Days No; Reg Smoking Cessation Counseling No Family History No Data Provided for This Section Advance Directives No Data Provided for This Section Functional Status No Data Provided for This Section
--- OUTSIDE RECORDS SUMMARY | 2020-11-16 15:42 | XMS REPORT | Continuity of Care Document ---
:1955 Author Organization [facility] t Address [address] [place] [address] Care Team Providers Name Role Phone DANYELLE Attending Clinician Unavailable Niall Leone Attending Clinician Kd Attending Clinician Payers Payer Name Policy Type Policy Number Effective Date Expiration Date S ource Problems Condition Condition Condition Status Onset Resolution Last Treating Co mments Source Name Details Category Date Date Treatment Clinician Date UNK Diagnosis Active 2017-08-13 Mem oria - 15:39:00 l UNK 00:00: Worden 00 Active 12/04/2016 [facility] DX: Diagnosis Active 2015-112016-10-31 Me moria T82.9XXA=U 207 09:47:00 l NSPECIFIED BUE DX: 00:00: He rmann COMPLICATI T82.9XXA=U 00 NSPECIFIED COMPLICATI Active 10/31/2016 [facility] N18.6 Diagnosis Active 2014-112015-10-22 Mem oria 0 15:34:00 l N18.6 00:00: Worden 00 Active 09/08/2015 [facility] 585.6 Diagnosis Active 2015-08-22 Mem oria 08-22 09:22:00 l 585.6 00:00: Worden 00 Active 08/22/2015 [facility] OTHER Diagnosis Active 2015-08-19 Mem oria 08-19 17:18:00 l OTHER 00:00: Wyatt 00 Active 08/19/2015 [facility] BUE Diagnosis Active 2015-04-13 Mem oria DX:729.5-A -06 12:24:00 l CUTE BUE 00:00: Worden POSTOPERAT DX:729.5-A 00 SANTIAGO PAIN O CUTE POSTOPERAT SANTIAGO PAIN O Active 03/30/2015 [facility] Final: End Problem 2015-08-25 M emoria Stage 04:49:10 l Renal Final: Wyatt Disease End Stage Renal Disease 08/25/2015 [facility] Final: Problem 2015-08-25 Memor ia Other 04:49:10 l Complicati Final: Herm selene ons Due to Other Renal Complicati Dialysis ons Due to Device, Renal Implant, Dialysis and Graft Device, Implant, and Graft 08/25/2015 [facility] Final: Problem 2015-08-25 Memor ia Hypertensi 04:49:10 l ve Chronic Final: Herm selene Kidney Hypertensi Disease, ve Chronic Unspecifie Kidney d, with Disease, Chronic Unspecifie Kidney d, with Disease Chronic Stage V or Kidney End Stage Disease Renal Stage V or Disease End Stage Renal Disease 08/25/2015 [facility] Final: Problem 2015-08-25 Memor ia Renal 04:49:10 l Dialysis Final: Everardo n Status Renal Dialysis Status 08/25/2015 [facility] Final: Problem 2015-08-25 Memor ia Personal 04:49:10 l History of Final: Herm selene 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 08/25/2015 [facility] Final: Problem 2015-08-25 Memor ia First 04:49:10 l Degree Final: Worden 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 08/25/2015 [facility] Blood Problem Resolve 2016-12-13 Edmundo tyler coagulatio d 02:01:35 l n disorder Blood Kamille nn (disorder) coagulatio n disorder (disorder) Resolved Problem 12/13/2016 [facility] Arterioven Problem Resolve 2016-12-13 Memoria ous d 02:01:35 l fistula Worden occlusion Arterioven (disorder) ous fistula occlusion (disorder) Resolved Problem 12/13/2016 left arm [facility] Anxiety Problem Active 2016-12-13 Edmundo tyler (finding) 02:01:35 l Anxiety Wyatt (finding) Active Problem 12/13/2016 [facility] Arthritis Problem Active 2016-12-13 Me moria (disorder) 02:01:35 l Wyatt Arthritis (disorder) Active Problem 12/13/2016 [facility] Congestive Problem Active 2016-12-13 M emoria heart 02:01:35 l failure Wyatt (disorder) Congestive heart failure (disorder) Active Problem 12/13/2016 [facility] End stage Problem Active 2016-12-13 Me moria renal 02:01:35 l disease End Wyatt (disorder) stage renal disease (disorder) Active Problem 12/13/2016 [facility] Hypertensi Problem Active 2016-12-13 M emoria ve 02:01:35 l disorder, Wyatt systemic Hypertensi arterial ve (disorder) disorder, systemic arterial (disorder) Active Problem 12/13/2016 [facility] Numbness Problem Active 2016-12-13 Mem oria of hand 02:01:35 l (finding) Numbness Her moreno of hand (finding) Active Problem 12/13/2016 Left hand [facility] 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 Social History Social Habit Start Date Stop Date Quantity Comments Source Social History 2015-12-02 2015-12-02 [facility] 15:52:15 15:52:15 Medications Ordered Filled Start Stop Current Ordering Indication Dosage Frequency Signature Comments Components Source Medication Medication Date Date Medication? Clinician (SIG) Name Name Morphine 2016-0 No 2 mg, Memoria 12-10 Route: l 18:06: IVP, Q3H, Wyatt 00 Dosing Weight 109.136, kg, PRN Pain Score 1-3, Start date: 12/10/16 12:06:00 ELECTRONICS RECYCLER, Duration: 30 day, Stop date: 01/09/17 12:05:00 ELECTRONICS RECYCLER Acetaminoph 2016-0 No 1 tab, Edmundo tyler en 325 MG / 16 Route: PO, l Hydrocodone 18:06: Dosing Herm selene Bitartrate 00 Weight 10 MG Oral 109.136, Tablet kg, Q4H, PRN Pain Score 4-6, Start date: 12/10/16 12:06:00 ELECTRONICS RECYCLER, Duration: 30 day, Stop date: 01/09/17 12:05:00 ELECTRONICS RECYCLER Acetaminoph No 1 tab, Edmundo tyler en 325 MG / 12-10 Route: PO, l Hydrocodone 18:06: Dosing Herm selene Bitartrate 00 Weight 5 MG Oral 109.136, Tablet kg, Q4H, PRN Pain Score 4-6, Start date: 12/10/16 12:06:00 ELECTRONICS RECYCLER, Duration: 30 day, Stop date: 01/09/17 12:05:00 ELECTRONICS RECYCLER diphenhydrA No Route: IV, Memoria MINE (ANES) 12-10 Drug form: l 17:42: INJ, ONCE, Wyatt 00 Stop date: 12/10/16 11:42:00 ELECTRONICS RECYCLER ondansetron No Route: IV, Memoria (ANES) 12-10 Drug form: l 17:42: INJ, ONCE, Worden 00 Stop date: 12/10/16 11:42:00 ELECTRONICS RECYCLER fentaNYL No Route: IV, Mem oria (ANES) 12-10 Drug form: l 17:42: INJ, ONCE, Worden 00 Stop date: 12/10/16 11:42:00 ELECTRONICS RECYCLER midazolam No Route: IV, Me moria (ANES) 12-10 Drug form: l 17:42: SOLN, Worden 00 ONCE, Stop date: 12/10/16 11:42:00 ELECTRONICS RECYCLER hydromorpho No Route: IV, Memoria ne (ANES) 12-10 Drug form: l 17:42: INJ, ONCE, Worden Stop date: 12/10/16 11:42:00 ELECTRONICS RECYCLER ceFAZolin No Route: IV, Me moria (ANES) 12-10 Drug form: l (ANES) 17:06: INJ, Start Kamille nn 00 date: 12/10/16 11:06:00 ELECTRONICS RECYCLER, Stop date: 12/10/16 12:06:00 ELECTRONICS RECYCLER sodium No Route: IV, Memor ia chloride 12-10 Total l 0.9% 500 ml 16:57: Volume: Her moreno INJ (ANES) 00 500, Start date: 12/10/16 10:57:00 ELECTRONICS RECYCLER, Stop date: 12/10/16 11:57:00 ELECTRONICS RECYCLER Sodium No 500 mL, Memoria Chloride 12-10 Rate: 25 l 0.154 15:19: ml/hr, Wyatt MEQ/ML 00 Infuse Injectable over: 20 Solution hr, Route: IV, Dosing Weight 109.136 kg, Total Volume: 500, Start date: 12/10/16 9:19:00 ELECTRONICS RECYCLER, Duration: 30 day, Stop date: 01/09/17 9:18:00 ELECTRONICS RECYCLER Calcium No 1,000 mL, Memor ia Chloride 12-10 Rate: 25 l 0.0014 15:18: ml/hr, Worden MEQ/ML / 00 Infuse Potassium over: 40 Chloride hr, Route: 0.004 IV, Dosing MEQ/ML / Weight Sodium 109.136 Chloride kg, Total 0.103 Volume: MEQ/ML / 1,000, Sodium Start Lactate date: 0.028 12/10/16 MEQ/ML 9:18:00 Injectable ELECTRONICS RECYCLER, Solution Duration: 30 day, Stop date: 01/09/17 9:17:00 ELECTRONICS RECYCLER calcium Yes 1,334 mg = Edmundo tyler acetate 667 -11 2 tab, PO, l MG Oral 14:27: TID-Meals, Herm selene Tablet 00 # 180 tab, 3 Refill(s) sevelamer Yes 1,600 mg = Me moria carbonate -11 2 tab, PO, l 800 MG Oral 14:27: TID-Meals, Worden Tablet 00 # 180 tab, [Renvela] 0 Refill(s) Ancef No Notes: Memoria - Same as: l 14:00: Ancef Worden Morphine No 2 mg, Memoria 08-22 Route: l 18:23: IVP, Q3H, Worden 00 Dosing Weight 99.091, kg, PRN Pain Score 1-3, Start date: 08/22/15 13:23:00, Duration: 30 day, Stop date: 09/21/15 13:22:00 acetaminoph No 1 tab, Edmundo tyler en-codeine 08-22 Route: PO, l #3 18:23: Drug Form: Worden 00 TAB, Dosing Weight 99.091, kg, Q4H, PRN Pain Score 4-6, Start date: 08/22/15 13:23:00, Duration: 30 day, Stop date: 09/21/15 13:22:00 Sodium 2014- No 500 mL, Memoria Chloride 08-22 Rate: 25 l 0.154 16:59: ml/hr, Worden MEQ/ML 00 Infuse Injectable over: 20 Solution hr, Route: IV, Dosing Weight 99.091 kg, Total Volume: 500, Start date: 08/22/15 11:59:00, Duration: 30 day, Stop date: 09/21/15 11:58:00 Dialyvite Yes 0 Memoria 800 Ultra D 08-22 Refill(s) l 15:38: Worden 00 Acetaminoph Yes 1-2 tab, Me moria en 325 MG / 08-22 PO, Q4-6H, l Hydrocodone 15:38: PRN Pain, H ermann Bitartrate 00 # 30 tab, 5 MG Oral 0 Tablet Refill(s) [[place] 5/325] Ancef No 2 gm, Memoria 08-22 Route: l 15:00: IVPB, PRE Wyatt 00 OP, Dosing Weight 118.182, kg, Start date: 08/22/15 10:00:00, Duration: 30 day, Stop date: 09/21/15 9:59:00 Vancomycin No 1 gm, Memori a 08-22 Route: l 15:00: IVPB, Drug Worden form: INJ, PRE OP, Dosing Weight 118.182, kg, Start date: 08/22/15 10:00:00, Duration: 30 day, Stop date: 09/21/15 9:59:00 tramadol Yes 25 mg = Memori a hydrochlori 08-19 0.5 tab, l de 50 MG 21:53: PO, Q4H, Kamille nn Oral Tablet 00 PRN as needed for pain, X 7 day, # 21 tab, 0 Refill(s) Morphine No 4 mg, Memoria 04-20 Route: l 21:08: IVP, Q6H, Worden 00 kg, PRN Pain Score 4-6, Start date: 04/20/15 16:08:00, Duration: 30 day, Stop date: 05/20/15 16:07:00 acetaminoph 2015-0 No 1 tab, Edmundo tyler en-codeine 04-20 Route: PO, l #3 21:08: Drug Form: Wyatt 00 TAB, kg, Q4H, PRN Pain Score 1-3, Start date: 04/20/15 16:08:00, Duration: 30 day, Stop date: 05/20/15 16:07:00 Acetaminoph 2014-0 No 100.4 F, M emoria en 04-20 Start l 21:08: date: Wyatt 00 04/20/15 16:08:00, Duration: 30 day, Stop date: 05/20/15 16:07:00 Diphenhydra 2014-0 No 12.5 mg, Me moria mine 04-20 Route: l 19:23: IVP, Drug Wyatt 00 form: INJ, Q6H, Dosing Weight 99.091, kg, PRN Itching, Start date: 04/20/15 14:23:00, Duration: 30 day, Stop date: 05/20/15 14:22:00 Glycopyrrol 2014-0 No 0.2 mg, Mem oria ate 04-20 Route: l 19:23: IVP, Worden 00 Q5Min, Dosing Weight 99.091, kg, PRN Bradycardi a, Start date: 04/20/15 14:23:00, Duration: 3 doses or times, Stop date: Limited # of times Ondansetron 2014-0 No 4 mg, Memor ia 04-20 Route: l 19:23: IVP, ONCE, Wyatt 00 Dosing Weight 99.091, kg, PRN Nausea & Vomiting, Start date: 04/20/15 14:23:00 Promethazin 2014-0 No 6.25 mg, Me moria e 04-20 Route: l 19:23: IVPB, Wyatt 00 ONCE, Dosing Weight 99.091, kg, PRN Nausea & Vomiting, Start date: 04/20/15 14:23:00 Meperidine 2014-0 No 12.5 mg, Mem oria 04-20 Route: l 19:23: IVP, Wyatt 00 Q30Min, Dosing Weight 99.091, kg, PRN Other -See Comment, For shivering, Start date: 04/20/15 14:23:00, Duration: 2 doses or times, Stop date: Limited # of times Flumazenil 2014-0 No 0.2 mg, Edmundo tyler - Route: l 19:23: IVP, PRN, Wyatt 00 Dosing Weight 99.091, kg, PRN Benzodiaze pine Reversal, Initial dose, Start date: 04/20/15 14:23:00, Duration: 30 day, Stop date: 05/20/15 14:22:00 Naloxone 2014-0 No 0.04 mg, Memor ia 04-20 Route: l 19:23: IVP, Worden 00 Q2MIN, Dosing Weight 99.091, kg, PRN Narcotic Reversal, Start date: 04/20/15 14:23:00, Duration: 8 doses or times, Stop date: Limited # of times Hydromorpho 2014-0 No 0.5 mg, Mem oria ne 04-20 Route: l 19:23: IVP, Worden 00 Q5Min, Dosing Weight 99.091, kg, PRN Pain Score 7-10, Start date: 04/20/15 14:23:00, Duration: 4 doses or times, Stop date: Limited # of times Fentanyl 2014-0 No 50 Memoria 5- microgram, l 19:23: Route: Worden 00 IVP, Q5Min, Dosing Weight 99.091, kg, PRN Pain Score 7-10, Start date: 04/20/15 14:23:00, Duration: 2 doses or times, Stop date: Limited # of times Morphine 2014-0 No 4 mg, Memoria -27 Route: l 19:23: IVP, Worden 00 Q5Min, Dosing Weight 99.091, kg, PRN Pain Score 7-10, Start date: 04/20/15 14:23:00, Duration: 3 doses or times, Stop date: Limited # of times Hydralazine 2014-0 No 10 mg, Edmundo tyler 04-20 Route: l 19:23: IVP, Worden 00 Q20Min, Dosing Weight 99.091, kg, PRN Elevated BP, Start date: 04/20/15 14:23:00, Duration: 2 doses or times, Stop date: Limited # of times Metoprolol 2014-0 No 1 mg, Memori a 04-20 Route: l 19:23: IVP, Wyatt 00 Q5Min, Dosing Weight 99.091, kg, PRN Other -See Comment, Start date: 04/20/15 14:23:00, Duration: 5 doses or times, Stop date: Limited # of times Oxycodone 2014-0 No 5 mg, Memoria 04-20 Route: PO, l 19:23: Drug form: Worden 00 TAB, Q4H, Dosing Weight 99.091, kg, PRN Pain Score 4-6, Start date: 04/20/15 14:23:00, Duration: 30 day, Stop date: 05/20/15 14:22:00 Ketorolac 2014-0 No 30 mg, Memori a 04-20 Route: l 19:23: IVP, ONCE, Wyatt 00 Dosing Weight 99.091, kg, Start date: 04/20/15 14:23:00, Duration: 1 doses or times, Stop date: 04/20/15 14:23:00 Ancef 2014-0 No 2 gm, Memoria 04-20 Route: l 16:33: IVPB, Wyatt 00 ONCE, Dosing Weight 99.091, kg, Start date: 04/20/15 11:33:00, Duration: 1 doses or times, Stop date: 04/20/15 11:33:00 Sodium 2015-0 No 500 mL, Memoria Chloride 04-20 Rate: 25 l 0.154 16:30: ml/hr, Worden MEQ/ML 00 Infuse Injectable over: 20 Solution hr, Route: IV, Dosing Weight 99.091 kg, Total Volume: 500, Start date: 04/20/15 11:30:00, Duration: 30 day, Stop date: 05/20/15 11:29:00 Calcium 2015-0 No 1,000 mL, Memor ia Chloride 04-20 Rate: 25 l 0.0014 16:28: ml/hr, Worden MEQ/ML / 00 Infuse Potassium over: 40 Chloride hr, Route: 0.004 IV, Dosing MEQ/ML / Weight Sodium 99.091 kg, Chloride Total 0.103 Volume: MEQ/ML / 1,000, Sodium Start Lactate date: 0.028 04/20/15 MEQ/ML 11:28:00, Injectable Duration: Solution 30 day, Stop date: 05/20/15 11:27:00 tramadol Yes 50 mg = 1 Edmundo tyler hydrochlori 5-20 tab, PO, l de 50 MG 18:52: Q6H, PRN Kamille nn Oral Tablet 00 Pain, # 40 tab, 0 Refill(s) tamsulosin Yes 0.4 mg = 1 M emoria 0.4 mg oral 5-20 cap, PO, l capsule 18:52: Daily, # Everardo n 00 30 cap, 0 Refill(s) minoxidil Yes 5 mg = 2 Edmundo tyler 2.5 mg oral 5-20 tab, PO, l tablet 18:52: BID, # 120 Kamille nn 00 tab, 0 Refill(s) Metoprolol Yes 100 mg = 1 M emoria Tartrate 5-20 tab, PO, l 100 mg oral 18:52: BID, # 60 H ermann tablet 00 tab, 0 Refill(s) Hydralazine Yes 1 tab, PO, Memoria Hydrochlori 5-20 BID, # 30 l de 37.5 MG 18:51: tab, 0 Kamille nn / 00 Refill(s) Isosorbide Dinitrate 20 MG Oral Tablet [Bidil] Furosemide Yes 40 mg = 1 Me moria 40 MG Oral 5-20 tab, PO, l Tablet 18:51: Daily, # Worden 00 30 tab, 0 Refill(s) Clonidine Yes 0.2 mg, Memor ia Hydrochlori 5-20 PO, TID, # l de 0.2 MG 18:51: 60 tab, 0 Her moreno Oral Tablet 00 Refill(s) Ancef No 1 gm, 100 Memoria 5-20 mL, Route: l 18:00: IVPB, Drug Worden 00 form: INJ, PRE OP, kg, Start date: 04/13/15 13:00:00, Duration: 30 day, Stop date: 05/13/15 12:59:00 Vital Signs Vital Name Observation Time Observation Value Comments Source Systolic (mm Hg) 2016-12-10 19:15:00 Edmundo rial Wyatt Diastolic (mm Hg) 2016-12-10 19:15:00 Mem orial Wyatt Systolic (mm Hg) 2016-12-10 19:00:00 Edmundo rial Worden Diastolic (mm Hg) 2016-12-10 19:00:00 Mem orial Wy[place] Heart Rate 2016-12-10 19:00:00 [facility] Worden Systolic (mm Hg) 2016-12-10 18:45:00 Edmundo rial Wyatt Diastolic (mm Hg) 2016-12-10 18:45:00 Mem orial Worden Respitory Rate 2016-12-10 18:45:00 Memori al Wyatt Respitory Rate 2016-12-10 18:30:00 Memori al Wy[place] Respitory Rate 2016-12-10 18:15:00 Memori al Wy[place] Temperature Oral (F) 2016-12-05 14:25:00 97.5 F [facility] Worden Heart Rate 2016-12-05 14:25:00 [facility] Weight 2016-12-05 14:21:00 [facility] Worden BMI Calculated 2016-12-05 14:21:00 Memori al Wyatt Height 2016-12-05 14:21:00 172.72 cm [facility] Worden Systolic (mm Hg) 2015-08-22 20:15:00 Edmundo rial Wyatt Diastolic (mm Hg) 2015-08-22 20:15:00 Mem orial Wyatt Respitory Rate 2015-08-22 20:15:00 Memori al Worden Systolic (mm Hg) 2015-08-22 20:00:00 Edmundo rial Worden Diastolic (mm Hg) 2015-08-22 20:00:00 Mem orial Wyatt Respitory Rate 2015-08-22 20:00:00 Memori al Worden Respitory Rate 2015-08-22 19:45:00 Memori al Worden Systolic (mm Hg) 2015-08-22 19:45:00 Edmundo rial Worden Diastolic (mm Hg) 2015-08-22 19:45:00 Mem orial Wyatt Temperature Oral (F) 2015-08-22 15:28:00 98 F [facility] Wyatt Heart Rate 2015-08-22 15:28:00 [facility] Worden Height 2015-08-22 14:25:00 172.72 cm [facility] Weight 2015-08-22 14:25:00 [facility] Worden BMI Calculated 2015-08-22 14:25:00 Memori al Worden Temperature Oral (F) 2015-08-19 22:17:00 98.3 F [facility] Respitory Rate 2015-08-19 22:17:00 Memori al Wy[place] Heart Rate 2015-08-19 22:17:00 [facility] [place] Systolic (mm Hg) 2015-08-19 22:17:00 Edmundo rial Wyatt Diastolic (mm Hg) 2015-08-19 22:17:00 Mem orial Wyatt Weight 2015-08-19 16:19:00 [facility] BMI Calculated 2015-08-19 16:19:00 Memori al Wyatt Height 2015-08-19 16:19:00 172.72 cm [facility] Worden Systolic (mm Hg) 2015-08-19 16:19:00 Edmundo rial Worden Diastolic (mm Hg) 2015-08-19 16:19:00 Mem orial Wyatt Heart Rate 2015-08-19 16:19:00 [facility] Worden Respitory Rate 2015-08-19 16:19:00 Memori al Worden Temperature Oral (F) 2015-08-19 16:19:00 98.3 F [facility] Systolic (mm Hg) 2015-04-20 21:30:00 Edmundo rial Wyatt Diastolic (mm Hg) 2015-04-20 21:30:00 Mem orial Worden Systolic (mm Hg) 2015-04-20 21:15:00 Edmundo rial Worden Diastolic (mm Hg) 2015-04-20 21:15:00 Mem orial Wyatt Systolic (mm Hg) 2015-04-20 21:00:00 Edmundo rial Wyatt Diastolic (mm Hg) 2015-04-20 21:00:00 Mem orial Wyatt Respitory Rate 2015-04-20 19:30:00 Memori al Wyatt Respitory Rate 2015-04-20 19:15:00 Memori al Wyatt Respitory Rate 2015-04-20 19:00:00 Memori al Wyatt Heart Rate 2015-04-13 17:07:00 [facility] Worden Temperature Oral (F) 2015-04-13 17:07:00 98.0 F [facility] Worden Weight 2015-04-13 17:04:00 [facility] Worden BMI Calculated 2015-04-13 17:04:00 Memori al Worden Height 2015-04-13 17:04:00 172.72 cm [facility] Procedures Procedure Date / Time Performing Clinician Source Performed Percutaneous transluminal 2015-12-02 06:00:00 Pr morial Worden balloon angioplasty Creation of 2015-04-20 05:00:00 [facility] Her moreno brachial-cephalic fistula Laparoscopic [facility] Wyatt cholecystectomy Operation [facility]att Insertion of tunneled [facility] H ermann dialysis catheter using fluoroscopic guidance<sup>1</sup> Encounters Start End Encounter Admission Attending Care Care Encounter Source Date/Time Date/Time Type Type Clinicians Facility Department ID 2020-11-07 Outpatient MYCHAL PANTOJA ENCCLR [id number] ENCCLR 20:26:14 Jewel NAYAK 2016-12-10 2016-12-10 Outpatient Vasu SE SE [id number] 06:38:00 13:45:00 Vargas Niall 2016-10-31 2016-10-31 Outpatient Vasu SE SE [id number] 09:47:00 23:59:00 Vargas Niall 2015-08-22 2015-08-22 Outpatient Vasu SE SE [id number] 09:22:00 16:30:00 Vargas Niall 2015-08-19 2015-08-19 Outpatient Kd SE SE [id number] 11:14:00 17:19:00 Agustin 02 2015-04-20 2015-04-20 Outpatient Vasu IE IE [id number] 09:13:00 16:45:00 Vargas Niall 2015-04-13 2015-04-13 Outpatient Vasu JOSÉ IE [id number] 11:44:00 23:59:00 Vargas Tierney Results Test Description Test Time Test Comments Results Result Comments Source ELECTROLYTES 2016-12-10 4.6 [facility] Her moreno 12:42:00 ELECTROLYTES 2016-12-05 16.8 [facility] Her moreno 14:15:00 ELECTROLYTES 2016-12-05 5 [facility] Her moreno 14:15:00 ELECTROLYTES 2016-12-05 8.1 [facility] Her moreno 14:15:00 ELECTROLYTES 2016-12-05 25 [facility] Her moreno 14:15:00 ELECTROLYTES 2016-12-05 98 [facility] Her moreno 14:15:00 ELECTROLYTES 2016-12-05 4.8 [facility] Her moreno 14:15:00 ELECTROLYTES 2016-12-05 135 [facility] Her moreno 14:15:00 ELECTROLYTES 2016-12-05 106 [facility] Her moreno 14:15:00 ELECTROLYTES 2016-12-05 52 [facility] Her moreno 14:15:00 ELECTROLYTES 2016-12-05 11.00 [facility] Her moreno 14:15:00 HEMATOLOGY 2016-12-05 14.9 [facility] Kamille nn 14:15:00 HEMATOLOGY 2016-12-05 0.7 [facility] Kamille nn 14:15:00 HEMATOLOGY 2016-12-05 1.2 [facility] Kamille nn 14:15:00 HEMATOLOGY 2016-12-05 0.3 [facility] Kamille nn 14:15:00 HEMATOLOGY 2016-12-05 0.1 [facility] Kamille nn 14:15:00 HEMATOLOGY 2016-12-05 0.9 [facility] Kamille nn 14:15:00 HEMATOLOGY 2016-12-05 5.9 [facility] Kamille nn 14:15:00 HEMATOLOGY 2016-12-05 9.0 [facility] Kamille nn 14:15:00 HEMATOLOGY 2016-12-05 4.2 [facility] Kamille nn 14:15:00 HEMATOLOGY 2016-12-05 71.0 [facility] Kamille nn 14:15:00 HEMATOLOGY 2016-12-05 14.9 [facility] Kamille nn 14:15:00 HEMATOLOGY 2016-12-05 8.0 [facility] Kamille nn 14:15:00 HEMATOLOGY 2016-12-05 210 [facility] Kamille nn 14:15:00 HEMATOLOGY 2016-12-05 32.7 [facility] Kamille nn 14:15:00 HEMATOLOGY 2016-12-05 14:15:00 Test Item Value Reference Range Interpretation Comme nts MCH (test code = MCH) 28.4 pg 27.0-31.0 [facility] [id number] 14:15:0086.9[facility] HermannHEMATOLOGY 2016-12-05 14:15:0011.1[facility] [id number] 14:15:0034.0[facility] VcrmakaRRFYHSAHQF2257-15-48 14:15:003.91[facility] [id number] 14:15:008.3[facility] MnaqkjmABJSJKEIIR2279-19-81 14:15:001.00[facility]att [id number] 14:15:00 Test Item Value Reference Range Interpretation Comments PT (test code = PT) 13.4 s 12.0-14.7 [facility] [id number] 14:15:00 Test Item Value Reference Range Interpretation Comments PTT (test code = PTT) 31.8 s 22.9-35.8 [facility]annCHEM [id number] 14:59:0049[facility] HermannCHEM PANEL 2015-08-22 14:59:0012[facility] HermannCHEM [id number] 14:59:008.6[facility] HermannCHEM [id number] 14:59:57048Lvuxoaez HermannCHEM [id number] 14:59:003.9[facility] HermannCHEM [id number] 14:59:35800Dbixrktm HermannCHEM [id number] 14:59:0031[facility] HermannCHEM [id number] 14:59:57856 [facility]annCHEM [id number] 14:59:005.3[facility] HermannCHEM PANEL 2015-08-22 14:59:0010.9[facility] QitdqngREJDLWFMNA2142-48-51 14:59:007.7[facility] MczjkghUUAZOLSGRT2288-44-16 14:59:02276Mhdcetbl XhldjhjUGJKRTHAFT7540-00-78 14:59:0017.2[facility] RqvgtrjZXJYYMGDQT4444-50-67 14:59:009.3[facility] Worden [id number] 14:59:003.52[facility] [id number] 14:59:00 5.4[facility] [id number] 14:59:0031.3[facility] HermannHEMATOLOGY 2015-08-22 14:59:00 Test Item Value Reference Range Interpretation Comments MCH (test code = MCH) 26.4 pg 27.0-31.0 [facility] [id number] 14:59:0029.7[facility] HermannHEMATOLOGY 2015-08-22 14:59:0084.3[facility] JktiypaKMSDFRBFIE6688-26-87 14:59:00 Test Item Value Reference Range Interpretation Comments PTT (test code = PTT) 37.6 s 22.9-35.8 [facility] FlctfyyUZMGZOMPEV7608-77-12 14:59:001.06[facility]OLOGY 2015-08-22 14:59:00 Test Item Value Reference Range Interpretation Comments PT (test code = PT) 14.1 s 12.0-14.7 [facility] OamegfcWRZDURVEAN0143-87-26 14:59:000.9[facility]annHEMATOLOGY 2015-08-22 14:59:000.7[facility] LbrwftrIIYJNFHUKV2914-20-07 14:59:000.7[facility] OrrfzyyQCMSKOBLKN5188-10-24 14:59:003.0[facility] VrpymgoFBQVTQQFXZ7289-88-12 14:59:000.4[facility] HysaxtzZUDQQGKGPG7762-89-34 14:59:0013.3[facility] IBSEGGRLZU7977-82-04 14:59:0056.3[facility] QyruudvCEDZVOMMLM6637-69-46 14:59:00 17.0[facility] PtbmlvcVHPOMRACYC1407-52-49 14:59:0013.0[facility]annCHEM PANEL 2015-08-19 21:04:004.1[facility] HermannCHEM NIUKC8918-08-57 21:04:74667Fnjkzuha HermannCHEM VYAAR1125-83-84 21:04:0098[facility]annCHEM ZQYGZ4978-97-10 21:04:0030[facility]annCHEM NLAEW7719-93-14 21:04:008.6[facility]annCHEM KOVBE5873-93-85 21:04:004.0[facility] HermannCHEM GWYJE6629-86-42 21:04:0012.0 [facility]annCHEM TRAKR6661-75-64 21:04:0017[facility] HermannCHEM PANEL 2015-08-19 21:04:58582Mmphubhk HermannCHEM KGQQF7225-81-52 21:04:0037[facility] DcpdbqrSKMBJVFDKOBC2008-73-74 16:08:394.7[facility] FnettqeKEXTHVEUBFAG1129-58-91 18:57:0012.6[facility] EnacbniNPOQJGZSYPAG8199-68-58 18:57:004.6[facility] WXCYTZMHTJSI5785-44-25 18:57:12493Wumvubso NmxrmgcSYTQLIDERLJG7418-34-73 18:57:89282Hmbcubsl MgutptaGKBLRTZNIXRW1168-66-73 18:57:0012[facility] CIXLWURELAPJ3014-71-82 18:57:008.3[facility] MsyfknnRIWJUGLZAKIO1457-63-63 18:57:0076[facility] JgmsvsxSQQBKLJSIXRD2140-65-85 18:57:0096[facility] UVVJCBDXGMSA7363-63-31 18:57:0022[facility] BvekqghJLESSOANJIJK4172-57-15 18:57:00 5.3[facility] EozjzguCDVFLTKNZZ3897-80-89 18:57:007.0[facility]ann[facility]OLOGY 2015-04-13 18:57:0010.8[facility] DszptllYCHZJEHEZO7102-50-44 18:57:000.3[facility] RnvythwEPXCVQDUXG2551-61-77 18:57:000.5[facility] SoairqiOPWSLURTGO3201-93-87 18:57:001.4[facility] EbaalpzNPJBNZCVMJ2949-53-28 18:57:000.8[facility] OANDDOWDIM6456-08-85 18:57:003.0[facility] FdwlolbCYLHOVHZZR7602-41-99 18:57:000.1 [facility] SqufphmZGOHOEGBZC2481-21-73 18:57:0017.2[facility]annHEMATOLOGY 2015-04-13 18:57:0063.6[facility] VjlujohNIKCBIXWSM0762-66-96 18:57:0010.5[facility] SzeddgbEZVLLKHCTT1683-64-83 18:57:0086.8[facility] PlcfnhuOCEMJCXBLI7839-17-51 18:57:0032.6[facility] ZmpzvyvXZKIGMLZJO2592-72-53 18:57:0032.3[facility] HZSUTWHNCR1708-11-02 18:57:00 Test Item Value Reference Range Interpretation Comments MCH (test code = MCH) 28.1 pg 27.0-31.0 [facility] XevfblgBXVOSIKSKB2145-50-42 18:57:003.75[facility]annHEMATOLOGY 2015-04-13 18:57:004.7[facility] ClhipgdGYKKHRDEQF1085-73-64 18:57:0019.3[facility] HwdwqcvNBPYHMNFIU5549-89-90 18:57:008.1[facility] AerlisySAJRDMUJUD9410-83-58 18:57:65043Hkrvzsre TcipvroECSJGPWKCM7780-38-82 18:57:00 Test Item Value Reference Range Interpretation Comments PT (test code = PT) 14.6 s 12.0-14.7 [facility]7841-56-11 18:57:001.13[facility] 2015-04-13 18:57:00 Test Item Value Reference Range Interpretation Comments PTT (test code = PTT) 35.6 s 22.9-35.8 [facility]
[2020-11-16 16:43] LABS: Basophils % 0.7 % (0-1.3); Hematocrit 33.1 % (39.6-49.0); Lymphocytes % 9.4 % (15.3-44.8); MPV 7.8 fL (7.6-11.3); RBC Red Blood Cell Count 3.78 M/uL (4.33-5.43)
[2020-11-16 16:44] LABS: Protime INR 1.76
--- NOTE | 2020-11-16 17:19 | RAD REPORT ---
EXAM DESCRIPTION: Nick Single View11/16/2020 4:35 pm CLINICAL HISTORY: Shortness of breath COMPARISON: September 2020 FINDINGS: Mild to mild bilateral pulmonary opacities are present. The lungs appear clear of acute in filtrate. The heart is mildly to moderately enlarged IMPRESSION: Mild to moderate bilateral pulmonary opacities may indicate pulmonary edema or pneumonia
[2020-11-16 17:30] LABS: Albumin 2.6 g/dL (3.4-5.0); Bilirubin Direct 0.3 mg/dL (0-0.2); Bilirubin Total 0.7 mg/dL (0.2-1.0); Magnesium 2.3 mg/dL (1.8-2.4); Protein, Total 8.3 g/dL (6.4-8.2); Troponin (Emerg Dept Use Only) 0.03 ng/mL (0.0-0.045)
--- NOTE | 2020-11-16 17:35 | RAD REPORT ---
EXAM DESCRIPTION: CT - Head Brain Wo Cont - 11/16/2020 5:28 pm CLINICAL HISTORY: Alteration of awareness/confusion COMPARISON: 2018 TECHNIQUE: Computed axial tomography of the head was obtained. IV contrast was not requested. All CT scans are performed using dose optimization technique as appropriate and may include automated exposure control or mA/KV adjustment according to patient size. FINDINGS: An intracranial bleed is not seen . The ventricles are normal in caliber. No extra-axial fluid collection is noted. Mild to moderate low-density areas within periventricular, deep and subcortical white matter likely r epresent ischemic changes secondary to small vessel disease. Fluid within the sinuses/ mastoids is not seen. IMPRESSION: No acute intracranial abnormality is seen. If patient's symptoms persist MRI of the bra in would be recommended.
[2020-11-16] MEDS ORDERED: CEFTRIAXONE/SWI 1gm 1 GM/10 ML SYR ONE (18:17)
[2020-11-16] MEDS ORDERED: NA CHLORIDE 0.9% 50 ML ONE (18:33)
--- NOTE | 2020-11-16 18:39 | EDPHYS ---
Physician Documentation [facility] Name: Maykel Yanes Age: 65 yrs Sex: Male : 1955 Arrival Date: 11/16/2020 Time: 15:39 Bed 17 Private MD: ED Physician Pierre Huerta HPI: 11/16 18:19 This 65 yrs old Black Male presents to ER via EMS with complaints of Altered Mental kdr Status. 18:19 The patient presents with confusion, decreased mental status, decreased responsiveness. kdr Onset: The symptoms/episode began/occurred at an unknown time. Possible causes: CVA or TIA, head injury, low blood sugar, seizure, sepsis, unknown. Associated signs and symptoms: Pertinent positives: The patient is not able to clearly articulate his problem or circumstance or how he came to be in our ED. Current symptoms: In the emergency department the patient's symptoms are unchanged from the initial presentation. Patient's baseline: unknown - it is reported by nursing that the patient is normally walking and talking. It is unknown whether or not the patient has had similar symptoms in the past. It is unknown whether or not the patient has recently seen a physician. Historical: - Allergies: 15:44 No Known Drug Allergies; sv - PMHx: 15:44 "blood clots"; CHF; ESRD; HD , , ; Hypertension; Kidney stones; sv - PSHx: 15:44 jair filter; Cholecystectomy; sv ROS: 18:19 Constitutional: Unable to elicit consistent responses it questions, slow and lethargic kdr Eyes: Negative for injury, pain, redness, and discharge. Exam: 18:39 Constitutional: This is a well developed, well nourished patient who is awake, but kdr somnolent and in no acute distress. Head/Face: Normocephalic, atraumatic. Eyes: Pupils equal round and reactive to light, extra-ocular motions intact. Lids and lashes normal. Conjunctiva and sclera are non-icteric and not injected. Cornea within normal limits. Periorbital areas with no swelling, redness, or edema. Neck: Trachea midline, no thyromegaly or masses palpated, and no cervical lymphadenopathy. Supple, full range of motion without nuchal rigidity, or vertebral point tenderness. No Meningismus. Chest/axilla: Normal chest wall appearance and motion. Nontender with no deformity. No lesions are appreciated. Cardiovascular: Regular rate and rhythm with a normal S1 and S2. No gallops, murmurs, or rubs. Normal PMI, no JVD. No pulse deficits. Respiratory: Lungs have equal breath sounds bilaterally, clear to auscultation and percussion. No rales, rhonchi or wheezes noted. No increased work of breathing, no retractions or nasal flaring. Abdomen/GI: Soft, non-tender, with normal bowel sounds. No distension or tympany. No guarding or rebound. No evidence of tenderness throughout. Back: No spinal tenderness. No costovertebral tenderness. Full range of motion. Skin: Warm, dry with normal turgor. Normal color with no rashes, no lesions, and no evidence of cellulitis. MS/ Extremity: Pulses equal, no cyanosis. Neurovascular intact. Full, normal range of motion. 18:39 Neuro: Orientation: unable to test, Cerebellar function: unable to test, Motor: moves all fours. Vital Signs: 15:50 BP 129 / 93; Pulse 103; Resp 18; Temp 97.8; Pulse Ox 95% on R/A; Weight 105 kg; Height zb 5 ft. 9 in. (175.26 cm); 16:50 BP 129 / 93; Pulse 102; Resp 18; Pulse Ox 100% on R/A; zb 17:50 BP 104 / 46; Pulse 107; Resp 18; Pulse Ox 100% on R/A; Pain 0/10; zb 11/17 07:10 BP 103 / 64; Pulse 111; Resp 16; Temp 97.5; Pulse Ox 98% on R/A; ph 11/16 15:50 Body Mass Index 34.18 (105.00 kg, 175.26 cm) zb MDM: 11/16 18:38 Patient medically screened. kdr 18:40 Data reviewed: vital signs, nurses notes, old medical records, radiologic studies. kdr Counseling: I had a detailed discussion with the patient and/or guardian regarding: the historical points, exam findings, and any diagnostic results supporting the discharge/admit diagnosis, lab results, radiology results. 11/16 15:42 Order name: Basic Metabolic Panel; Complete Time: 17:46 kdr 11/16 15:42 Order name: CBC with Diff; Complete Time: 17:46 kdr 12/23 15:42 Order name: LFT's; Complete Time: 17:46 [facility] 11/16 15:42 Order name: Magnesium; Complete Time: 17:46 [facility] 11/16 15:42 Order name: NT PRO-BNP; Complete Time: 17:46 [facility] 11/16 15:42 Order name: PT-INR; Complete Time: 17:46 [facility] 11/16 15:42 Order name: Troponin (emerg Dept Use Only); Complete Time: 17:46 [facility] 11/16 16:38 Order name: Glucose, Ancillary Testing; Complete Time: 17:46 [facility] 11/16 17:48 Order name: Blood Culture Adult (2) [facility] 11/16 17:48 Order name: Urine Culture [facility] 11/16 17:48 Order name: AMMONIA [facility] 11/16 17:49 Order name: Blood Culture [facility] 11/16 18:45 Order name: COVID-19 [facility] 11/16 18:46 Order name: CORONAVIRUS [facility] 11/16 15:42 Order name: XRAY Chest (1 view); Complete Time: 17:46 [facility] 11/16 15:42 Order name: EKG; Complete Time: 15:44 [facility] 11/16 17:10 Order name: CT Head Brain wo Cont; Complete Time: 17:46 [facility] 11/16 18:54 Order name: Foot Left 3 View XRAY [facility] 11/16 18:59 Order name: Lactate [facility] 11/16 18:59 Order name: Procalcitonin [facility] 11/16 19:06 Order name: Basic Metabolic Panel [facility] 11/16 19:06 Order name: Basic Metabolic Panel [facility] 11/16 19:06 Order name: CBC with Automated Diff [facility] 11/16 19:06 Order name: CBC with Automated Diff [facility] 11/16 20:03 Order name: Urine Dipstick--Ancillary (enter results) [facility] 11/16 20:17 Order name: Urine Dipstick-Ancillary [facility] 11/16 20:30 Order name: SARS-COV-2 RT PCR [facility] 11/16 20:57 Order name: RAD [facility] 11/16 15:42 Order name: Cardiac monitoring; Complete Time: 16:32 [facility] 11/16 15:42 Order name: EKG - Nurse/Tech; Complete Time: 20:31 [facility] 11/16 15:42 Order name: IV Saline Lock; Complete Time: 16:32 [facility] 11/16 15:42 Order name: Labs collected and sent; Complete Time: 16:32 [facility] 11/16 15:42 Order name: O2 Per Protocol; Complete Time: 16:32 [facility] 11/16 15:42 Order name: O2 Sat Monitoring; Complete Time: 16:33 [facility] 11/16 17:48 Order name: Urine Dipstick-Ancillary (obtain specimen); Complete Time: 20:31 [facility] 11/16 19:06 Order name: CONS Pharmacy Consult [facility] 11/16 19:06 Order name: CONS Pharmacy Consult [facility] 11/16 19:06 Order name: CONS Physician Consult [facility] 11/16 19:06 Order name: Regular [facility] 11/16 22:05 Order name: NPO; Complete Time: 00:44 sg Administered Medications: 18:46 Drug: Rocephin - (cefTRIAXone) 1 grams Route: IVPB; Infused Over: 30 mins; Site: right zb upper arm; 19:45 Follow up: Response: No adverse reaction; IV Status: Completed infusion; IV Intake: [id number] 20:54 Drug: vancoMYCIN 1 grams Route: IVPB; Infused Over: 2 hrs; Site: right antecubital; ll2 Disposition: 11/16/20 18:38 Hospitalization ordered by Mark Smith for Inpatient Admission. Preliminary diagnosis are Altered mental status, unspecified, End stage renal disease, Unspecified combined systolic (congestive) and diastolic (congestive) heart failure. - Bed requested for Telemetry/MedSurg (Inpatient). - Status is Inpatient Admission. ph - Condition is Fair. - Problem is an ongoing problem. - Symptoms are unchanged. Signatures: Dis[facility] Mar[facility] Silva RN Lito Balderas RN RN Pierre Huerta MD MD kdr Hall, Patricia, RN RN Chance Soto RN RN Enriqueta Graham 2 Hailey Newton RN RN ll2 Amy Valero RN RN zb Corrections: (The following items were deleted from the chart) 18:39 18:38 Hospitalization Ordered by Mark Smith MD for Inpatient Admission. Preliminary [facility] diagnosis is Altered mental status, unspecified; End stage renal disease. Bed requested for Telemetry/MedSurg (Inpatient). Status is Inpatient Admission. Condition is Fair. Problem is an ongoing problem. Symptoms are unchanged. kdr 20:40 18:39 11/16/2020 18:38 Hospitalization Ordered by A Luis CORREIA for Inpatient Admission. mw2 Preliminary diagnosis is Altered mental status, unspecified; End stage renal disease; Unspecified combined systolic (congestive) and diastolic (congestive) heart failure. Bed requested for Telemetry/MedSurg (Inpatient). Status is Inpatient Admission. Condition is Fair. Problem is an ongoing problem. Symptoms are unchanged. kdr 11/17 07:09 11/16 20:40 11/16/2020 18:38 Hospitalization Ordered by A Luis CORREIA for Inpatient ja1 Admission. Preliminary diagnosis is Altered mental status, unspecified; End stage renal disease; Unspecified combined systolic (congestive) and diastolic (congestive) heart failure. Bed requested for [facility] ER HOLD. Status is Inpatient Admission. Condition is Fair. Problem is an ongoing problem. Symptoms are unchanged. mw2 11/17 08:15 07:09 11/16/2020 18:38 Hospitalization Ordered by A Luis CORREIA for Inpatient Admission. ph Preliminary diagnosis is Altered mental status, unspecified; End stage renal disease; Unspecified combined systolic (congestive) and diastolic (congestive) heart failure. Bed requested for Telemetry/MedSurg (Inpatient). Status is Inpatient Admission. Condition is Fair. Problem is an ongoing problem. Symptoms are unchanged. ja1
--- NOTE | 2020-11-16 18:39 | ER ---
Nurse's Notes [facility] Name: Maykel Cedillo Age: 65 yrs Sex: Male : 1955 Arrival Date: 11/16/2020 Time: 15:39 Bed 17 Private MD: Diagnosis: Altered mental status, unspecified;End stage renal disease;Unspecified combined systolic (congestive) and diastolic (congestive) heart failure Presentation: 11/16 15:39 Chief complaint: EMS states: was discharged from [facility] in [place] and family sv wanted the pt to be brought here. EMS reports AMS, generalized weakness, fatigue, cellulitis LLE. Vitals at the facility were 114/87 HR-97 BS-77, vitals en route over here BP 142/115 HR-134 BS-59. Risk Assessment: Do you want to hurt yourself or someone else? Patient reports no desire to harm self or others. Onset of symptoms is unknown. 15:39 Method Of Arrival: EMS: [facility] sv 15:39 Acuity: JUNE 3 sv Historical: - Allergies: 15:44 No Known Drug Allergies; sv - PMHx: 15:44 "blood clots"; CHF; ESRD; HD , , Sa; Hypertension; Kidney stones; sv - PSHx: 15:44 jair filter; Cholecystectomy; sv Screenin:00 Abuse screen: Denies threats or abuse. Denies injuries from another. Nutritional zb screening: No deficits noted. Tuberculosis screening: No symptoms or risk factors identified. Fall Risk Fall in past 12 months (25 points). No secondary diagnosis (0 pts). IV access (20 points). Ambulatory Aid- Crutches/Cane/Walker (15 pts). Gait- Impaired (20 pts.). Mental Status- Oriented to own ability (0 pts). Total Brantley Fall Scale indicates Low Risk Score (25-44 pts). Fall prevention measures have been instituted. Side Rails Up X 2 Placed close to Nursing Station Frequent Obs/Assesments occuring. Assessment: 16:00 Musculoskeletal: Range of motion: limited in BLE. zb 16:31 General: Appears in no apparent distress. uncomfortable, Behavior is drowsy. Pain: zb Noted to be grimacing. Neuro: Level of Consciousness is awake, alert, obeys commands, Oriented to person, place, situation. Cardiovascular: Capillary refill is > 3 seconds is sluggish in bilateral fingers Patient's skin is warm and dry. Respiratory: Airway is patent Respiratory effort is even, unlabored, Respiratory pattern is regular, symmetrical. GI: Abdomen is round non-distended. : No signs and/or symptoms were reported regarding the genitourinary system. EENT: No signs and/or symptoms were reported regarding the EENT system. Derm: Skin is fragile, Skin is dry, Skin is normal, Skin temperature is warm. 17:30 Reassessment: Patient appears in no apparent distress at this time. Patient and/or zb family updated on plan of care and expected duration. Pain level reassessed. Patient is alert, oriented x 3, equal unlabored respirations, skin warm/dry/pink. pt aox3 still very drowsy. pt able to answer question as needed. repositioned in bed. 18:30 Reassessment: Patient appears in no apparent distress at this time. Patient and/or zb family updated on plan of care and expected duration. Pain level reassessed. Patient is alert, oriented x 3, equal unlabored respirations, skin warm/dry/pink. spoke w/ patient liza cedillo phone number [phone] updated on POC. notified pt that his called. pt reposition. pt denies pain at this time. Vital Signs: 15:50 BP 129 / 93; Pulse 103; Resp 18; Temp 97.8; Pulse Ox 95% on R/A; Weight 105 kg; Height zb 5 ft. 9 in. (175.26 cm); 16:50 BP 129 / 93; Pulse 102; Resp 18; Pulse Ox 100% on R/A; zb 17:50 BP 104 / 46; Pulse 107; Resp 18; Pulse Ox 100% on R/A; Pain 0/10; zb 11/17 07:10 BP 103 / 64; Pulse 111; Resp 16; Temp 97.5; Pulse Ox 98% on R/A; ph 11/16 15:50 Body Mass Index 34.18 (105.00 kg, 175.26 cm) zb ED Course: 11/16 15:39 Patient arrived in ED. sv 15:42 Pierre Huerta MD is Attending Physician. kdr 15:44 Triage completed. sv 15:44 Arm band placed on. sv 15:48 Amy Valero, RN is Primary Nurse. zb 16:00 Bed in low position. Call light in reach. Side rails up X2. Warm blanket given. Verbal jp3 reassurance given. library monitor on. Pulse ox on. NIBP on. 16:15 Missed attempt(s): 22 gauge antecubital area. Bleeding controlled, band aid applied, jp3 catheter tip intact. 16:25 Inserted saline lock: 22 gauge in right upper arm, using aseptic technique. Blood jp3 collected. 16:25 Initial lab(s) drawn, by nc, sent to lab. Patient maintains SpO2 saturation greater jp3 than 95% on room air. 16:37 XRAY Chest (1 view) In Process Unspecified. EDMS 17:28 CT Head Brain wo Cont In Process Unspecified. EDMS 18:30 First set of blood cultures drawn by ED staff. Second set of blood cultures drawn by ED jp3 staff. 18:37 Mark Smith MD is Hospitalizing Provider. kdr 19:18 COVID swab sent to lab. jp3 20:00 Urine collected: straight cath specimen, cloudy, val colored. Straight cath inserted, jp3 using sterile technique, Specimen obtained. 15 Fr Returned cloudy urine. Patient tolerated well. 20:04 Primary Nurse role handed off by Amy Valero RN mw2 20:29 Hailey Newton, SRINI is Primary Nurse. ll2 20:30 Blood Culture Adult (2) Sent. ll2 20:31 COVID-19 Sent. ll2 Administered Medications: 18:46 Drug: Rocephin - (cefTRIAXone) 1 grams Route: IVPB; Infused Over: 30 mins; Site: right zb upper arm; 19:45 Follow up: Response: No adverse reaction; IV Status: Completed infusion; IV Intake: [id number] 20:54 Drug: vancoMYCIN 1 grams Route: IVPB; Infused Over: 2 hrs; Site: right antecubital; ll2 Intake: 19:45 IV: 50ml; Total: 50ml. ll2 Outcome: 18:38 Decision to Hospitalize by Provider. kdr 11/17 08:15 Patient left the ED. ph Signatures: Dispatcher [employer] María Zamora RN RN sv Rittger, Kevin, MD MD kdr Hall, Patricia, RN RN Spring FelicianoKena mw2 Herman Urias jp3 Hailey Newton, RN RN ll2 Amy Valero RN RN zb
[2020-11-16] MEDS ORDERED: ACETAMINOPHEN 500 MG TAB PO PRN (18:57)
[2020-11-16] MEDS ORDERED: NA CHLORIDE 0.9% 1,000 ML IV SCH (19:00)
[2020-11-16] MEDS ORDERED: VANCOMYCIN 1 GM/VIAL ONE (19:55)
[2020-11-16] MEDS ORDERED: NA CHLORIDE 0.9% 250 ML ONE (19:55)
[2020-11-16] MEDS ORDERED: VANCOMYCIN/NS 1 gm 1 GM/250 ML BAG IVPB ONE (20:00)
[2020-11-16 20:17] LABS: Urine Blood 3+ (NEG); Urine Glucose NEGATIVE (NEG); Urine Protein 3+ (NEG)
--- NOTE | 2020-11-16 20:56 | RAD REPORT ---
EXAM DESCRIPTION: RAD - Foot Left 3 View - 11/16/2020 7:40 pm CLINICAL HISTORY: Left Foot pain FINDINGS: No fracture or dislocation is seen. Bones are osteoporotic. Large calcaneal spurs. No bony destructive lesion is seen. Vascular calcifications
[2020-11-16] MEDS ORDERED: CEFTRIAXONE 1 GM/NS 50 ML 1 GM/50 ML BAG IV SCH (21:00)
--- NOTE | 2020-11-16 23:27 | CON ---
Date of Consultation: 11/16/2020 Reason For Service: Left foot cellulitis and abscess with purulent discharge. History Of Present Illness: This is a case of a 65-year-old patient with multiple medical problems. I just discussed the case with Dr. Smith since the patient cannot give me much information. I then e xplained to him about the multiple hospitalizations, recently discharged also from a long-term facili ty, came to our ER with signs of sepsis and then he noticed also in the left foot, there are multiple areas of abscess with purulent discharge and he believed he might be getting septic and there is no other obvious source. I was consulted for evaluation, possible I and D. The information is obtained mainly from the primary doctor since patient is barely giving any information. Review of Systems: Unable to be obtained. Allergies: NO KNOWN DRUG ALLERGIES. Past Surgical History: Include cholecystectomy, Annelise filter. Past Medical History: Includes congestive heart failure; renal disease, on hemodialysis; hypertensio n; kidney stones. He does not smoke. He does not drink alcohol. Family History: Unknown. Physical Examination: General: Patient is awake, alert. HEENT: Pupils anicteric. He responds, but he does not give us a clear story. Abdomen: Soft and depressible. Extremities: Over the left foot, patient has multiple ulcerations. On the first toe, patient has so me gangrenous changes on the toe and the skin and then between the webs of the rest of the toes, mary ent has multiple ulcers with purulent discharge too. Dorsalis pedis pulses bilaterally are diminishe d. Laboratory Data: Blood work shows WBC count of 11 with hemoglobin of 10.7, INR is 1.76, creatinine i s 6.67, potassium is 4.0. Assessment: 65-year-old patient with multiple abscesses and cellulitis and also skin with necrotic a reas over the left first toe. Right now, in the process of trying to improve this condition, we are going to take him to surgery. We going to put him n.p.o. so we have an empty stomach and then procee d with debridement of those areas and incision and drainage of those abscesses. The benefits, altern atives, and risks fully explained to the patient, although we are trying to get from the primary doct or and the ER staff, which also will get consent for this surgery in this patient. We might have to do this with some sedation. We are going to consult Anesthesia when they stop around to see which ot her options do we have since we have to clean that purulent discharge. I explained to the patient th e best we can do about it, he may need more than one surgical intervention. If he does not improve f rom that, he might even lose that foot. We are going to continue antibiotics by the primary doctor. Once again, n.p.o. after midnight. JULITO/ELIDA Voice ID: [id number] Report ID: [id number]
[2020-11-17] MEDS ORDERED: NA CHLORIDE 0.9% 1,000 ML ONE (02:38)
[2020-11-17 05:17] LABS: Absolute Lymphocytes (CBC) 0.7 K/uL (0.7-4.9); Basophils % 0.5 % (0-1.3); Hematocrit 33.5 % (39.6-49.0); Lymphocytes % 5.8 % (15.3-44.8); MPV 7.8 fL (7.6-11.3); RBC Red Blood Cell Count 3.85 M/uL (4.33-5.43)
[2020-11-17 05:45] LABS: Potassium 4.2 mmol/L (3.5-5.1)
--- NOTE | 2020-11-17 08:02 | HP ---
Date of Admission: 11/16/2020 Chief Complaint: Generalized weakness and altered mental status. History Of Present Illness: This is a 65-year-old very pleasant male patient, who was admitted to [facility] from 10/18/2020, to 10/22/2020. Patient was admitted to the hospital because of atrial fi brillation with rapid ventricular rate. After patient was discharged from the hospital, I was notifi ed probably sometime beginning of this month that he was admitted to [facility]. Yeste rday, we received a message at the office that patient was going to be discharged from this facility and he will be coming home with home health and home physical therapy. Today, I received a phone elsy l from emergency room from our ER physician that facility called our emergency room to notify that tawana ortiz is being transported to the emergency room and within 5 to 10 minutes of this phone call, vivienne carbajal shows up at our emergency room with altered mental status and significant generalized weakness. 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 I sa w him in emergency room. He was lying in bed, appears weaker than normal. He is slow to respond and when I asked him about my name, he tried to tell me my name, but could not come up with the name. Annetta wright was not in any respiratory distress. His was not present with him at bedside. Allergies: NO KNOWN ALLERGIES. Medications: According to last hospital record and outpatient record, patient should be on Eliquis 2 .5 mg 2 times a day, metoprolol 25 mg 2 times a day, omeprazole 40 mg p.o. daily, trazodone 50 mg tab let and patient takes half a tablet at bedtime. 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 Constitutional: As mentioned above. All other systems reviewed and negative. Past Medical History: Significant for hypertension; hyperlipidemia; chronic diastolic congestive hea rt failure; end-stage renal disease, on hemodialysis; osteoarthritis at multiple sites; cervical spon dylosis; anemia due to chronic kidney disease; and had COVID-19 few months ago from which he has faizan luis carlos. Recent diagnosis of atrial fibrillation, which was about a month ago. Patient was given amio darone, but that caused abnormal liver function test, so amiodarone was discontinued during that last hospital admission. Past Surgical History: Significant for cholecystectomy, cervical spine surgery, AV fistula for dialy sis. Family History: Father had stroke. Brother; hypertension. Sister with end-stage renal disease. Social History: Negative for smoking, alcohol use. Physical Examination: Vital Signs: When he came in, blood pressure 129/93, pulse 103, respiratory rate 18, temperature 97. 8, oxygen saturation 95%. Height 5 feet 9 inches, weight 105 kg. General: Patient is appearing weaker than normal, somewhat confused, not in any distress. HEENT: Head atraumatic, normocephalic. Conjunctivae nonerythematous. Sclerae white. Mouth, no thr ush or edema noted. Ears/Nose, no mass, lesion, discharge noted. Neck: Supple. No JVD, lymph nodes, bruit, thyromegaly noted. Lungs: Bilateral good equal air entry. Clear to auscultation. No rhonchi. No rales. Heart: Normal heart sounds, no murmur or gallop. Abdomen: Soft, bowel sounds normal. No guarding, rigidity, tenderness, mass, hepatosplenomegaly, dis tention, or bruit noted. Extremities: Left foot had dressing present, which was removed and at that time I found out that the patient has dry gangrene of his left foot fourth toe and plantar aspect of the fifth toe has superfi cial open wound and medial aspect of the foot, medial to the great toe has also rather large superfic ial wound. There is no discharge or bleeding from any of this area. Peripheral pulses unable to fee l. Dorsalis pedis artery pulsation. Skin: No rash, ulcer, cellulitis. Lymphatics: No lymph node enlargement in neck, supraclavicular, infraclavicular region. Neuro: No focal neurological deficit. Chest: Unremarkable. External Genitalia: Deferred. Rectal: Deferred. Laboratory Data: White count 11, hemoglobin 10.7, platelets 271. INR 1.76. Lactic acid 1.4, procal citonin 0.32, AST 39, ALT 45, total bilirubin 0.3. Urinalysis; 3+ blood and 3+ protein. COVID-[address] negative. Sodium 141, potassium 4, chloride 101, bicarb 32, BUN 47, creatinine 6.67, glucose 103. Chest x-ray shows [id number] bilateral pulmonary opacities could be due to pneumonia or pulmo nary edema. CAT scan of the head negative for any acute intracranial changes and foot x-ray negative for any acute changes. Impression: 1.Gangrene, left foot fourth toe. 2.Left foot wounds. 3.End-stage renal disease, on hemodialysis. 4.Paroxysmal atrial fibrillation. 5.Hypertension. 6.Hyperlipidemia. 7.Chronic diastolic congestive heart failure. 8.Osteoarthritis, multiple sites. 9.Anemia due to chronic kidney disease. 10.Cervical spondylosis. Plan: We will admit patient to hospital for further evaluation and management of this problem. Tiffany ent is appropriate for inpatient and is expected to spend 2 midnights in the hospital. We will consu lt Dr. Hernandez from General Surgery and details were discussed with him this evening. We will go ah ead and start him on empiric antibiotic, which is ceftriaxone and vancomycin. Home medications will be continued per order. We will consult end finder forming department for dialysis support. We will also get arteria l Doppler of lower extremities. Patient's overall prognosis is poor. CASE/MODL Voice ID: [id number]
[2020-11-17] MEDS ORDERED: ONDANSETRON 4 MG/2 ML VIAL IV PRN (08:31)
[2020-11-17] MEDS ORDERED: ALBUMIN HUMAN 25% 50 ML IV PRN (09:14)
[2020-11-17] MEDS: D5 0.9 NS 1,000 ML IV SCH (09:19)
[2020-11-17] MEDS: CEFTRIAXONE/SWI 1gm 1 GM/10 ML SYR IV SCH ×2 (09:19→21:38)
[2020-11-17] MEDS: METOPROLOL TAR 25 MG TAB PO SCH ×2 (10:22→21:38)
--- NOTE | 2020-11-17 11:53 | PN ---
Date of Progress Note: 11/17/2020 Subjective: The patient was seen this morning for followup. He was in the emergency room, awaiting for his bed, to go to the medical floor. Denied any complaints overnight. Not in any distress, slee ping, but easily arousable. Not answering questions appropriately. Objective: Vital Signs: Reviewed. HEENT: Unremarkable. Lungs: Clear to auscultation. Heart: Sounds normal. Abdomen: Soft. Bowel sounds normal. No guarding, rigidity, tenderness, or distention. Extremities: No leg edema. Left foot exam remains unchanged from yesterday evening. Laboratory Data: White count 11.6, hemoglobin 10.9, platelets 240. Sodium 140, potassium 4.2, chlor joann 104, bicarb 28, BUN 57, creatinine 7.38, glucose 101. Impression: 1.Gangrene, left foot. 2.Left foot wounds. 3.End-stage renal disease, on hemodialysis. 4.Atrial fibrillation, chronic. Plan: We will go ahead and continue to follow with Dr. Hernandez, general surgeon and chemical instrumentation officer fo r dialysis support. The patient is n.p.o. per Dr. Hernandez and I am not going to start him on any El iquis at this point in case if he needs any surgical intervention. So depending on what Dr. Hernandez decides, we will make a decision regarding anticoagulation. Meanwhile, we will continue his metopro lol, continue current empiric antibiotics and we will see him tomorrow for followup. Arterial Dopple r of lower extremity was ordered. While the patient is n.p.o., I have changed his IV fluid to D5 nor mal saline at 50 cc/hour. Details were discussed with the patient regarding the diagnosis and treatm ent plan. The patient probably will need an amputation in the near future, but arterial Doppler will be very important test results to have before any such decision can be made. CASE/MODL Voice ID: [id number] Report ID: [id number]
--- NOTE | 2020-11-17 14:09 | P.CNS ---
Date of Consult: 11/17/20 Reason for Consult: Fluid overload Chief Complaint: AMS History of Present Illness: 65-year-old gentleman, well known to me from the dialysis with significant past medical history of COPD, atrial fibrillation, hypertension, congestive heart failure, end-stage renal disease, on hemodialysis, TTS at [facility] through left armAV fistula, pt presented with AMS , pt was discharged from Rehab recently , senf for concern of AMS and decrease activity , found to have Foot gangrene Review of Systems: minimally communicative , denied any pain Physical exam general: awake , alert, minimally communicative Neck; Supple, No elevated JVD hear: irregular rate and rhythm no murmur or rub Chest: CTAB, no rlaes or wheezes Abdomen: Soft , Nt Extremities Lt AKA, rt BKA with dressing A/p End-stage renal disease on HD TTsat HD today then satrurday renal dose meds fluid overload HD today Foot gangrane plan for I&D cont Abx Anemia of chronic disease no need epogen Afib with RVR now rate controlled HTN Controlled Allergies No Known Drug Allergies Allergy (Verified 07/08/20 05:56) Unknown Home Medications: Acetaminophen/Caff/Dihydrocod [Xaisrhui-Div-Umklqojqdfufg 325] 1 each PO Q24H 11/17/20 Apixaban [Eliquis *] 2.5 mg PO BID 11/17/20 Atorvastatin Calcium [Lipitor*] 10 mg PO BEDTIME 11/17/20 Bisacodyl [Gentle Laxative] 10 mg PO DAILY PRN 11/17/20 Doxycycline Hyclate 100 mg PO BID 11/17/20 Duloxetine [Cymbalta *] 20 mg PO DAILY 11/17/20 Gabapentin [Neurontin*] 100 mg PO TID 11/17/20 Megestrol [Megace*] 40 mg PO DAILY 11/17/20 Melatonin 3 mg PO BEDTIME 11/17/20 Metoprolol Succinate [Toprol Xl*] 25 mg PO TID 11/17/20 Simethicone 80 mg PO TID 11/17/20 Tramadol HCl [Ultram] 50 mg PO Q6H 11/17/20 Trazodone [Desyrel*] 50 mg PO BEDTIME 11/17/20 polyethylene glycoL 3350 [Polyethylene Glycol 3350] 1 packet PO DAILY 11/17/20 - Past Medical/Surgical History Diabetic: No -: HTN -: CHF -: arthritis -: Stage 4 kidney disease -: Anemia -: hypoglycemia -: nerve sx on neck -: lap farhan -: kidney stones removal - Family History Mother Medical History: Hypertension Father Medical History: Heart disease - Social History Alcohol use: No CD- Drugs: No Caffeine use: Yes Physical Examination Temp Pulse Resp BP Pulse Ox 97.5 F 128 H 18 141/106 H 99 11/17/20 09:17 11/17/20 10:22 11/17/20 09:17 11/17/20 10:22 11/17/20 04:00 Laboratory Data (last 24 hrs) 11/16/20 16:25: PT 20.5 H, INR 1.76 11/16/20 16:25: WBC 11.0 H, Hgb 10.7 L, Hct 33.1 L, Plt Count 271 11/16/20 16:25: Sodium 141, Potassium 4.0, BUN 47 H, Creatinine 6.67 H*, Glucose 103, Magnesium 2.3, Total Bilirubin 0.7, AST 39 H, ALT 45, Alkaline Phosphatase 165 H
[2020-11-17] MEDS ORDERED: FENTANYL CITR 100 MCG/2 ML ONE (14:17)
[2020-11-17] MEDS ORDERED: ETOMIDATE 20 MG/10 ML VIAL IV ONE (14:17)
[2020-11-17] MEDS ORDERED: ONDANSETRON 4 MG/2 ML VIAL ONE (14:17)
[2020-11-17] MEDS ORDERED: MIDAZOLAM HCL 2 MG/2 ML INJ ONE (14:17)
[2020-11-17] MEDS ORDERED: dexAMETHasone 4 MG/ML VIAL ONE (14:17)
[2020-11-17] MEDS ORDERED: BUPIVACAINE 0.5% PF 10 ML VIAL ONE (14:25)
[2020-11-17] MEDS ORDERED: SILVER SULFADIAZINE 1% 25 GM TOP ONE ×2 (14:28→16:55)
[2020-11-17] MEDS ORDERED: NA CHLORIDE 0.9% 500 ML ONE (14:56)
--- NOTE | 2020-11-17 15:32 | P.BOP ---
Preoperative diagnosis: multiple necrotic gangrenous ulcers , cellultis, abscess left foot Postoperative diagnosis: same Primary procedure: Excisional debridement down to muscle of left foot 9x4cm Secondary procedure: with abscess drainage Estimated blood loss: <10cc Specimen: culture, necrotic tissue Findings: see dictation Anesthesia: General Complications: None Drain(s): Other Transferred to: Recovery Room Condition: Fair
[2020-11-17] MEDS ORDERED: Phenylephrine HCl 10 MG/ML 1 ML VIAL ONE (15:40)
--- NOTE | 2020-11-17 17:02 | OP ---
Date of Procedure: 11/17/2020 Surgeon: Suman Hernandez MD Preoperative Diagnoses: 1.Multiple necrotic gangrenous ulcers. 2.Cellulitis. 3.Abscess, left foot. 4.End-stage renal disease. 5.Peripheral vascular disease. Postoperative Diagnoses: 1.Multiple necrotic gangrenous ulcers. 2.Cellulitis. 3.Abscess, left foot. 4.End-stage renal disease. 5.Peripheral vascular disease. Procedure: Excisional debridement down to muscle of the left foot multiple ulcers, 9 x 4 cm total ar ea with abscess drainage. Estimated Blood Loss: Less than 10 mL. Specimen: Culture and necrotic tissue. Anesthesia: General plus local. Findings: Patient has multiple ulcers. When you take a look at the foot; the first toe, second toe, third toe, fourth and fifth have multiple ulcers with necrotic tissue. This goes into the area of t he base of the toe and distal foot. I believe the patient will end up in amputation of the foot comp letely since the patient has multilocal gangrenous changes and area total is about 10 x 4 cm. We rem mayra the necrotic tissue from that area, some nails are coming off and when you see the nail undernea th, the tissue is not really completely viable. The patient wants some time for delineation and then make a decision later. The patient's is aware. Indication: This is a case of a 65-year-old patient who comes to us with necrotic changes in the lef t foot, history of sepsis, so patient was emergently taken to the OR for incision and drainage of an abscess and also debridement of necrotic tissue. I discussed with the patient and the here the options of debridement, although I believe at the end if it does not improve and discontinue delineat ing, he is going to end up with foot amputation. At this moment, we only have consent for debridemen t and incision and drainage with benefits, alternatives, and risks including, but not limited to infe ction, bleeding, damage to adjacent structures as complication, nonhealing wound, MA, and even . He also understands this may not relieve the symptoms. He might need more than one surgical interv ention, that will require wound care. Description Of Procedure: Patient was brought to the operating room, placed in the supine position. Anesthesia was done without complication. Left foot was prepped and draped in a sterile fashion. A time-out was called. Local anesthesia was applied followed by debridement. We go for first toe to the fifth toe in between toes proximal and distal toes and also distal foot. We have multiple ulcers all together that shows some necrotic and gangrenous changes. We removed the devitalized tissue pre sent, but the tissue behind otherwise is partially viable, and we have to delineate, but I am afraid of, it is going to delineate in the wrong direction. Area was clean, irrigated, culture obtained, pa cked with Silvadene gauze and covered with sterile dressings. Patient tolerated the procedure well. We are going to watch him for the next few days how it delineates. Whenever he gave us consent, the n we may have to proceed with the foot amputation, he understood. JULITO/ELIDA Voice ID: [id number] Report ID: [id number]
[2020-11-17] MEDS ORDERED: VANCOMYCIN 2 GM in NA CHLORIDE 0.9% 500 ML IV ONE ×6 (18:00)
[2020-11-18] MEDS: CEFTRIAXONE/SWI 1gm 1 GM/10 ML SYR IV SCH ×2 (08:13→22:01)
[2020-11-18] MEDS: APIXABAN 2.5 MG TABLET PO SCH ×2 (08:13→22:01)
[2020-11-18] MEDS: METOPROLOL TAR 25 MG TAB PO SCH (08:13)
[2020-11-18] MEDS ORDERED: METOPROLOL TAR 25 MG TAB PO ONE (09:08)
--- NOTE | 2020-11-18 10:24 | PN ---
Date of Progress Note: 11/18/2020 Subjective: The patient was seen this morning for followup. No new complaints or problems reported by the patient. Lying in bed, not in distress. Vital signs reviewed. His was with him at beds joann. He is lot more awake, alert, almost back to his normal mental state. Objective: Vital Signs: Reviewed. HEENT: Unremarkable. Lungs: Clear to auscultation. Heart: Sounds normal. Abdomen: Soft. Bowel sounds normal. No guarding, rigidity, tenderness, or distention. Extremities: No leg edema. Left foot dressing present. Impression: 1.Gangrene, left foot 4th toe. 2.Cellulitis and abscess, left foot. 3.Peripheral arterial disease. 4.End-stage renal disease, on hemodialysis. 5.Atrial fibrillation, chronic. Plan: The patient's pulse rate is around 125. Remains in atrial fibrillation with rapid ventricular rate. His systolic blood pressure is between 120-130 range. We will go ahead and increase the dose of metoprolol from 25 mg twice a day to 50 mg 2 times a day as of this morning and continue his anti coagulation therapy, Eliquis which was started this morning. I did talk to Dr. Hernandez yesterday ev dave and he has given me his permission to resume the patient's anticoagulation therapy as of today. Dr. Hernandez will continue to follow up for his left foot problem. We still have an arterial Doppl er which is pending. Depending on that results, Dr. Hernandez will provide us with his recommendation regarding level of amputation, which unfortunately the patient will need. All these details were discussed with the patient and his who was at bedside today. We will continue current empiric a ntibiotics. CASE/MODL Voice ID: [id number] Report ID: [id number]
--- NOTE | 2020-11-18 11:12 | P.PN ---
Subjective Date of Service: 11/18/20 Chief Complaint: AMS subjctive 65-year-old gentleman, well known to me from the dialysis with significant past medical history of COPD, atrial fibrillation, hypertension, congestive heart failure, end-stage renal disease, on hemodialysis, TTS at [facility] through left armAV fistula, pt presented with AMS , pt was discharged from Rehab recently , senf for concern of AMS and decrease activity , found to have Foot gangrene today S/P debridement and abscess drainage HD tomorrow mentally at baseline now Physical exam general: awake , alert, at baseline Neck; Supple, No elevated JVD hear: irregular rate and rhythm no murmur or rub Chest: CTAB, no rlaes or wheezes Abdomen: Soft , Nt Extremities Lt AKA, rt BKA with dressing A/p End-stage renal disease on HD TTsat HD tomorrow renal dose meds Foot gangrane S/P debridement and abscess drainage cont Abx Metaboli encepahlopathy due to sepsis now at baseline Anemia of chronic disease no need epogen Afib with RVR now rate controlled HTN Controlled Physical Examination - Vital Signs Temperature: 97.4 F Blood Pressure: 105/68 Pulse: 105 Respirations: 14 Pulse Ox (%): 97
[2020-11-18] MEDS: D5 0.9 NS 1,000 ML IV SCH (14:17)
[2020-11-18] MEDS: MORPHINE 2 MG/ML SYR IV PRN (19:50)
[2020-11-18] MEDS: METOPROLOL TAR 50 MG TAB PO SCH (22:01)
[2020-11-19] MEDS: D5 0.9 NS 1,000 ML IV SCH ×2 (01:00→03:08)
[2020-11-19] MEDS: CEFTRIAXONE/SWI 1gm 1 GM/10 ML SYR IV SCH ×2 (08:15→20:42)
[2020-11-19] MEDS: METOPROLOL TAR 50 MG TAB PO SCH ×2 (08:16→20:42)
[2020-11-19] MEDS: APIXABAN 2.5 MG TABLET PO SCH ×2 (08:16→20:42)
[2020-11-19] MEDS: COLLAGENASE 30 GM OINTMENT TOP SCH (08:17)
[2020-11-19] MEDS: MORPHINE 2 MG/ML SYR IV PRN ×2 (08:22→17:01)
--- NOTE | 2020-11-19 12:06 | PN ---
Date of Progress Note: 11/19/2020 Subjective: The patient was seen this morning for followup. He was lying in bed, not in distress. His was with him at bedside. Objective: Vital Signs: Reviewed. HEENT: Unremarkable. Lungs: Clear to auscultation. Heart: Sounds normal. Abdomen: Soft. Bowel sounds normal. No guarding, rigidity, tenderness, distention. Extremities: No leg edema. Left foot dressing present. Impression: 1.Cellulitis/abscess, left foot. 2.Left foot fourth toe dry gangrene. 3.End-stage renal disease, on hemodialysis. 4.Anemia due to chronic kidney disease. 5.Chronic atrial fibrillation. Plan: The patient's blood pressure is stable. Heart rate is under much better control now and we wi ll continue current dose of metoprolol 50 mg 2 times a day, which was started yesterday because of ra pid heart rate. We will continue anticoagulation therapy with Eliquis. Continue to follow with neph rologist for dialysis support and we will continue current empiric antibiotics. Cultures remains neg ative so far. The patient's overall health has improved and his condition has returned back to his b aseline functioning. reports that as of today, the patient is able to feed himself and she repo rts that he is back to his normal self again. I will see him tomorrow for followup. CASE/MODL Voice ID: [id number] Report ID: [id number]
--- NOTE | 2020-11-19 14:48 | P.PN ---
Subjective Date of Service: 11/19/20 Chief Complaint: AMS subjctive 65-year-old gentleman, well known to me from the dialysis with significant past medical history of COPD, atrial fibrillation, hypertension, congestive heart failure, end-stage renal disease, on hemodialysis, TTS at [facility] through left armAV fistula, pt presented with AMS , pt was discharged from Rehab recently , senf for concern of AMS and decrease activity , found to have Foot gangrene today No overnight events ' stable VS HD today Physical exam general: awake , alert, at baseline Neck; Supple, No elevated JVD hear: irregular rate and rhythm no murmur or rub Chest: CTAB, no rlaes or wheezes Abdomen: Soft , Nt Extremities Lt AKA, rt BKA with dressing A/p End-stage renal disease on HD TTsat HD today then Saturday or Saturday renal dose meds Foot gangrane S/P debridement and abscess drainage cont Abx Metaboli encepahlopathy due to sepsis now at baseline Anemia of chronic disease no need epogen Afib with RVR now rate controlled HTN Controlled total time spent 25min Physical Examination - Vital Signs Temperature: 97.4 F Blood Pressure: 104/69 Pulse: 85 Respirations: 20 Pulse Ox (%): 99
--- NOTE | 2020-11-19 20:59 | RAD REPORT ---
EXAM DESCRIPTION: US - Lower Extremity Arterial Bilat - 11/19/2020 8:47 pm CLINICAL HISTORY: patient with lower extremity wounds Claudication COMPARISON: No comparisons TECHNIQUE: Bilateral lower extremity arterial Doppler examination was performed with josh lee FINDINGS: Moderate multifocal multisegmental hard plaquing is seen throughout both lower extremity arterial sys tems. Biphasic waveforms are seen involving both lower extremity arterial systems to the level of popliteal arteries. Distal to the popliteal artery, moderately diseased monophasic waveform seen. No occlusion evident. IMPRESSION: Moderately severe distal peripheral vascular disease of asymmetric nature is seen. This pattern is commonly seen in diabetic patients.
[2020-11-20] MEDS: METOPROLOL TAR 50 MG TAB PO SCH ×2 (09:34→22:00)
[2020-11-20] MEDS: DOCUSATE NA/SENNA CONC 1 TAB PO SCH ×2 (09:34→22:00)
[2020-11-20] MEDS: APIXABAN 2.5 MG TABLET PO SCH ×2 (09:34→22:00)
[2020-11-20] MEDS: CEFTRIAXONE/SWI 1gm 1 GM/10 ML SYR IV SCH ×2 (09:34→22:01)
[2020-11-20] MEDS: D5 0.9 NS 1,000 ML IV SCH (09:36)
[2020-11-20] MEDS: COLLAGENASE 30 GM OINTMENT TOP SCH (09:42)
[2020-11-20] MEDS ORDERED: VANCOMYCIN/NS 1 gm 1 GM/250 ML BAG IV ONE (10:15)
--- NOTE | 2020-11-20 11:36 | P.PN ---
Subjective Date of Service: 11/20/20 Chief Complaint: AMS subjctive 65-year-old gentleman, well known to me from the dialysis with significant past medical history of COPD, atrial fibrillation, hypertension, congestive heart failure, end-stage renal disease, on hemodialysis, TTS at [facility] through left armAV fistula, pt presented with AMS , pt was discharged from Rehab recently , senf for concern of AMS and decrease activity , found to have Foot gangrene today No overnight events ' tachycardia tolerating diet , will DC iVF next HD on Saturday Physical exam general: awake , alert, at baseline Neck; Supple, No elevated JVD hear: irregular rate and rhythm no murmur or rub Chest: CTAB, no rlaes or wheezes Abdomen: Soft , Nt Extremities Lt AKA, rt BKA with dressing A/p End-stage renal disease on HD TTsat HD today then Saturday or Saturday renal dose meds Foot gangrane S/P debridement and abscess drainage cont Abx Metaboli encepahlopathy due to sepsis now at baseline Anemia of chronic disease no need epogen Afib with RVR now rate controlled HTN Controlled total time spent 25min Physical Examination - Vital Signs Temperature: 98.3 F Blood Pressure: 132/77 Pulse: 111 Respirations: 18 Pulse Ox (%): 96
--- NOTE | 2020-11-20 18:38 | PN ---
Date of Progress Note: 11/20/2020 Subjective: The patient was seen this morning for followup. He was lying in bed, not in distress. Denies any complaints. Vital signs reviewed. The patient had his last dialysis session yesterday. Objective: HEENT: Unremarkable. Lungs: Clear to auscultation. Heart: Sounds normal. Abdomen: Soft. Bowel sounds normal. No guarding, rigidity, tenderness, or distention. Extremities: No leg edema. Left foot dressing present. Laboratory Data: The patient's wound culture is growing MRSA. Impression: 1.Cellulitis/abscess, left foot. 2.Gangrene, left foot, fourth toe. 3.End-stage renal disease, on hemodialysis. 4.Chronic atrial fibrillation. 5.Anemia due to chronic kidney disease. 6.Peripheral arterial disease. Plan: We will go ahead and continue current antibiotic and add vancomycin, pharmacy consult to help manage vancomycin dosing and we will go ahead and continue current Eliquis and metoprolol. We will c ontinue to follow with Dr. Hernandez. The patient's arterial Doppler from yesterday shows moderate-to -severe distal peripheral vascular disease involving both lower extremities. We will follow up with Dr. Hernandez regarding his recommendation about amputation. CASE/MODL Voice ID: [id number] Report ID: [id number]
[2020-11-21] MEDS: MORPHINE 2 MG/ML SYR IV PRN (01:43)
[2020-11-21] MEDS: PANTOPRAZOLE 40MG TABLET PO SCH (05:46)
[2020-11-21] MEDS: CEFTRIAXONE/SWI 1gm 1 GM/10 ML SYR IV SCH ×2 (08:19→21:00)
[2020-11-21] MEDS: METOPROLOL TAR 50 MG TAB PO SCH ×2 (08:19→21:00)
[2020-11-21] MEDS: DOCUSATE NA/SENNA CONC 1 TAB PO SCH ×2 (08:19→21:01)
[2020-11-21] MEDS: COLLAGENASE 30 GM OINTMENT TOP SCH (08:19)
[2020-11-21] MEDS: APIXABAN 2.5 MG TABLET PO SCH ×2 (08:20→21:00)
--- NOTE | 2020-11-21 09:27 | P.PN ---
Subjective Date of Service: 11/18/20 Chief Complaint: AMS , gangrenous changes left foot Subjective: No new changes Review of Systems General: Fever (no), Chills (no) Respiratory: Shortness of Breath (no) Cardiovascular: Chest Pain (no) Integumentary: As per HPI Physical Examination - Vital Signs Temperature: 97.9 F Blood Pressure: 133/59 Pulse: 79 Respirations: 18 Pulse Ox (%): 96 - Physical Exam General: Alert, In no apparent distress Neck: Supple Integumentary: Arterial ulcer (with multiple toes gangrenous changes, no purulent discharge anymore) Assessment And Plan - Plan arterial doppler as soon as available May need BKA
--- NOTE | 2020-11-21 09:54 | PN ---
Date of Progress Note: 11/21/2020 Diagnoses: Left foot cellulitis with gangrenous changes, necrotic ulcers, peripheral vascular diseas e. Subjective: This is the case of a 65-year-old patient, who had debridement of multiple necrotic ulce rs several days ago. At that moment, the patient was also advised that may need amputation, although he is not ready for it. Physical Examination: Shows that the left foot area showing once again the ulcers present. There are gangrenous changes ov er the first, fourth, and fifth toes. It is getting dry, mummify. There was no purulent discharge. Pulses are not present there. Capillary refill is minimal. Laboratory Data: Blood work reviewed. Plan: We are getting arterial Doppler that probably will show him and the family member the lack of blood supply to that region and the reason why we believe an amputation is an alternative. The benef its, alternatives, and risks were fully explained. We will follow the patient with you. JULITO/ELIDA Voice ID: [id number] Report ID: [id number]
[2020-11-21 13:30] LABS: Potassium 4.2 mmol/L (3.5-5.1)
--- NOTE | 2020-11-21 22:57 | PN ---
Date of Progress Note: 11/21/2020 Chief Complaint: End-stage renal disease on dialysis. Patient has multiple medical problems includi ng history of coronary artery disease, atrial fibrillation, hypertension, congestive heart failure, e nd-stage renal disease, on hemodialysis. He had been dialyzed via a left arm AV fistula on Saturday, , Saturday. Patient presented to the hospital because of altered mental status. He recently was discharged from rehab. He was sent to the hospital for evaluation at the emergency room for alt ered mental status, decreased activity. Patient was found to have foot gangrene and osteomyelitis. The patient is on antibiotic. He is undergoing wound care. Today, he is more alert. Review of Systems: Denies fever or chills. Physical Examination: Lungs: Diminished breath sounds at bases. Heart: S1, S2. Abdomen: Soft, benign. Extremities: Left AKA, right BKA with dressing. Impression And Plan: 1.End-stage renal disease. 2.Dialysis tomorrow. Continue dialysis on Saturday, , Saturday. 3.Foot gangrene, status post debridement after drainage and continue antibiotics. Wound care. He d oes have workup for peripheral vascular disease per primary team. 4.Metabolic encephalopathy due to sepsis, now mental status is improving. 5.Atrial fibrillation with rapid ventricular response. Rate is controlled. Continue with beta bloc ker. 6.Anemia of chronic disease. Monitor hemoglobin level. At this point, patient does not need Epogen . EB/MODL Voice ID: [id number] Report ID: [id number]
[2020-11-22] MEDS: PANTOPRAZOLE 40MG TABLET PO SCH (05:24)
[2020-11-22 05:50] LABS: Absolute Lymphocytes (CBC) 1.4 K/uL (0.7-4.9); Basophils % 1.1 % (0-1.3); Hematocrit 33.7 % (39.6-49.0); MPV 8.5 fL (7.6-11.3); RBC Red Blood Cell Count 3.86 M/uL (4.33-5.43)
[2020-11-22 06:04] LABS: Potassium 4.8 mmol/L (3.5-5.1)
--- NOTE | 2020-11-22 07:45 | PN ---
Date of Progress Note: 11/21/2020 Subjective: The patient was seen this morning for followup. No new complaints or problems reported by him. Lying in bed, not in any distress. Objective: Vital Signs: Reviewed. HEENT: Unremarkable. Lungs: Clear to auscultation. Heart: Sounds normal. Abdomen: Soft. Bowel sounds normal. No guarding, rigidity, tenderness, or distention. Extremities: No significant leg edema. Right foot is unremarkable. Left foot exam reveals no evide nce of any edema. The patient's gangrenous toe on the left foot fourth toe appears slightly better a t the base, but rest of the toe appears dry gangrene. The patient's open wound on the plantar aspect of the fifth toe and medial aspect of the great toe has remained unchanged, has dry appearance, no d ischarge bleeding. Skin: Between each toe on the medial and lateral aspect has a superficial skin abrasion x1. No disc harge. No bleeding. Laboratory Data: Labs from today reviewed. Impression: 1.Cellulitis/abscess, left foot. 2.Gangrene, left foot, fourth toe. 3.Peripheral vascular disease. 4.End-stage renal disease, on hemodialysis. 5.Chronic atrial fibrillation. 6.Chronic anticoagulation therapy. Plan: We will continue current antibiotics as per culture and sensitivity results, continue to follo w with metal cut off saw tender for dialysis support and we will continue anticoagulation therapy and metoprolol. We will continue to follow with Dr. Hernandez for further management of left foot infection problem. CASE/MODL Voice ID: [id number] Report ID: [id number]
[2020-11-22] MEDS: METOPROLOL TAR 50 MG TAB PO SCH ×2 (08:54→21:27)
[2020-11-22] MEDS: APIXABAN 2.5 MG TABLET PO SCH ×2 (08:54→21:00)
[2020-11-22] MEDS: DOCUSATE NA/SENNA CONC 1 TAB PO SCH ×2 (08:54→21:28)
[2020-11-22] MEDS: CEFTRIAXONE/SWI 1gm 1 GM/10 ML SYR IV SCH ×2 (08:54→21:29)
[2020-11-22] MEDS: COLLAGENASE 30 GM OINTMENT TOP SCH (08:55)
[2020-11-22] MEDS: MORPHINE 2 MG/ML SYR IV PRN (09:23)
--- NOTE | 2020-11-22 12:27 | PN ---
Date of Progress Note: 11/22/2020 Diagnosis: Left foot cellulitis and gangrene. History Of Present Illness: This is the case of a 65-year-old patient, taken emergently few days ago to have a debridement of the gangrenous changes of the left foot including multiple digits and foot area. From there, we have been giving her antibiotics and wound care. At that moment, the family an d the patient were not ready to sign anything more than that. Now, I have a good conversation with cory he patient's daughter. I had already talked to the before. I discussed the case with the patie nt and I have discussed the case with the patient's daughter a few minutes ago. We have a lengthy co nversation with the patient's daughter also that she will discuss that with her mom later about also the recent arterial Doppler, the chronic conditions, what we have done for the patient and the [facility] t findings. We discussed with her the benefits, alternatives, and risks of above-knee, below-knee an d transmit amputations. We found at this moment the left below-knee amputation may feed the patient better. We still have a question to see if this is going to heal or not. We have some hope at least may heal on that area. The pros and cons were discussed with the patient previously and now with th e patient's daughter, which include, but not limited to infection, bleeding, damage to adjacent struc tures, nonhealing wound, GA, and even . They also understand this may not relieve any symptoms. He might need more than one surgical intervention. The family will discuss that tonight. We would also discuss with the patient and then they are going to call [facility] and let us know if they are go ing to proceed with left below-knee amputation. In the meantime, they asked me to start to reserve t he time in the OR, which we can reserve tomorrow morning. N.p.o. after midnight. JULITO/ELIDA Voice ID: [id number] Report ID: [id number]
--- NOTE | 2020-11-22 12:38 | P.PN ---
Subjective Date of Service: 11/22/20 Chief Complaint: AMS , gangrenous changes left foot subjctive 65-year-old gentleman, well known to me from the dialysis with significant past medical history of COPD, atrial fibrillation, hypertension, congestive heart failure, end-stage renal disease, on hemodialysis, TTS at [facility] through left armAV fistula, pt presented with AMS , pt was discharged from Rehab recently , senf for concern of AMS and decrease activity , found to have Foot gangrene today confused today HD today or tomorrow once pt is more stable pt might require BKA , management as per surgery Physical exam general: awake , confused Neck; Supple, No elevated JVD hear: irregular rate and rhythm no murmur or rub Chest: CTAB, no rlaes or wheezes Abdomen: Soft , Nt Extremities Lt AKA, rt BKA with dressing A/p End-stage renal disease on HD TTsat HD today then Saturday or Saturday renal dose meds Foot gangrane S/P debridement and abscess drainage cont Abx pt might require BKA , management as per surgery Metabolic encepahlopathy due to sepsis now at baseline Anemia of chronic disease no need epogen Afib with RVR now rate controlled HTN Controlled total time spent 25min Physical Examination - Vital Signs Temperature: 97 F Blood Pressure: 139/85 Pulse: 95 Respirations: 16 Pulse Ox (%): 96 - Studies Microbiology Data (last 24 hrs): 11/16/20 18:28 Blood - Blood Aerobic Blood Culture - Final No growth in 5 days. 11/16/20 18:28 Blood - Blood Anaerobic Blood Culture - Final No growth in 5 days. 11/16/20 18:13 Blood - Blood Aerobic Blood Culture - Final No growth in 5 days. 11/16/20 18:13 Blood - Blood Anaerobic Blood Culture - Final No growth in 5 days.
[2020-11-23] MEDS: MORPHINE 2 MG/ML SYR IV PRN (02:09)
[2020-11-23] MEDS: PANTOPRAZOLE 40MG TABLET PO SCH (06:30)
--- NOTE | 2020-11-23 07:59 | PN ---
Date of Progress Note: 11/22/2020 Subjective: Patient was seen for followup in the morning. His daughter was present with him at beds joann. No new complaints or problems reported by patient. Objective: Vital Signs: Reviewed. HEENT: Examination unremarkable. Lungs: Clear to auscultation. Heart: Sounds normal. Abdomen: Soft. Bowel sounds normal. No guarding, rigidity, tenderness, or distention. Extremities: No leg edema. Laboratory Data: Reviewed. Impression: 1.Cellulitis/abscess, left foot. 2.Gangrene, left foot, fourth toe. 3.Peripheral vascular disease. 4.Chronic atrial fibrillation. 5.End-stage renal disease, on hemodialysis. 6.Anemia due to chronic kidney disease. Plan: We will go ahead and continue current antibiotics. Continue to follow with [employer] for d ialysis support and Dr. Hernandez. We will continue current antibiotics and details and plan of treat ment was discussed with the patient's daughter, who had questions and wanted updates on the patient's conditions. All the details were discussed with her. CASE/MODL Voice ID: [id number] Report ID: [id number]
[2020-11-23] MEDS ORDERED: NA CHLORIDE 0.9% 500 ML ONE (08:05)
[2020-11-23] MEDS ORDERED: dexAMETHasone 10 MG/ML VIAL ONE (08:07)
[2020-11-23] MEDS ORDERED: NS 0.9% VIAL 10 ML ONE (08:07)
[2020-11-23] MEDS ORDERED: LIDOCAINE 2% MPF 5 ML VIAL ONE (08:07)
[2020-11-23] MEDS ORDERED: FENTANYL CITR 100 MCG/2 ML ONE (08:19)
[2020-11-23] MEDS: CEFTRIAXONE/SWI 1gm 1 GM/10 ML SYR IV SCH ×2 (08:31→20:43)
[2020-11-23] MEDS ORDERED: propofoL 200 MG/20 ML VIAL IV ONE (08:56)
[2020-11-23] MEDS ORDERED: KETAMINE HCL 500 MG/5 ML VIAL ONE (08:56)
[2020-11-23] MEDS ORDERED: MIDAZOLAM HCL 2 MG/2 ML INJ ONE (08:56)
[2020-11-23] MEDS: DOCUSATE NA/SENNA CONC 1 TAB PO SCH ×2 (09:00→20:44)
[2020-11-23] MEDS: COLLAGENASE 30 GM OINTMENT TOP SCH (09:00)
[2020-11-23] MEDS: APIXABAN 2.5 MG TABLET PO SCH ×2 (09:00→21:00)
[2020-11-23] MEDS: METOPROLOL TAR 50 MG TAB PO SCH ×2 (09:00→20:44)
--- NOTE | 2020-11-23 09:53 | P.BOP ---
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
[2020-11-23] MEDS ORDERED: HYDROCODONE/APAP 5/325 MG TAB PO PRN (10:17)
--- NOTE | 2020-11-23 10:56 | OP ---
Date of Procedure: 11/16/2020 Surgeon: Suman Hernandez MD Preoperative Diagnoses: 1.Left foot gangrene. 2.End-stage renal disease. 3.Cardiac disease. 4.Peripheral vascular disease. Postoperative Diagnoses: 1.Left foot gangrene. 2.End-stage renal disease. 3.Cardiac disease. 4.Peripheral vascular disease. Procedure: Left below-knee amputation. Anesthesia: General plus block. See Anesthesia sheet. Drains: FCO #10. Complications: None. Indications For Procedure: This is the case of a 65-year-old patient comes to us with multiple adhikari es in the left foot with gangrenous changes. At the beginning, we have to take him emergently to [facility] to do debridement of those necrotic tissues. In the next few days, patient's family has been se en the progress of this disease and they are ready to sign for left below-knee amputation. They did in the last few hours. The patient fully explained and the patient's and the patient's daughter . The benefits, alternatives, and risks including, but not limited to infection, bleeding, damage to adjacent structures, anesthesia complication, a flap failure, VT, and . They also understands this may not relieve the symptoms. He might need more than one surgical intervention. If we see the area did not delineate properly, we may have to go even higher amputation in the future. They under stood that. Patient and family signed a consent. Description Of Procedure: The patient was brought to the operating room, placed in supine position. Anesthesia was done without complication. Left leg was prepped and draped in a sterile fashion. A time-out was called. The anterior and posterior skin incision were clearly outlined with a marking p en. The incision was made with a sharp knife. The incision was extended laterally to about 15 cm. The skin and subcutaneous tissue were carefully excised down to fascia. Veins were identified and li gated. Then the fascia and the muscle were divided with electrocautery at the same level of the ante rior skin incision. The muscle of the anterior and lateral compartments were carefully divided inclu ding the tibial vessels. The tibial periosteum was carefully incised circumferentially with the Bovi e cauterizer. Tibial vessels were carefully ligated with 0 silk. The tibia was transected with the Gigli saw at the level of the 2 cm above proximal to the skin incision. We made an anterior bevel on the tibial region. The fibula was exposed and dissected circumferentially and transected with a bon e cutter. The amputation was continued with a knife, transecting the soleus muscle and the gastrocne mius muscle. The soleal veins were carefully ligated. The bony edges were filed. The fibula was tr ansected proximal to the tibia, it was also filed. Hemostasis obtained. The fascia of the anterior and posterior compartment flaps were carefully approximated using #1 Vicryl. Before that we put a FCO drain coming from the lateral side and secured in place with 3-0 nylon. After that, we proceeded to close subcutaneous tissue with 2-0 chromic and skin with staple. FCO was connected to bulb suction. Sterile dressings placed over the area. The patient tolerated the procedure well. Patient in his w ay to recovery in stable condition. JULITO/ELIDA Voice ID: [id number] Report ID: [id number]
--- NOTE | 2020-11-23 12:11 | PN ---
Date of Progress Note: 11/23/2020 Subjective: The patient was seen today. He had left below-knee amputation surgery done this morning and I evaluated him after his surgery. He was back in his room. was at bedside. Details were discussed with and Dr. Hernandez. Objective: HEENT: Unremarkable. LUNGS: Clear to auscultation. HEART: Sounds normal. ABDOMEN: Soft. Bowel sounds normal. No guarding, rigidity, tenderness, or distention. EXTREMITIES: Surgical dressing present from today's surgery, which was left below-knee amputation. Impression: 1.Dry gangrene, left foot, 4th toe. 2.Abscess/cellulitis, left foot, organism methicillin-resistant Staphylococcus aureus. 3.Peripheral vascular disease. 4.Chronic atrial fibrillation. 5.End-stage renal disease, on hemodialysis. Plan: The patient had surgery done today. We will continue to follow with Dr. Hernandez. Continue p ain medication per order. His last dose of Eliquis was yesterday and we will probably restart Eliqui s tomorrow. He remains in atrial fibrillation which is a chronic problem for him. Hemodynamically, he is stable. We will continue metoprolol. Continue pain medication and antibiotics per order and p ossible discharge to go home in the next few days once he recovers from the surgery. CASE/MODL Voice ID: [id number] Report ID: [id number]
[2020-11-23] MEDS ORDERED: VANCOMYCIN 1 GM/VIAL ONE (19:43)
[2020-11-23] MEDS ORDERED: NA CHLORIDE 0.9% 0 ML ONE (19:43)
--- NOTE | 2020-11-23 22:17 | PN ---
Date of Progress Note: 11/23/2020 Chief Complaint: Altered mental status, gangrenous changes of the left foot. Subjective: The patient is a 65-year-old man with history of COPD, atrial fibrillation, hypertension , congestive heart failure, end-stage renal disease, undergone dialysis on Saturday, , and Sat. He had a left arm AV fistula. Today, he is scheduled with dialysis and ultrafiltration. He is tolerating procedure and blood pressure is stable during dialysis. Review of Systems: The patient denies PND or orthopnea. Physical Examination: Lungs: Diminished breath sounds at bases. Heart: Irregularly irregular. No pericardial friction or rub. Abdomen: Soft, benign. Extremities: Left AKA, right BKA with dressing. Impression And Plan: 1.Metabolic encephalopathy due to sepsis. The patient is improving with mental status to baseline. 2.Anemia of chronic disease. Continue to monitor hemoglobin level and resume JOE when hemoglobin is below 10. Assessment/plan: 1.Atrial fibrillation with rapid ventricular response with rate control. Continue beta-yoan. 2.Hypertension. Continue blood pressure medication. 3.Fluid overload. Continue low-sodium diet, p.o. fluid restriction, and ultrafiltration will be done with dialysis to obtain negative fluid balance. EB/MODL Voice ID: [id number] Report ID: [id number]
[2020-11-24] MEDS: PANTOPRAZOLE 40MG TABLET PO SCH (05:14)
[2020-11-24] MEDS: COLLAGENASE 30 GM OINTMENT TOP SCH (09:00)
[2020-11-24] MEDS: CEFTRIAXONE/SWI 1gm 1 GM/10 ML SYR IV SCH ×2 (09:03→20:26)
[2020-11-24] MEDS: METOPROLOL TAR 50 MG TAB PO SCH ×2 (09:04→20:26)
[2020-11-24] MEDS: APIXABAN 2.5 MG TABLET PO SCH ×2 (09:04→20:26)
[2020-11-24] MEDS: DOCUSATE NA/SENNA CONC 1 TAB PO SCH ×2 (09:05→20:28)
--- NOTE | 2020-11-24 11:33 | PN ---
Date of Progress Note: 11/24/2020 Subjective: The patient was seen this morning for followup. He was awake, alert, communicating. Hi s and daughter were present at bedside. No new complaints or problems reported. Details were d iscussed with Dr. Hernandez. Objective: HEENT: Unremarkable. Lungs: Clear to auscultation. Heart: Sounds normal. Abdomen: Soft. Bowel sounds normal. No guarding, rigidity, tenderness, or distention. Extremities: Status post left below-knee amputation. Surgical dressing present. Impression: 1.Gangrene, left foot fourth toe. 2.Cellulitis/abscess, left foot. 3.End-stage renal disease, on hemodialysis. 4.Anemia due to chronic kidney disease. 5.Chronic atrial fibrillation. 6.Chronic anticoagulation therapy. Plan: We will go ahead and continue current medications. The patient will restart his Eliquis as of today. Continue current antibiotics and I did talk to the patient's daughter and about our prem n, now is to go ahead and think about discharge planning. The patient lives at home with his an d works, so at this point, the patient will not be able to go home to take care of himself at [facility], so for the time being, he may need to go to senior living facility where he can recover and get some therapy. He was recently at [facility] in [place], and the patient and family does no t want him to return back to that facility so they will work with [facility] to look for any other [facility] facility. Possible discharge in few days. We will continue to follow with Dr. Hernandez and printing [employer] machin[employer] for dialysis support. CASE/MODL Voice ID: [id number] Report ID: [id number]
--- NOTE | 2020-11-24 20:32 | PN ---
Date of Progress Note: 11/24/2020 Chief Complaint: Altered mental status, gangrenous changes of the left foot. History Of Present Illness: Patient is a 65-year-old man with history of chronic obstructive pulmona ry disease, atrial fibrillation, hypertension, congestive heart failure, end-stage renal disease unde rgoing dialysis on Saturday, , and Saturday. Patient had a left arm arteriovenous fistula prem nela previously. Today, he is scheduled with dialysis and ultrafiltration. He is tolerating procedur e and blood pressure is stable during dialysis. Review of Systems: Denies fever or chills. Physical Examination: Lungs: Diminished breath sounds at the bases. Heart: S1 and S2. Abdomen: Soft and benign. Extremities: Minimal edema. Impression And Plan: 1.Metabolic encephalopathy due to sepsis. Altered mental status is improving. 2.End-stage renal disease. Patient will continue dialysis. Continue to monitor p.o. intake and flu id balance. 3.Atrial fibrillation with rapid ventricular response. Currently rate controlled. Continue beta-bl ocker. 4.Fluid overload. Continue low-sodium diet and p.o. fluid restriction. Adjust ultrafiltration goal accordingly. 5.Renal osteodystrophy. Monitor phosphorus level. Adjust binders accordingly. EB/MODL Voice ID: [id number] Report ID: [id number]
[2020-11-25] MEDS: PANTOPRAZOLE 40MG TABLET PO SCH (05:23)
[2020-11-25 05:57] LABS: Absolute Lymphocytes (CBC) 1.4 K/uL (0.7-4.9); Basophils % 0.3 % (0-1.3); Hematocrit 33.3 % (39.6-49.0); Lymphocytes % 8.3 % (15.3-44.8); MPV 8.2 fL (7.6-11.3); RBC Red Blood Cell Count 3.89 M/uL (4.33-5.43)
[2020-11-25 06:11] LABS: Potassium 5.1 mmol/L (3.5-5.1)
[2020-11-25] MEDS: COLLAGENASE 30 GM OINTMENT TOP SCH (07:22)
[2020-11-25] MEDS: APIXABAN 2.5 MG TABLET PO SCH ×2 (09:00→21:00)
[2020-11-25] MEDS: DOCUSATE NA/SENNA CONC 1 TAB PO SCH ×2 (09:00→21:00)
[2020-11-25] MEDS: METOPROLOL TAR 50 MG TAB PO SCH ×2 (09:00→21:00)
--- NOTE | 2020-11-25 09:40 | PN ---
Date of Progress Note: 11/25/2020 Subjective: Patient was seen this morning for followup. He was lying in bed, not in distress. Objective: General: He had his eyes closed when I tried to wake him up and he did respond to verbal commands, opened his eyes, looked at me, but not answering any questions, not in any distress. HEENT: Unremarkable. Lungs: Clear to auscultation. Cardiovascular: Heart sounds normal. Abdomen: Soft. Bowel sounds normal. No guarding, rigidity, tenderness, distention. Extremities: No leg edema. Left leg surgical dressing present with a drain tube in place. Laboratory Data: White count 16.8, hemoglobin 10.8, platelets 291. Sodium 139, potassium 5.1, chlor joann 102, bicarb 22, BUN 73, creatinine 8.74, glucose 111. Impression: 1.Gangrene, left foot, 4th toe, status post left below-knee amputation. 2.Cellulitis/abscess, left foot, organism methicillin-resistant Staphylococcus aureus. 3.End-stage renal disease, on hemodialysis. 4.Anemia due to chronic kidney disease. 5.Chronic atrial fibrillation. 6.Chronic anticoagulation therapy. 7.Rule out vascular dementia. Plan: We will continue current medication. Continue current antibiotics that patient is currently o n. Patient's wound culture had grown MRSA and he is on culture. Specific antibiotic, vancomycin wit h dialysis, we will continue that. We will continue current anticoagulation therapy and metoprolol. Continue to follow with [facility] for dialysis support. I had discussion with patient's daughter and on 2 different occasions during this hospital stay regarding his altered mental status and family has reported some hallucination and confusion from time to time, which I believe that consider ing how much peripheral vascular disease he has, there is a good possibility he may have cerebral ath erosclerosis and the possibility of vascular dementia, needs to be kept in mind. All those details w ere discussed with family members. Yesterday, when I was discussing with Social Service regarding di scharge planning. After that, we did place consult for inpatient rehab to see if patient would quali fy to go to the 5th floor. If not, then senior living facility placement will be necessary and Soc ial Service will assist us with that. CASE/MODL Voice ID: [id number] Report ID: [id number]
[2020-11-25] MEDS: CEFTRIAXONE/SWI 1gm 1 GM/10 ML SYR IV SCH (11:03)
[2020-11-25] MEDS: D50W 25 GM/50 ML SYRINGE IV PRN ×6 (11:55→22:24)
[2020-11-25] MEDS ORDERED: D5W 1,000 ML IV SCH (12:00)
[2020-11-25] MEDS ORDERED: D50W 50 ML IV ONE ×3 (12:00→22:28)
[2020-11-25 12:37] LABS: Arterial Blood Carboxyhemoglob 0.8 % (0-1.5); Blood Gas Oxyhemoglobin 94.8 % (94-97); Blood O2 Saturation 96.4 % (92-98.5)
[2020-11-25 13:25] LABS: Absolute Lymphocytes (CBC) 1.4 K/uL (0.7-4.9); Basophils % 0.4 % (0-1.3); Hematocrit 35.7 % (39.6-49.0); Lymphocytes % 10.6 % (15.3-44.8); MPV 8.3 fL (7.6-11.3)
--- NOTE | 2020-11-25 13:51 | RAD REPORT ---
EXAM DESCRIPTION: CT - Head Brain Wo Cont - 11/25/2020 1:31 pm CLINICAL HISTORY: altered mental status, lethargy COMPARISON: Head Brain Wo Cont dated 11/16/2020 TECHNIQUE: Axial 5 mm thick images of the head were obtained without IV contrast. All CT scans are performed using dose optimization technique as appropriate and may include automated exposure control or mA/KV adjustment according to patient size. FINDINGS: No intracranial hemorrhage, mass, edema or shift of mid-line structures. Atrophy and chron ic ischemic changes are present. No acute cortical based infarction seen. Ventricles are in proportio n to volume loss. No abnormal extra-axial fluid collections. Arterial and physiologic calcifications are present. Mastoid air cells and visualized portions of the paranasal sinuses are clear. No acute bony findings. Significant motion degradation present. IMPRESSION: Negative noncontrast CT head for acute finding. Atrophy and chronic ischemic changes are present matching comparison.
[2020-11-25] MEDS ORDERED: DEXTROSE 10%-WATER 500 ML IV SCH (16:30)
[2020-11-25] MEDS ORDERED: GLUCAGON 1 MG/VIAL IV ONE (17:33)
[2020-11-25] MEDS ORDERED: GLUCAGON 1 MG/VIAL IV PRN (17:45)
[2020-11-25] MEDS ORDERED: [UNRECOGNIZED DRUG - OTHER] IV ONE (17:49)
[2020-11-25] MEDS: METHYLPREDNISOLONE 125 MG INJ IV SCH ×2 (18:00→22:38)
[2020-11-25] MEDS ORDERED: D10W 250 ML IV ONE (18:06)
[2020-11-25 18:58] LABS: Potassium 4.9 mmol/L (3.5-5.1)
[2020-11-25] MEDS: Meropenem 500 MG/100 ML IVPB IV SCH (20:25)
[2020-11-25] MEDS ORDERED: Meropenem 500 MG/100 ML BAG ONE (20:32)
--- NOTE | 2020-11-25 21:16 | OP ---
Date of Procedure: 11/25/2020 Surgeon: Suman Hernandez MD Preoperative Diagnoses: No good IV access. History of hemodialysis, renal failure, hypoglycemia. Postoperative Diagnoses: No good IV access. History of hemodialysis, renal failure, hypoglycemia. Procedure: Placement of a central line. Anesthesia: Local. Complications: None. This is the case of a 65-year-old patient known by us due to multiple medical problems. Right now, h e need IV access immediately. They asked for emergent central line placement. The benefits, alterna tives, and risks of central line placement explained to the family, which include, but not limited to infection, bleeding, damage to adjacent structures, anesthesia complication, bleeding, even . They understood this may not relieve his symptoms. It should be removed since it is not in use or no longer needed. Consent was signed. Procedure In Detail: Patient brought in supine position. Area was prepped and draped in a sterile f ashion. A time-out was called. Lidocaine 1% plain injected for local anesthetic followed by sharp i ncision, an 18-gauge needle in the right femoral vein at the first attempt. Excellent backflow and w ibis was passed through and central line triple lumen was placed using Seldinger technique. Excellent backflow and inflow. The line was flushed with saline and secured with 3-0 nylon. Patient tolerate d the procedure well. Covered with sterile dressings. Patient remained in the ICU in a guarded condition. JULITO/ELIDA Voice ID: [id number] Report ID: [id number]
[2020-11-25] MEDS: HEPARIN 5000 UNIT/ML 1 ML VIAL SQ SCH (21:20)
[2020-11-25] MEDS ORDERED: HEPARIN 5000 UNIT/ML 1 ML VIAL ONE (21:34)
[2020-11-25] MEDS ORDERED: METHYLPREDNISOLONE 125 MG INJ ONE (22:50)
--- NOTE | 2020-11-25 22:52 | PN ---
Date of Progress Note: 11/25/2020 Chief Complaint: End-stage kidney. History Of Present Illness: Patient has altered mental status, he developed hypoglycemia and is trated on IV fluids with dextrose to control glucose level. He underwent BKA for left foot gangrene. Patient has metabolic encephalopathy secondary to sepsis. Patient is transferred to ICU. Review of Systems: Patient denies PND, orthopnea. Physical Examination: Lungs: Diminished breath sounds at bases. Few crackles at bases. Heart: S1 and S2. Abdomen: Benign. Extremities: Mild edema. Impression: 1. End-stage renal disease. Dialysis will be done to control hypervolemia and provide metabolic clearance to control azotemia and electrolytes balance. Plan is to monitor fluid balance and adjust ultrafiltration goal to prevent fluid overload , check chest X ray for any evidence of congestive heart failure with pulmonary edema. 2. Hypoglycemia secondary to sepsis. Continue dextrose for blood glucose control. 3. Renal osteodystrophy. Monitor phosphorus. 4. level. Adjust binders. 5. Encephalopathy. Altered mental status. Patient may need a speech therapy evaluation. PADMINI/ELIDA Voice ID: [id number] Report ID: [id number] [facility]
[2020-11-25] MEDS: DEXTROSE 10%-WATER 500 ML IV SCH (23:30)
[2020-11-26] MEDS: D50W 25 GM/50 ML SYRINGE IV PRN ×11 (00:05→21:08)
[2020-11-26] MEDS ORDERED: D50W 50 ML IV ONE ×6 (00:13→21:19)
[2020-11-26] MEDS ORDERED: D10W 250 ML IV ONE ×3 (02:51→22:49)
[2020-11-26] MEDS: DEXTROSE 10%-WATER 500 ML IV SCH ×2 (03:18→19:15)
[2020-11-26 06:27] LABS: Absolute Lymphocytes (CBC) 0.8 K/uL (0.7-4.9); Basophils % 0.6 % (0-1.3); Hematocrit 32.1 % (39.6-49.0); Lymphocytes % 7.3 % (15.3-44.8); MPV 8.2 fL (7.6-11.3); RBC Red Blood Cell Count 3.71 M/uL (4.33-5.43)
[2020-11-26] MEDS: PANTOPRAZOLE 40MG TABLET PO SCH (06:30)
[2020-11-26] MEDS: METHYLPREDNISOLONE 125 MG INJ IV SCH (06:39)
[2020-11-26] MEDS ORDERED: METHYLPREDNISOLONE 125 MG INJ ONE (06:53)
[2020-11-26 08:08] LABS: Blood Morphology Comment NOT SEEN (NOT SEEN); Platelet Estimate ADEQ; White Blood Cell Scan OK (OK)
[2020-11-26] MEDS: HEPARIN 5000 UNIT/ML 1 ML VIAL SQ SCH ×2 (08:09→21:09)
[2020-11-26] MEDS ORDERED: HEPARIN 5000 UNIT/ML 1 ML VIAL ONE ×2 (08:19→21:19)
[2020-11-26] MEDS: APIXABAN 2.5 MG TABLET PO SCH (08:34)
[2020-11-26] MEDS: METOPROLOL TAR 50 MG TAB PO SCH ×2 (08:35→21:09)
[2020-11-26] MEDS: COLLAGENASE 30 GM OINTMENT TOP SCH (08:36)
[2020-11-26] MEDS: DOCUSATE NA/SENNA CONC 1 TAB PO SCH ×2 (08:36→21:00)
[2020-11-26] MEDS ORDERED: DEXTROSE 10%-WATER 500 ML IV SCH (09:15)
--- NOTE | 2020-11-26 10:35 | RAD REPORT ---
EXAM DESCRIPTION: Nick Single View11/26/2020 9:48 am CLINICAL HISTORY: Shortness of breath COMPARISON: November 16, 2020 FINDINGS: Mild bilateral pulmonary opacities. Heart is moderately enlarged IMPRESSION: Mild CHF
--- NOTE | 2020-11-26 10:50 | RAD REPORT ---
EXAM DESCRIPTION: CT - Head Brain Wo Cont - 11/26/2020 10:40 am CLINICAL HISTORY: Alteration of awareness/confusion COMPARISON: September 2020 TECHNIQUE: Computed axial tomography of the head was obtained. IV contrast was not requested. All CT scans are performed using dose optimization technique as appropriate and may include automated exposure control or mA/KV adjustment according to patient size. FINDINGS: An intracranial bleed is not seen . The ventricles are normal in caliber. No extra-axial fluid collection is noted. Mild to moderate low-density areas within periventricular, deep and subcortical white matter likely r epresent ischemic changes secondary to small vessel disease. Fluid within the sinuses/ mastoids is not seen. IMPRESSION: No acute intracranial abnormality is seen. If patient's symptoms persist MRI of the bra in would be recommended.
[2020-11-26] MEDS ORDERED: D10W 500 ML IV ONE (11:15)
[2020-11-26] MEDS: dexAMETHasone 10 MG/ML VIAL IV SCH ×3 (11:23→23:11)
[2020-11-26] MEDS ORDERED: dexAMETHasone 10 MG/ML VIAL ONE ×2 (11:35→17:39)
[2020-11-26] MEDS ORDERED: [UNRECOGNIZED DRUG - OTHER] IV ONE ×2 (11:37→19:20)
[2020-11-26] MEDS ORDERED: D10W 500 ML IV SCH (12:00)
--- NOTE | 2020-11-26 12:00 | RAD REPORT ---
EXAM DESCRIPTION: RAD - Abdomen 1 View (KUB) - 11/26/2020 11:47 am CLINICAL HISTORY: Device placement Dobhoff tube placement FINDINGS: Dobhoff tube is coiled within the stomach. The tip is pointing cranially and lies 2 centi meters from the GE junction.
[2020-11-26] MEDS: DIGOXIN 0.25 MG/ML AMP IV SCH (16:00)
[2020-11-26] MEDS ORDERED: METOPROLOL TAR 25 MG TAB FT ONE (17:20)
[2020-11-26] MEDS: Meropenem 500 MG/100 ML IVPB IV SCH (17:25)
[2020-11-26] MEDS ORDERED: METOPROLOL TAR 25 MG TAB ONE (17:37)
[2020-11-26] MEDS ORDERED: Meropenem 500 MG/100 ML BAG ONE (17:39)
[2020-11-26 20:43] LABS: Potassium 3.8 mmol/L (3.5-5.1)
[2020-11-26] MEDS ORDERED: METOPROLOL TAR 50 MG TAB ONE (21:19)
--- NOTE | 2020-11-26 21:38 | PN ---
Date of Progress Note: 11/26/2020 Subjective: Patient was seen this morning for followup. No new problems reported by nursing staff. The patient had a significant problem since I saw him yesterday morning. Yesterday morning, his labs had shown glucose of 113, but later yesterday evening nurse contacted me and informed me of the patient's change in condition. At that time, he had significant altered mental status and was with him at bedside. Stat glucose was done, which came back low to and stat blood work was done. CAT scan of the head was done, which was negative for any acute changes. The patient was given IV D50 and throughout yesterday and overnight, we have been having difficulty with his hypoglycemia problem. The patient has required in last 24 hours at least 10 to 12 IV pushes of D50 for hypoglycemia problem. It has dropped down into range of 30 to 50 on multiple occasions. Overnight, he did start to get stabilize to some extent. We started him on IV fluid D5W, which was changed later on to D10W. We also edy a serum cortisol level yesterday, which came back 22 and the patient was started on IV Solu-Medrol. The patient was also given 1 or 2 doses of glucagon IV yesterday to help with this hypoglycemia problem. His ceftriaxone was discontinued and meropenem was started yesterday and vancomycin will be continued. The patient has not received any oral diabetes medication or any insulin, and he does not have any history of diabetes and does not take any medication to reduce blood sugar, so this hypoglycemia is something very alarming the way it is happening to him. This morning when I saw him, he was lying in bed. Mental status was altered. His was at bedside. He was sleeping with eyes closed. He would open his eyes upon verbal commands, but will not communicate and he was noted that spontaneously he was moving his left upper extremity, but not right upper extremity, movement was not as much as the left upper extremity. Objective: HEENT: Examination was unremarkable. Lungs: Clear to auscultation. Heart: Sounds normal. Abdomen: Soft. Bowel sounds normal. No guarding, rigidity, tenderness, or distention. Extremities: No leg edema. Left leg has surgical dressing present. Right leg, no edema, but right heel today has shown evidence of bluish discoloration of the heel consistent with stage II decubitus. There is no open wound and this is something new compared to how it was 2 days ago as the patient's reported and I have not seen this even based on previous exam up until today. The patient's right heel was noted to be offloaded with pillow and has air mattress present on his mattress. Labs: Reviewed. Impression: 1. Hypoglycemia. 2. Left foot abscess/cellulitis. 3. Left foot fourth toe gangrene, status post left below-knee amputation. 4. Rule out adrenal failure. 5. End-stage renal disease, on hemodialysis. 6. Peripheral vascular disease. Plan: Patient has very profound hypoglycemia problem and our biggest concern right now is adrenal failure after surgery. Other possibility of sepsis needs to be kept in mind, but he is very well and adequately covered with broad- spectrum antibiotic, and in fact it is a culture sensitive antibiotic, which is vancomycin. So at this point our main concern is adrenal failure. We will go ahead and continue to monitor his fingerstick blood sugar very aggressively. We have managed his fingerstick blood sugar on hourly basis and sometime more frequent. He received IV fluid D5W and then D10W continuously. This morning, we did place a Dobhoff tube. After obtaining x-ray to verify position, we have started him on tube feeding using Jevity. We will not use Nepro at this point because Jevity has higher carbohydrate content, glucose content compared to Nepro. So at this point while we are dealing with this profound hypoglycemia, we would like to continue to use Jevity. After we started him on Jevity, we actually gave 1 can of Jevity and orange juice 8 ounces x2. His sugar actually started coming up and stabilized and we did discontinue his IV fluid D10W that he was getting continuously, and as of this afternoon we have managed his sugar better considering intake of nutrition through the feeding tube. We will still continue to monitor blood sugar very closely and if necessary give IV D50 push on as needed basis. Details were discussed with Dr. Cabral and consultation was requested from him for critical care management for this adrenal failure. The patient will need some imaging study on his adrenal when his condition is stable. We will go ahead and continue IV steroid, but change from Solu-Medrol to dexamethasone and on Saturday, which is day after tomorrow, we will plan to do a cortisol stimulation test for him. All these details were discussed with the patient's as well as the patient's daughter. Details were discussed with Dr. Denney, senior office assistant and the patient had dialysis today and he will have another dialysis tomorrow to avoid any fluid overload situation considering he may require more volume at this point. CASE/MODL Voice ID: [id number] Report ID: [id number] [facility]
[2020-11-26] MEDS: HALOPERIDOL LACT 5 MG/ML INJ IV PRN (22:47)
[2020-11-26] MEDS ORDERED: HALOPERIDOL LACT 5 MG/ML INJ ONE (22:56)
[2020-11-26] MEDS: VANCOMYCIN/NS 1 gm 1 GM/250 ML BAG IVPB SCH (23:03)
[2020-11-26] MEDS ORDERED: VANCOMYCIN 1 GM/VIAL ONE (23:15)
[2020-11-26] MEDS ORDERED: NA CHLORIDE 0.9% 250 ML ONE (23:16)
[2020-11-26] MEDS ORDERED: dexAMETHasone 4 MG/ML VIAL ONE (23:25)
[2020-11-27] MEDS: D50W 25 GM/50 ML SYRINGE IV PRN ×4 (00:30→09:33)
[2020-11-27] MEDS ORDERED: D50W 50 ML IV ONE ×4 (00:45→09:43)
[2020-11-27] MEDS: DEXTROSE 10%-WATER 500 ML IV SCH ×5 (01:02→19:23)
[2020-11-27] MEDS ORDERED: D10W 250 ML IV ONE ×5 (03:51→14:48)
[2020-11-27] MEDS ORDERED: HALOPERIDOL LACT 5 MG/ML INJ ONE (04:19)
[2020-11-27] MEDS: dexAMETHasone 10 MG/ML VIAL IV SCH ×4 (04:58→23:00)
[2020-11-27] MEDS ORDERED: dexAMETHasone 4 MG/ML VIAL ONE ×2 (05:01→21:11)
[2020-11-27] MEDS: PANTOPRAZOLE 40MG TABLET PO SCH (05:38)
[2020-11-27] MEDS: HALOPERIDOL LACT 5 MG/ML INJ IV PRN (06:11)
[2020-11-27] MEDS ORDERED: INSULIN -REGULAR HUMAN 50 UNIT/0.5 ML ML ONE (08:16)
[2020-11-27] MEDS ORDERED: METOPROLOL TAR 50 MG TAB ONE ×2 (08:20→20:00)
[2020-11-27] MEDS: METOPROLOL TAR 50 MG TAB PO SCH (08:45)
[2020-11-27] MEDS: DOCUSATE NA/SENNA CONC 1 TAB PO SCH ×2 (08:46→21:31)
[2020-11-27] MEDS: HEPARIN 5000 UNIT/ML 1 ML VIAL SQ SCH (08:49)
[2020-11-27] MEDS: MORPHINE 2 MG/ML SYR IV PRN ×3 (08:54→20:02)
[2020-11-27] MEDS ORDERED: HEPARIN 5000 UNIT/ML 1 ML VIAL ONE (09:04)
[2020-11-27] MEDS ORDERED: MORPHINE 2 MG/ML SYR ONE ×3 (09:09→20:17)
[2020-11-27] MEDS ORDERED: METOPROLOL TAR 25 MG TAB FT SCH (09:30)
[2020-11-27] MEDS ORDERED: dexAMETHasone 10 MG/ML VIAL ONE ×2 (11:24→17:06)
[2020-11-27] MEDS: COLLAGENASE 30 GM OINTMENT TOP SCH (13:41)
[2020-11-27] MEDS: LORazepam 2 MG/ML VIAL IV PRN (14:30)
[2020-11-27] MEDS ORDERED: LORazepam 2 MG/ML VIAL ONE ×2 (14:35→20:17)
[2020-11-27] MEDS: DIGOXIN 0.25 MG/ML AMP IV SCH (15:14)
[2020-11-27] MEDS ORDERED: DIGOXIN 0.25 MG/ML AMP ONE (15:28)
[2020-11-27] MEDS: Meropenem 500 MG/100 ML IVPB IV SCH (17:03)
[2020-11-27] MEDS ORDERED: Meropenem 500 MG/100 ML BAG ONE (17:09)
--- NOTE | 2020-11-27 18:38 | P.CNS ---
Date of Consult: 11/27/20 Reason for Consult: Hypoglycemia Chief Complaint: AMS , gangrenous changes left foot History of Present Illness: Patient is 65 years of age admitted to the hospital he vent amputation for gangrenous foot became severely hypoglycemic there is no prior history of hypoglycemia he does not take any diabetic medications this happened postoperatively rays mental status is a lot better he is more alert responsive cooperative acquired considerable amount of glucose IV and through the adopt cough Allergies No Known Drug Allergies Allergy (Verified 07/08/20 05:56) Unknown Home Medications: Acetaminophen/Caff/Dihydrocod [Oabkvket-Zzp-Lupmxhnduktkx 325] 1 each PO Q24H 11/17/20 Apixaban [Eliquis *] 2.5 mg PO BID 11/17/20 Atorvastatin Calcium [Lipitor*] 10 mg PO BEDTIME 11/17/20 Bisacodyl [Gentle Laxative] 10 mg PO DAILY PRN 11/17/20 Doxycycline Hyclate 100 mg PO BID 11/17/20 Duloxetine [Cymbalta *] 20 mg PO DAILY 11/17/20 Gabapentin [Neurontin*] 100 mg PO TID 11/17/20 Megestrol [Megace*] 40 mg PO DAILY 11/17/20 Melatonin 3 mg PO BEDTIME 11/17/20 Metoprolol Succinate [Toprol Xl*] 25 mg PO TID 11/17/20 Simethicone 80 mg PO TID 11/17/20 Tramadol HCl [Ultram] 50 mg PO Q6H 11/17/20 Trazodone [Desyrel*] 50 mg PO BEDTIME 11/17/20 polyethylene glycoL 3350 [Polyethylene Glycol 3350] 1 packet PO DAILY 11/17/20 - Past Medical/Surgical History Diabetic: No -: HTN -: CHF -: arthritis -: Stage 4 kidney disease -: Anemia -: hypoglycemia -: nerve sx on neck -: lap farhan -: kidney stones removal - Family History Mother Medical History: Hypertension Father Medical History: Heart disease - Social History Alcohol use: No CD- Drugs: No Caffeine use: Yes Review of Systems is unable to be obtained Physical Examination Temp Pulse Resp BP Pulse Ox 99.4 F 103 H 18 136/77 99 11/27/20 16:00 11/27/20 18:00 11/27/20 18:00 11/27/20 18:00 11/27/20 18:00 General: Unresponsive Neck: Supple Cardiovascular: No edema, Normal S1 S2 Gastrointestinal: Non-distended - Problems (1) Hypoglycemia Current Visit: Yes Status: Acute Plan: Patient is 65 years of age developed severe postoperative hypoglycemia no history of diabetes he required a lot of IV glucose and oral glucose to control his blood sugars although his mental status did improve his cortisol level is minimally elevated cosyntropin stimulation test is pending agree with steroids serum insulin syndrome C-peptide tsh level was normal blood cultures are so far negative apart from wound does positive for Mr SA patient is on vancomycin and meropenem status post amputation left below-knee patient is also on dialysis patient is on Decadron 8 mg Q 6 which is equivalent to 40 mg of Solu-Medrol Q 6 ACTH stimulation test is pending
[2020-11-27] MEDS ORDERED: D10W 500 ML IV ONE (19:23)
[2020-11-27] MEDS ORDERED: NA CHLORIDE 0.9% 1,000 ML ONE (19:57)
--- NOTE | 2020-11-27 20:53 | PN ---
Date of Progress Note: 11/26/2020 Chief Complaint: End-stage renal disease, on hemodialysis, fluid overload, diabetic kidney disease, hypoglycemia due to sepsis, and adrenal insufficiency. Patient underwent BKA for left "Guillain-Tyson e." Patient is on IV antibiotics. He has persistent hypoglycemia and is on IV fluids to control hyp oglycemia with dextrose. Patient was started on hydrocortisone and steroids were started for adrenal insufficiency. I discussed it with Dr. Smith, his attending. Patient will need daily dialysis to pr event fluid overload to control congestive heart failure with diastolic dysfunction. Review of Systems: Patient remains lethargic. He denies PND, orthopnea, although he cannot provide review of systems. Physical Examination: Lungs: Diminished breath sounds at bases. Few crackles are present. Heart: S1 and S2. Abdomen: Soft, benign. Extremities: Mild peripheral edema. Impression And Plan: 1.End-stage renal disease. Dialysis will be done today with ultrafiltration. Continue daily dialys is to provide metabolic clearance and fluid control. Patient has IV fluids and persistent hypoglycem ia. He remains septic in ICU. Patient is started on steroids for presumptive adrenal insufficiency, which is contributory to hypoglycemia. 2.Renal osteodystrophy. Monitor phosphorus level. Adjust binders. 3.Encephalopathy. Patient has altered mental status and patient may need speech therapy evaluation. The patient has encephalopathy due to sepsis and ongoing hypoglycemi c episode. EB/MODL Voice ID: [id number] Report ID: [id number]
[2020-11-27] MEDS ORDERED: DOCUSATE NA/SENNA CONC 1 TAB ONE (21:11)
[2020-11-27] MEDS: METOPROLOL TAR 50 MG TAB FT SCH (21:31)
[2020-11-28] MEDS: LORazepam 2 MG/ML VIAL IV PRN (01:00)
--- NOTE | 2020-11-28 01:02 | CON ---
Date of Consultation: 11/27/2020 Chief Complaint: Fluid overload with encephalopathy, diabetes mellitus with renal manifestation, hyp oglycemia due to adrenal insufficiency. Patient is undergoing dialysis for volume control and hypogl ycemia was treated with IV fluids and dextrose. Patient had altered mental status. He was admitted to the hospital because of gangrenous changes of the left foot. He underwent amputation for gangreno us foot and subsequently became very hypoglycemic. He does not have a prior history of hypoglycemia and he does not take any diabetic medication. Review of Systems: Cannot be obtained. Patient is lethargic. Physical Examination: Lungs: Diminished breath sounds at bases. Heart: S1, S2. Abdomen: Soft, benign. Extremities: No peripheral edema present. Impression And Plan: Patient is a 65-year-old man with: 1.History of end-stage renal disease, developed hypoglycemia. There is no history of previous treat ment with insulin or oral hypoglycemic agent. Patient became confused, has encephalopathy. Plan is to continue steroids for adrenal insufficiency and check for any evidence of other possible etiologie s contributory to hypoglycemia. Patient may need to be ruled out for insulinoma. Patient will get w orkup to check C-peptide. TSH was ordered to rule out hypothyroidism. An ACTH stimulation test is p ending. 2.Anemia of chronic kidney disease. Continue to monitor hemoglobin level. Adjust JOE. 3.Renal osteodystrophy. Monitor phosphorus level. Adjust binders. PADMINI/ELIDA Voice ID: [id number] Report ID: [id number]
[2020-11-28] MEDS: DEXTROSE 10%-WATER 500 ML IV SCH ×2 (01:30→06:27)
[2020-11-28] MEDS: MORPHINE 2 MG/ML SYR IV PRN ×2 (02:59→23:09)
[2020-11-28] MEDS ORDERED: MORPHINE 2 MG/ML SYR ONE ×2 (03:13→23:24)
[2020-11-28] MEDS ORDERED: D10W 500 ML IV ONE ×3 (03:13→18:11)
[2020-11-28] MEDS: dexAMETHasone 10 MG/ML VIAL IV SCH ×4 (05:00→22:42)
[2020-11-28] MEDS: PANTOPRAZOLE 40MG TABLET PO SCH (05:35)
[2020-11-28 05:48] LABS: Absolute Lymphocytes (CBC) 0.4 K/uL (0.7-4.9); Basophils % 0.2 % (0-1.3); Hematocrit 30.9 % (39.6-49.0); Lymphocytes % 2.4 % (15.3-44.8); MPV 7.9 fL (7.6-11.3)
[2020-11-28 06:02] LABS: Potassium 4.9 mmol/L (3.5-5.1)
[2020-11-28] MEDS ORDERED: SODIUM CHLORIDE 0.9% 10ML INJ IV ONE (08:00)
[2020-11-28] MEDS ORDERED: COSYNTROPIN 0.25 MG VIAL IV ONE (08:00)
[2020-11-28] MEDS: COLLAGENASE 30 GM OINTMENT TOP SCH (09:00)
[2020-11-28] MEDS: METOPROLOL TAR 50 MG TAB FT SCH ×2 (09:00→20:37)
--- NOTE | 2020-11-28 09:10 | PN ---
Date of Progress Note: 11/27/2020 Subjective: The patient was seen for followup this morning. Vital Signs reviewed. Details were discussed with ICU nurse. Overnight, the patient did not have any major problems. He did require some Haldol for agitation and in fact that helped him very well to calm him down and he started to communicate little bit better with the nursing staff overnight. He did require morphine this morning probably about half an hour to 45 minutes before I came to see him. Yesterday, he is planning to show some improvement in his mental status, started to communicate with his family. He was little emotional while he was talking to his family. Yesterday had some piercing his arms and I talked to his also. This morning he also communicated with patient's daughter. Overall, we have seen improvement. Overnight, we maintained him on Jevity per Dobhoff tube at 40 cc/hour with orange juice that he received 2 times, each time was 8 ounce. His fingerstick blood sugar readings reviewed, yesterday evening we did verify accuracy of glucometer by checking fingerstick blood sugar with 2 different glucometers and it was comparable but unfortunately his blood glucose was reading lot higher, so we will have to go with the fingerstick blood sugar readings at this point. I also have given some instruction about how to titrate his IV D10W that he is getting at 100 cc/hour and depending on the sugar readings, we are going to titrate the rate. If fingerstick blood sugar remains less than 150, then we will maintain D10W rate at 100 cc/hour. If fingerstick blood sugar reading is between 150 to 200, then we will reduce rate to 70 cc/hour and if fingerstick blood sugar is more than 200, then we will reduce rate to 50 cc/hour and we have probably seen a lot better fingerstick blood sugar readings in last 12 hours. When I saw him this morning he was getting his hemodialysis. Objective: Vital signs: Reviewed. HEENT: Unremarkable. Lungs: Clear to auscultation. Heart: Sounds normal. Abdomen: Soft and bowel sounds normal. No guarding, rigidity, tenderness, distention. Extremities: No leg edema. Right heel exam shows bluish discoloration, unchanged from yesterday and his right heel was noted to be offloaded with a pillow. Neurologic: The patient does wake up upon verbal commands and he tried to communicate with me this morning. Impression: 1. Hypoglycemia. 2. Rule out adrenal failure. 3. Peripheral vascular disease. Plan: We will go ahead and continue current medication. Continue metoprolol and continue current Jevity with increased rate from 30 to 50 cc/hour. Continue IV D10W and monitor glucose and try to titrate the dose and monitor hourly fingerstick blood sugar readings. The weight was started yesterday and we will do cortisol stimulation test. Details and plan of treatment discussed with the patient's who was at bedside. CASE/MODL Voice ID: [id number] Report ID: [id number] [facility]
[2020-11-28 09:13] LABS: Blood Morphology Comment NOT SEEN (NOT SEEN); Platelet Estimate ADEQ; White Blood Cell Scan OK (OK)
[2020-11-28] MEDS ORDERED: D5 0.9 NS 1,000 ML IV SCH ×2 (10:00→12:06)
[2020-11-28] MEDS ORDERED: dexAMETHasone 4 MG TAB ONE (10:31)
[2020-11-28] MEDS ORDERED: METOPROLOL TAR 50 MG TAB ONE (10:31)
[2020-11-28] MEDS ORDERED: dexAMETHasone 4 MG/ML VIAL ONE (10:32)
[2020-11-28] MEDS ORDERED: dexAMETHasone 10 MG/ML VIAL ONE ×3 (11:02→20:21)
[2020-11-28] MEDS ORDERED: D5 0.9 NS 1,000 ML IV ONE (12:03)
[2020-11-28] MEDS ORDERED: D10W 250 ML IV ONE (12:03)
[2020-11-28] MEDS ORDERED: D10W 250 ML IV SCH ×2 (13:00→19:05)
[2020-11-28] MEDS: Meropenem 500 MG/100 ML IVPB IV SCH (18:00)
[2020-11-28 18:21] LABS: Potassium 4.8 mmol/L (3.5-5.1)
[2020-11-28] MEDS: DIGOXIN 0.25 MG/ML AMP IV SCH (18:30)
[2020-11-28] MEDS ORDERED: DIGOXIN 0.25 MG/ML AMP ONE (18:45)
[2020-11-28] MEDS ORDERED: Meropenem 500 MG/100 ML BAG ONE (18:45)
--- NOTE | 2020-11-28 20:21 | CON ---
Reason For Consultation: Consultation called by Dr. Smith because of altered mental status. History Of Present Illness: Mr. Yanes is a 65-year-old patient, who has been admitt ed for an extended period of time to [facility] initially on October 18 to , and now Dece mb to present with worsening cognitive functioning with a history of atrial fibrillation with a rapid ventricular response, but the patient was apparently discharged from [facility] on t he 22 of October to have rehab at [facility] and from there, was apparently discharged home, but then became less responsive, could not answer questions and was brought to [facility]. Dr. Smith's note in the emergency room at the time of his admission showed he could not say Dr. Smith's name, who is his primary care physician, and he was confused and disoriented, and apparently not fol lowing commands appropriately. His imaging of the head with a CT scan showed no acute ischemic or he morrhagic change, however, there was moderate small-vessel ischemic disease throughout. Repeated CT scans of the head done on November 25, 2020 and November 26, 2020 showed no interval change compared to t he study done more than a week ago. The patient has had to be restrained because of agitation. The nurses do say that he can move both arms equally well. He is able to occasionally track with his eye s. It turns out that the patient did have gangrene in the lower extremity and as a result on the h october, Dr. Hernandez performed the left wwjry-ocq-qicv amputation for his gangrene. It should be noted that his procalcitonin was elevated prior to that amputation suggestive of systemic involve ment and in addition, his white blood cell count was also elevated, currently 17.7 with neutrophils o f 90.8. His latest chest x-ray done on the did show mild CHF pattern and is not suggestive of a pneumonia. His KUB x-ray showed Dobhoff is in the stomach. His blood work showed episodes of glucos e down to 42 and 49, but over the last 2 days ranged up to 156 and low of 95. The patient has not been observed to have any seizure-like activity or asymmetry of the face and arm. Past Medical History: Hypertension, dyslipidemia, end-stage renal disease on hemodialysis. The mary ent reportedly was positive for COVID-19 a few months ago, atrial fibrillation. He had abnormal live r function after receiving amiodarone. Review of Systems: Not possible. The patient is not responding to verbal stimulation. Past Surgical History: Cholecystectomy, cervical spinal surgery, arteriovenous fistula for dialysis. Family History: Positive for stroke in father, brother with hypertension, sister with end-stage jose l disease. Social History: Reportedly no alcohol, tobacco, or IV drug use. Allergies: NO KNOWN DRUG ALLERGIES. Review of Systems: Not possible. Physical Examination: Vital Signs: Blood pressure 128/79, pulse up to 102, respiratory rate 14 to 18, temperature 99.1, ox ygen saturation 96% on room air. Weight 199 pounds, height 5 feet 9 inches, BMI 29.4. Neurologic: Mr. Yanes is resting in bed. He has spontaneous eye opening. He occasionally tracks. He does have visual threat response. At my evaluation, the patient did not move his arms spontaneous ly. Stimulation device to local withdrawal. He did not follow any verbal commands to blink, move hi s arms, but did again respond to visual threat response and did some mild tracking when my head was m mayra around his face. In terms of air movement, he has fair air movement bilaterally and he has some swelling of the left upper extremity, 1 to 2+ edema compared to the right side with trace edema. Hi s stump is under management of the surgical service, Dr. Hernandez. Neurologically, again he opens hi s eyes spontaneously and actually did somewhat to command, but did not follow instructions to blink, move arms, smile, or shake his head. He has no obvious asymmetry of his face in terms of pupillary s ize and reactivity, which is symmetric. Face looks symmetric at rest. Unable to evaluate his tongue and palate because he does not spontaneously open his mouth. Movement, the patient at this point di d not move spontaneously, but does have symmetric responses in terms of withdrawal to noxious stimuli in upper extremities. Assessment: Mr. Yanes is a 65-year-old patient with multiple reasons for encephalopathy, likely a ch ronic superimposed with a superimposed acute process. His moderate small vessel disease is consisten t with a xhwn-gw-smtasttr vascular dementia. Further, he has dysfunction in multiple organ systems i ncluding the renal and hepatic systems, which are likely contributing factors. In addition, there is likely a toxic encephalopathy given his systemic infection as measured by his elevated white blood c ell count. Plan: 1.The patient if possible may have MRI of brain to further rule out possibility of any ischemic even ts contributing to his encephalopathy and routine electroencephalogram. 2.The patient is to continue with dialysis and antibiotic treatment per Dr. Smith. It should be note d that his blood sugars have bend actually down to less than 24 and also may be contributing to his e ncephalopathy. LB/MODL Voice ID: [id number] Report ID: [id number]
--- NOTE | 2020-11-28 21:30 | PN ---
Date of Progress Note: 11/28/2020 Chief Complaint: Fluid overload, hypoglycemia. Patient is undergoing treatment for hypoglycemia and is on IV fluids with D10. Today, he was started on D5 NS in addition to D10 to control electrolytes . Patient has some fluid overload. Patient underwent dialysis yesterday for metabolic clearance and ultrafiltration. Review of Systems: Denies complaints, although patient is encephalopathic and cannot provide review of systems. Physical Examination: Lungs: Diminished breath sounds at bases. Heart: S1, S2. Abdomen: Soft, benign. Extremities: Slight peripheral edema. Impression And Plan: 1.End-stage renal disease. Continue dialysis, next treatment tomorrow. 2.Hypoglycemia. Patient is on steroids for adrenal insufficiency and patient is undergoing workup t o rule out insulinoma. Patient will have his C-peptide checked. TSH was ordered to rule out hypothy roidism and ACTH stimulation test is pending. 3.Anemia of chronic kidney disease. Continue to monitor hemoglobin level. Adjust JOE. 4.Renal osteodystrophy. Monitor phosphorus level. EB/MODL Voice ID: [id number] Report ID: [id number]
[2020-11-28] MEDS: HALOPERIDOL LACT 5 MG/ML INJ IV PRN (23:37)
[2020-11-28] MEDS ORDERED: HALOPERIDOL LACT 5 MG/ML INJ ONE (23:40)
[2020-11-29] MEDS ORDERED: dexAMETHasone 10 MG/ML VIAL ONE ×2 (03:57→20:41)
[2020-11-29] MEDS: dexAMETHasone 10 MG/ML VIAL IV SCH ×3 (05:18→20:55)
[2020-11-29] MEDS: PANTOPRAZOLE 40MG TABLET PO SCH (05:22)
[2020-11-29] MEDS: HALOPERIDOL LACT 5 MG/ML INJ IV PRN ×2 (06:34→20:54)
[2020-11-29] MEDS ORDERED: HALOPERIDOL LACT 5 MG/ML INJ ONE ×2 (06:47→20:43)
[2020-11-29] MEDS ORDERED: D5W 1,000 ML IV ONE (06:49)
--- NOTE | 2020-11-29 06:56 | PN ---
Date of Progress Note: 11/28/2020 Subjective: The patient was seen this morning for followup. No new complaints or problems reported by nursing staff. Overnight, his condition remained stable and he did not have any hypoglycemia over night. He is on IV fluid D10W and his tube feeding was kept on hold after midnight because of cortis ol stimulation test. Objective: Vital Signs: Reviewed. Hemodynamically, he is stable. HEENT: Unremarkable. Lungs: Clear to auscultation. No rhonchi or rales. Heart: Sounds normal. Abdomen: Soft. Bowel sounds normal. No guarding, rigidity, tenderness, or distention. Extremities: No leg edema. Right foot exam remains unchanged with discoloration of the heel, but no evidence of skin breakdown there. Left leg dressing present. Neurologic: The patient's mental status still altered, but he wakes up, opens his eyes, and nursing staff has reported improvement over last couple of days where patient communicates with the family, w akes up, but then also has intermittent periods of confusion also, but we have seen improvement in [facility] mental status over last couple of days, but it has been a slow improvement. Laboratory Data: Sodium 130, potassium 4.9, chloride 93, bicarb 32, BUN 32, creatinine 4.53, glucose 142. Fingerstick blood sugar readings reviewed. Impression: 1.Hypoglycemia. 2.Rule out adrenal failure. 3.End-stage renal disease, on hemodialysis. 4.Anemia due to chronic kidney disease. 5.Hypertension. 6.Chronic atrial fibrillation. Plan: We will go ahead and continue current anticoagulation therapy with Eliquis. Continue current antibiotics and continue to follow with Dr. Hernandez and Dr. Bragg from Neurology. We did make ad justment on his IV fluid D10W and reduced the rate and we will continue to reduce it over a period of time. Monitor blood sugar every 2 hours, and depending on that, we will make adjustment on the IV f luid rate. Continue tube feeding after cortisol stimulation test is done and we will continue IV nalini roid. CASE/MODL Voice ID: [id number] Report ID: [id number]
[2020-11-29 08:49] LABS: Potassium 5.3 mmol/L (3.5-5.1)
[2020-11-29] MEDS ORDERED: METOPROLOL TAR 25 MG TAB ONE (08:54)
[2020-11-29] MEDS: COLLAGENASE 30 GM OINTMENT TOP SCH (09:00)
[2020-11-29] MEDS: METOPROLOL TAR 50 MG TAB FT SCH ×2 (09:41→20:53)
[2020-11-29] MEDS ORDERED: NA CHLORIDE 0.9% 1,000 ML ONE (09:55)
[2020-11-29] MEDS ORDERED: METOPROLOL TAR 50 MG TAB ONE ×2 (09:55→20:41)
[2020-11-29] MEDS ORDERED: NA CHLORIDE 0.9% 1,000 ML IV SCH (10:00)
[2020-11-29] MEDS: HYDROCODONE/APAP 5/325 MG TAB FT PRN (10:18)
[2020-11-29] MEDS ORDERED: HYDROCODONE/APAP 5/325 MG TAB ONE (10:33)
[2020-11-29 12:48] LABS: C.diff Antigen/Toxin Ag neg : Tox neg (NEG : NEG)
--- NOTE | 2020-11-29 14:53 | PN ---
Date of Progress Note: 11/29/2020 Subjective: The patient was seen on dialysis. The patient was admitted to the hospital with altered mental status. The patient recently had hypoglycemia. The patient was started on tube feeding. Objective: Vital Signs: When I saw the patient, blood pressure 152/100, afebrile. Chest: Faint rales on the left base. Heart: S1, S2. Systolic murmur. Abdomen: Soft, nontender. Extremities: No edema. Neurologic: Alert, not confused. No focality. Laboratory Data: WBC 17.7, H and H 10/30.9, platelets 241. Sodium 128, potassium 5.3, bicarb 29, BUN 57, creatinine 5.9, calcium 8.9. Current Medications: The patient is on meropenem, vancomycin, Eliquis, metoprolol, lorazepam, Zofran, hydrocodone, morphine. Assessment And Plan: 1. End-stage renal disease with hyperkalemia, hyponatremia. We will dialyze the patient on low-potassium bath. 2. Hyperkalemia. The patient is going to be dialyzed on low-potassium bath. 3. Hyponatremia, corrected with dialysis. 4. Anemia of chronic kidney disease. Continue JOE. 5. Secondary hyperparathyroidism. The patient currently with poor intake. I do not see the need for any binder. 6. Atrial fibrillation. Continue Eliquis. 7. Altered mental status. We will follow up with Neurology. 8. Persistent hyponatremia, hyperkalemia and hypoglycemia. The patient is going to have a cortisol stimulation test today and we will follow up C-peptide to rule out for any insulinoma. time spend exam the patient face to face , place order , discussed the case with other pipe or steam fitter furnace installer hospitalist and other loans consultant 45 min. DOMINICK Voice ID: [id number] Report ID: [id number] ZAINAB
[2020-11-29] MEDS ORDERED: Meropenem 1 GM/100 ML BAG ONE (18:01)
[2020-11-29] MEDS: Meropenem 500 MG/100 ML IVPB IV SCH (18:21)
[2020-11-29] MEDS ORDERED: Meropenem 500 MG/100 ML BAG ONE (18:36)
[2020-11-29] MEDS: JEVITY 1.2 CAL LIQUID 1,000 ML BOT RTH SCH (21:42)
[2020-11-29] MEDS ORDERED: VANCOMYCIN 1 GM/VIAL ONE (21:43)
[2020-11-29] MEDS: VANCOMYCIN/NS 1 gm 1 GM/250 ML BAG IVPB SCH (21:43)
[2020-11-29] MEDS ORDERED: NA CHLORIDE 0.9% 250 ML ONE (21:43)
[2020-11-30] MEDS: HALOPERIDOL LACT 5 MG/ML INJ IV PRN ×3 (02:44→20:41)
[2020-11-30] MEDS ORDERED: HALOPERIDOL LACT 5 MG/ML INJ ONE ×3 (02:45→20:55)
[2020-11-30 05:39] LABS: Absolute Lymphocytes (CBC) 0.3 K/uL (0.7-4.9); Basophils % 0.3 % (0-1.3); Hematocrit 34.2 % (39.6-49.0); Lymphocytes % 1.9 % (15.3-44.8); MPV 7.8 fL (7.6-11.3); RBC Red Blood Cell Count 3.97 M/uL (4.33-5.43)
[2020-11-30 06:01] LABS: Potassium 5.5 mmol/L (3.5-5.1)
[2020-11-30] MEDS ORDERED: PANTOPRAZOLE 40MG TABLET PO ONE (06:26)
[2020-11-30] MEDS: PANTOPRAZOLE 40MG TABLET PO SCH (06:34)
--- NOTE | 2020-11-30 07:03 | PN ---
Date of Progress Note: 11/29/2020 Subjective: Patient was seen this morning for followup. He was lying in bed in ICU. Sleeping, arou sable. Speaks few words. Not in any distress. [facility] His fingerstick blood sugar readings reviewed. Objective: Vital signs: Reviewed. HEENT: Examination unremarkable. Lungs: Clear to auscultation. Heart: Sounds normal. Abdomen: Soft. Bowel sounds normal. No guarding, rigidity, tenderness, or distention. Extremities: No leg edema. Right foot third toe has darker appearance today compared to previous da y and this is something new in different finding. Laboratory Data: Chemistry results reviewed. Fingerstick blood sugar readings reviewed. Impression: 1.Hypoglycemia, resolved. 2.End-stage renal disease, on hemodialysis. 3.Adrenal insufficiency. 4.Hypertension. 5.Chronic atrial fibrillation. 6.Peripheral vascular disease. Plan: Patient is on antibiotic, we will continue that. His right foot third toe has shown some conc erning changes and this may turn into dry gangrene like his left foot fourth toe did. We will contin ue to follow with Dr. Hernandez. Hemodynamically, he is stable. Fingerstick blood sugar readings are stable. No more hypoglycemia. When I saw him in the morning, he was on Dobhoff tube feeding and hi s IV fluid from D10W was changed to normal saline and subsequently during the course of day, IV fluid was discontinued. The patient did receive dialysis today and as his mental status improved, we were able to discontinue Dobhoff tube and he has started to eat well without any difficulties and ate at least 75% of his meal today. I did go back to ICU in the evening time and talked with patient and fo und him much more awake, alert, communicating very well, answering questions appropriately. I will s ee him tomorrow for followup and earlier during the course of day, details were discussed with the tawana ortiz's . CASE/MODL Voice ID: [id number] Report ID: [id number]
[2020-11-30] MEDS: dexAMETHasone 4 MG TAB PO SCH ×2 (08:44→20:41)
[2020-11-30] MEDS: METOPROLOL TAR 50 MG TAB FT SCH ×2 (08:44→20:41)
[2020-11-30] MEDS: JEVITY 1.2 CAL LIQUID 1,000 ML BOT RTH SCH ×3 (08:44→20:42)
[2020-11-30] MEDS ORDERED: dexAMETHasone 4 MG TAB ONE ×2 (08:57→20:40)
[2020-11-30] MEDS ORDERED: METOPROLOL TAR 50 MG TAB ONE ×2 (08:57→20:45)
[2020-11-30] MEDS: COLLAGENASE 30 GM OINTMENT TOP SCH (09:00)
[2020-11-30] MEDS: HYDROCODONE/APAP 5/325 MG TAB FT PRN (09:13)
[2020-11-30] MEDS ORDERED: HYDROCODONE/APAP 5/325 MG TAB ONE (09:27)
[2020-11-30] MEDS ORDERED: APIXABAN 5 MG TABLET ONE ×3 (09:28→20:51)
[2020-11-30] MEDS: APIXABAN 2.5 MG TABLET FT SCH ×2 (09:41→20:42)
--- NOTE | 2020-11-30 10:09 | PN ---
Date of Progress Note: 11/30/2020 Problems: There are 2 problems. The patient has left foot gangrene for what he received left below- knee amputation, is doing great. The patient also has a right foot stage I decubitus ulcer. I have been consulted for that one too. The patient looks more awake and alert, better than in the last few days. He responds to command. Review of Systems: Denies any shortness of breath, any chest pain, any fever. Physical Examination: General: Patient is awake, alert, in no distress. Abdomen: Soft and depressible. Extremities: Left, a below-knee looks intact. Surgical site is intact, flap 100%. FCO draining mini mal. Over the right foot, patient has a decubitus ulcer on the right heel region. We have been watvero brayng that since he came the first day in the hospital and has not opened the skin yet, so we are tryi ng to keep this area elevated. We ordered the unloading boots for him. No cellulitis present in shanon t area. No need for debridement at this time. Laboratory Data: Blood work shows a WBC count of 17 with hemoglobin of 10.9. INR is 1.7, creatinine is 5.32. Assessment And Plan: 65-year-old patient comes to us with multiple medical problems. He has the lef t below-knee amputation. Also, he has decubitus ulcer in the right foot region, although that area h as not developed into gangrene yet. Circulation is poor, both sides. We will keep the right leg pallavi vated. We will just also keep the left below-knee offloaded. Continue medical treatment. Continue dialysis. We will follow the patient wi jess mckay. JULITO/MODL Voice ID: [id number] Report ID: [id number]
[2020-11-30] MEDS ORDERED: D50W 25 GM/50 ML SYRINGE IV ONE ×2 (11:45→12:28)
[2020-11-30] MEDS ORDERED: INSULIN -REGULAR HUMAN 50 UNIT/0.5 ML ML IV ONE (11:48)
[2020-11-30] MEDS ORDERED: INSULIN -REGULAR HUMAN 50 UNIT/0.5 ML ML ONE (12:31)
[2020-11-30] MEDS: ALBUTEROL 2.5 MG/3 ML NEB SOL NEB SCH ×2 (13:25→20:00)
[2020-11-30] MEDS ORDERED: ALBUTEROL 2.5 MG/3 ML NEB SOL ONE ×2 (13:25→20:05)
[2020-11-30] MEDS ORDERED: Meropenem 500 MG/100 ML BAG ONE (17:37)
[2020-11-30] MEDS: Meropenem 500 MG/100 ML IVPB IV SCH (17:56)
--- NOTE | 2020-11-30 23:56 | PN ---
Date of Progress Note: 11/30/2020 Subjective: The patient was admitted with failure to thrive, altered mental status. The patient was dialyzed, placed on Dobhoff, adrenal insufficiency was ruled out. Objective: Vital Signs: Blood pressure 138/87, pulse of 71. Chest: Clear to auscultation. Heart: S1, S2, systolic murmur. Abdomen: Soft, nontender. Extremities: No edema. Neuro: Alert. No focality. Laboratory Data: H and H 10.9/34.2. Sodium 134, potassium 5.5, bicarb 29, BUN 59, creatinine 5.3, calcium 9.1. Current Medications: The patient on include, 1. Meropenem. 2. Vancomycin. 3. Albuterol. 4. Eliquis. 5. Metoprolol. 6. Dexamethasone. 7. Pantoprazole. Assessment And Plan: 1. End-stage renal disease. We will continue the patient on dialysis. We will arrange for dialysis tomorrow. 2. Bacteremia MRSA. Continue vancomycin. Discontinue meropenem. 3. Failure to thrive. We will follow up with the primary. 4. Hypoglycemia, has been resolved. 5. Deconditioning. Continue PT, OT. Time spent discussing with the patient, [id number], using the translation, discussing with the staff and placing an order, discussing with over subspecialty and hospitalist 45 minutes. DOMINICK Voice ID: [id number] Report ID: [id number] MTDD
[2020-12-01] MEDS: PANTOPRAZOLE 40MG TABLET PO SCH (05:58)
[2020-12-01] MEDS ORDERED: PANTOPRAZOLE 40MG TABLET PO ONE (06:11)
--- NOTE | 2020-12-01 06:52 | PN ---
Date of Progress Note: 11/30/2020 Subjective: Patient was seen this morning for followup. No new complaints or problems reported by patient. Lying in bed, not in any distress. Objective: Vital Signs: Reviewed. HEENT: Unremarkable. Lungs: Clear to auscultation. Heart: Sounds normal. Abdomen: Soft. Bowel sounds normal. No guarding, rigidity, tenderness, or distention. Extremities: No leg edema. Right foot has shown some dark discoloration of the skin. Laboratory Data: White count 17, hemoglobin 10.9, platelets 258. Sodium 134, potassium 5.5, chloride 96, bicarb 29, BUN 59, creatinine 5.32. Assessment: 1. Adrenal insufficiency. 2. Hypoglycemia, resolved. 3. End-stage renal disease, on hemodialysis. 4. Chronic atrial fibrillation. 5. Hypertension. 6. Peripheral vascular disease. Plan: Patient's dexamethasone will be reduced today from 8 mg twice a day to 4 twice a day. We will go ahead and continue to monitor fingerstick blood sugar, but we can reduce the frequency now considering hypoglycemia problem has resolved. Continue to follow with vein pumper for dialysis support. Continue current antibiotic. Continue to follow up with Dr. Hernandez. Transfer order was written for the patient to move out of ICU to regular room, and I will see him tomorrow for followup. CASE/MODL Voice ID: [id number] Report ID: [id number] MTDD
--- NOTE | 2020-12-01 07:13 | PN ---
Date of Progress Note: 11/30/2020 CASE/MODL Voice ID: [id number] Report ID: [id number] MTDJames
[2020-12-01] MEDS ORDERED: dexAMETHasone 4 MG TAB ONE (08:13)
[2020-12-01] MEDS ORDERED: METOPROLOL TAR 50 MG TAB ONE (08:21)
[2020-12-01] MEDS ORDERED: APIXABAN 5 MG TABLET ONE ×2 (08:22→08:56)
[2020-12-01] MEDS: dexAMETHasone 4 MG TAB PO SCH ×2 (08:30→20:01)
[2020-12-01] MEDS: METOPROLOL TAR 50 MG TAB FT SCH ×2 (08:30→20:07)
[2020-12-01] MEDS: JEVITY 1.2 CAL LIQUID 1,000 ML BOT RTH SCH ×3 (08:31→20:01)
[2020-12-01] MEDS: COLLAGENASE 30 GM OINTMENT TOP SCH (08:34)
[2020-12-01] MEDS: APIXABAN 2.5 MG TABLET FT SCH ×2 (08:43→20:01)
[2020-12-01] MEDS: ALBUTEROL 2.5 MG/3 ML NEB SOL NEB SCH ×4 (08:47→20:00)
[2020-12-01] MEDS ORDERED: ALBUTEROL 2.5 MG/3 ML NEB SOL ONE ×2 (08:54→13:17)
[2020-12-01] MEDS: MORPHINE 2 MG/ML SYR IV PRN ×2 (09:07→20:16)
[2020-12-01] MEDS ORDERED: MORPHINE 2 MG/ML SYR ONE (09:22)
--- NOTE | 2020-12-01 13:51 | PN ---
Date of Progress Note: 12/01/2020 Subjective: The patient was admitted with altered mental status, hypoglycemia, poor intake, failure to thrive. The patient had wound infection. Physical Examination: Vital Signs: Blood pressure 157/67, pulse of 95. Chest: Clear to auscultation. Heart: S1, S2. Regular. Abdomen: Soft, nontender. Extremities: Trace edema. Neurologic: Alert and oriented. No focality. Laboratory Data: The patient's sodium 134, potassium 5.5, bicarb 29, BUN 59, creatinine 5.3, calcium of 9. Hemoglobin 10.9. Assessment And Plan: 1. End-stage renal disease. We will continue the patient on dialysis TTS. The patient is going to be dialyzed on low-potassium bath given the hyperkalemia. 2. Secondary hyperparathyroidism. The patient with poor intake. I do not see the need for binder. 3. Anemia of chronic kidney disease. Continue JOE. 4. Failure to thrive. We will follow up with the primary. 5. Hypoglycemia, resolved. 6. Deconditioning. Continue PT/OT. 7. Foot infection. Follow up with surgery. Follow up with the primary. Culture negative. We will discontinue meropenem as it can contribute to altered mental status. Time spent discussing with the patient, [id number], using the translation, discussing with the staff and placing an order, discussing with over subspecialty and hospitalist 45 minutes. DOMINICK Voice ID: [id number] Report ID: [id number] ZAINAB
[2020-12-02] MEDS: ALBUTEROL 2.5 MG/3 ML NEB SOL NEB SCH ×3 (01:30→14:00)
[2020-12-02] MEDS: PANTOPRAZOLE 40MG TABLET PO SCH (05:52)
[2020-12-02 07:19] LABS: Albumin 2.5 g/dL (3.4-5.0); Phosphorus 8.2 mg/dL (2.5-4.9)
[2020-12-02 07:23] LABS: Potassium 5.9 mmol/L (3.5-5.1)
[2020-12-02] MEDS: METOPROLOL TAR 50 MG TAB FT SCH ×2 (08:57→21:39)
[2020-12-02] MEDS: APIXABAN 2.5 MG TABLET FT SCH ×2 (08:58→21:40)
[2020-12-02] MEDS: dexAMETHasone 4 MG TAB PO SCH ×2 (08:58→21:40)
[2020-12-02] MEDS: COLLAGENASE 30 GM OINTMENT TOP SCH ×3 (09:00→21:39)
[2020-12-02] MEDS: JEVITY 1.2 CAL LIQUID 1,000 ML BOT RTH SCH ×3 (09:00→21:00)
--- NOTE | 2020-12-02 10:50 | RAD REPORT ---
EXAM DESCRIPTION: CT - Head Brain Wo Cont - 12/02/2020 10:34 am CLINICAL HISTORY: to rule out any bleed Headache, drowsiness COMPARISON: Head Brain Wo Cont dated 11/26/2020; Head Brain Wo Cont dated 11/25/2020 TECHNIQUE: All CT scans are performed using dose optimization technique as appropriate and may inclu de automated exposure control or mA/KV adjustment according to patient size. FINDINGS: No intracranial hemorrhage, hydrocephalus or extra-axial fluid collection.Mild generalized brain atrophy is present with mild periventricular and deep white matter chronic microvascular ische pérez changes.No areas of brain edema or evidence of midline shift. Vertebral arteries demonstrate mild atherosclerosis bilaterally. The paranasal sinuses and mastoids are clear. The calvarium is intact. IMPRESSION: No acute intracranial abnormality.
--- NOTE | 2020-12-02 11:41 | PN ---
Date of Progress Note: 12/01/2020 Subjective: Patient was seen for followup in the morning. He was still in ICU. No new complaints o r problems reported overnight. Vital signs reviewed. Patient denied any complaints. Communicating well and his mental status is back to his usual self again except just appears to be tired, but overa ll much better in last 2-3 days compared to how he was before that. Objective: Vital Signs: Reviewed. HEENT: Unremarkable. Lungs: Clear to auscultation. Heart: Sounds normal. Abdomen: Soft. Bowel sounds normal. No guarding, rigidity, tenderness, or distention. Extremities: No leg edema. Right foot exam remains unchanged with some dark discoloration of the ri ght foot 3rd toe appears unchanged. Impression: 1.Adrenal insufficiency. 2.End-stage renal disease, on hemodialysis. 3.Hypertension. 4.Chronic atrial fibrillation. 5.Peripheral vascular disease. 6.Abscess/cellulitis, left foot, status post left below-knee amputation. Plan: We will continue current steroid, which is IV Decadron. Continue current antibiotics and the patient is stable for transfer from ICU to medical floor and transfer orders were written yesterday. We will continue to follow with automation and control engineer for dialysis support. CASE/MODL Voice ID: [id number] Report ID: [id number]
--- NOTE | 2020-12-02 12:11 | PN ---
Date of Progress Note: 12/02/2020 Subjective: Patient was seen this morning for followup. He was lying in bed, not in distress. When I saw him, he appeared very sleepy. He woke up and told me his name, but he did not answer any other questions and went back to sleep. He was not in any distress. Objective: Vital Signs: Reviewed. HEENT: Unremarkable. Lungs: Clear to auscultation. Heart: Sounds normal. Abdomen: Soft. Bowel sounds normal. No guarding, rigidity, tenderness, or distention. Extremities: No leg edema. Right foot exam remains unchanged with dark discoloration of right foot third toe. Laboratory Data: Sodium 135, potassium 5.9, chloride 96, bicarb 29, BUN 64, creatinine 5.78 glucose 105. Impression: 1. End-stage renal disease, on hemodialysis. 2. Hypertension. 3. Chronic atrial fibrillation. 4. Adrenal insufficiency. Plan: We will go ahead and continue current medications and took his medications and after that his mental status has just changed, so I have advised her to contact neurologist, Dr. Bragg. CASE/MODL Voice ID: [id number] Report ID: [id number] ZAINAB
[2020-12-02] MEDS: HALOPERIDOL LACT 5 MG/ML INJ IV PRN (12:32)
--- NOTE | 2020-12-02 13:06 | P.PN ---
Subjective Date of Service: 12/02/20 Chief Complaint: AMS , gangrenous changes left foot subjctive 65-year-old gentleman, well known to me from the dialysis with significant past medical history of COPD, atrial fibrillation, hypertension, congestive heart failure, end-stage renal disease, on hemodialysis, TTS at [facility] through left armAV fistula, pt presented with AMS , pt was discharged from Rehab recently , senf for concern of AMS and decrease activity , found to have Foot gangrene S/P BKA today no change in clinical status K 5.9, will do short HD today and regular dialysis tomorrow Physical exam general: awake , NAD Neck; Supple, No elevated JVD hear: irregular rate and rhythm no murmur or rub Chest: CTAB, no rlaes or wheezes Abdomen: Soft , Nt Extremities Lt AKA, rt BKA with dressing A/p End-stage renal disease on HD TTsat HD today and tomorrow renal dose meds Foot gangrane cont Abx S/P BKA , Metabolic encepahlopathy due to sepsis now at baseline Anemia of chronic disease no need epogen Afib with RVR now rate controlled HTN Controlled total time spent 25min Physical Examination - Vital Signs Temperature: 97.6 F Blood Pressure: 126/85 Pulse: 81 Respirations: 16 Pulse Ox (%): 96
[2020-12-02] MEDS ORDERED: NA CHLORIDE 0.9% 1,000 ML IV SCH (14:00)
[2020-12-02] MEDS: HYDROCODONE/APAP 5/325 MG TAB FT PRN (14:14)
[2020-12-02] MEDS ORDERED: ALBUTEROL 2.5 MG/3 ML NEB SOL NEB PRN (15:50)
[2020-12-03 05:11] LABS: Albumin 2.5 g/dL (3.4-5.0); Phosphorus 7.8 mg/dL (2.5-4.9); Potassium 5.2 mmol/L (3.5-5.1)
[2020-12-03] MEDS: HYDROCODONE/APAP 5/325 MG TAB FT PRN (05:26)
[2020-12-03] MEDS: PANTOPRAZOLE 40MG TABLET PO SCH (05:30)
[2020-12-03] MEDS: MORPHINE 2 MG/ML SYR IV PRN (07:47)
[2020-12-03] MEDS: APIXABAN 2.5 MG TABLET FT SCH (09:00)
[2020-12-03] MEDS: JEVITY 1.2 CAL LIQUID 1,000 ML BOT RTH SCH ×3 (09:00→21:19)
[2020-12-03] MEDS: METOPROLOL TAR 50 MG TAB FT SCH (09:00)
[2020-12-03] MEDS: HYDROCODONE/APAP 5/325 MG TAB PO PRN ×2 (12:22→21:23)
[2020-12-03] MEDS: APIXABAN 2.5 MG TABLET PO SCH ×3 (12:22→21:16)
[2020-12-03] MEDS: dexAMETHasone 4 MG TAB PO SCH ×3 (12:22→21:16)
--- NOTE | 2020-12-03 12:27 | PN ---
Date of Progress Note: 12/03/2020 Subjective: The patient was seen this morning for followup. No new complaints or problems reported. He was seen soon after he just completed his dialysis. His mental status is better today. He is a wake, alert, recognized me, communicated with me. Denied any complaints. Objective: Vital Signs: Reviewed. HEENT: Unremarkable. Lungs: Clear to auscultation. Heart: Sounds normal. Abdomen: Soft. Bowel sounds normal. No guarding, rigidity, tenderness, or distention. Extremities: No leg edema. Right foot third toe has been appearing dark and it has turned into now what it appears to be dry gangrene type of problem over a period of last few to several days. Laboratory Data: Sodium 137, potassium 5.2, chloride 98, bicarb 31, BUN 61, creatinine 5.58, glucose 102. Impression: 1.Peripheral vascular disease. 2.Cellulitis/abscess, left foot, status post left below-knee amputation. 3.Adrenal insufficiency. 4.End-stage renal disease, on hemodialysis. 5.Atrial fibrillation. 6.Hypertension. Plan: The patient's blood pressure has been remaining slightly elevated so we will go ahead and incr ease the dose of metoprolol from 50 mg 2 times a day to 75 mg 2 times a day. Continue current Eliqui s for anticoagulation therapy. Continue current antibiotics. Continue to follow with plate finisher f or dialysis support and we will continue to follow with Dr. Hernandez. The patient is on dexamethasone 4 mg twice a day. His fingerstick bloo d sugar is stable now. CASE/MODL Voice ID: [id number] Report ID: [id number]
[2020-12-03] MEDS: D50W 25 GM/50 ML VIAL IV PRN (12:40)
--- NOTE | 2020-12-03 17:26 | P.PN ---
Subjective Date of Service: 12/03/20 Chief Complaint: AMS , gangrenous changes left foot subjctive 65-year-old gentleman, well known to me from the dialysis with significant past medical history of COPD, atrial fibrillation, hypertension, congestive heart failure, end-stage renal disease, on hemodialysis, TTS at [facility] through left armAV fistula, pt presented with AMS , pt was discharged from Rehab recently , senf for concern of AMS and decrease activity , found to have Foot gangrene S/P BKA today tolerated HD today , but AV site with more edema WBC trending up Physical exam general: awake , NAD Neck; Supple, No elevated JVD hear: irregular rate and rhythm no murmur or rub Chest: CTAB, no rlaes or wheezes Abdomen: Soft , Nt Extremities Lt AKA, rt BKA with dressing , Lt fistula site swelling A/p End-stage renal disease on HD TTsat HD on saturday renal dose meds Foot gangrane cont Abx S/P BKA , WBC trending up Metabolic encepahlopathy due to sepsis now at baseline Anemia of chronic disease no need epogen Afib with RVR now rate controlled HTN Controlled total time spent 25min Physical Examination - Vital Signs Temperature: 98.2 F Blood Pressure: 158/74 Pulse: 69 Respirations: 18 Pulse Ox (%): 95
[2020-12-03] MEDS: METOPROLOL TAR 50 MG TAB PO SCH (21:16)
[2020-12-03] MEDS: COLLAGENASE 30 GM OINTMENT TOP SCH (21:20)
[2020-12-03] MEDS ORDERED: dexAMETHasone 10 MG/ML VIAL IV ONE (22:27)
[2020-12-04] MEDS: HALOPERIDOL LACT 5 MG/ML INJ IV PRN (01:17)
[2020-12-04] MEDS: PANTOPRAZOLE 40MG TABLET PO SCH (05:14)
[2020-12-04 07:08] LABS: Albumin 2.5 g/dL (3.4-5.0); Phosphorus 6.3 mg/dL (2.5-4.9)
[2020-12-04] MEDS: D50W 25 GM/50 ML VIAL IV PRN (07:34)
[2020-12-04] MEDS: JEVITY 1.2 CAL LIQUID 1,000 ML BOT RTH SCH ×3 (09:00→21:00)
[2020-12-04] MEDS: APIXABAN 2.5 MG TABLET PO SCH ×2 (09:49→21:25)
[2020-12-04] MEDS: METOPROLOL TAR 50 MG TAB PO SCH ×2 (09:49→21:25)
[2020-12-04] MEDS: dexAMETHasone 4 MG TAB PO SCH ×2 (09:49→21:26)
[2020-12-04] MEDS: COLLAGENASE 30 GM OINTMENT TOP SCH (09:51)
--- NOTE | 2020-12-04 13:07 | P.PN ---
Subjective Date of Service: 12/04/20 Chief Complaint: AMS , gangrenous changes left foot subjctive 65-year-old gentleman, well known to me from the dialysis with significant past medical history of COPD, atrial fibrillation, hypertension, congestive heart failure, end-stage renal disease, on hemodialysis, TTS at [facility] through left armAV fistula, pt presented with AMS , pt was discharged from Rehab recently , senf for concern of AMS and decrease activity , found to have Foot gangrene S/P BKA today No overnight events now pt with rt leg toes gangrene , Surgery following , pt might benefit from lower extremity angiogram , will discuss with Surgery Pt with AVF pseudoaneurysum, will try to avoid it cannulation , if not then pt will need tunneled catheter placement Physical exam general: awake , NAD Neck; Supple, No elevated JVD hear: irregular rate and rhythm no murmur or rub Chest: CTAB, no rales or wheezes Abdomen: Soft , Nt Extremities Lt AKA, rt BKA with dressing , Lt fistula site swelling A/p End-stage renal disease on HD TTsat HD on Saturday renal dose meds Foot gangrane cont Abx S/P BKA , WBC trending up now pt with rt leg toes gangrene , Surgery following , pt might benefit from lower extremity angiogram , will discuss with Surgery Pt with AVF pseudoaneurysum will try to avoid it cannulation , if not then pt will need tunneled catheter placement Metabolic encepahlopathy due to sepsis now at baseline Anemia of chronic disease no need epogen Afib with RVR now rate controlled HTN Controlled total time spent 25min Physical Examination - Vital Signs Temperature: 97.8 F Blood Pressure: 165/81 Pulse: 80 Respirations: 18 Pulse Ox (%): 94
--- NOTE | 2020-12-04 14:15 | PN ---
Date of Progress Note: 12/04/2020 Subjective: Patient was seen this morning for followup. He was lying in bed, not in distress. Yest evening, nurse contacted me and informed me that the patient was refusing to eat and refusing t o take his medications including dexamethasone. So with diet, I ordered 1 dose of dexamethasone 4 mg IV for him yesterday evening and advised nurse to monitor fingerstick blood sugar during nighttime a nd gave appropriate instruction to either use IV D50 or IV fluid D5 normal saline if we have any hypo glycemia during nighttime. Overnight, he did not require any such intervention, but this morning his fasting glucose was low at 78, and patient's was present at bedside and she informed me that ye evening she brought some food from outside and he did eat a small amount of food that br ought up, but did not have adequate oral intake yesterday evening. This morning when I saw him, he w as sleeping, arousable, not in distress, but as I started talking to him, he started to cry as he got a little emotional about his overall health situation and what is going on lately. He did have dial ysis yesterday and I did talk to his flight communications operator yesterday. His flight communications operator is well aware of his f istula in the left arm with some superficial scab, and he is going to discuss with general surgeon as the flight communications operator has informed me that this is nothing new, he is well aware of it, and he is going t o talk to general surgeon about dialysis access or other option. He is also thinking about sending h im to some interventional radiologist also, so flight communications operator is handling that particular problem. Objective: HEENT: Unremarkable. Lungs: Clear to auscultation. Heart: Sounds normal. Abdomen: Soft. Bowel sounds normal. No guarding, rigidity, tenderness, distention. Extremities: No leg edema. Right foot exam: Right heel has a black discoloration of skin over heel . That area of distribution has remained unchanged, but it was dry and did not have any soft tissue swelling now. Today, we have seen some soft tissue swelling in this particular region. His right fo ot third toe appears gangrenous and it is involving approximately distal two-third of the toe and has some dark black discoloration near the nail bed area on the right foot second toe. This is exactly how the right foot third toe was looking in the beginning and then it progressed to now dry gangrene appearance. Impression: 1.Peripheral vascular disease. 2.Gangrene, right foot third toe. 3.Abscess/cellulitis, left foot, status post left below-knee amputation. 4.End-stage renal disease, on hemodialysis. 5.Atrial fibrillation, chronic. 6.Hypertension. 7.Hypoglycemia. 8.Adrenal insufficiency. Laboratory Data: Today, sodium 138, potassium 4, chloride 99, bicarb 33, BUN 49, creatinine 4.84, gl ucose 91 this morning and subsequently, it was 78 around 7 o'clock this morning and nurse was going t o give IV D50 when I saw him this morning Plan: We will continue current medications. Patient was encouraged to eat his meal and take medicat ion as prescribed regularly. I did talk to Dr. Hernandez as well as patient's , and Dr. Hernandez is going to evaluate his foot and he will communicate with the patient and family regarding his recom mendation, but unfortunately patient may require amputation on the right leg as well just like the wa y he did on the left leg. Our other concern is his oral intake of food as well as medications and if the patient goes home or goes to custodial and if he does not take medications or does not eat or drink, unfortunately he will be back to emergency room and hospital within a short period of time. I did talk to patient's that if this problem continues, we may have to consider feeding tube prem cement like PEG tube placement. Patient's is concerned that he might be giving up and I have th at concern as well. I will communicate with the patient's daughter. CASE/MODL Voice ID: [id number] Report ID: [id number]
[2020-12-05] MEDS: PANTOPRAZOLE 40MG TABLET PO SCH (05:45)
[2020-12-05 06:20] LABS: Absolute Lymphocytes (CBC) 1.2 K/uL (0.7-4.9); Basophils % 0.2 % (0-1.3); Hematocrit 34.9 % (39.6-49.0); Lymphocytes % 11.8 % (15.3-44.8); MPV 8.2 fL (7.6-11.3); RBC Red Blood Cell Count 4.11 M/uL (4.33-5.43)
[2020-12-05 06:26] LABS: Albumin 2.5 g/dL (3.4-5.0); Phosphorus 7.7 mg/dL (2.5-4.9); Potassium 4.5 mmol/L (3.5-5.1)
[2020-12-05 06:28] VITALS: BMI 26.6
[2020-12-05] MEDS: APIXABAN 2.5 MG TABLET PO SCH ×2 (08:32→20:42)
[2020-12-05] MEDS: METOPROLOL TAR 50 MG TAB PO SCH ×2 (08:32→20:42)
[2020-12-05] MEDS: dexAMETHasone 4 MG TAB PO SCH ×2 (08:32→20:42)
[2020-12-05] MEDS: JEVITY 1.2 CAL LIQUID 1,000 ML BOT RTH SCH ×3 (08:33→20:54)
[2020-12-05] MEDS: COLLAGENASE 30 GM OINTMENT TOP SCH (08:33)
--- NOTE | 2020-12-05 14:40 | PN ---
Date of Progress Note: 12/05/2020 Reason For Service: 1.History of left below-knee amputation. 2.New gangrenous changes in the right foot. History Of Present Illness: This is a case of a 65-year-old patient with severe peripheral vascular disease, on hemodialysis, who recently developed a gangrene on the left foot and received left below- knee amputation and now had some gangrenous changes of multiple digits in the right side and also par t of the foot and we have seen the patient for that. Yesterday, I had a long conversation with the holland hudson's about the options of below-knee amputation on the right side too and they have not made a commitment yet. Physical Examination: General: Today, the patient is less attentive than yesterday. Abdomen: Soft and depressible. Extremities: The left surgical area is intact with FCO drain minimal. The right side once again show s the gangrenous changes with the dry gangrene developing on multiple toes. Plan: Once again, waiting for the family to let us know if they want to us to proceed with below-kne e amputation on the right side. I discussed the case with the renal doctor yesterday. If they find a way also how to work the system on this patient, I have no objection to that if needed because that will still help improve his amputation site. I do not think we can save those toes at this moment. They are already modified, but at least increase the chance of better healing of the amputation site if something is found that could be stent or fixed. If that is not possible, then the plan is still the same so far with the findings that we have of right below-knee amputation. JULITO/MODL Voice ID: [id number] Report ID: [id number]
[2020-12-05] MEDS: D50W 25 GM/50 ML VIAL IV PRN ×3 (16:29→23:07)
[2020-12-05] MEDS: HYDROCODONE/APAP 5/325 MG TAB PO PRN (18:32)
[2020-12-05] MEDS ORDERED: D50W 25 GM/50 ML SYRINGE IV ONE ×2 (20:31→21:30)
[2020-12-05] MEDS ORDERED: D5 0.9 NS 1,000 ML IV SCH (21:00)
[2020-12-05] MEDS: DEXTROSE 10%-WATER 1,000 ML IV SCH (22:12)
--- NOTE | 2020-12-05 23:08 | PN ---
Date of Progress Note: 12/05/2020 Chief Complaint: End-stage renal disease, encephalopathy, history of severe hypoglycemia, fluid overload, diabetic foot infection, right toe gangrene, status post surgery. Review of Systems: The patient is lethargic today. Denies complaints. Physical Examination: Lungs: Diminished breath sounds at bases. Heart: S1, S2. Irregularly irregular. Chest: No crackles. No wheezing. Abdomen: Soft, benign. Extremities: Left AKA and right BKA with dressing. Left fistula site without swelling today. Impression And Plan: 1. End-stage renal disease. Dialysis will be done tomorrow. Continue dialysis 3 times per week. Continue p.o. fluid restriction, low-sodium diet. The patient will require tunnelled dialysis catheter placement for hd Access. 2. Metabolic encephalopathy due to sepsis. The patient is improving to baseline mental status. 3. Anemia of chronic kidney disease. Monitor hemoglobin level. At this point, the patient does not require JOE. 4. Atrial fibrillation with rapid ventricular response. Now rate controlled. 5. Hypertension, controlled. Continue current treatment. PADMINI/ELIDA Voice ID: [id number] Report ID: [id number] ZAINAB
[2020-12-06] MEDS: D50W 25 GM/50 ML VIAL IV PRN ×3 (01:57→19:54)
[2020-12-06] MEDS: HALOPERIDOL LACT 5 MG/ML INJ IV PRN (05:30)
[2020-12-06] MEDS: PANTOPRAZOLE 40MG TABLET PO SCH (05:51)
[2020-12-06 06:05] LABS: Albumin 2.3 g/dL (3.4-5.0); Phosphorus 7.3 mg/dL (2.5-4.9); Potassium 4.2 mmol/L (3.5-5.1)
--- NOTE | 2020-12-06 07:24 | PN ---
Date of Progress Note: 12/05/2020 Subjective: Patient was seen this morning for followup. No new complaints or problems reported by holland hudson. Lying in bed, not in distress. Objective: Vital Signs: Reviewed. HEENT: Unremarkable. Lungs: Clear to auscultation. Heart: Sounds normal. Abdomen: Soft. Bowel sounds normal. No guarding, rigidity, tenderness, or distention. Extremities: No leg edema. Right foot exam remains unchanged. Laboratory Data: White count 10, hemoglobin 11.4, platelets 213. Sodium 137, potassium 4.5, chlorid e 97, bicarb 31, BUN 70, creatinine 6.33, glucose 112. Impression: 1.End-stage renal disease, on hemodialysis. 2.Hypertension. 3.Chronic atrial fibrillation. 4.Peripheral vascular disease. 5.Gangrene and abscess, left foot, status post left below-knee amputation. 6.Gangrene, right foot. Plan: Patient's family is thinking about recommendation of amputation that Dr. Hernandez talked to willy little and patient about it. I have also discussed details over the weekend with patient's as wel l as the patient's daughter. We will continue current medication. Patient's oral intake of food is not normal and he was encouraged to use nutritional supplement. CASE/MODL Voice ID: [id number] Report ID: [id number]
[2020-12-06] MEDS: COLLAGENASE 30 GM OINTMENT TOP SCH (09:00)
[2020-12-06] MEDS: JEVITY 1.2 CAL LIQUID 1,000 ML BOT RTH SCH ×3 (09:00→21:00)
[2020-12-06] MEDS: DEXTROSE 10%-WATER 1,000 ML IV SCH (09:02)
[2020-12-06] MEDS: dexAMETHasone 4 MG TAB PO SCH (09:03)
[2020-12-06] MEDS: METOPROLOL TAR 50 MG TAB PO SCH ×2 (09:03→21:33)
[2020-12-06] MEDS: APIXABAN 2.5 MG TABLET PO SCH ×2 (09:04→21:35)
[2020-12-06] MEDS: DEXTROSE 10%-WATER 500 ML IV SCH ×3 (11:03→22:07)
[2020-12-06] MEDS: LORazepam 2 MG/ML VIAL IV PRN (14:56)
--- NOTE | 2020-12-06 16:53 | PN ---
Date of Progress Note: 12/06/2020 Subjective: The patient was admitted with hypoglycemia, deconditioning, ischemic leg. The patient continued to have hypoglycemia. The patient had poor intake. Physical Examination: Vital Signs: Blood pressure 140/70, pulse of 72, afebrile. Chest: Faint crackles bilateral base. Heart: S1, S2. Regular. Abdomen: Soft, nontender. Extremities: Dressing on the foot. Decreased pulse in both legs. Laboratory Data: WBC 10, H and H 11.4/34.9. Sodium 136, potassium 4.2, bicarb 31, BUN 88, creatinine 7.4, calcium 8.2, phosphorus 7.2, albumin 2.3, corrected calcium is 9.8. Current Medications: The patient on include; 1. Vancomycin. 2. Eliquis. 3. Metoprolol. 4. Haloperidol. 5. Jevity. 6. Dexamethasone. Assessment And Plan: 1. End-stage renal disease. We will continue the patient on dialysis TTS. 2. Secondary hyperparathyroidism. The patient has poor intake. We will monitor and hold on any binder. 3. Hypertension, controlled, optimal. Continue current medications. 4. Failure to thrive. Follow up with PCP for suspected insulinoma. We will follow up further workup. 5. Ischemic leg. Discussed with the surgeon. The patient set up for transfer for angiogram. We will follow up. Time spent discussing with the patient, [id number], using the translation, discussing with the staff and placing an order, discussing with over subspecialty and hospitalist 45 minutes. DOMINICK Voice ID: [id number] Report ID: [id number] ZAINAB
--- NOTE | 2020-12-06 21:24 | PN ---
Date of Progress Note: 12/06/2020 Diagnosis: History of gangrene of left foot, status post below-knee amputation. Now, the patient doss s new findings in the right foot with gangrenous changes. The patient has a history of a hemodialysi s and renal failure. Today, he is more awake than just yesterday. Yesterday was lethargic. Today i s more awake. Abdomen soft and depressible. Review of Systems: Cannot be obtained. Physical Examination: Abdomen: Soft and depressible. Extremities: Left BKA intact. FCO minimal. On the right side, the patient has gangrenous changes of several toes, also the heel at present. It is dry at this moment but he will need to be addressed. We discussed with the family in the past. We are going to bring this up once again tomorrow to see the plans under which is in case they want to proceed with the right below-knee amputation. JULITO/ELIDA Voice ID: [id number] Report ID: [id number]
[2020-12-06] MEDS: HYDROCODONE/APAP 5/325 MG TAB PO PRN (21:36)
[2020-12-07] MEDS: D50W 25 GM/50 ML VIAL IV PRN (05:19)
[2020-12-07] MEDS: PANTOPRAZOLE 40MG TABLET PO SCH (06:30)
[2020-12-07] MEDS: DEXTROSE 10%-WATER 500 ML IV SCH ×3 (06:54→18:07)
--- NOTE | 2020-12-07 07:16 | PN ---
Date of Progress Note: 12/06/2020 Subjective: The patient was seen this morning for followup. No new complaints or problems reported by patient or nursing staff. He was lying in bed, not in distress. Denies any specific complaints. Objective: Vital Signs: Reviewed. HEENT: Unremarkable. Lungs: Clear to auscultation. Heart: Sounds normal. Abdomen: Soft. Bowel sounds normal. No guarding, rigidity, tenderness, or distention. Extremities: No leg edema. Right foot has dark black skin over heel and right foot third toe. Left leg is status post below-knee amputation with presence of drain. Laboratory Data: The patient's insulin and C-peptide results came back. His insulin level is extrem grecia elevated at 295.4 with normal range is less than 19.6. His C-peptide level came back at 85.30 wi th normal range 0.8 to 3.85. His chemistry today sodium 136, potassium 4.2, chloride 95, bicarb 31, BUN 88, creatinine 7.43, glucose 163. Impression: 1.Insulinoma. 2.Hypoglycemia secondary to above. 3.End-stage renal disease, on hemodialysis. 4.Chronic atrial fibrillation, on anticoagulation therapy. 5.Hypertension. 6.Peripheral vascular disease. 7.Cellulitis/abscess, left foot, status post below-knee amputation, organism methicillin-resistant S taphylococcus aureus. Plan: 1.After we reviewed patient's insulin and C-peptide level, it is my concern that the patient has ins ulinoma as underlying cause for this severe hypoglycemia problem. 2.He is currently on dexamethasone 4 mg twice a day and as of today we will be reducing dose to 4 mg once a day and plan is to taper off dexamethasone over a period of next few days. The patient had a CAT scan of the abdomen done in June 2020, so about 4 months ago and his pancreas was reported as unremarkable at that time. The patient requires higher level of care with this concerns about insuli noma with persistent severe hypoglycemia and transfer to higher level of care at [facility] was recommended to the patient and I also contacted his daughter and all the detai ls were discussed with her as well. Family is in agreement and daughter will communicate with her si pattie and Mrs. Yanes. We will continue IV fluid D10W which was started last night with the patient's hypoglycemia problem again and 1 or 2 doses of IV D50 with continuous IV fluid D10W at 50 cc/hour has stabilized his blood sugar and it has remained in the range of 80-130 range. We will continue curre nt antibiotic which is vancomycin with dialysis. Continue to follow with [facility] for dialysis s upport. During the course of day today, I was able to communicate with hospitalist at [facility]. Details were discussed with the hospitalist and acceptance was given. During later part of the day late evening different hospitalist called and talked to me and informed me that she does not feel comfortable taking patient to the medical floor and they recommended ICU placement since the pa angel is on every hour fingerstick blood sugar. All fingerstick results reviewed with her and they s till did not feel comfortable taking patient to the floor, so now we are waiting for ICU bed to becom e available for the patient. Once ICU bed becomes available, we will be able to transfer patient. T he patient is medically stable for transfer. CASE/MODL Voice ID: [id number] Report ID: [id number]
[2020-12-07] MEDS: JEVITY 1.2 CAL LIQUID 1,000 ML BOT RTH SCH ×3 (09:00→21:00)
[2020-12-07] MEDS: COLLAGENASE 30 GM OINTMENT TOP SCH (09:00)
[2020-12-07] MEDS: dexAMETHasone 4 MG TAB PO SCH (09:44)
[2020-12-07] MEDS: METOPROLOL TAR 50 MG TAB PO SCH ×2 (09:44→21:47)
[2020-12-07] MEDS: APIXABAN 2.5 MG TABLET PO SCH ×2 (09:44→21:47)
[2020-12-07] MEDS: HYDROCODONE/APAP 5/325 MG TAB PO PRN ×2 (09:45→16:13)
[2020-12-07] MEDS: LORazepam 2 MG/ML VIAL IV PRN (13:07)
--- NOTE | 2020-12-07 23:17 | PN ---
Date of Progress Note: 12/07/2020 Subjective: The patient was admitted with foot infection, patient failure to thrive, persistent hypoglycemia due to insulinoma. Objective: Vital Signs: Blood pressure 150/85, pulse of 88. Chest: Faint rales, bilateral base. Heart: S1, S2. Systolic murmur. Abdomen: Soft, nontender. Extremities: Dressing on the foot. Laboratory Data: H and H 11.4/34.9. Sodium 136, potassium 4.2, bicarb 31, BUN 88, creatinine 7.4, calcium 8.2, phosphorus 7.3, albumin 2.3. Current Medications: The patient on include; 1. Vancomycin. 2. Eliquis. 3. Metoprolol 75 b.i.d. 4. Haloperidol as needed. 5. Dexamethasone. 6. Pantoprazole. 7. Hydrocodone p.r.n. Assessment And Plan: 1. End-stage renal disease. Giving the elevation in the BUN with decreased appetite, I am going to try to dialyze the patient back to back, try to establish better clearance if that can contribute to his symptoms, and we will follow up the patient. 2. Hypertension, controlled, optimal. Continue current treatment. 3. Anemia of chronic kidney disease. No need for JOE. 4. Secondary hyperparathyroid. The patient has poor intake. We will hold on the binder. 5. Hypoglycemia, secondary to questionable insulinoma/sepsis. Follow up with the primary. Continue current antibiotic. Time spent discussing with the patient, [id number], using the translation, discussing with the staff and placing an order, discussing with over subspecialty and hospitalist 45 minutes. DOMINICK Voice ID: [id number] Report ID: [id number] MTDJames
[2020-12-08] MEDS: DEXTROSE 10%-WATER 500 ML IV SCH ×4 (02:09→21:08)
[2020-12-08] MEDS: LORazepam 2 MG/ML VIAL IV PRN ×2 (04:58→12:54)
[2020-12-08 05:20] LABS: Absolute Lymphocytes (CBC) 1.2 K/uL (0.7-4.9); Basophils % 0.3 % (0-1.3); Hematocrit 30.7 % (39.6-49.0); Lymphocytes % 11.4 % (15.3-44.8); MPV 8.1 fL (7.6-11.3); RBC Red Blood Cell Count 3.63 M/uL (4.33-5.43)
[2020-12-08 05:48] LABS: Potassium 4.4 mmol/L (3.5-5.1)
[2020-12-08] MEDS: D50W 25 GM/50 ML VIAL IV PRN ×4 (05:56→17:59)
[2020-12-08] MEDS: PANTOPRAZOLE 40MG TABLET PO SCH (06:26)
--- NOTE | 2020-12-08 07:56 | PN ---
Date of Progress Note: 12/07/2020 Subjective: The patient was lying in bed, not in any distress. Objective: Vital Signs: Reviewed. His last temperature was 97.5, pulse 71, respiratory rate 18, bl ood pressure 133/82. HEENT: Unremarkable. Lungs: Clear to auscultation. Heart: Sounds normal. Abdomen: Soft. Bowel sounds normal. No guarding, rigidity, tenderness, distention. Extremities: No leg edema. Right foot exam remains unchanged with dark black colored skin on the he el as well as dark skin over the third toe which has dry gangrene appearance and nail bed of the seco nd toe also has similar appearance and all these things remains unchanged. Laboratory Data: Fingerstick blood sugar readings reviewed. Overnight, the patient remained on hour ly blood sugar checks and results reviewed. Impression: 1.Insulinoma. 2.Hypoglycemia secondary to above. 3.End-stage renal disease, on hemodialysis. 4.Chronic atrial fibrillation. 5.Chronic anticoagulation therapy. 6.Hypertension. 7.Bilateral peripheral vascular disease, status post left below-knee amputation due to abscess and c ellulitis of left foot and gangrene of left foot fourth toe. Plan: We will go ahead and continue IV fluid, which is D10W at 50 cc/hour. During the course of day today, the patient's blood sugar has remained stable, so we have changed his blood sugar to every 4 hours check and he has remained stable with that. Oral intake of food was encouraged as well as he w as encouraged to drink orange juice and take supplements like Ensure or Jevity. We will continue to monitor his blood sugar. So far, we are unable to transfer him to [facility] for higher level of care a nd we made multiple attempts today to send him to [facility] and we were not able to transfer. W adriana will continue to do so. Continue current antibiotic management and follow up with [employer] support. CASE/MODL Voice ID: [id number] Report ID: [id number]
[2020-12-08] MEDS: METOPROLOL TAR 50 MG TAB PO SCH ×2 (08:38→21:10)
[2020-12-08] MEDS: dexAMETHasone 4 MG TAB PO SCH (08:38)
[2020-12-08] MEDS: JEVITY 1.2 CAL LIQUID 1,000 ML BOT RTH SCH ×3 (08:38→22:25)
[2020-12-08] MEDS: APIXABAN 2.5 MG TABLET PO SCH ×2 (08:38→21:11)
[2020-12-08] MEDS: HYDROCODONE/APAP 5/325 MG TAB PO PRN ×2 (08:38→22:22)
[2020-12-08] MEDS: COLLAGENASE 30 GM OINTMENT TOP SCH (09:00)
[2020-12-08] MEDS ORDERED: NEPRO SHAKE 237 ML CAN PO SCH (09:00)
[2020-12-08 10:08] VITALS: O2SAT 98
[2020-12-08] MEDS ORDERED: DIPHENHYDRAMINE 50 MG/ML VIAL IV ONE (13:01)
--- NOTE | 2020-12-08 14:32 | PN ---
Date of Progress Note: 12/08/2020 Subjective: The patient was admitted with hypoglycemia, sepsis. The patient has been under workup for insulinoma. The patient is on D10 to maintain blood pressure. Objective: General: The patient today is more awake. Vital Signs: Blood pressure 148/77, pulse of 83, afebrile. Chest: Faint rales on the left base. Heart: S1, S2. Systolic murmur. Abdomen: Soft, nontender. Extremities: Trace edema. Dressing on the foot. Neuro: Alert. No focality, but sleepy. Laboratory Data: H and H 10.2/30.7. Sodium 131, potassium 4.4, bicarb 28, BUN 63, creatinine 7, calcium of 8. Current Medications: The patient on include; 1. Vancomycin. 2. Diphenhydramine. 3. Eliquis. 4. Metoprolol. 5. Haloperidol. 6. Lorazepam. 7. Dexamethasone. 8. Pantoprazole. 9. D10 at 50 hour. Assessment And Plan: 1. End-stage renal disease. We will continue the patient on dialysis 3 times a week, TTS. The patient is scheduled for dialysis today. We will follow up the patient. 2. Hypertension, controlled, optimal. Continue current medications. 3. Failure to thrive. I am going to start the patient on Megace and we will continue D10. 4. Hypoglycemia, possible insulinoma. We will follow up with the primary. Awaiting for transfer to [facility] for further workup. We will add Megace and we will follow up the patient. 5. Ischemic foot. Hopefully, the patient is going to need angiogram. Awaiting for transfer. Time spent discussing with the patient, [id number], using the translation, discussing with the staff and placing an order, discussing with over subspecialty and hospitalist 45 minutes. DOMINICK Voice ID: [id number] Report ID: [id number] ZAINAB
[2020-12-08 19:23] LABS: HBsAG Nonreactive (Nonreactive)
[2020-12-08 20:28] VITALS: BP 161/89; TEMP 97.7
[2020-12-09] MEDS ORDERED: MEGESTROL 40 MG TAB PO SCH (09:00)
--- NOTE | 2020-12-28 08:28 | EEG ---
CHART: [id number] TEST ID#: [id number] DATE OF STUDY: 11/29/2020 THE EEG WAS RECORDED PORTABLE IN THE ER/ICU ON A 17 CHANNEL MACHINE. ELECTRODES WERE APPLIED IN THE USUAL MANNER USING THE INTERNATIONAL 10-20 SYSTEM. THE WAKING BACKGROUND RHYTHM IN THIS RECORD CONSISTS OF FAIRLY WELL DEVELOPED AND FAIRLY WELL ORGANIZED WAVES OF 7 HZ., IN A WIDE DISTRIBUTION WHICH ATTENUATE POORLY WITH EYE OPENING. LOW VOLTAGE 15-18 HZ ACTIVITY IS EXPRESSED IN THE FRONTAL REGIONS. THERE ARE NO FOCAL OR LATERALIZING FEATURES. NO EPILEPTIFORM ACTIVITY APPEARS. SLEEP DID NOT OCCUR. HYPERVENTILATION WAS NOT PERFORMED. PHOTIC STIMULATION PRODUCED NO DRIVING BILATERALLY. IMPRESSION: THIS IS A MILDLY ABNORMAL EEG DUE TO A MILDLY SLOW BACKGROUND. THIS IS A NON-SPECIFIC FINDING INDICATING THE PRESENCE OF A MILD DIFFUSE DISTURBANCE IN CEREBRAL FUNCTION.
--- NOTE | 2021-01-12 01:40 | DS ---
Date of Discharge: 12/08/2020 Disposition: Transferred to [facility] in [place] via ground ambulance. Labs And Investigation: Done during this hospitalization, last CBC from December 08, 2020, white count 10.2, hemoglobin 10.2, platelets 197. Last chemistry from December 08, 2020, sodium 131, potassium 4.4, chloride 93, bicarb 28, BUN 63, creatinine 7, glucose 113. His stool for C. diff was negative. His cortisol stimulation test, ACTH level was less than 5, baseline cortisol 5.3, 30-minute cortisol 19.6, 60-minute cortisol was 22.9, and 90-minute cortisol was 28.2. His insulin level was 295.4 with normal ranges less than 19.6. His C-peptide level was 85.30 with normal range 0.8 to 3.85. Physical Examination: HEENT: Unremarkable. Lungs: Clear to auscultation. Heart: Sounds normal. Abdomen: Soft. Bowel sounds normal. No guarding, rigidity, tenderness, distention. Extremities: No leg edema. Right foot exam remains unchanged with dark black colored skin on the heel as well as dark skin over the third toe which has dry gangrene appearance and nail bed of the second toe also has similar appearance and all these things remains unchanged. Hospital Course: This is a 65-year-old very pleasant male patient who came into emergency room with generalized weakness and altered mental status. Please see dictated H and P for more information. Upon evaluation, the patient was noted to have gangrene of the left foot fourth toe, and he had some cellulitis of left foot and abscess also involving left foot. He was admitted to the hospital with this problem along with multiple other comorbidities. We consulted piano stringer for his end-stage renal disease, on dialysis support and Dr. Hernandez from General Surgery was consulted. The patient had arterial Doppler of lower extremity done during this hospitalization and that with moderate to severe distal peripheral vascular disease. His CAT scan of the head was negative for any acute intracranial changes. Foot x-ray, no fracture or dislocation. Bones are osteoporotic, large heel spur. No bony destructive lesion. The patient was evaluated in ER. He was admitted to hospital. Empiric antibiotics were started for his left foot abscess along with cellulitis and gangrene of the left foot fourth toe. Dr. Hernandez recommended left leg below-knee amputation, which was done during this hospitalization. After this surgery, the patient started to have hypoglycemia problem probably about a day or so after this surgery, and he had significant hypoglycemia problem to the extent that he required multiple IV injections of D50 along with continuous IV fluid containing dextrose solution. We also had to move him to ICU for a very aggressive monitoring and management of this severe hypoglycemia problem. At one point, he required anywhere between 10 to 15 injections of D50 within 24 hours on top of continuous IV fluid infusion of dextrose solution. We were concerned about 2 possibilities, 1 was adrenal failure and cortisol stimulation test was done, and after a while, his condition stabilized and then he had recurrence of this severe hypoglycemia problem and workup also included insulin and C-peptide level, which came back elevated. So now clinically we are concerned about the patient having insulinoma. All these details were discussed with the patient's and the patient's daughter, and it was recommended for patient to go to [place] for higher level of care. Details were discussed with physician at [facility] in [place], and the patient once accepted was transferred via ground ambulance in stable condition. The patient also started to have some cyanotic and dry gangrene problem of the right heel and right foot toe and eventually he probably will require amputation of the right leg also. Final Diagnoses: 1. Gangrene, left foot, fourth toe. 2. Abscess, left foot. 3. Cellulitis, left foot. 4. Peripheral vascular disease, bilateral legs. 5. End-stage renal disease, on hemodialysis. 6. Insulinoma. 7. Anemia due to chronic kidney disease. 8. Paroxysmal atrial fibrillation. 9. Hypertension. 10. Hyperlipidemia. 11. Chronic diastolic congestive heart failure. 12. Cervical spondylosis. 13. Osteoarthritis, multiple sites. 14. Severe hypoglycemia. CASE/MODL Voice ID: [id number] Report ID: [id number]
== END 2020-12-08 23:47 | disposition short-term general hospital (02) | DRG 853 ==
LOC: ER 15:38 → ERHOLD 19:18 → 2ND 11-17 07:52 → ERHOLD 11-25 20:06 → 2ND 12-01 16:07
PROVIDERS: ADMIT Internal Medicine; ATTEND Internal Medicine
PROC: 0Y6J0Z1 Detachment at Left Lower Leg, High, Open Approach (ICD-10-PCS; 2020-11-16)
PROC: 0Y9G3ZZ Drainage of Left Knee Region, Percutaneous Approach (ICD-10-PCS; 2020-11-16)
PROC: 0KBW0ZZ Excision of Left Foot Muscle, Open Approach (ICD-10-PCS; principal; 2020-11-17 14:00)
PROC: 5A1D70Z Performance of Urinary Filtration, Intermittent, Less than 6 Hours Per Day (ICD-10-PCS; 2020-11-19)
PROC: 06HY33Z Insertion of Infusion Device into Lower Vein, Percutaneous Approach (ICD-10-PCS; 2020-11-25)
DX: A41.02 Sepsis due to Methicillin resistant Staphylococcus aureus (principal); N18.6 End stage renal disease; G93.41 Metabolic encephalopathy; L02.612 Cutaneous abscess of left foot; I50.32 Chronic diastolic (congestive) heart failure; I13.2 Hypertensive heart and chronic kidney disease with heart failure and with stage 5 chronic kidney disease, or end stage renal disease; M86.8X7 Other osteomyelitis, ankle and foot; E27.40 Unspecified adrenocortical insufficiency; E11.52 Type 2 diabetes mellitus with diabetic peripheral angiopathy with gangrene; I96 Gangrene, not elsewhere classified; E87.1 Hypo-osmolality and hyponatremia; N25.81 Secondary hyperparathyroidism of renal origin; T82.510A Breakdown (mechanical) of surgically created arteriovenous fistula, initial encounter; E11.22 Type 2 diabetes mellitus with diabetic chronic kidney disease; E11.649 Type 2 diabetes mellitus with hypoglycemia without coma; E11.621 Type 2 diabetes mellitus with foot ulcer; L97.529 Non-pressure chronic ulcer of other part of left foot with unspecified severity; L03.032 Cellulitis of left toe; E78.5 Hyperlipidemia, unspecified; E87.5 Hyperkalemia; M19.90 Unspecified osteoarthritis, unspecified site; L89.891 Pressure ulcer of other site, stage 1; F01.50 Vascular dementia, unspecified severity, without behavioral disturbance, psychotic disturbance, mood disturbance, and anxiety; I48.0 Paroxysmal atrial fibrillation; D63.1 Anemia in chronic kidney disease; I99.8 Other disorder of circulatory system; D37.8 Neoplasm of uncertain behavior of other specified digestive organs; M47.892 Other spondylosis, cervical region; J44.9 Chronic obstructive pulmonary disease, unspecified; I25.10 Atherosclerotic heart disease of native coronary artery without angina pectoris; E87.70 Fluid overload, unspecified; N25.0 Renal osteodystrophy; R62.7 Adult failure to thrive; Z99.2 Dependence on renal dialysis; Z86.16 Personal history of COVID-19; Z79.01 Long term (current) use of anticoagulants; Z79.899 Other long term (current) drug therapy; Z90.49 Acquired absence of other specified parts of digestive tract; Z68.25 Body mass index [BMI] 25.0-25.9, adult; Z20.822 Contact with and (suspected) exposure to COVID-19
CPT/HCPCS: 36415; 51702; 70450; 71045; 74018; 80048; 80069; 80076; 80202; 81003; 82024; 82140; 82533; 82805; 82947; 83525; 83605; 83735; 83880; 84145; 84484; 84681; 85025; 85610; 87040; 87045; 87046; 87070; 87075; 87077; 87086; 87088; 87186; 87205; 87324; 87340; 87449; 88304; 88307; 88311; 90935; 93005; 93925; 95816; 96365; 96375; 97110; 97161; 97530; 99285; J0696; J0834; J1100; J1160; J1200; J1630; J1644; J2185; J2250; J2270; J2370; J2405; J2704; J2930; J3010; J3370; J3590; J7030; J7040; J7042; J7050; J7799; J8540; P9047; U0002; U0003